=== PATIENT | male | born 1945 | race Caucasian/White ===

== ENCOUNTER 2022-07-16 14:44 | Emergency (ER) | payer OTHER ==
--- NOTE | 2022-07-16 15:00 | ERPHSYRPT ---
- History of Present Illness Time Seen by Provider: 07/16/22 15:00 Source: patient, family Exam Limitations: no limitations Physician History: This is a 76-year-old white male who has a history of renal disease, hyperlipidemia, gastroesophageal reflux disease, diabetes, hypertension, coronary artery disease with cardiac stent in place and a stroke in the past without residual effect noticed in the last 3 weeks since his COVID-19 booster with Moderna injection, he has had worsening weakness, near syncopal episodes, intermittent speech changes (slurring of speech). His most recent episode of slurred speech was 3 days ago but it resolved on its own completely. Today, he has just felt very weak. When he arrived to the emergency department his lying flat blood pressure to standing dropped 40 to 50 mmHg. Patient was dizzy as well. Patient does see a naval architect specialist as well as manager content. He does not recall her names. I obtained additional history from the patient's as well as old charts from [facility]. Patient denies chest p ain. He denies shortness of breath. Timing/Duration: week(s), worse Severity: moderate Associated Symptoms: weakness, other (Near syncope), No nausea, No vomiting, No abdominal pain, No shortness of breath, No chest pain Allergies/Adverse Reactions: tetracycline [Tetracycline] Allergy (Verified 07/16/22 15:13) Home Medications: Aspirin EC 81 mg [Ecotrin 81 mg] 81 mg PO DAILY 12/17/12 [History] Cyanocobalamin (Vitamin B-12) [Vitamin B-12] 1,000 mcg PO DAILY 12/17/12 [History] Glyburide 5 mg [Micronase 5 MG] 10 mg PO BID 12/17/12 [History] Hydrocodone/APAP 5/325 [[place] 5/325 mg] 1 each PO Q4H PRN PRN 12/17/12 [History] Amlodipine Besylate 5 mg [Norvasc 5 mg] 5 mg PO DAILY 07/16/22 [History] Atorvastatin Calcium 10 mg PO DAILY 07/16/22 [History] Cetirizine HCl 10 mg PO DAILY 07/16/22 [History] Cholecalciferol (Vitamin D3) [Vitamin D3] 125 mcg PO DAILY 07/16/22 [History] Empagliflozin [Jardiance] 10 mg PO QAM 07/16/22 [History] Insulin Glargine [Lantus Insulin] 25 unit SQ DAILY 07/16/22 [History] Isosorbide Mononitrate [Isosorbide Mononitrate ER] 30 mg PO QAM 07/16/22 [History] Latanoprost/Pf [Latanoprost 0.005% Eye Drop] 1 drop OP HS 07/16/22 [History] Metoprolol Tartrate 25 mg [Lopressor 25MG Tab] 25 mg PO BID 07/16/22 [History] Nitroglycerin 0.4 mg (Ed) [Nitrostat 0.4 MG (ED)] 0.4 mg SL UD 07/16/22 [History] Semaglutide [Ozempic] 0.5 mg SQ WEEKLY 07/16/22 [History] Sodium Bicarbonate 650 mg PO DAILY 07/16/22 [History] Ticagrelor [Brilinta] 90 mg PO BID 07/16/22 [History] Hx Tetanus, Diphtheria Vaccination/Date Given: Yes Hx Influenza Vaccination/Date Given: Yes Hx Pneumococcal Vaccination/Date Given: Yes Travel Risk - International Travel Have you traveled outside of the country in past 3 weeks: No - Coronavirus Screening Are you exhibiting any of the following symptoms?: No Close contact with a COVID-19 positive Pt in past 14-21 Days: No - Vaccine Status Have you recieved a Covid-19 vaccination: Yes Document Preparer Microfilming: Moderna - Review of Systems Constitutional: Weakness Eyes: No Symptoms Ears, Nose, & Throat: No Symptoms Respiratory: No Symptoms Cardiac: No Symptoms Abdominal/Gastrointestinal: No Symptoms Musculoskeletal: No Symptoms Skin: No Symptoms Neurological: Dizziness Psychological: No Symptoms Endocrine: No Symptoms Hematologic/Lymphatic: No Symptoms Immunological/Allergic: No Symptoms All Other Systems: Reviewed and Negative - Past Medical History Pertinent Past Medical History: Yes Neurological History: Stroke Cardiac History: Coronary Artery Disease, Hypertension Endocrine Medical History: Diabetes Type II Musculoskeletal History: Arthritis - Past Surgical History Past Surgical History: Yes Cardiac: Cardiac Stent Other Surgical History: DORSAL SIMULATOR - Social History Smoking Status: Smoker, status unknown Exposure to second hand smoke: No Drug Use: none Patient Lives Alone: No - Nursing Vital Signs Nursing Vital Signs: Initial Vital Signs Pulse Rate 83 01/10/23 14:55 Respiratory Rate 18 07/16/22 14:55 Blood Pressure 118/75 07/16/22 14:55 O2 Sat by Pulse Oximetry 100 07/16/22 14:55 Pain Scale Pain Intensity 0 - Physical Exam General Appearance: no apparent distress, alert, anxiety, thin Eye Exam: PERRL/EOMI, eyes nml inspection Ears, Nose, Throat Exam: normal ENT inspection, moist mucous membranes Neck Exam: normal inspection, non-tender, supple, full range of motion Respiratory Exam: normal breath sounds, lungs clear, airway intact, No chest tenderness, No respiratory distress Cardiovascular Exam: regular rate/rhythm, normal heart sounds, normal peripheral pulses Gastrointestinal/Abdomen Exam: soft, normal bowel sounds, No tenderness Rectal Exam: not done Back Exam: normal inspection, normal range of motion, No CVA tenderness Extremity Exam: normal inspection, normal range of motion, pelvis stable Neurologic Exam: alert, oriented x 3, cooperative, glass driller II-XII nml as tested, normal mood/affect, sensation nml Skin Exam: normal color, warm, dry Lymphatic Exam: No adenopathy SpO2 Interpretation: normal O2 Delivery: Room Air - Course Nursing assessment & vital signs reviewed: Yes Ordered Tests: Active Orders 24 hr Category Date Time Status EKG-ER Only STAT Care 07/16/22 15:18 Completed IV Insertion STAT Care 07/16/22 15:18 Completed NPO (ED) STAT Care 07/16/22 15:18 Completed HEAD WITHOUT CONTRAST [CT] Stat Exams 07/16/22 15:19 Completed BLOOD CULTURE Stat Lab 07/16/22 15:48 Received CBC W DIFF Stat Lab 07/16/22 15:30 Completed CMP Stat Lab 07/16/22 15:30 Completed MAGNESIUM Stat Lab 07/16/22 15:30 Completed TROPONIN Q4H Lab 07/16/22 15:30 Completed UA W/RFX UR CULTURE Stat Lab 07/16/22 17:58 Completed Medication Summary Discontinued Medications Generic Name Dose Route Start Last Admin Trade Name Freq PRN Reason Stop Dose Admin Sodium Chloride 1,000 mls @ 100 mls/hr 07/16/22 15:30 07/16/22 15:55 Sodium Chloride 0.9% 1000 Ml IV 08/15/22 15:29 100 mls/hr .Q10H ABY Administration Sodium Chloride Confirm 07/16/22 15:53 Sodium Chloride 0.9% 1000 Ml Administered 07/16/22 15:54 Dose 1,000 mls @ .[facility] Lab/Rad Data: Laboratory Result Diagrams 07/16/22 15:30 07/16/22 15:30 Laboratory Results 07/16/22 07/16/22 07/16/22 Range/Units 17:58 17:07 15:30 WBC (4.0-10.5) x10^3/uL RBC (4.1-5.6) x10^6/uL Hgb (12.5-18.0) g/dL Hct (42-50) % MCV (78-100) fL MCH (26-32) pg MCHC (32-36) g/dL RDW (11.5-14.0) % Plt Count (150-450) x10^3/uL MPV (7.5-11.0) fL Gran % (36.0-66.0) % Immature Gran % (Auto) (0.00-0.4) % Nucleat RBC Rel Count (0.00-0.1) % Eos # (Auto) (0-0.5) x10^3/uL Immature Gran # (Auto) (0.00-0.03) x10^3u/L Absolute Lymphs (auto) (1.0-4.6) x10^3/uL Absolute Monos (auto) (0.0-1.3) x10^3/uL Absolute Nucleated RBC (0.00-0.01) x10^3u/L Lymphocytes % (24.0-44.0) % Monocytes % (0.0-12.0) % Eosinophils % (0.00-5.0) % Basophils % (0.0-0.4) % Absolute Granulocytes (1.4-6.9) x10^3/uL Basophils # (0-0.4) x10^3/uL Sodium (137-145) mmol/L Potassium (3.5-5.1) mmol/L Chloride (98-107) mmol/L Carbon Dioxide (22-30) mmol/L Anion Gap (5-15) MEQ/L BUN (9-20) mg/dL Creatinine (0.66-1.25) mg/dL Estimated GFR ML/MIN Glucose (74-106) mg/dL Calcium (8.4-10.2) mg/dL Magnesium (1.6-2.3) mg/dL Total Bilirubin (0.2-1.3) mg/dL AST (17-59) U/L ALT (0-50) U/L Alkaline Phosphatase (38-126) U/L Troponin I < 0.012 (0.000-0.034) ng/mL Serum Total Protein (6.3-8.2) g/dL Albumin (3.5-5.0) g/dL Urine Color Yellow (Yellow) Urine Appearance Clear (Clear) Urine pH 6.0 (4.6-8.0) Ur Specific [place] 1.020 (1.005-1.030) Urine Protein 100 A (Negative) Urine Glucose (UA) >=1000 A (Negative) mg/dL Urine Ketones Negative (Negative) Urine Blood Negative (Negative) Urine Nitrite Negative (Negative) Urine Bilirubin Negative (Negative) Urine Urobilinogen 0.2 (0.2) mg/dL Ur Leukocyte Esterase Negative (Negative) U Hyaline Cast (Auto) 0-2 (0-2) /LPF Urine Microscopic RBC 0-2 (0-5) /HPF Urine Microscopic WBC 0-2 (0-5) /HPF Ur Epithelial Cells None Seen (None Seen) /HPF Urine Bacteria None Seen (None Seen) /HPF Urine Culture Reflexed NO (NO) Influenza Type A Ag NEGATIVE (NEGATIVE) Influenza Type B Ag NEGATIVE (NEGATIVE) RSV (PCR) NEGATIVE (Negative) SARS-CoV-2 (PCR) NEGATIVE (NEGATIVE) 07/16/22 07/16/22 Range/Units 15:30 15:30 WBC 5.1 (4.0-10.5) x10^3/uL RBC 4.89 (4.1-5.6) x10^6/uL Hgb 14.9 (12.5-18.0) g/dL Hct 44.3 (42-50) % MCV 90.6 (78-100) fL MCH 30.5 (26-32) pg MCHC 33.6 (32-36) g/dL RDW 13.2 (11.5-14.0) % Plt Count 221 (150-450) x10^3/uL MPV 10.3 (7.5-11.0) fL Gran % 58.7 (36.0-66.0) % Immature Gran % (Auto) 0.2 (0.00-0.4) % Nucleat RBC Rel Count 0.0 (0.00-0.1) % Eos # (Auto) 0.20 (0-0.5) x10^3/uL Immature Gran # (Auto) 0.01 (0.00-0.03) x10^3u/L Absolute Lymphs (auto) 1.47 (1.0-4.6) x10^3/uL Absolute Monos (auto) 0.40 (0.0-1.3) x10^3/uL Absolute Nucleated RBC 0.00 (0.00-0.01) x10^3u/L Lymphocytes % 28.6 (24.0-44.0) % Monocytes % 7.8 (0.0-12.0) % Eosinophils % 3.9 (0.00-5.0) % Basophils % 0.8 (0.0-0.4) % Absolute Granulocytes 3.02 (1.4-6.9) x10^3/uL Basophils # 0.04 (0-0.4) x10^3/uL Sodium 135 L (137-145) mmol/L Potassium 4.8 (3.5-5.1) mmol/L Chloride 103 (98-107) mmol/L Carbon Dioxide 26 (22-30) mmol/L Anion Gap 10.9 (5-15) MEQ/L BUN 32 H (9-20) mg/dL Creatinine 2.03 H (0.66-1.25) mg/dL Estimated GFR 34.2 ML/MIN Glucose 197 H (74-106) mg/dL Calcium 8.7 (8.4-10.2) mg/dL Magnesium 1.9 (1.6-2.3) mg/dL Total Bilirubin 0.60 (0.2-1.3) mg/dL AST 20 (17-59) U/L ALT 16 (0-50) U/L Alkaline Phosphatase 68 (38-126) U/L Troponin I (0.000-0.034) ng/mL Serum Total Protein 6.2 L (6.3-8.2) g/dL Albumin 3.6 (3.5-5.0) g/dL Urine Color (Yellow) Urine Appearance (Clear) Urine pH (4.6-8.0) Ur Specific [place] (1.005-1.030) Urine Protein (Negative) Urine Glucose (UA) (Negative) mg/dL Urine Ketones (Negative) Urine Blood (Negative) Urine Nitrite (Negative) Urine Bilirubin (Negative) Urine Urobilinogen (0.2) mg/dL Ur Leukocyte Esterase (Negative) U Hyaline Cast (Auto) (0-2) /LPF Urine Microscopic RBC (0-5) /HPF Urine Microscopic WBC (0-5) /HPF Ur Epithelial Cells (None Seen) /HPF Urine Bacteria (None Seen) /HPF Urine Culture Reflexed (NO) Influenza Type A Ag (NEGATIVE) Influenza Type B Ag (NEGATIVE) RSV (PCR) (Negative) SARS-CoV-2 (PCR) (NEGATIVE) - Progress Progress: improved Progress Note: 07/16/22 16:42 CT scan of the head without contrast shows a nonacute senile brain with subcentimeter remote infarction of the left periventricular white matter 07/16/22 18:56 Medical decision making: This patient has chronic renal disease and his GFR, per his report, has increased from 28-34.6 today. His vital signs are stable he is oxygenating at 100%. At the time of discharge she has no complaints of shortness of breath or chest pain. He has no abdominal pain. He is hungry and thirsty. There are no ketones in his urine and he has no urinary tract infection. Patient desired to be discharged home and I think he is stable enough to do so. We will repeat orthostatics prior to him being discharged to home. Patient states he is feeling much improved. 07/16/22 18:59 Counseled pt/family regarding: lab results, diagnosis, rad results - Departure Departure Disposition: Home Clinical Impression: Weakness Condition: Stable Critical Care Time: No Referrals: HASMUKH GUSTAFSON MD [Primary Care Provider] - Follow up/PCP as directed Instructions: Orthostatic Hypotension (DC) Additional Instructions: Patient was told to drink plenty of fluids to take his medication as prescribed and follow-up with his primary care provider for further evaluation management including evaluation by his naval architect specialist and manager content.
[2022-07-16] MEDS ORDERED: Sodium Chloride 0.9% 1000 ML 1,000 ML IV SCH (15:30)
[2022-07-16] MEDS ORDERED: Sodium Chloride 0.9% 1000 ML 1,000 ML ONE (15:53)
[2022-07-16 16:09] LABS: Absolute Neutrophil Ct (ANC) 3.02 x10^3/uL (1.4-6.9); Basophil (Absolute #) 0.04 x10^3/uL (0-0.4); Eosinophil % 3.9 % (0.00-5.0); Hematocrit 44.3 % (42-50); Hemoglobin 14.9 g/dL (12.5-18.0); Lymphocyte (Absolute #) 1.47 x10^3/uL (1.0-4.6); Lymphocytes % 28.6 % (24.0-44.0); Mean Cell Volume 90.6 fL (78-100); Mean Corpuscular Hemoglobin 30.5 pg (26-32); Mean Corpuscular Hgb Concent. 33.6 g/dL (32-36); Mean Platelet Volume 10.3 fL (7.5-11.0); Monocytes % 7.8 % (0.0-12.0); Neutrophil % 58.7 % (36.0-66.0); Platelet Count 221 x10^3/uL (150-450); Red Blood Count 4.89 x10^6/uL (4.1-5.6); Red Cell Distribution Width 13.2 % (11.5-14.0); White Blood Count 5.1 x10^3/uL (4.0-10.5)
[2022-07-16 16:17] LABS: ALBUMIN 3.6 g/dL (3.5-5.0); ANION GAP 10.9 MEQ/L (5-15); BILIRUBIN,TOTAL 0.6 mg/dL (0.2-1.3); Calcium 8.7 mg/dL (8.4-10.2); Creatinine 1 2.03 mg/dL (0.66-1.25); EST GLOMERULAR FILTRATION RATE 34.2 ML/MIN; MAGNESIUM 1.9 mg/dL (1.6-2.3); Potassium 4.8 mmol/L (3.5-5.1); Total Protein 6.2 g/dL (6.3-8.2)
--- NOTE | 2022-07-16 16:33 | XRAY ---
Indication: Weakness. Near-syncope. Multiple contiguous axial images obtained through the head without contrast. Comparison: October 17, 2009 Age-appropriate global atrophy and minimal periventricular degenerative micro-ischemia bilaterally. New finding subcentimeter focus remote infarct left mid periventricular white matter. No acute intracranial hemorrhage, abnormal extra-axial fluid collection, or mass effect. Fourth ventricle is midline without hydrocephalus. Bony calvarium intact. Visualized paranasal sinuses and mastoid air cells are clear. Impression: Nonacute senile brain with subcentimeter remote infarct left periventricular white matter.
[2022-07-16 17:55] LABS: INFLUENZA A NEGATIVE (NEGATIVE); INFLUENZA B NEGATIVE (NEGATIVE); RESPIRATORY SYNCTIAL VIRUS NEGATIVE (Negative); SARS-CoV-2 Xpert Express NEGATIVE (NEGATIVE)
[2022-07-16 18:48] LABS: Bacteria None Seen /HPF (None Seen); Epithelial Cells None Seen /HPF (None Seen); Hyaline Casts 0-2 /LPF (0-2); RBC 0-2 /HPF (0-5); WBC 0-2 /HPF (0-5)
[2022-07-16 18:49] LABS: ADD URINE CULTURE? NO (NO); Appearance Clear (Clear); Bilirubin Negative (Negative); Blood Negative (Negative); Glucose, Urine >=1000 mg/dL (Negative); Ketones Negative (Negative); Leukocyte Esterase Negative (Negative); Nitrite Negative (Negative); Protein,Urine Dip 100 (Negative); Urobilinogen 0.2 mg/dL (0.2)
[2022-07-16 19:21] VITALS: PULSE 75
[2022-07-16 20:08] VITALS: BP 104/73; O2SAT 86
== END 2022-07-16 20:10 | disposition home or self-care (01) ==
LOC: ED 14:44
DX: R53.1 Weakness (principal); R55 Syncope and collapse; I12.9 Hypertensive chronic kidney disease with stage 1 through stage 4 chronic kidney disease, or unspecified chronic kidney disease; E11.22 Type 2 diabetes mellitus with diabetic chronic kidney disease; N18.9 Chronic kidney disease, unspecified; E78.5 Hyperlipidemia, unspecified; Z79.4 Long term (current) use of insulin; Z79.84 Long term (current) use of oral hypoglycemic drugs; Z79.85 Long-term (current) use of injectable non-insulin antidiabetic drugs; Z79.02 Long term (current) use of antithrombotics/antiplatelets; Z72.0 Tobacco use; Z20.828 Contact with and (suspected) exposure to other viral communicable diseases
CPT/HCPCS: 0241U; 36000; 36415; 70450; 80053; 81001; 83735; 84484; 85025; 87040; 93005; 99284

== ENCOUNTER 2023-01-13 12:14 | Emergency (ER) | payer OTHER ==
--- NOTE | 2023-01-13 13:08 | ERPHSYRPT ---
- History of Present Illness Historian: patient, other () Patient Subjective Stated Complaint: Pt c/o of shaking and pain all over and vomited on the way here Triage Nursing Assessment: Pt brought to the ER by his , hypertensive, rates pain as 8/10, pt states that for 2 days prior he felt a little uneasy but was okay but today when he woke up he was shaking and hurt all over, pulses normal, skin hot, has not eaten anything today, is a diabetic, no difficulties breathing Physician History: 77 yo WM w periumbilical abdominal pain since 3AM. Pt can not describe the pain and states that it is 5/10 at present but has been up to an 8/10. Pt denies hematemesis/melena/hematochezia/dysuria/hematuria/chest pain/dyspnea. Timing/Duration: other (3AM) Activities at Onset: sleep Abdominal Pain Onset Location: periumbilical Pain Radiation: no radiation Severity of Pain-Max: severe Severity of Pain-Current: moderate Associated Symptoms: nausea, vomiting Previous symptoms: no prior history Allergies/Adverse Reactions: tetracycline [Tetracycline] Allergy (Verified 01/13/23 12:50) Home Medications: Amlodipine Besylate 5 mg [Norvasc 5 mg] 5 mg PO DAILY 07/16/22 [History] Atorvastatin Calcium 10 mg PO DAILY 07/16/22 [History] Cetirizine HCl 10 mg PO DAILY 07/16/22 [History] Cholecalciferol (Vitamin D3) [Vitamin D3] 125 mcg PO DAILY 07/16/22 [History] Empagliflozin [Jardiance] 10 mg PO QAM 07/16/22 [History] Insulin Glargine [Lantus Insulin] 25 unit SQ DAILY 07/16/22 [History] Isosorbide Mononitrate [Isosorbide Mononitrate ER] 30 mg PO QAM 07/16/22 [History] Latanoprost/Pf [Latanoprost 0.005% Eye Drop] 1 drop OP HS 07/16/22 [History] Metoprolol Tartrate 25 mg [Lopressor 25MG Tab] 25 mg PO DAILY 07/16/22 [History] Nitroglycerin 0.4 mg (Ed) [Nitrostat 0.4 MG (ED)] 0.4 mg SL UD 07/16/22 [History] Semaglutide [Ozempic] 0.5 mg SQ WEEKLY 07/16/22 [History] Sodium Bicarbonate 650 mg PO DAILY 07/16/22 [History] Ticagrelor [Brilinta] 90 mg PO BID 07/16/22 [History] Amiodarone HCl 200 mg [Cordarone 200 MG] 200 mg PO DAILY 01/13/23 [History] Aspirin 81 gm Chew [Baby Aspirin 81 mg Chew] 81 mg PO DAILY 01/13/23 [History] Cyanocobalamin (Vitamin B-12) [B-12] 1,000 mcg PO DAILY 01/13/23 [History] Glyburide 5 mg [Micronase 5 MG] 10 mg PO BID 01/13/23 [History] Hydrocodone/Acetaminophen [Hydrocodone-Acetamin 5-325 mg] 1 tab PO Q4H PRN 01/13/23 [History] Hx Tetanus, Diphtheria Vaccination/Date Given: Yes Hx Influenza Vaccination/Date Given: Yes Hx Pneumococcal Vaccination/Date Given: Yes Travel Risk - International Travel Have you traveled outside of the country in past 3 weeks: No - Coronavirus Screening Are you exhibiting any of the following symptoms?: Yes Symptoms: Vomiting/Diarrhea Close contact with a COVID-19 positive Pt in past 14-21 Days: No - Vaccine Status Have you recieved a Covid-19 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: 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 - Vaccination Dates Date of 2cond Vaccination (if applicable): 10/10/2020 - Review of Systems Constitutional: No Symptoms, Chills Eyes: No Symptoms Ears, Nose, & Throat: No Symptoms Respiratory: No Symptoms Cardiac: No Symptoms Abdominal/Gastrointestinal: No Symptoms, Abdominal Pain, Nausea, Vomiting Genitourinary Symptoms: No Symptoms Musculoskeletal: No Symptoms, Myalgias Skin: No Symptoms Neurological: No Symptoms Psychological: No Symptoms Endocrine: No Symptoms Hematologic/Lymphatic: No Symptoms Immunological/Allergic: No Symptoms - Past Medical History Pertinent Past Medical History: Yes Neurological History: Stroke Cardiac History: Coronary Artery Disease, Hypertension, Myocardial Infarction ([place]) Respiratory History: Sleep Apnea Endocrine Medical History: Diabetes Type II Musculoskeletal History: Arthritis Psycho-Social History: No Pertinent History - Past Surgical History Past Surgical History: Yes Neuro Surgical History: No Pertinent History Cardiac: Cardiac Stent Respiratory: No Pertinent History Gastrointestinal: No Pertinent History Genitourinary: No Pertinent History Musculoskeletal: No Pertinent History Other Surgical History: DORSAL SIMULATOR, back surgery 3 stints - Social History Smoking Status: Smoker, status unknown Exposure to second hand smoke: No Drug Use: none Patient Lives Alone: No - Nursing Vital Signs Nursing Vital Signs: Initial Vital Signs Temperature 98.3 F 01/13/23 12:22 Pulse Rate 103 H 01/13/23 12:22 Blood Pressure 126/103 01/13/23 12:22 O2 Sat by Pulse Oximetry 100 01/13/23 12:22 Pain Scale Pain Intensity [Anterior/ 8 Posterior Generalized] Pain Intensity 2 Tachy/Hypertensive - Physical Exam General Appearance: no apparent distress Eye Exam: PERRL/EOMI, eyes nml inspection Ears, Nose, Throat Exam: normal ENT inspection, TMs normal, pharynx normal, moist mucous membranes Neck Exam: normal inspection, non-tender, supple, full range of motion, No meningismus, No mass, No Brudzinski, No Kernig's Respiratory Exam: normal breath sounds, lungs clear, airway intact Cardiovascular Exam: tachycardia, capillary refill <2 sec, No murmur Gastrointestinal/Abdomen Exam: soft, normal bowel sounds, tenderness (Mild periumbilical TTP wo guarding or rebound) Back Exam: normal inspection, normal range of motion Extremity Exam: normal inspection, normal range of motion Neurologic Exam: alert, oriented x 3, cooperative, manager mobility II-XII nml as tested, normal mood/affect, nml cerebellar function, nml station & gait, sensation nml Skin Exam: normal color, warm, dry Lymphatic Exam: No adenopathy SpO2 Interpretation: normal SpO2: 100 O2 Delivery: Room Air - Course Nursing assessment & vital signs reviewed: Yes EKG Interpreted by Me: RATE (Sinus tach/Rate 105/Normal QT-Qtc/Poor Rwave progression V1-V2/Normal Twaves/No acute ST changes) - CT Exams Chest CT Interpretation: Tele-radiologist Report (NAD) Abdomen/Pelvis CT Interpretation: Tele-radiologist Report (Distended gallbladder due to sludge/No cholecystitis) - Radiology Ultrasound Exam Gallbladder Ultrasound: tele radiology report (Distended gallbladder/sludge/no wall thickening or pericholecystic fluid) Ordered Tests: Active Orders 24 hr Category Date Time Status EKG-ER Only STAT Care 01/13/23 14:06 Completed IV Insertion STAT Care 01/13/23 14:06 Completed IV Insertion STAT Care 01/13/23 18:39 Completed ABDOMEN AND PELVIS W/0 CONTRAS [CT] Stat Exams 01/13/23 16:48 Completed CHEST 1 VIEW (PORTABLE) Stat Exams 01/13/23 14:35 Completed GALLBLADDER [US] Stat Exams 01/13/23 15:39 Completed AMYLASE Stat Lab 01/13/23 18:35 Completed BLOOD CULTURE Stat Lab 01/13/23 20:50 Received CBC W DIFF Stat Lab 01/13/23 14:15 Completed CMP Stat Lab 01/13/23 14:15 Completed LIPASE Stat Lab 01/13/23 18:35 Completed Lactic Acid Stat Lab 01/13/23 14:21 Completed Lactic Acid Stat Lab 01/13/23 18:50 Completed POCT GLUCOSE Stat Lab 01/13/23 12:27 Completed POCT GLUCOSE Stat Lab 01/13/23 18:14 Completed TROPONIN Q4H Lab 01/13/23 14:15 Completed TROPONIN Q4H Lab 01/13/23 18:15 Completed UA W/RFX UR CULTURE Stat Lab 01/13/23 14:49 Completed Medication Summary Discontinued Medications Generic Name Dose Route Start Last Admin Trade Name Rian PRN Reason Stop Dose Admin Acetaminophen 1,000 mg 01/13/23 20:37 01/13/23 20:42 Acetaminophen 500 Mg Tablet PO 01/13/23 20:38 1,000 mg STAT ONE Administration Acetaminophen Confirm 01/13/23 20:41 Acetaminophen 500 Mg Tablet Administered 01/13/23 20:42 Dose 1,000 mg .ROUTE .STK-MED ONE Aspirin 324 mg 01/13/23 18:45 01/13/23 19:53 Aspirin 81 Mg Tab.Chew PO 01/13/23 18:46 324 mg STAT ONE Administration Sodium Chloride 1,000 mls @ 999 mls/hr 01/13/23 14:06 01/13/23 15:36 Sodium Chloride 0.9% 1000 Ml IV 01/13/23 15:06 Infused .Q1H1M STA Infusion Sodium Chloride Confirm 01/13/23 14:31 Sodium Chloride 0.9% 1000 Ml Administered 01/13/23 14:32 Dose 1,000 mls @ ud .ROUTE .STK-MED ONE Sodium Chloride 1,000 mls @ 999 mls/hr 01/13/23 17:05 01/13/23 18:28 Sodium Chloride 0.9% 1000 Ml IV 01/13/23 18:05 Infused .Q1H1M STA Infusion Sodium Chloride Confirm 01/13/23 17:06 Sodium Chloride 0.9% 1000 Ml Administered 01/13/23 17:07 Dose 1,000 mls @ ud .ROUTE .STK-MED ONE Sodium Chloride 1,000 mls @ 999 mls/hr 01/13/23 18:37 01/13/23 21:58 Sodium Chloride 0.9% 1000 Ml IV 01/13/23 19:37 Infused .Q1H1M STA Infusion Sodium Chloride Confirm 01/13/23 18:38 Sodium Chloride 0.9% 1000 Ml Administered 01/13/23 18:39 Dose 1,000 mls @ ud .ROUTE .STK-MED ONE Amiodarone HCl/Dextrose 360 mg in 200 mls @ 33 mls/hr 01/13/23 18:45 01/13/23 19:48 Nexterone 360 Mg/200 Ml Bag IV 02/12/23 18:44 59.94 mg/hr .Q6H4M ABY 33.3 mls/hr Administration Protocol Norepinephrine/Dextrose 8 mg in 250 mls @ 15 mls/hr 01/13/23 19:10 01/13/23 19:50 Norepinephrine 8 Mg/250 Ml-D5w IV 02/12/23 19:09 0 mcg/min .[id number] PRN 0 mls/hr HYPOTENSION Titration Protocol 8 MCG/MIN Ceftriaxone Sodium/Dextrose 1 g in 50 mls @ 100 mls/hr 01/13/23 20:36 01/13/23 21:58 Rocephin 1 Gm-D5w 50 Ml Bag IV 01/13/23 21:05 Infused STAT STA Infusion Ceftriaxone Sodium/Dextrose Confirm 01/13/23 20:36 Rocephin 1 Gm-D5w 50 Ml Bag Administered 01/13/23 20:37 Dose 1 g in 50 mls @ ud IV .STK-MED ONE Amiodarone HCl/Dextrose Confirm 01/13/23 18:45 Nexterone 360 Mg/200 Ml Bag Administered 01/13/23 18:46 Dose 360 mg in 200 mls @ ud IV .STK-MED ONE Midazolam HCl Confirm 01/13/23 18:51 Midazolam Hcl 5 Mg/5 Ml Vial Administered 01/13/23 18:52 Dose 5 mg .ROUTE .STK-MED ONE Midazolam HCl 5 mg 01/13/23 18:53 01/13/23 18:53 Midazolam Hcl 5 Mg/5 Ml Vial IV 01/13/23 18:54 5 mg STAT ONE Administration Lab/Rad Data: Laboratory Result Diagrams 01/13/23 14:15 01/13/23 14:15 Laboratory Results 01/13/23 01/13/23 01/13/23 Range/Units 18:50 18:35 18:15 WBC (4.0-10.5) x10^3/uL RBC (4.1-5.6) x10^6/uL Hgb (12.5-18.0) g/dL Hct (42-50) % MCV (78-100) fL MCH (26-32) pg MCHC (32-36) g/dL RDW (11.5-14.0) % Plt Count (150-450) x10^3/uL MPV (7.5-11.0) fL Gran % (36.0-66.0) % Immature Gran % (Auto) (0.00-0.4) % Nucleat RBC Rel Count (0.00-0.1) % Eos # (Auto) (0-0.5) x10^3/uL Immature Gran # (Auto) (0.00-0.03) x10^3u/L Absolute Lymphs (auto) (1.0-4.6) x10^3/uL Absolute Monos (auto) (0.0-1.3) x10^3/uL Absolute Nucleated RBC (0.00-0.01) x10^3u/L Lymphocytes % (24.0-44.0) % Monocytes % (0.0-12.0) % Eosinophils % (0.00-5.0) % Basophils % (0.0-0.4) % Absolute Granulocytes (1.4-6.9) x10^3/uL Basophils # (0-0.4) x10^3/uL Sodium (137-145) mmol/L Potassium (3.5-5.1) mmol/L Chloride (98-107) mmol/L Carbon Dioxide (22-30) mmol/L Anion Gap (5-15) MEQ/L BUN (9-20) mg/dL Creatinine (0.66-1.25) mg/dL Estimated GFR ML/MIN Glucose (74-106) mg/dL POC Glucometer (74 to 106) mg/dL Lactic Acid 2.1 H (0.4-2.0) Calcium (8.4-10.2) mg/dL Total Bilirubin (0.2-1.3) mg/dL AST (17-59) U/L ALT (0-50) U/L Alkaline Phosphatase (38-126) U/L Troponin I < 0.012 (0.000-0.034) ng/mL Serum Total Protein (6.3-8.2) g/dL Albumin (3.5-5.0) g/dL Amylase 62 (30-110) U/L Lipase 138 (23-300) U/L Urine Color (Yellow) Urine Appearance (Clear) Urine pH (4.6-8.0) Ur Specific [place] (1.005-1.030) Urine Protein (Negative) Urine Glucose (UA) (Negative) mg/dL Urine Ketones (Negative) Urine Blood (Negative) Urine Nitrite (Negative) Urine Bilirubin (Negative) Urine Urobilinogen (0.2) mg/dL Ur Leukocyte Esterase (Negative) U Hyaline Cast (Auto) (0-2) /LPF Urine Microscopic RBC (0-5) /HPF Urine Microscopic WBC (0-5) /HPF Ur Epithelial Cells (None Seen) /HPF Urine Bacteria (None Seen) /HPF Urine Culture Reflexed (NO) Influenza Type A Ag (NEGATIVE) Influenza Type B Ag (NEGATIVE) RSV (PCR) (NEGATIVE) SARS-CoV-2 (PCR) (NEGATIVE) Slides for Path Review 01/13/23 01/13/23 01/13/23 Range/Units 18:14 14:49 14:21 WBC (4.0-10.5) x10^3/uL RBC (4.1-5.6) x10^6/uL Hgb (12.5-18.0) g/dL Hct (42-50) % MCV (78-100) fL MCH (26-32) pg MCHC (32-36) g/dL RDW (11.5-14.0) % Plt Count (150-450) x10^3/uL MPV (7.5-11.0) fL Gran % (36.0-66.0) % Immature Gran % (Auto) (0.00-0.4) % Nucleat RBC Rel Count (0.00-0.1) % Eos # (Auto) (0-0.5) x10^3/uL Immature Gran # (Auto) (0.00-0.03) x10^3u/L Absolute Lymphs (auto) (1.0-4.6) x10^3/uL Absolute Monos (auto) (0.0-1.3) x10^3/uL Absolute Nucleated RBC (0.00-0.01) x10^3u/L Lymphocytes % (24.0-44.0) % Monocytes % (0.0-12.0) % Eosinophils % (0.00-5.0) % Basophils % (0.0-0.4) % Absolute Granulocytes (1.4-6.9) x10^3/uL Basophils # (0-0.4) x10^3/uL Sodium (137-145) mmol/L Potassium (3.5-5.1) mmol/L Chloride (98-107) mmol/L Carbon Dioxide (22-30) mmol/L Anion Gap (5-15) MEQ/L BUN (9-20) mg/dL Creatinine (0.66-1.25) mg/dL Estimated GFR ML/MIN Glucose (74-106) mg/dL POC Glucometer 97 (74 to 106) mg/dL Lactic Acid 1.7 (0.4-2.0) Calcium (8.4-10.2) mg/dL Total Bilirubin (0.2-1.3) mg/dL AST (17-59) U/L ALT (0-50) U/L Alkaline Phosphatase (38-126) U/L Troponin I (0.000-0.034) ng/mL Serum Total Protein (6.3-8.2) g/dL Albumin (3.5-5.0) g/dL Amylase (30-110) U/L Lipase (23-300) U/L Urine Color Yellow (Yellow) Urine Appearance Clear (Clear) Urine pH 6.0 (4.6-8.0) Ur Specific [place] 1.020 (1.005-1.030) Urine Protein 100 A (Negative) Urine Glucose (UA) >=1000 A (Negative) mg/dL Urine Ketones Negative (Negative) Urine Blood Negative (Negative) Urine Nitrite Negative (Negative) Urine Bilirubin Negative (Negative) Urine Urobilinogen 1.0 A (0.2) mg/dL Ur Leukocyte Esterase Negative (Negative) U Hyaline Cast (Auto) NONE SEEN (0-2) /LPF Urine Microscopic RBC 0-2 (0-5) /HPF Urine Microscopic WBC 0-2 (0-5) /HPF Ur Epithelial Cells None Seen (None Seen) /HPF Urine Bacteria None Seen (None Seen) /HPF Urine Culture Reflexed NO (NO) Influenza Type A Ag (NEGATIVE) Influenza Type B Ag (NEGATIVE) RSV (PCR) (NEGATIVE) SARS-CoV-2 (PCR) (NEGATIVE) Slides for Path Review 01/13/23 01/13/23 01/13/23 Range/Units 14:15 14:15 14:15 WBC 9.2 (4.0-10.5) x10^3/uL RBC 5.46 (4.1-5.6) x10^6/uL Hgb 16.2 (12.5-18.0) g/dL Hct 48.3 (42-50) % MCV 88.5 (78-100) fL MCH 29.7 (26-32) pg MCHC 33.5 (32-36) g/dL RDW 13.3 (11.5-14.0) % Plt Count 208 (150-450) x10^3/uL MPV 10.5 (7.5-11.0) fL Gran % 87.6 H (36.0-66.0) % Immature Gran % (Auto) 0.2 (0.00-0.4) % Nucleat RBC Rel Count 0.0 (0.00-0.1) % Eos # (Auto) 0.03 (0-0.5) x10^3/uL Immature Gran # (Auto) 0.02 (0.00-0.03) x10^3u/L Absolute Lymphs (auto) 0.51 L (1.0-4.6) x10^3/uL Absolute Monos (auto) 0.55 (0.0-1.3) x10^3/uL Absolute Nucleated RBC 0.00 (0.00-0.01) x10^3u/L Lymphocytes % 5.6 L (24.0-44.0) % Monocytes % 6.0 (0.0-12.0) % Eosinophils % 0.3 (0.00-5.0) % Basophils % 0.3 (0.0-0.4) % Absolute Granulocytes 8.02 H (1.4-6.9) x10^3/uL Basophils # 0.03 (0-0.4) x10^3/uL Sodium 138 (137-145) mmol/L Potassium 5.0 (3.5-5.1) mmol/L Chloride 104 (98-107) mmol/L Carbon Dioxide 23 (22-30) mmol/L Anion Gap 15.7 H (5-15) MEQ/L BUN 39 H (9-20) mg/dL Creatinine 2.02 H (0.66-1.25) mg/dL Estimated GFR 34.3 ML/MIN Glucose 152 H (74-106) mg/dL POC Glucometer (74 to 106) mg/dL Lactic Acid (0.4-2.0) Calcium 9.1 (8.4-10.2) mg/dL Total Bilirubin 1.20 (0.2-1.3) mg/dL AST 557 H (17-59) U/L ALT 352 H (0-50) U/L Alkaline Phosphatase 148 H (38-126) U/L Troponin I < 0.012 (0.000-0.034) ng/mL Serum Total Protein 7.3 (6.3-8.2) g/dL Albumin 4.2 (3.5-5.0) g/dL Amylase (30-110) U/L Lipase (23-300) U/L Urine Color (Yellow) Urine Appearance (Clear) Urine pH (4.6-8.0) Ur Specific [place] (1.005-1.030) Urine Protein (Negative) Urine Glucose (UA) (Negative) mg/dL Urine Ketones (Negative) Urine Blood (Negative) Urine Nitrite (Negative) Urine Bilirubin (Negative) Urine Urobilinogen (0.2) mg/dL Ur Leukocyte Esterase (Negative) U Hyaline Cast (Auto) (0-2) /LPF Urine Microscopic RBC (0-5) /HPF Urine Microscopic WBC (0-5) /HPF Ur Epithelial Cells (None Seen) /HPF Urine Bacteria (None Seen) /HPF Urine Culture Reflexed (NO) Influenza Type A Ag (NEGATIVE) Influenza Type B Ag (NEGATIVE) RSV (PCR) (NEGATIVE) SARS-CoV-2 (PCR) (NEGATIVE) Slides for Path Review YES 01/13/23 01/13/23 Range/Units 13:00 12:27 WBC (4.0-10.5) x10^3/uL RBC (4.1-5.6) x10^6/uL Hgb (12.5-18.0) g/dL Hct (42-50) % MCV (78-100) fL MCH (26-32) pg MCHC (32-36) g/dL RDW (11.5-14.0) % Plt Count (150-450) x10^3/uL MPV (7.5-11.0) fL Gran % (36.0-66.0) % Immature Gran % (Auto) (0.00-0.4) % Nucleat RBC Rel Count (0.00-0.1) % Eos # (Auto) (0-0.5) x10^3/uL Immature Gran # (Auto) (0.00-0.03) x10^3u/L Absolute Lymphs (auto) (1.0-4.6) x10^3/uL Absolute Monos (auto) (0.0-1.3) x10^3/uL Absolute Nucleated RBC (0.00-0.01) x10^3u/L Lymphocytes % (24.0-44.0) % Monocytes % (0.0-12.0) % Eosinophils % (0.00-5.0) % Basophils % (0.0-0.4) % Absolute Granulocytes (1.4-6.9) x10^3/uL Basophils # (0-0.4) x10^3/uL Sodium (137-145) mmol/L Potassium (3.5-5.1) mmol/L Chloride (98-107) mmol/L Carbon Dioxide (22-30) mmol/L Anion Gap (5-15) MEQ/L BUN (9-20) mg/dL Creatinine (0.66-1.25) mg/dL Estimated GFR ML/MIN Glucose (74-106) mg/dL POC Glucometer 132 H (74 to 106) mg/dL Lactic Acid (0.4-2.0) Calcium (8.4-10.2) mg/dL Total Bilirubin (0.2-1.3) mg/dL AST (17-59) U/L ALT (0-50) U/L Alkaline Phosphatase (38-126) U/L Troponin I (0.000-0.034) ng/mL Serum Total Protein (6.3-8.2) g/dL Albumin (3.5-5.0) g/dL Amylase (30-110) U/L Lipase (23-300) U/L Urine Color (Yellow) Urine Appearance (Clear) Urine pH (4.6-8.0) Ur Specific [place] (1.005-1.030) Urine Protein (Negative) Urine Glucose (UA) (Negative) mg/dL Urine Ketones (Negative) Urine Blood (Negative) Urine Nitrite (Negative) Urine Bilirubin (Negative) Urine Urobilinogen (0.2) mg/dL Ur Leukocyte Esterase (Negative) U Hyaline Cast (Auto) (0-2) /LPF Urine Microscopic RBC (0-5) /HPF Urine Microscopic WBC (0-5) /HPF Ur Epithelial Cells (None Seen) /HPF Urine Bacteria (None Seen) /HPF Urine Culture Reflexed (NO) Influenza Type A Ag NEGATIVE (NEGATIVE) Influenza Type B Ag NEGATIVE (NEGATIVE) RSV (PCR) NEGATIVE (NEGATIVE) SARS-CoV-2 (PCR) NEGATIVE (NEGATIVE) Slides for Path Review - Progress Progress Note: 01/13/23 23:33 Nursing note and vital signs reviewed No food or housing insecurities noted Additional history per All labs reviewed and shared w pt/ CT and US results reviewed and shared w pt/ Pt w 1L NS bolus early in course After pt returned from CT, he developed a fever and hypotension Additional bolus started Recycled troponin and lactate Pt developed chest martinez and repeat EKG demonstrated Vtach Pt moved to room 2 2nd IV access started Amiodarone drip started 5mg IV Versed Cardioversion 100J w success/Conversion to sinus tach Pt became mildly hypotensive, so Levophed drip started w good BP response Levophed weaned as pt became normotensive Blood cultures x2/1gm po Tylenol/1gm IV Rocephin Pt transferred to [facility] per Dr. Du Pt stable when Lindy assumed care of pt Pt also accepted by [facility], but bed became available at [facility] 01/13/23 23:43 01/13/23 23:47 Counseled pt/family regarding: lab results, diagnosis, rad results Medical Desision Making - Independent Historian Additional History obtained from: Spouse - Diagnostic Testing Diagnostic test were ordered, analyzed, and reviewed by me: Yes Radiological Interpretation: Reviewed by me, Teleradiologist Report - Risk of complications The pt has a high risk of morbidity or mortality based on: Drug therapy requiring intensive monitoring for toxicity - Departure Departure Disposition: Transfer Clinical Impression: Abdominal pain, Ventricular tachycardia, Fever Condition: Critical Critical Care Time: Yes Critical Care Time(excluding separately billable procedures): Critical 105-134 mins Referrals: HASMUKH GUSTAFSON MD [Primary Care Provider] - Follow up/PCP as directed
[2023-01-13 13:50] LABS: INFLUENZA A NEGATIVE (NEGATIVE); INFLUENZA B NEGATIVE (NEGATIVE); RESPIRATORY SYNCTIAL VIRUS NEGATIVE (NEGATIVE); SARS-CoV-2 Xpert Express NEGATIVE (NEGATIVE)
[2023-01-13] MEDS ORDERED: Sodium Chloride 0.9% 1000 ML 1,000 ML IV STA ×3 (14:06→18:37)
[2023-01-13] MEDS ORDERED: Sodium Chloride 0.9% 1000 ML 1,000 ML ONE ×3 (14:31→18:38)
[2023-01-13 15:01] LABS: Absolute Neutrophil Ct (ANC) 8.02 x10^3/uL (1.4-6.9); BASOPHIL % 0.3 % (0.0-0.4); Basophil (Absolute #) 0.03 x10^3/uL (0-0.4); Eosinophil % 0.3 % (0.00-5.0); Eosinophil (Absolute #) 0.03 x10^3/uL (0-0.5); Hematocrit 48.3 % (42-50); Hemoglobin 16.2 g/dL (12.5-18.0); IMMATURE GRAN # 0.02 x10^3u/L (0.00-0.03); IMMATURE GRAN % 0.2 % (0.00-0.4); Lymphocyte (Absolute #) 0.51 x10^3/uL (1.0-4.6); Lymphocytes % 5.6 % (24.0-44.0); Mean Cell Volume 88.5 fL (78-100); Mean Corpuscular Hemoglobin 29.7 pg (26-32); Mean Corpuscular Hgb Concent. 33.5 g/dL (32-36); Mean Platelet Volume 10.5 fL (7.5-11.0); Monocyte (Absolute #) 0.55 x10^3/uL (0.0-1.3); Neutrophil % 87.6 % (36.0-66.0); Platelet Count 208 x10^3/uL (150-450); Red Blood Count 5.46 x10^6/uL (4.1-5.6); Red Cell Distribution Width 13.3 % (11.5-14.0); White Blood Count 9.2 x10^3/uL (4.0-10.5)
--- NOTE | 2023-01-13 15:15 | XRAY ---
CLINICAL HISTORY:fever. COMPARISON:10/17/2009. TECHNIQUES:X-ray chest AP views. FINDINGS: Lung garcia are clear. Heart size is normal. Normal mediastinal and hilar configuration. Both costophrenic angles are sharp. Bones appear unremarkable except thoracic spondylodegenerative changes and lower anterior rib irregularities, these could be old injuries, however, no acute fracture is seen. IMPRESSION: Unremarkable chest x-ray, stable. Electronically Signed by: Stone Carcamo MD. (01/13/2023 14:08:58 STAFF ACCOUNTANT)
[2023-01-13 15:16] LABS: ALBUMIN 4.2 g/dL (3.5-5.0); ANION GAP 15.7 MEQ/L (5-15); BILIRUBIN,TOTAL 1.2 mg/dL (0.2-1.3); Calcium 9.1 mg/dL (8.4-10.2); Creatinine 1 2.02 mg/dL (0.66-1.25); EST GLOMERULAR FILTRATION RATE 34.3 ML/MIN; Total Protein 7.3 g/dL (6.3-8.2)
[2023-01-13 15:40] LABS: Appearance Clear (Clear); Bacteria None Seen /HPF (None Seen); Bilirubin Negative (Negative); Blood Negative (Negative); Epithelial Cells None Seen /HPF (None Seen); Glucose, Urine >=1000 mg/dL (Negative); Hyaline Casts NONE SEEN /LPF (0-2); Ketones Negative (Negative); Leukocyte Esterase Negative (Negative); Nitrite Negative (Negative); Protein,Urine Dip 100 (Negative); RBC 0-2 /HPF (0-5); WBC 0-2 /HPF (0-5)
[2023-01-13 15:48] LABS: ADD URINE CULTURE? NO (NO)
[2023-01-13 15:56] LABS: Slide Review 1 YES
--- NOTE | 2023-01-13 17:13 | XRAY ---
CLINICAL HISTORY:Transaminitis. COMPARISON:None. TECHNIQUES:Examination of the right upper quadrant abdomen was performed in real-time and duplex Ultrasound. FINDINGS: The liver is normal in size. It measures 16 cm at the largest craniocaudal span. It demonstrates normal parenchymal echotexture. No focal or diffuse hepatic abnormality was noted. The intrahepatic biliary tree is normal with no evidence of dilatation. The gallbladder is overdistended with normal wall thickness (1.5 mm) showing a small amount of biliary mud and sludge. No mass is noted. The CBD caliber measures 5mm. Pancreas appears unremarkable. Right kidney measures 9.7 x 5 x 4.2 cm with normal echogenicity, no calculi, mass or hydronephrosis. IMPRESSION: Overdistended Gall bladder showing sludge. Electronically Signed by: Stone Carcamo MD. (01/13/2023 15:23:40 NEUROPHYSIOLOGY TECH)
--- NOTE | 2023-01-13 18:19 | XRAY ---
CLINICAL HISTORY:Abdominal pain. COMPARISON:US 01/13/2023. TECHNIQUES:CT scan of the abdomen and pelvis was performed without IV contrast. Bowel loops are opacified by prior administration of oral contrast. Coronal and sagittal reconstructive images were also obtained. CTDI 3.82 mGy, DLP 218.28 mGycm. FINDINGS: A scan through the lower chest reveals unremarkable lung bases and heart. Abdomen. The liver is of average size and measures 16 cm. No focal or diffuse parenchymal abnormality. The portal vein, intrahepatic biliary radicals and the bile ducts are normal. The gallbladder is overdistended and shows no definite stones, but slightly hyperdense. There is no evidence of wall thickening/ pericholecystic collection. The spleen, pancreas, and adrenal glands are unremarkable. The kidneys are normal in size and shape. No calculi or hydronephrosis. The stomach and the visualized small bowel loops are unremarkable. There is no evidence of significant mesenteric or retroperitoneal lymph node enlargement. No free fluid. Pelvis. The urinary bladder is unremarkable. The ascending colon, the transverse colon are unremarkable. Noncomplicated colonic diverticulosis involving sigmoid and descending colon without evidence of diverticulitis. Mildly enlarged prostate. Atherosclerotic calcification of the aorta and major abdominal arteries seen. No evidence of pelvic lymphadenopathy. No definite bony abnormalities could be depicted. IMPRESSION: Overdistended slightly hyperdense gallbladder, probably due to sludge. Noncomplicated colonic diverticulosis involving sigmoid and descending colon without evidence of diverticulitis. Mildly enlarged prostate. Electronically Signed by: Stone Carcamo MD. (01/13/2023 17:12:32 TREASURY DIRECTOR)
[2023-01-13] MEDS ORDERED: BABY ASPIRIN 81 MG CHEW PO ONE (18:45)
[2023-01-13] MEDS ORDERED: NEXTERONE 360 MG/200 ML BAG 360 MG/200 ML PLAST..BAG IV ONE (18:45)
[2023-01-13] MEDS ORDERED: NEXTERONE 360 MG/200 ML BAG 360 MG/200 ML PLAST..BAG IV SCH (18:45)
[2023-01-13] MEDS ORDERED: VERSED 5 MG/5 ML ONE (18:51)
[2023-01-13] MEDS ORDERED: VERSED 5 MG/5 ML IV ONE (18:53)
[2023-01-13 18:58] LABS: AMYLASE 62 U/L (30-110); LIPASE 138 U/L (23-300)
[2023-01-13] MEDS ORDERED: NOREPINEPHRINE 8 MG/250 ML-D5W 8 MG/250 ML PLAST..BAG IV PRN (19:10)
[2023-01-13] MEDS ORDERED: NOREPINEPHRINE 8 MG/250 ML-D5W 8 MG/250 ML PLAST..BAG IV ONE (19:13)
[2023-01-13] MEDS ORDERED: ROCEPHIN 1 Gm-D5w 50 ml Bag** 1 G/50 ML IVPB IV ONE (20:36)
[2023-01-13] MEDS ORDERED: ROCEPHIN 1 Gm-D5w 50 ml Bag** 1 G/50 ML IVPB IV STA (20:36)
[2023-01-13] MEDS ORDERED: TYLENOL EXTRA STRENGTH 500 MG PO ONE (20:37)
[2023-01-13] MEDS ORDERED: TYLENOL EXTRA STRENGTH 500 MG ONE (20:41)
[2023-01-13 20:58] VITALS: BP 110/59; PULSE 166
[2023-01-13 23:43] VITALS: O2SAT 100
== END 2023-01-13 21:15 | disposition short-term general hospital (02) ==
LOC: ED 12:14
DX: R10.33 Periumbilical pain (principal); I47.20 Ventricular tachycardia, unspecified; R50.9 Fever, unspecified; R07.9 Chest pain, unspecified; I95.9 Hypotension, unspecified; R11.2 Nausea with vomiting, unspecified; I10 Essential (primary) hypertension; E11.9 Type 2 diabetes mellitus without complications; Z79.84 Long term (current) use of oral hypoglycemic drugs; Z79.4 Long term (current) use of insulin; Z79.02 Long term (current) use of antithrombotics/antiplatelets; Z79.891 Long term (current) use of opiate analgesic; Z79.899 Other long term (current) drug therapy
CPT/HCPCS: 0241U; 36000; 36415; 71045; 74176; 76705; 80053; 81001; 82150; 82947; 83605; 83690; 84484; 85025; 87040; 93005; 96360; 96361; 96365; 96374; 99285; 99291; 99292; 87077; 87186; J0696; J2250; A9270-GY

== ENCOUNTER 2023-02-03 09:38 | Emergency (ER) | payer OTHER ==
[2023-02-03] MEDS ORDERED: Zofran 4 MG/2 ML VIAL IV ONE (10:06)
[2023-02-03] MEDS ORDERED: PROTONIX 40 MG IV IV ONE ×2 (10:07→10:15)
[2023-02-03] MEDS ORDERED: Sodium Chloride 0.9% 1000 ML 1,000 ML ONE (10:15)
[2023-02-03] MEDS ORDERED: Zofran 4 MG/2 ML VIAL ONE (10:15)
[2023-02-03] MEDS ORDERED: Sodium Chloride 0.9% 1000 ML 1,000 ML IV SCH (10:15)
--- NOTE | 2023-02-03 10:15 | ERPHSYRPT ---
- History of Present Illness Time Seen by Provider: 02/03/23 09:55 Source: patient Exam Limitations: no limitations Patient Subjective Stated Complaint: Bleeding from mouth that started this morning. Patient is concerned due to he states that he had an open heart surgery at [facility] 10 days ago. He is unable to give the exact date of the surgery or the name of the surgeon. Triage Nursing Assessment: Patient ambulated back to ER. He is alert, anxious, agitated. Bright red blood noted to lips. No active bleeding noted coming from mouth but if patient coughs or clears his throat, he spit up a small, bright red clot. Healing surgical incision noted to center of chest; well approximated with steri strips intact. Physician History: This is a 77-year-old white male patient who presents to the emergency depart ment with bright red blood and blood clots coming from his mouth as well as coughing up blood this morning. Patient underwent an open heart surgery through midline sternal incision within the last couple weeks at [facility]. Patient does not recall the specific dates or who the thoracic surgeon was. He is on Brilinta and aspirin. Because the bleeding and coughing up blood and clots were persistent he was brought to the emergency department by his . Patient denies chest pain. He denies abdominal pain. He has not noticed any bright red blood per rectum or dark tarry stools. Patient is diabetic, has a history of hypertension, coronary disease and hyperlipidemia. His vital signs are stable upon entrance into the emergency department room #8 Timing/Duration: today Allergies/Adverse Reactions: tetracycline [Tetracycline] Allergy (Verified 02/03/23 09:43) Home Medications: Amlodipine Besylate 5 mg [Norvasc 5 mg] 5 mg PO DAILY 07/16/22 [History] Atorvastatin Calcium 10 mg PO DAILY 07/16/22 [History] Cetirizine HCl 10 mg PO DAILY 07/16/22 [History] Cholecalciferol (Vitamin D3) [Vitamin D3] 125 mcg PO DAILY 07/16/22 [History] Empagliflozin [Jardiance] 10 mg PO QAM 07/16/22 [History] Insulin Glargine [Lantus Insulin] 25 unit SQ DAILY 07/16/22 [History] Isosorbide Mononitrate [Isosorbide Mononitrate ER] 30 mg PO QAM 07/16/22 [History] Latanoprost/Pf [Latanoprost 0.005% Eye Drop] 1 drop OP HS 07/16/22 [History] Metoprolol Tartrate 25 mg [Lopressor 25MG Tab] 25 mg PO DAILY 07/16/22 [History] Nitroglycerin 0.4 mg (Ed) [Nitrostat 0.4 MG (ED)] 0.4 mg SL UD 07/16/22 [History] Semaglutide [Ozempic] 0.5 mg SQ WEEKLY 07/16/22 [History] Sodium Bicarbonate 650 mg PO DAILY 07/16/22 [History] Ticagrelor [Brilinta] 90 mg PO BID 07/16/22 [History] Amiodarone HCl 200 mg [Cordarone 200 MG] 200 mg PO DAILY 01/13/23 [History] Aspirin 81 gm Chew [Baby Aspirin 81 mg Chew] 81 mg PO DAILY 01/13/23 [History] Cyanocobalamin (Vitamin B-12) [B-12] 1,000 mcg PO DAILY 01/13/23 [History] Glyburide 5 mg [Micronase 5 MG] 10 mg PO BID 01/13/23 [History] Hydrocodone/Acetaminophen [Hydrocodone-Acetamin 5-325 mg] 1 tab PO Q4H PRN 01/13/23 [History] Hx Tetanus, Diphtheria Vaccination/Date Given: Yes Hx Influenza Vaccination/Date Given: Yes Hx Pneumococcal Vaccination/Date Given: Yes Immunizations Up to Date: Yes Travel Risk - International Travel Have you traveled outside of the country in past 3 weeks: No - Coronavirus Screening Are you exhibiting any of the following symptoms?: No Close contact with a COVID-19 positive Pt in past 14-21 Days: No - Vaccine Status Have you recieved a Covid-19 vaccination: Yes 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: [employer] - Vaccination Dates Date of 2cond Vaccination (if applicable): 10/10/2020 - Review of Systems Constitutional: No Symptoms Eyes: No Symptoms Ears, Nose, & Throat: No Symptoms Respiratory: Cough (With hemoptysis) Cardiac: No Symptoms Abdominal/Gastrointestinal: Hematemesis Genitourinary Symptoms: No Symptoms Musculoskeletal: No Symptoms Skin: No Symptoms Neurological: No Symptoms Psychological: No Symptoms Endocrine: No Symptoms Hematologic/Lymphatic: No Symptoms Immunological/Allergic: No Symptoms All Other Systems: Reviewed and Negative - Past Medical History Pertinent Past Medical History: Yes Neurological History: Stroke Cardiac History: Coronary Artery Disease, Hypertension, Myocardial Infarction ([place]) Respiratory History: Sleep Apnea Endocrine Medical History: Diabetes Type II Musculoskeletal History: Arthritis Psycho-Social History: No Pertinent History - Past Surgical History Past Surgical History: Yes Neuro Surgical History: No Pertinent History Cardiac: Cardiac Catheterization, Cardiac Stent, Internal Defibrillator Respiratory: No Pertinent History Gastrointestinal: No Pertinent History Genitourinary: No Pertinent History Musculoskeletal: No Pertinent History Other Surgical History: DORSAL SIMULATOR, back surgery 3 stints, open heart bypass surgery in January 2023 - Social History Smoking Status: Never smoker Exposure to second hand smoke: No Drug Use: none Patient Lives Alone: No - Nursing Vital Signs Nursing Vital Signs: Initial Vital Signs Pulse Rate 76 02/03/23 09:43 Respiratory Rate 18 02/03/23 09:43 Blood Pressure 176/64 02/03/23 09:43 O2 Sat by Pulse Oximetry 97 02/03/23 09:43 Pain Scale Pain Intensity 0 - Physical Exam General Appearance: no apparent distress, alert, anxiety Eye Exam: PERRL/EOMI, eyes nml inspection Ears, Nose, Throat Exam: normal ENT inspection, moist mucous membranes, other (Small amount of dried blood in oral cavity) Neck Exam: normal inspection, non-tender, supple, full range of motion Respiratory Exam: normal breath sounds, lungs clear, airway intact, No chest tenderness, No respiratory distress Cardiovascular Exam: regular rate/rhythm, normal heart sounds, normal peripheral pulses Gastrointestinal/Abdomen Exam: soft, normal bowel sounds, No tenderness, No mass, No guarding, No rebound Rectal Exam: not done Back Exam: normal inspection, normal range of motion, No CVA tenderness, No vertebral tenderness Extremity Exam: normal inspection, normal range of motion, pelvis stable Neurologic Exam: alert, oriented x 3, cooperative, sas bi developer II-XII nml as tested, normal mood/affect, nml cerebellar function, nml station & gait, sensation nml Skin Exam: other (Midline sternotomy incision clean dry intact) Lymphatic Exam: No adenopathy SpO2 Interpretation: normal SpO2: 99 O2 Delivery: Room Air - Course Nursing assessment & vital signs reviewed: Yes EKG Interpreted by Me: RATE (76), Sinus Rhythm, NORMAL AXIS, NORMAL QRS, NORMAL ST-T, Other (No acute ischemic changes on today's twelve-lead EKG. There is prolonged AR interval.) Ordered Tests: Active Orders 24 hr Category Date Time Status Dry Pan Operator STAT Care 02/03/23 10:06 Active EKG-ER Only STAT Care 02/03/23 10:06 Active IV Insertion STAT Care 02/03/23 10:06 Active Pulse Oximetry (ED) STAT Care 02/03/23 10:06 Active Re-Check Vital Signs STAT Care 02/03/23 10:06 Active ABDOMEN AND PELVIS W/0 CONTRAS [CT] Stat Exams 02/03/23 10:08 Completed CHEST WITHOUT CONTRAST [CT] Stat Exams 02/03/23 10:08 Completed CBC W DIFF Stat Lab 02/03/23 10:05 Completed CMP Stat Lab 02/03/23 10:05 Completed NT PRO BNPII Stat Lab 02/03/23 10:05 Completed TROPONIN Q4H Lab 02/03/23 10:05 Completed TROPONIN Q4H Lab 02/03/23 14:09 Received TROPONIN Q4H Lab 02/03/23 18:15 Ordered Medication Summary Generic Name Dose Route Start Last Admin Trade Name Freq PRN Reason Stop Dose Admin Furosemide 40 mg 02/03/23 14:43 Furosemide 40 Mg/4 Ml Vial IV 02/03/23 14:44 STAT ONE Sodium Chloride 1,000 mls @ 100 mls/hr 02/03/23 10:15 02/03/23 10:17 Sodium Chloride 0.9% 1000 Ml IV 03/05/23 10:14 100 mls/hr .Q10H ABY Administration Ceftriaxone Sodium/Dextrose 1 g in 50 mls @ 100 mls/hr 02/03/23 14:43 Rocephin 1 Gm-D5w 50 Ml Bag IV 02/03/23 15:12 STAT STA Discontinued Medications Generic Name Dose Route Start Last Admin Trade Name Freq PRN Reason Stop Dose Admin Ondansetron HCl 4 mg 02/03/23 10:06 02/03/23 10:17 Ondansetron Hcl 4 Mg/2 Ml Vial IV 02/03/23 10:07 4 mg STAT ONE Administration Ondansetron HCl Confirm 02/03/23 10:15 Ondansetron Hcl 4 Mg/2 Ml Vial Administered 02/03/23 10:16 Dose 4 mg .ROUTE .STK-MED ONE Pantoprazole Sodium 40 mg 02/03/23 10:07 02/03/23 10:17 Pantoprazole 40 Mg Vial IV 02/03/23 10:08 40 mg STAT ONE Administration Pantoprazole Sodium Confirm 02/03/23 10:15 Pantoprazole 40 Mg Vial Administered 02/03/23 10:16 Dose 40 mg IV .STK-MED ONE Lab/Rad Data: Laboratory Result Diagrams 02/03/23 10:05 02/03/23 10:05 Laboratory Results 02/03/23 02/03/23 02/03/23 Range/Units 10:05 10:05 10:05 WBC 8.3 (4.0-10.5) x10^3/uL RBC 2.99 L (4.1-5.6) x10^6/uL Hgb 8.7 L (12.5-18.0) g/dL Hct 29.5 L (42-50) % MCV 98.7 (78-100) fL MCH 29.1 (26-32) pg MCHC 29.5 L (32-36) g/dL RDW 13.4 (11.5-14.0) % Plt Count 440 (150-450) x10^3/uL MPV 9.3 (7.5-11.0) fL Gran % 66.5 H (36.0-66.0) % Immature Gran % (Auto) 0.5 H (0.00-0.4) % Nucleat RBC Rel Count 0.0 (0.00-0.1) % Eos # (Auto) 0.26 (0-0.5) x10^3/uL Immature Gran # (Auto) 0.04 H (0.00-0.03) x10^3u/L Absolute Lymphs (auto) 1.66 (1.0-4.6) x10^3/uL Absolute Monos (auto) 0.72 (0.0-1.3) x10^3/uL Absolute Nucleated RBC 0.00 (0.00-0.01) x10^3u/L Lymphocytes % 20.0 L (24.0-44.0) % Monocytes % 8.7 (0.0-12.0) % Eosinophils % 3.1 (0.00-5.0) % Basophils % 1.2 (0.0-0.4) % Absolute Granulocytes 5.53 (1.4-6.9) x10^3/uL Basophils # 0.10 (0-0.4) x10^3/uL Sodium 134 L (137-145) mmol/L Potassium 5.4 H (3.5-5.1) mmol/L Chloride 102 (98-107) mmol/L Carbon Dioxide 23 (22-30) mmol/L Anion Gap 15.2 H (5-15) MEQ/L BUN 58 H (9-20) mg/dL Creatinine 2.72 H (0.66-1.25) mg/dL Estimated GFR 24.3 ML/MIN Glucose 203 H (74-106) mg/dL Calcium 7.9 L (8.4-10.2) mg/dL Total Bilirubin 0.50 (0.2-1.3) mg/dL AST 19 (17-59) U/L ALT 9 (0-50) U/L Alkaline Phosphatase 79 (38-126) U/L Troponin I 0.220 H* (0.000-0.034) ng/mL NT-Pro-B Natriuret Pep 8200 (<300) pg/mL Serum Total Protein 6.0 L (6.3-8.2) g/dL Albumin 3.1 L (3.5-5.0) g/dL - Progress Progress: unchanged Progress Note: 02/03/23 11:[address] scans were interpreted by the radiologist and I reviewed the impression.: CT scan of the chest without contrast shows diffuse bilateral patchy airspace disease. There are bilateral pleural effusions present. There are air bubbles in the right neck and right supraclavicular region possibly vascular/iatrogenic in etiology. CT scan of the abdomen pelvis without contrast shows new diffuse anasarca presum ably secondary to cardiomegaly with bilateral pleural effusions. There is also epigastric wall subcutaneous air bubbles of uncertain etiology. 02/03/23 12:01 This patient's medical issue is of high complexity. Level complexity and the work-up performed was based on review of the patient's past medical history, review of the patient's drug allergies, review of the patient's medication list, history present illness and physical finds on examination. The work-up in this patient includes a CBC, CMP, twelve-lead EKG, troponin level, BNP level, CT scan of the chest without contrast, CT scan of the abdomen without contrast. I reviewed the results. The patient has significant findings. This patient needs to be evaluated at the facility he had his surgical procedure performed as they have magazine repairer and cardiothoracic surgeons on staff. We have placed a call into [facility] and we are awaiting a callback. Patient underwent his surgical procedure on 01/20/[address] Nina. 02/03/23 14:07 We put a second call into [facility] and we are still waiting for return back. Patient has been updated. He has been reexamined and he is stable at this point. We did discuss with the [facility] call center the possibility of having a discussion with the hospitalist. However, the hospitalist wants the patient's cardiothoracic surgeon involved in whether or not this patient will be transferred from our facility to [facility]. We are still waiting for this patient's cardiothoracic surgeon to contact us. 02/03/23 14:44 [address] did speak with Dr[address] Nina, the patient's cardiothoracic surgeon. I reviewed the patient history, physical findings on examination, work-up performed and the results of that work-up. We started the patient on Rocephin 1 g intravenously for treatment of his pneumonia, we also gave him 40 mg of Lasix intravenously. The cardiothoracic surgeon feels that this patient will be treated medically. The hospitalist will be calling us back. The patient's cardiovascular surgeon does not feel that there is anything surgical at this time. 02/03/23 14:52 I spoke with hospitalist Dr. Salcido from [facility] I reviewed the history, physical findings, and results of the work-up performed. He accepts the patient in transfer. We are also resending the radiographic studies to the cloud. Counseled pt/family regarding: lab results, diagnosis, rad results Medical Desision Making - Discussion of managment Care discussed with:: specialist (I spoke with the patient's cardiothoracic surgeon,Dr. Nina) Reviewed:: Test results, Need for additional workup - Diagnostic Testing Diagnostic test were ordered, analyzed, and reviewed by me: Yes Radiological Interpretation: Reviewed by me, Teleradiologist Report - Risk of complications The pt has a high risk of morbidity or mortality based on: Decision regarding hospitilization or escalation of hosp level of care - Departure Departure Disposition: Transfer Clinical Impression: Hemoptysis, Hematemesis, CHF (congestive heart failure), Pleural effusion, Anemia, Renal failure, Elevated troponin, Pneumonia Condition: Fair Critical Care Time: No Referrals: HASMUKH GUSTAFSON MD [Primary Care Provider] - Follow up/PCP as directed Instructions: Heart Failure
[2023-02-03 10:18] LABS: Absolute Neutrophil Ct (ANC) 5.53 x10^3/uL (1.4-6.9); BASOPHIL % 1.2 % (0.0-0.4); Eosinophil % 3.1 % (0.00-5.0); Eosinophil (Absolute #) 0.26 x10^3/uL (0-0.5); Hematocrit 29.5 % (42-50); Hemoglobin 8.7 g/dL (12.5-18.0); IMMATURE GRAN # 0.04 x10^3u/L (0.00-0.03); IMMATURE GRAN % 0.5 % (0.00-0.4); Lymphocyte (Absolute #) 1.66 x10^3/uL (1.0-4.6); Mean Cell Volume 98.7 fL (78-100); Mean Corpuscular Hemoglobin 29.1 pg (26-32); Mean Corpuscular Hgb Concent. 29.5 g/dL (32-36); Mean Platelet Volume 9.3 fL (7.5-11.0); Monocyte (Absolute #) 0.72 x10^3/uL (0.0-1.3); Monocytes % 8.7 % (0.0-12.0); Neutrophil % 66.5 % (36.0-66.0); Platelet Count 440 x10^3/uL (150-450); Red Blood Count 2.99 x10^6/uL (4.1-5.6); Red Cell Distribution Width 13.4 % (11.5-14.0); White Blood Count 8.3 x10^3/uL (4.0-10.5)
[2023-02-03 10:45] LABS: ALBUMIN 3.1 g/dL (3.5-5.0); ANION GAP 15.2 MEQ/L (5-15); BILIRUBIN,TOTAL 0.5 mg/dL (0.2-1.3); Calcium 7.9 mg/dL (8.4-10.2); Creatinine 1 2.72 mg/dL (0.66-1.25); EST GLOMERULAR FILTRATION RATE 24.3 ML/MIN; Potassium 5.4 mmol/L (3.5-5.1)
--- NOTE | 2023-02-03 11:10 | XRAY ---
Indication: Hemoptysis. Multiple contiguous axial images obtained through the chest without contrast. Comparison: None Diffuse bilateral patchy consolidating/nonconsolidating airspace disease, left lung greater than right. Also small bilateral effusions with mild bibasilar compressive atelectasis. Heart borderline enlarged with CABG and left AICD. Aorta is mildly arteriosclerotic without aneurysm. No pathologic mediastinal lymphadenopathy. Tiny air bubbles in visualized right neck and right supraclavicular region possibly iatrogenic and vascular in etiology due to recent IV access. Bony thorax intact with osteopenia and moderate degenerative changes throughout the spine. CT abdomen/pelvis reported separately. Impression: 1. Diffuse bilateral patchy airspace disease. Rule out COVID 19 pneumonia. 2. Bilateral effusions with borderline cardiomegaly concerning for cardiac decomposition/CHF versus fluid overload. 3. Air bubbles right neck and right supraclavicular, possibly vascular/iatrogenic in etiology.
--- NOTE | 2023-02-03 11:20 | XRAY ---
Indication: Hemoptysis. Hematemesis. Multiple contiguous axial images obtained through the abdomen and pelvis without contrast. Comparison: January 13, 2023 CT chest reported separately. Stomach mildly distended with food/fluid. Noncontrasted stomach and bowel loops appear nonobstructed. Stable treasures duodenal diverticulum. Worsening mild diffuse scattered colonic fecal debris throughout. Again ascending and sigmoid diverticulosis without diverticulitis. Increasing moderately distended urinary bladder concerning for outlet obstruction versus neurogenic bladder. No free fluid/air. Remaining liver, gallbladder, pancreas, spleen, adrenal glands, kidneys, ureters, and bladder are unremarkable for noncontrast exam. Again moderate scattered arteriosclerotic calcifications without AAA. Osseous structures intact again with osteopenia, moderate degenerative changes throughout spine, and moderate degenerative changes both hips. Umbilicus demonstrates stable benign macrocalcifications. New mild diffuse anasarca. Epigastric abdominal wall demonstrates 2 new 6 mm subcutaneous air bubbles of uncertain etiology. Impression: 1. New diffuse anasarca presumed related to cardiomegaly with bilateral effusions favoring cardiac decompensation/CHF/fluid overload. 2. Epigastric abdominal wall subcutaneous air bubbles of uncertain etiology. Gas-forming infection not completely excluded. 3. Worsening mild diffuse fecal stasis. 4. Worsening distended urinary bladder. Rule out outlet obstruction versus neurogenic bladder. 5. Again chronic findings including arteriosclerotic disease, duodenal diverticulum, colonic diverticulosis, and chronic bony findings.
[2023-02-03] MEDS ORDERED: Lasix 40 MG/4 ML IV ONE (14:43)
[2023-02-03] MEDS ORDERED: ROCEPHIN 1 Gm-D5w 50 ml Bag** 1 G/50 ML IVPB IV STA (14:43)
[2023-02-03] MEDS ORDERED: Lasix 40 MG/4 ML ONE (15:34)
[2023-02-03] MEDS ORDERED: ROCEPHIN 1 Gm-D5w 50 ml Bag** 1 G/50 ML IVPB IV ONE (15:34)
[2023-02-03 15:54] VITALS: BP 142/85; PULSE 70; RESP 20; TEMP 97.2; O2SAT 98
== END 2023-02-03 16:00 | disposition short-term general hospital (02) ==
LOC: ED 09:38
DX: R04.2 Hemoptysis (principal); K92.0 Hematemesis; I13.0 Hypertensive heart and chronic kidney disease with heart failure and stage 1 through stage 4 chronic kidney disease, or unspecified chronic kidney disease; I50.9 Heart failure, unspecified; J90 Pleural effusion, not elsewhere classified; D64.9 Anemia, unspecified; N18.9 Chronic kidney disease, unspecified; R77.8 Other specified abnormalities of plasma proteins; J18.9 Pneumonia, unspecified organism; E11.22 Type 2 diabetes mellitus with diabetic chronic kidney disease; Z79.84 Long term (current) use of oral hypoglycemic drugs; Z79.4 Long term (current) use of insulin; Z79.85 Long-term (current) use of injectable non-insulin antidiabetic drugs; Z79.02 Long term (current) use of antithrombotics/antiplatelets; Z79.891 Long term (current) use of opiate analgesic
CPT/HCPCS: 36000; 36415; 71250; 74176; 80053; 83880; 84484; 85025; 93005; 93041; 94760; 96365; 96374; 96375; 99285; J0696; J1940; J2405

== ENCOUNTER 2023-09-09 10:07 | Emergency (ER) | payer OTHER ==
[2023-09-09 10:21] VITALS: TEMP 97.6
--- NOTE | 2023-09-09 10:53 | XRAY ---
Indication: Cough. Comparison: April 01, 2023 Portable chest slightly underinflated and is now clear. Heart not enlarged again with CABG. Bony thorax intact again with osteopenia, mild degenerative changes, and old right 5 rib fracture. Impression: Nonacute chest with chronic features.
[2023-09-09 11:18] LABS: Group A Strep NOT DETECTED (NEGATIVE)
[2023-09-09 11:28] LABS: INFLUENZA A NEGATIVE (NEGATIVE); INFLUENZA B NEGATIVE (NEGATIVE); RESPIRATORY SYNCTIAL VIRUS NEGATIVE (NEGATIVE); SARS-CoV-2 Xpert Express NEGATIVE (NEGATIVE)
[2023-09-09 11:39] VITALS: O2SAT 98
--- NOTE | 2023-09-09 11:39 | ERPHSYRPT ---
- History of Present Illness Time Seen by Provider: 09/09/23 10:20 Source: patient Exam Limitations: no limitations Patient Subjective Stated Complaint: Pt states "I have had this horrible cough for the past week and a half and I am coughing up thick yellow stuff." Triage Nursing Assessment: Pt presented alert and oriented X3, skin pwd. Pt ambulates with an upright steady gait, able to speak in clear full sentences. PT has intermittant cough. Physician History: Patient is a 77-year-old male presents to our ED for evaluation of a cough. Cough has been present for approximately 1 week. Patient states cough prevented him from sleeping well last night. No associated chest pain or shortness of breath. No nausea vomiting or diaphoresis. Cough is productive of yellowish- green sputum. states she recently tested negative for COVID. No fever. No nausea no vomiting no diaphoresis. Patient is a diabetic. His blood sugars have been well-controlled. Patient states his recent routine medical [facility] was normal. at bedside. They voiced no other complaints or concerns at this time. Portions of this note were created with voice recognition technology. There may be grammatical, spelling, punctuation or sound alike errors Timing/Duration: week(s) (1 week) Severity: moderate Modifying Factors: Improves With: nothing Associated Symptoms: denies symptoms, No shortness of breath, No diaphoresis, No chills, No chest pain, No fever, No headaches, No weakness Allergies/Adverse Reactions: tetracycline [Tetracycline] Allergy (Verified 04/01/23 08:53) Home Medications: Atorvastatin Calcium 10 mg PO DAILY 07/16/22 [History] Cetirizine HCl 10 mg PO DAILY 07/16/22 [History] Cholecalciferol (Vitamin D3) [Vitamin D3] 125 mcg PO DAILY 07/16/22 [History] Empagliflozin [Jardiance] 10 mg PO QAM 07/16/22 [History] Insulin Glargine [Lantus Insulin] 20 unit SQ DAILY 07/16/22 [History] Latanoprost/Pf [Latanoprost 0.005% Eye Drop] 1 drop OP HS 07/16/22 [History] Metoprolol Tartrate 25 mg [Lopressor 25MG Tab] 25 mg PO BID 07/16/22 [History] Sodium Bicarbonate 650 mg PO DAILY 07/16/22 [History] Amiodarone HCl 200 mg [Cordarone 200 MG] 200 mg PO DAILY 01/13/23 [History] Aspirin 81 gm Chew [Baby Aspirin 81 mg Chew] 81 mg PO DAILY 01/13/23 [History] Cyanocobalamin (Vitamin B-12) [B-12] 1,000 mcg PO DAILY 01/13/23 [History] Glyburide 5 mg [Micronase 5 MG] 5 mg PO BID 01/13/23 [History] Ferrous Sulfate 325 mg [Feosol 325 mg] 325 mg PO DAILY 04/01/23 [History] Hx Tetanus, Diphtheria Vaccination/Date Given: No Hx Influenza Vaccination/Date Given: Yes Hx Pneumococcal Vaccination/Date Given: Yes Immunizations Up to Date: No Travel Risk - International Travel Have you traveled outside of the country in past 3 weeks: No - Coronavirus Screening Are you exhibiting any of the following symptoms?: Yes Symptoms: Cough: New Onset Close contact with a COVID-19 positive Pt in past 14-21 Days: No - Vaccine Status Have you recieved a Covid-19 vaccination: Yes [employer]: [facility] [employer] - Vaccination Dates Date of 2cond Vaccination (if applicable): 10/10/2020 - Review of Systems Constitutional: No Symptoms, No Fever, No Chills Eyes: No Symptoms Ears, Nose, & Throat: No Symptoms Respiratory: No Symptoms, No Cough, No Dyspnea Cardiac: No Symptoms, No Chest Pain, No Edema, No Syncope Abdominal/Gastrointestinal: No Symptoms, No Abdominal Pain, No Nausea, No Vomiting, No Diarrhea Genitourinary Symptoms: No Symptoms, No Dysuria Musculoskeletal: No Symptoms, No Back Pain, No Neck Pain Skin: No Symptoms, No Rash Neurological: No Symptoms, No Dizziness, No Focal Weakness, No Sensory Changes Psychological: No Symptoms Endocrine: No Symptoms Hematologic/Lymphatic: No Symptoms Immunological/Allergic: No Symptoms All Other Systems: Reviewed and Negative - Past Medical History Pertinent Past Medical History: Yes Neurological History: Stroke Cardiac History: Coronary Artery Disease, Hypertension, Myocardial Infarction ([place]) Respiratory History: Sleep Apnea Endocrine Medical History: Diabetes Type II Musculoskeletal History: Arthritis History: Renal Disease Psycho-Social History: No Pertinent History - Past Surgical History Past Surgical History: Yes Neuro Surgical History: No Pertinent History Cardiac: CABG, Cardiac Catheterization, Cardiac Stent, Internal Defibrillator Respiratory: No Pertinent History Gastrointestinal: No Pertinent History Genitourinary: No Pertinent History Musculoskeletal: No Pertinent History Other Surgical History: back surgery, 3 stents, open heart bypass surgery in January 2023 - Social History Smoking Status: Never smoker Exposure to second hand smoke: No Drug Use: none Patient Lives Alone: No - Nursing Vital Signs Nursing Vital Signs: Initial Vital Signs Temperature 97.6 F 09/09/23 10:15 Pulse Rate 77 09/09/23 10:15 Respiratory Rate 22 09/09/23 10:15 Blood Pressure 181/90 09/09/23 10:15 O2 Sat by Pulse Oximetry 98 09/09/23 10:15 Pain Scale Pain Intensity 0 - Physical Exam General Appearance: no apparent distress, alert Eye Exam: PERRL/EOMI, eyes nml inspection Ears, Nose, Throat Exam: normal ENT inspection, TMs normal, pharynx normal, moist mucous membranes Neck Exam: normal inspection, non-tender, supple, full range of motion Respiratory Exam: normal breath sounds, lungs clear, No respiratory distress Cardiovascular Exam: regular rate/rhythm, normal heart sounds, normal peripheral pulses Gastrointestinal/Abdomen Exam: soft, normal bowel sounds, No tenderness, No mass Back Exam: normal inspection, normal range of motion, No CVA tenderness, No vertebral tenderness Extremity Exam: normal inspection, normal range of motion, pelvis stable Neurologic Exam: alert, oriented x 3, cooperative, normal mood/affect, nml cerebellar function, nml station & gait, sensation nml, No motor deficits Skin Exam: normal color, warm, dry, No rash Lymphatic Exam: No adenopathy SpO2 Interpretation: normal SpO2: 98 O2 Delivery: Room Air - Course Nursing assessment & vital signs reviewed: Yes - Radiology Exams Chest X-ray Interpretation: Teleradiologist Report (No acute findings) Ordered Tests: Active Orders 24 hr Category Date Time Status CHEST 1 VIEW (PORTABLE) Stat Exams 09/09/23 10:24 Completed Lab/Rad Data: Laboratory Results 09/09/23 Range/Units 10:30 Influenza Type A Ag NEGATIVE (NEGATIVE) Influenza Type B Ag NEGATIVE (NEGATIVE) RSV (PCR) NEGATIVE (NEGATIVE) SARS-CoV-2 (PCR) NEGATIVE (NEGATIVE) Group A Strep Antibody NOT DETECTED (NEGATIVE) - Progress Progress: improved Progress Note: 77-year-old male presents to our ED with 1 week history of productive cough. No fever no chills no nausea no vomiting no chest pain no shortness of breath. Physical exam nonremarkable. Vitals within normal limits. Chest x-ray negative for acute findings. RSV COVID and flu negative. Patient has no complaints at time of discharge. However in light of patient's ongoing productive cough that kept patient up at night we will treat patient with a trial of azithromycin as atypical pneumonia is sometimes not apparent on a chest x-ray. Patient agrees to follow-up with his primary care doctor within 48 hours for reevaluation. at bedside. They understand that if patient develops any new or worsening or unresolving symptoms they should return to our ED or see their family physician immediately. They voiced no other complaints or concerns at this ti me. Portions of this note were created with voice recognition technology. There may be grammatical, spelling, punctuation or sound alike errors Complexity of problem addressed is moderate acute complicated No critical care time Complex of data reviewed and analyzed is moderate. Test ordered test reviewed. Results analyzed and correlated clinically with history and physical exam. Risk of complication and or risk of morbidity/mortality of patient management is moderate. Vital stable. Time spent to discharge patient approximately 15 minutes. Plan of care established for shared decision making. No social determinants of health present impede follow-up. Portions of this note were created with voice recognition technology. There may be grammatical, spelling, punctuation or sound alike errors 09/09/23 12:06 Counseled pt/family regarding: lab results, diagnosis, need for follow-up, rad results - Departure Departure Disposition: Home Clinical Impression: Productive cough Condition: Stable Critical Care Time: No Referrals: HASMUKH GUSTAFSON MD [Primary Care Provider] - Follow up/PCP as directed Additional Instructions: Discharge/Care Plan HASMUKH MOTLEY was seen on 09/09/23 in the Emergency Room. The patient was counseled regarding Diagnosis,Lab results, Imaging studies, need for follow up and when to return to the Emergency Room. Prescriptions given: Discharge Note I have spoken with the patient and/or caregivers. I have explained the patient's condition, diagnosis and treatment plan based on the information available to me at this time. I have answered the patient's and/or caregiver's questions and addressed any concerns. The patient and/or caregivers have as good understanding of the patient's diagnosis, condition and treatment plan as can be expected at this point. The vital signs have been stable. The patient's condition is stable and appropriate for discharge from the emergency department. The patient will pursue further outpatient evaluation with the primary care physician or other designated or consulting physician as outlined in the discharge instructions. The patient and/or caregivers are agreeable to this plan of care and follow-up instructions have been explained in detail. The patient and/or caregivers have received these instruction. The patient/and or caregivers are aware that any significant change in condition or worsening of symptoms should prompt an immediate return to this or the closest emergency department or call 911. Prescriptions: Azithromycin 250 mg [Zithromax 250 MG TABLET] 250 mg PO ZPACK #6 tablet
[2023-09-09 12:02] VITALS: BP 169/76; PULSE 76; RESP 23
== END 2023-09-09 12:10 | disposition home or self-care (01) ==
LOC: ED 10:07
DX: R05.9 Cough, unspecified (principal); I10 Essential (primary) hypertension; E11.9 Type 2 diabetes mellitus without complications; Z79.84 Long term (current) use of oral hypoglycemic drugs; Z79.4 Long term (current) use of insulin; Z79.899 Other long term (current) drug therapy
CPT/HCPCS: 0241U; 71045; 87651; 99283

== ENCOUNTER 2023-10-04 21:35 | Emergency (ER) | payer OTHER ==
[2023-10-04 23:17] VITALS: TEMP 98.8
--- NOTE | 2023-10-04 23:26 | ERPHSYRPT ---
- History of Present Illness Time Seen by Provider: 10/04/23 23:18 Source: patient Exam Limitations: no limitations Patient Subjective Stated Complaint: productive cough X 1.5 week, body aches Triage Nursing Assessment: pt ambulatory to bed by self with steady gait, pt alert and oriented x3, skin pwd, pt c/o productive cough X 1.5 weeks and body aches, pt afebrile, pt was recently around a RSV + person per Physician History: For the past 1.5 weeks pt has had a cough productive of yellow phlegm and occasional mild frontal headache; denies vomiting, diarrhea, abdominal pain, shortness of air. Allergies/Adverse Reactions: tetracycline [Tetracycline] Allergy (Mild, Verified 10/04/23 23:10) Rash Home Medications: Atorvastatin Calcium 10 mg PO DAILY 07/16/22 [History] Cholecalciferol (Vitamin D3) [Vitamin D3] 125 mcg PO DAILY 07/16/22 [History] Latanoprost/Pf [Latanoprost 0.005% Eye Drop] 1 drop OP HS 07/16/22 [History] Metoprolol Tartrate 25 mg [Lopressor 25MG Tab] 25 mg PO BID 07/16/22 [History] Sodium Bicarbonate 650 mg PO DAILY 07/16/22 [History] Amiodarone HCl 200 mg [Cordarone 200 MG] 200 mg PO DAILY 01/13/23 [History] Aspirin 81 gm Chew [Baby Aspirin 81 mg Chew] 81 mg PO DAILY 01/13/23 [History] Cyanocobalamin (Vitamin B-12) [B-12] 1,000 mcg PO DAILY 01/13/23 [History] Glyburide 5 mg [Micronase 5 MG] 5 mg PO BID 01/13/23 [History] Ferrous Sulfate 325 mg [Feosol 325 mg] 325 mg PO DAILY 04/01/23 [History] Hx Tetanus, Diphtheria Vaccination/Date Given: No Hx Influenza Vaccination/Date Given: Yes Hx Pneumococcal Vaccination/Date Given: Yes Immunizations Up to Date: No Travel Risk - International Travel Have you traveled outside of the country in past 3 weeks: No - Emerging Infectious Disease Are you exhibiting symptoms associated with any current EIDs: No - Review of Systems Constitutional: No Fever Respiratory: Cough, No Dyspnea Abdominal/Gastrointestinal: No Abdominal Pain, No Nausea, No Vomiting, No Diarrhea Neurological: Headache - Past Medical History Pertinent Past Medical History: Yes Neurological History: Stroke Cardiac History: Coronary Artery Disease, Hypertension, Myocardial Infarction ([place]) Respiratory History: Sleep Apnea Endocrine Medical History: Diabetes Type II Musculoskeletal History: Arthritis History: Renal Disease Psycho-Social History: No Pertinent History Male Reproductive Disorders: No Pertinent History - Past Surgical History Past Surgical History: Yes Neuro Surgical History: No Pertinent History Cardiac: CABG, Cardiac Catheterization, Cardiac Stent, Internal Defibrillator Respiratory: No Pertinent History Gastrointestinal: No Pertinent History Genitourinary: No Pertinent History Musculoskeletal: No Pertinent History Other Surgical History: back surgery, 3 stents, open heart bypass surgery in January 2023 - Social History Smoking Status: Never smoker Exposure to second hand smoke: No Drug Use: none Patient Lives Alone: No - Nursing Vital Signs Nursing Vital Signs: Initial Vital Signs Pulse Rate 78 10/04/23 23:08 Respiratory Rate 20 10/04/23 23:08 Blood Pressure 143/72 10/04/23 23:08 O2 Sat by Pulse Oximetry 97 10/04/23 23:08 Pain Scale Pain Intensity 5 - Physical Exam General Appearance: alert Eye Exam: eyes nml inspection Ears, Nose, Throat Exam: pharyngeal erythema, other (cerumen occlusion of both ears) Neck Exam: normal inspection Respiratory Exam: other (bronchial B.S. over all garcia) Cardiovascular Exam: normal heart sounds Gastrointestinal/Abdomen Exam: soft, normal bowel sounds Neurologic Exam: alert, cooperative Skin Exam: warm, dry SpO2 Interpretation: normal SpO2: 95 O2 Delivery: Room Air - Course Nursing assessment & vital signs reviewed: Yes - Radiology Exams Chest X-ray Interpretation: Teleradiologist Report (Hazy relative opacification of left lung field likely of pulmonary infiltrates. Possible pneumonic or congestion for clinical correlation. See rest of report.) Ordered Tests: Active Orders 24 hr Category Date Time Status IV Insertion STAT Care 10/05/23 01:28 Active CHEST 2 VIEWS (PA AND LAT) Stat Exams 10/04/23 23:39 Completed BLOOD CULTURE Stat Lab 10/05/23 02:04 Received BMP Stat Lab 10/05/23 02:04 Completed CBC W DIFF Stat Lab 10/05/23 02:04 Completed CULTURE,SPUTUM Stat Lab 10/05/23 01:29 Ordered Respiratory Therapy Assessment DAILY RT 10/05/23 02:06 Active Medication Summary Generic Name Dose Route Start Last Admin Trade Name Rian PRN Reason Stop Dose Admin Sodium Chloride 1,000 mls @ 100 mls/hr 10/05/23 01:30 10/05/23 01:54 Sodium Chloride 0.9% 1000 Ml IV 11/04/23 01:29 100 mls/hr .Q10H ABY Administration Discontinued Medications Generic Name Dose Route Start Last Admin Trade Name Rian PRN Reason Stop Dose Admin Albuterol Sulfate 2.5 mg 10/05/23 01:28 10/05/23 02:06 Albuterol Sulfate 2.5 Mg/3 Ml Neb IH 10/05/23 01:29 2.5 mg STAT ONE Administration Albuterol Sulfate Confirm 10/05/23 01:39 Albuterol Sulfate 2.5 Mg/3 Ml Neb Administered 10/05/23 01:40 Dose 2.5 mg IH .STK-MED ONE Ceftriaxone Sodium 1 gm in 100 mls @ 200 mls/hr 10/05/23 01:28 10/05/23 01:54 Rocephin 1 Gm / 100 Ml Nacl IV 10/05/23 01:57 200 mls/hr STAT ONE 200 mls/hr Administration Azithromycin 500 mg in 250 mls @ 250 mls/hr 10/05/23 01:28 10/05/23 02:20 Zithromax 500 Mg/ 250 Ml Nacl Premix IV 10/05/23 02:27 250 mls/hr STAT STA 250 mls/hr Administration Ceftriaxone Sodium Confirm 10/05/23 01:50 Rocephin 1 Gm / 100 Ml Nacl Administered 10/05/23 01:51 Dose 1 gm in 100 mls @ ud IV .STK-MED ONE Azithromycin Confirm 10/05/23 02:19 Zithromax 500 Mg/ 250 Ml Nacl Premix Administered 10/05/23 02:20 Dose 500 mg in 250 mls @ ud IV .STK-MED ONE Lab/Rad Data: Laboratory Result Diagrams 10/05/23 02:04 10/05/23 02:04 Laboratory Results 10/05/23 10/05/23 10/04/23 Range/Units 02:04 02:04 23:48 WBC 6.3 (4.0-10.5) x10^3/uL RBC 4.72 (4.1-5.6) x10^6/uL Hgb 14.1 (12.5-18.0) g/dL Hct 43.9 (42-50) % MCV 93.0 (78-100) fL MCH 29.9 (26-32) pg MCHC 32.1 (32-36) g/dL RDW 13.3 (11.5-14.0) % Plt Count 192 (150-450) x10^3/uL MPV 9.8 (7.5-11.0) fL Gran % 60.5 (36.0-66.0) % Immature Gran % (Auto) 0.3 (0.00-0.4) % Nucleat RBC Rel Count 0.0 (0.00-0.1) % Eos # (Auto) 0.33 (0-0.5) x10^3/uL Immature Gran # (Auto) 0.02 (0.00-0.03) x10^3u/L Absolute Lymphs (auto) 1.30 (1.0-4.6) x10^3/uL Absolute Monos (auto) 0.76 (0.0-1.3) x10^3/uL Absolute Nucleated RBC 0.00 (0.00-0.01) x10^3u/L Lymphocytes % 20.8 L (24.0-44.0) % Monocytes % 12.1 H (0.0-12.0) % Eosinophils % 5.3 H (0.00-5.0) % Basophils % 1.0 (0.0-0.4) % Absolute Granulocytes 3.79 (1.4-6.9) x10^3/uL Basophils # 0.06 (0-0.4) x10^3/uL Sodium 137 (135-145) mmol/L Potassium 4.3 (3.5-5.1) mmol/L Chloride 108 H (98-107) mmol/L Carbon Dioxide 20 L (22-30) mmol/L Anion Gap 13.3 (5-15) MEQ/L BUN 50 H (9-20) mg/dL Creatinine 2.99 H (0.66-1.25) mg/dL Estimated GFR 21.0 ML/MIN Glucose 134 H (74-106) mg/dL Calcium 8.6 (8.4-10.2) mg/dL Influenza Type A Ag NEGATIVE (NEGATIVE) Influenza Type B Ag NEGATIVE (NEGATIVE) RSV (PCR) NEGATIVE (NEGATIVE) SARS-CoV-2 (PCR) NEGATIVE (NEGATIVE) Group A Strep Antibody (NEGATIVE) 10/04/23 Range/Units 23:48 WBC (4.0-10.5) x10^3/uL RBC (4.1-5.6) x10^6/uL Hgb (12.5-18.0) g/dL Hct (42-50) % MCV (78-100) fL MCH (26-32) pg MCHC (32-36) g/dL RDW (11.5-14.0) % Plt Count (150-450) x10^3/uL MPV (7.5-11.0) fL Gran % (36.0-66.0) % Immature Gran % (Auto) (0.00-0.4) % Nucleat RBC Rel Count (0.00-0.1) % Eos # (Auto) (0-0.5) x10^3/uL Immature Gran # (Auto) (0.00-0.03) x10^3u/L Absolute Lymphs (auto) (1.0-4.6) x10^3/uL Absolute Monos (auto) (0.0-1.3) x10^3/uL Absolute Nucleated RBC (0.00-0.01) x10^3u/L Lymphocytes % (24.0-44.0) % Monocytes % (0.0-12.0) % Eosinophils % (0.00-5.0) % Basophils % (0.0-0.4) % Absolute Granulocytes (1.4-6.9) x10^3/uL Basophils # (0-0.4) x10^3/uL Sodium (135-145) mmol/L Potassium (3.5-5.1) mmol/L Chloride (98-107) mmol/L Carbon Dioxide (22-30) mmol/L Anion Gap (5-15) MEQ/L BUN (9-20) mg/dL Creatinine (0.66-1.25) mg/dL Estimated GFR ML/MIN Glucose (74-106) mg/dL Calcium (8.4-10.2) mg/dL Influenza Type A Ag (NEGATIVE) Influenza Type B Ag (NEGATIVE) RSV (PCR) (NEGATIVE) SARS-CoV-2 (PCR) (NEGATIVE) Group A Strep Antibody NOT DETECTED (NEGATIVE) - Progress Progress: unchanged Progress Note: 10/05/23 03:01 Pt wants to go home. Counseled pt/family regarding: lab results, diagnosis, need for follow-up, rad results Medical Desision Making - Diagnostic Testing Diagnostic test were ordered, analyzed, and reviewed by me: Yes Radiological Interpretation: Teleradiologist Report - Departure Departure Disposition: Home Clinical Impression: Pneumonia Condition: Stable Critical Care Time: No Referrals: HASMUKH GUSTAFSON MD [Primary Care Provider] - Follow up/PCP as directed Instructions: Pneumonia, Adult (DC) Additional Instructions: Follow up with private doctor tomorrow. Prescriptions: Albuterol 2.5 mg/0.5 ml [PROVENTIL Solution 2.5 MG/0.5 ML] 2.5 mg IH Q4H PRN PRN #25 PRN Reason: Shortness Of Breath/Wheezing Cefpodoxime Proxetil 200 mg [Vantin 200 mg] 200 mg PO BID #20 tablet Azithromycin 250 mg [Zithromax 250 MG TABLET] 250 mg PO ZPACK #6 tablet
[2023-10-05 00:26] LABS: INFLUENZA A NEGATIVE (NEGATIVE); INFLUENZA B NEGATIVE (NEGATIVE); RESPIRATORY SYNCTIAL VIRUS NEGATIVE (NEGATIVE); SARS-CoV-2 Xpert Express NEGATIVE (NEGATIVE)
--- NOTE | 2023-10-05 01:19 | XRAY ---
CLINICAL HISTORY: cough COMPARISON: DX: 01/13/2023 TECHNIQUE: X-ray chest PA and lateral views. FINDINGS: Surgical sternotomy wire sutures. Cardiac dense prothesis is seen. Left chest wall pacemaker. Hazy relative opacification of left lung field. Heart size is normal. Normal mediastinal and hilar configuration. Both costophrenic angles are sharp. Thoracic spondylodegenerative changes. IMPRESSION: 1. Surgical sternotomy wire sutures. Cardiac dense prothesis is seen. Left chest wall pacemaker. Instrumentation is new. 2. Hazy relative opacification of left lung field. Likely of pulmonnary infiltrates. Possible pneumonic or congestion for clinical correlation. This is a new finding. Electronically Signed by: Stone Carcamo MD. (10/05/2023 01:14:11 EDT)
[2023-10-05] MEDS ORDERED: PROVENTIL 2.5 MG/3 ML NEB IH ONE (01:39)
[2023-10-05] MEDS ORDERED: ROCEPHIN 1 GM / 100 ML NaCl 1 GM/100 ML IVPB IV ONE (01:50)
[2023-10-05] MEDS ORDERED: Sodium Chloride 0.9% 1000 ML 1,000 ML ONE (01:50)
[2023-10-05] MEDS: Sodium Chloride 0.9% 1000 ML 1,000 ML IV SCH (01:54)
[2023-10-05] MEDS: ROCEPHIN 1 GM / 100 ML NaCl 1 GM/100 ML IVPB IV ONE (01:54)
[2023-10-05 02:06] LABS: Absolute Neutrophil Ct (ANC) 3.79 x10^3/uL (1.4-6.9); Basophil (Absolute #) 0.06 x10^3/uL (0-0.4); Eosinophil % 5.3 % (0.00-5.0); Eosinophil (Absolute #) 0.33 x10^3/uL (0-0.5); Hematocrit 43.9 % (42-50); Hemoglobin 14.1 g/dL (12.5-18.0); IMMATURE GRAN # 0.02 x10^3u/L (0.00-0.03); IMMATURE GRAN % 0.3 % (0.00-0.4); Lymphocytes % 20.8 % (24.0-44.0); Mean Corpuscular Hemoglobin 29.9 pg (26-32); Mean Corpuscular Hgb Concent. 32.1 g/dL (32-36); Mean Platelet Volume 9.8 fL (7.5-11.0); Monocyte (Absolute #) 0.76 x10^3/uL (0.0-1.3); Monocytes % 12.1 % (0.0-12.0); Neutrophil % 60.5 % (36.0-66.0); Platelet Count 192 x10^3/uL (150-450); Red Blood Count 4.72 x10^6/uL (4.1-5.6); Red Cell Distribution Width 13.3 % (11.5-14.0); White Blood Count 6.3 x10^3/uL (4.0-10.5)
[2023-10-05] MEDS: PROVENTIL 2.5 MG/3 ML NEB IH ONE (02:06)
[2023-10-05] MEDS ORDERED: Zithromax 500 MG/ 250 ML NaCl Premix 500 MG/250 ML IVPB IV ONE (02:19)
[2023-10-05 02:20] LABS: ANION GAP 13.3 MEQ/L (5-15); Calcium 8.6 mg/dL (8.4-10.2); Creatinine 1 2.99 mg/dL (0.66-1.25); Potassium 4.3 mmol/L (3.5-5.1)
[2023-10-05] MEDS: Zithromax 500 MG/ 250 ML NaCl Premix 500 MG/250 ML IVPB IV STA (02:20)
[2023-10-05 03:04] VITALS: BP 172/77; PULSE 87; RESP 17; O2SAT 95
== END 2023-10-05 03:31 | disposition home or self-care (01) ==
LOC: ED 21:35
DX: J18.9 Pneumonia, unspecified organism (principal); R05.1 Acute cough; R51.9 Headache, unspecified; I10 Essential (primary) hypertension; E11.9 Type 2 diabetes mellitus without complications; Z79.899 Other long term (current) drug therapy
CPT/HCPCS: 0241U; 36000; 36415; 71046; 80048; 85025; 87040; 87651; 94640; 96365; 96367; 99284; J0456; J0696; J7609; A9270-GY

== ENCOUNTER 2024-01-05 12:25 | Emergency (ER) | payer OTHER ==
[2024-01-05 13:13] VITALS: BP 180/77; PULSE 69; RESP 20; TEMP 97.4; O2SAT 98
--- NOTE | 2024-01-05 13:38 | ERPHSYRPT ---
- History of Present Illness Time Seen by Provider: 01/05/24 13:37 Source: patient Exam Limitations: no limitations Patient Subjective Stated Complaint: Pt states "I have leg pain below my left knee down to my foot and it hurts more and more. I have a hard time walking any kind of distance and I have to do something. It all started when I had that bypass and they took the vein out of my lower left leg." Triage Nursing Assessment: Pt presented alert and oriented X 3, skin pwd. PT ambulates with a limp. Pt has CSM X 4. PT left leg non tender, no bruising or swelling noted. Physician History: The patient presents with severe left leg pain that occurs with ambulation and is relieved by rest. 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 The patient denies any pain at rest or with palpation. The patient has a history of a double heart bypass surgery during which a vein was harvested from the affected leg. The patient reports that the pain has been progressively worsening since the surgery. The patient also reports a history of pneumonia and subsequent difficulty breathing, particularly with exertion. The patient denies any chest pain associated with the shortness of breath. Method of Injury: unknown Occurred: other (1 year) Quality: intermittent, cramping, stabbing Severity of Pain-Max: severe Severity of Pain-Current: none Lower Extremities Pain: leg: left Modifying Factors: Improves With: rest. Worsens With: movement Associated Symptoms: none Allergies/Adverse Reactions: tetracycline [Tetracycline] Allergy (Mild, Verified 10/04/23 23:10) Rash Home Medications: Atorvastatin Calcium 10 mg PO DAILY 07/16/22 [History] Cholecalciferol (Vitamin D3) [Vitamin D3] 125 mcg PO DAILY 07/16/22 [History] Latanoprost/Pf [Latanoprost 0.005% Eye Drop] 1 drop OP HS 07/16/22 [History] Metoprolol Tartrate 25 mg [Lopressor 25MG Tab] 25 mg PO BID 07/16/22 [History] Sodium Bicarbonate 650 mg PO DAILY 07/16/22 [History] Amiodarone HCl 200 mg [Cordarone 200 MG] 200 mg PO DAILY 01/13/23 [History] Aspirin 81 gm Chew [Baby Aspirin 81 mg Chew] 81 mg PO DAILY 01/13/23 [History] Cyanocobalamin (Vitamin B-12) [B-12] 1,000 mcg PO DAILY 01/13/23 [History] Glyburide 5 mg [Micronase 5 MG] 5 mg PO BID 01/13/23 [History] Ferrous Sulfate 325 mg [Feosol 325 mg] 325 mg PO DAILY 04/01/23 [History] Hx Tetanus, Diphtheria Vaccination/Date Given: No Hx Influenza Vaccination/Date Given: Yes Hx Pneumococcal Vaccination/Date Given: Yes Immunizations Up to Date: No Travel Risk - International Travel Have you traveled outside of the country in past 3 weeks: No - Emerging Infectious Disease Are you exhibiting symptoms associated with any current EIDs: No - Review of Systems All Other Systems: Reviewed and Negative - Past Medical History Pertinent Past Medical History: Yes Neurological History: Stroke Cardiac History: Coronary Artery Disease, Hypertension, Myocardial Infarction (AR) Respiratory History: Sleep Apnea Endocrine Medical History: Diabetes Type II Musculoskeletal History: Arthritis History: Renal Disease Psycho-Social History: No Pertinent History Male Reproductive Disorders: No Pertinent History - Past Surgical History Past Surgical History: Yes Neuro Surgical History: No Pertinent History Cardiac: CABG, Cardiac Catheterization, Cardiac Stent, Internal Defibrillator Respiratory: No Pertinent History Gastrointestinal: No Pertinent History Genitourinary: No Pertinent History Musculoskeletal: No Pertinent History Other Surgical History: back surgery, 3 stents, open heart bypass surgery in January 2023 - Social History Smoking Status: Never smoker Exposure to second hand smoke: No Drug Use: none Patient Lives Alone: No - Social Determinants of Health Will the patient participate in the screening: Yes Do you worry about a steady place to live?: No Do you have any problems with any of the following?: No known problems In the past 12 months,have you had to go without utilities?: No Transportation Issues: No Has anyone in your support network made you feel unsafe?: No Have you or anyone in your house had to go without enough: No - Nursing Vital Signs Nursing Vital Signs: Initial Vital Signs Temperature 97.4 F 01/05/24 13:09 Pulse Rate 69 01/05/24 13:09 Respiratory Rate 20 01/05/24 13:09 Blood Pressure 180/77 01/05/24 13:09 O2 Sat by Pulse Oximetry 98 01/05/24 13:09 Pain Scale Pain Intensity 3 - Physical Exam General Appearance: no apparent distress Legs Exam: left leg: non-tender, normal range of motion, bilateral leg: other (no hair, shiny appearance) Neuro/Tendon Exam: normal sensation, normal motor functions Mental Status Exam: alert, oriented x 3, cooperative Skin Exam: normal color, warm SpO2 Interpretation: normal SpO2: 98 O2 Delivery: Room Air (thready DP, TP pulses on left) - Course Nursing assessment & vital signs reviewed: Yes Ordered Tests: Active Orders 24 hr Category Date Time Status CHEST 1 VIEW (PORTABLE) Stat Exams 01/05/24 13:38 Completed CBC W DIFF Stat Lab 01/05/24 14:20 Completed CMP Stat Lab 01/05/24 14:20 Completed Medication Summary Discontinued Medications Generic Name Dose Route Start Last Admin Trade Name Freq PRN Reason Stop Dose Admin Sodium Chloride 1,000 mls @ 999 mls/hr 01/05/24 13:38 01/05/24 14:58 Sodium Chloride 0.9% 1000 Ml IV 01/05/24 14:38 Not Given .Q1H1M STA Lab/Rad Data: Laboratory Result Diagrams 01/05/24 14:20 01/05/24 14:20 Laboratory Results 01/05/24 01/05/24 Range/Units 14:20 14:20 WBC 5.3 (4.23-9.07) x10^3/uL RBC 4.79 (4.63-6.08) x10^6/uL Hgb 14.6 (13.7-17.5) g/dL Hct 44.6 (40.1-51.0) % MCV 93.1 H (79.0-92.2) fL MCH 30.5 (25.7-32.2) pg MCHC 32.7 (32.3-36.5) g/dL RDW 13.7 (11.6-14.4) % Plt Count 174 (163-337) x10^3/uL MPV 10.3 (9.4-12.4) fL Gran % 46.8 (34.0-67.9) % Immature Gran % (Auto) 0.2 (0.001-0.429) % Nucleat RBC Rel Count 0.0 (0.00-0.2) % Eos # (Auto) 0.30 (0.04-0.54) x10^3/uL Immature Gran # (Auto) 0.01 (0.001-0.031) x10^3u/L Absolute Lymphs (auto) 1.90 (1.32-3.57) x10^3/uL Absolute Monos (auto) 0.52 (0.30-0.82) x10^3/uL Absolute Nucleated RBC 0.00 (0.00-0.012) x10^3u/L Lymphocytes % 36.1 (21.8-53.1) % Monocytes % 9.9 (5.3-12.2) % Eosinophils % 5.7 (0.8-7.0) % Basophils % 1.3 H (0.2-1.2) % Absolute Granulocytes 2.46 (1.78-5.38) x10^3/uL Basophils # 0.07 (0.01-0.08) x10^3/uL Sodium 134 L (135-145) mmol/L Potassium 5.3 H (3.5-5.1) mmol/L Chloride 105 (98-107) mmol/L Carbon Dioxide 20 L (22-30) mmol/L Anion Gap 14.1 (5-15) MEQ/L BUN 54 H (9-20) mg/dL Creatinine 2.94 H (0.66-1.25) mg/dL Estimated GFR 21.3 ML/MIN Glucose 269 H (74-106) mg/dL Calcium 9.0 (8.4-10.2) mg/dL Total Bilirubin 0.50 (0.2-1.3) mg/dL AST 22 (17-59) U/L ALT 13 (0-50) U/L Alkaline Phosphatase 68 (38-126) U/L Serum Total Protein 6.5 (6.3-8.2) g/dL Albumin 3.6 (3.5-5.0) g/dL - Progress Progress Note: Patient has significant renal disease with most recent labs from December 28 showing creatinine over 3 and a GFR of 20. No signs of acute limb ischemia but history and physical exam highly consistent with claudication. I spoke with his hospital attendant Dr. Yousif Kelly who reports that in July Doppler showed monophasic waveforms concerning for peripheral vascular disease. He asked that we have the patient follow-up in his office and placed him on Xarelto 2.5 mg twice a day until the visit. He will likely need an angiogram at this time. 01/05/24 14:[address] Other (Deven) Counseled pt/family regarding: diagnosis, need for follow-up Medical Desision Making - Discussion of managment Care discussed with:: specialist Reviewed:: Need for additional workup Agreed on:: Treatment plan, need for follow-up Will see patient: In office - Diagnostic Testing Diagnostic test were ordered, analyzed, and reviewed by me: Yes Radiological Interpretation: Interpreted by me - Risk of complications Low Risk: Low risk of morbidity from additional dx testing or treatment - Departure Departure Disposition: Home Clinical Impression: Type II diabetes mellitus, Hypertension, CRI (chronic renal insufficiency), CHF (congestive heart failure), PVD (peripheral vascular disease) with claudication Condition: Good Critical Care Time: No Referrals: [facility] [Primary Care Provider] - Follow up/PCP as directed SABINE MEDEROS [CONSULTING PHYSICIAN] - Follow up/PCP as directed Instructions: Heart Failure, Peripheral artery disease and claudication Prescriptions: Rivaroxaban [Xarelto] 2.5 mg PO BID 30 Days #60 tablet
--- NOTE | 2024-01-05 14:27 | XRAY ---
Indication: Short of breath 2 weeks. Comparison: October 04, 2023 Portable chest demonstrates new cardiomegaly, small left effusion, and minimal left base subsegmental atelectasis/scarring possibly cardiac decompensation/CHF in the right clinical setting. Remaining chest unchanged again with CABG, left AICD, and atrial clip. Bony thorax intact again with osteopenia and degenerative changes.
[2024-01-05 14:28] LABS: Absolute Neutrophil Ct (ANC) 2.46 x10^3/uL (1.78-5.38); BASOPHIL % 1.3 % (0.2-1.2); Basophil (Absolute #) 0.07 x10^3/uL (0.01-0.08); Eosinophil % 5.7 % (0.8-7.0); Hematocrit 44.6 % (40.1-51.0); Hemoglobin 14.6 g/dL (13.7-17.5); IMMATURE GRAN # 0.01 x10^3u/L (0.001-0.031); IMMATURE GRAN % 0.2 % (0.001-0.429); Lymphocytes % 36.1 % (21.8-53.1); Mean Cell Volume 93.1 fL (79.0-92.2); Mean Corpuscular Hemoglobin 30.5 pg (25.7-32.2); Mean Corpuscular Hgb Concent. 32.7 g/dL (32.3-36.5); Mean Platelet Volume 10.3 fL (9.4-12.4); Monocyte (Absolute #) 0.52 x10^3/uL (0.30-0.82); Monocytes % 9.9 % (5.3-12.2); Neutrophil % 46.8 % (34.0-67.9); Platelet Count 174 x10^3/uL (163-337); Red Blood Count 4.79 x10^6/uL (4.63-6.08); Red Cell Distribution Width 13.7 % (11.6-14.4); White Blood Count 5.3 x10^3/uL (4.23-9.07)
[2024-01-05 14:41] LABS: ALBUMIN 3.6 g/dL (3.5-5.0); ANION GAP 14.1 MEQ/L (5-15); BILIRUBIN,TOTAL 0.5 mg/dL (0.2-1.3); Creatinine 1 2.94 mg/dL (0.66-1.25); EST GLOMERULAR FILTRATION RATE 21.3 ML/MIN; Potassium 5.3 mmol/L (3.5-5.1); Total Protein 6.5 g/dL (6.3-8.2)
[2024-01-05] MEDS: Sodium Chloride 0.9% 1000 ML 1,000 ML IV STA (14:58)
== END 2024-01-05 15:31 | disposition home or self-care (01) ==
LOC: ED 12:25
DX: I73.9 Peripheral vascular disease, unspecified (principal); E11.22 Type 2 diabetes mellitus with diabetic chronic kidney disease; I13.0 Hypertensive heart and chronic kidney disease with heart failure and stage 1 through stage 4 chronic kidney disease, or unspecified chronic kidney disease; N18.9 Chronic kidney disease, unspecified; I50.9 Heart failure, unspecified; M79.605 Pain in left leg; Z79.01 Long term (current) use of anticoagulants; Z79.84 Long term (current) use of oral hypoglycemic drugs; Z79.899 Other long term (current) drug therapy
CPT/HCPCS: 36415; 71045; 80053; 85025; 99283

== ENCOUNTER 2024-03-25 10:28 | Observation (INO) | payer OTHER ==
[2024-03-25] MEDS ORDERED: DUONEB 0.5-3 MG/3 ml Neb IH ONE (10:56)
[2024-03-25] MEDS: DUONEB 0.5-3 MG/3 ml Neb IH ONE (11:04)
--- NOTE | 2024-03-25 11:22 | XRAY ---
CLINICAL HISTORY: cough COMPARISON: DX dated 10/04/2023 is available for comparison. TECHNIQUE: X-ray image of the chest is obtained in AP projection. FINDINGS: Cardiac pacemaker is seen in situ with normally positioned leads. Sternotomy sutures are seen. Cardiac prosthesis is seen. Pulmonary Parenchyma: Ill-defined hazy opacity is seen in left mid zone obscuring left cardiac silhouette. Bilateral costophrenic angles are partially obscured raising suspicion for minimal basal pleural effusion -- needs ultrasound correlation. Right horizontal fissure is prominent. Heart and Mediastinum: Heart size is enlarged with loss of cardiac silhouette on the left side. No mediastinal widening or masses. No hilar or mediastinal lymphadenopathy. Bony Thorax: Bony thorax appears intact without fractures however shows degenerative changes. Soft Tissues: Soft tissues overlying the chest wall are unremarkable. IMPRESSION: 1. Left mid-zone hazy opacity. 2. Bilateral costophrenic angles are partially obscured raising suspicion for minimal basal pleural effusion -- needs ultrasound correlation. 3. Cardiomegaly. 4. Comparison with previous DX dated 10/04/2023 shows new findings. Electronically Signed by: Stone Carcamo MD. (03/25/2024 11:18:04 EDT)
--- NOTE | 2024-03-25 11:30 | ERPHSYRPT ---
- History of Present Illness Time Seen by Provider: 03/25/24 10:45 Source: patient, family Exam Limitations: no limitations Patient Subjective Stated Complaint: pt here for multi cos sob for since , states getting worse, aslo co some nauesa aches all over, no fever Triage Nursing Assessment: pt alert, resp easy , no cough, moves all ext well. skin w.d.o, no edema noted Physician History: 78-year-old male with history of coronary artery disease status post CABG, atrial fibrillation on Xarelto, hypertension, diabetes mellitus presented in the ER with multiple complaints including difficulty breathing, abdominal pain nausea and vomiting. Patient reports having cough congestion going on since this year and lately coughing up yellow-green sputum moderate in amount and feels congested and short of breath. Denies any fever or chills. No lower extremity swellings. Patient also reports having generalized abdominal aches and pains getting nauseated and is unable to hold much down. Patient was rece ntly restarted on Ozempic. No fever or chills reported but aches and pains all over. Allergies/Adverse Reactions: tetracycline [Tetracycline] Allergy (Mild, Verified 03/25/24 10:45) Rash Home Medications: Atorvastatin Calcium 10 mg PO DAILY 07/16/22 [History] Cholecalciferol (Vitamin D3) [Vitamin D3] 125 mcg PO DAILY 07/16/22 [History] Latanoprost/Pf [Latanoprost 0.005% Eye Drop] 1 drop OP HS 07/16/22 [History] Metoprolol Tartrate 25 mg [Lopressor 25MG Tab] 25 mg PO BID 07/16/22 [History] Sodium Bicarbonate 650 mg PO DAILY 07/16/22 [History] Amiodarone HCl 200 mg [Cordarone 200 MG] 200 mg PO DAILY 01/13/23 [History] Aspirin 81 gm Chew [Baby Aspirin 81 mg Chew] 81 mg PO DAILY 01/13/23 [History] Cyanocobalamin (Vitamin B-12) [B-12] 1,000 mcg PO DAILY 01/13/23 [History] Glyburide 5 mg [Micronase 5 MG] 5 mg PO BID 01/13/23 [History] Ferrous Sulfate 325 mg [Feosol 325 mg] 325 mg PO DAILY 04/01/23 [History] Hx Tetanus, Diphtheria Vaccination/Date Given: No Hx Influenza Vaccination/Date Given: No Hx Pneumococcal Vaccination/Date Given: Yes Immunizations Up to Date: Yes Travel Risk - International Travel Have you traveled outside of the country in past 3 weeks: No - Emerging Infectious Disease Are you exhibiting symptoms associated with any current EIDs: Yes Symptoms: Cough: New Onset, Headaches/Body Aches/, Vomitting - Review of Systems Constitutional: Fatigue Eyes: No Symptoms Ears, Nose, & Throat: Nose Congestion, Throat Swelling Respiratory: Cough, Dyspnea Cardiac: No Symptoms Abdominal/Gastrointestinal: Abdominal Pain, Nausea, Vomiting Genitourinary Symptoms: No Symptoms Musculoskeletal: Myalgias Neurological: No Symptoms Endocrine: No Symptoms Immunological/Allergic: No Symptoms - Past Medical History Pertinent Past Medical History: Yes Neurological History: Stroke Cardiac History: Coronary Artery Disease, Hypertension, Myocardial Infarction ([place]) Respiratory History: Pneumonia, Sleep Apnea Endocrine Medical History: Diabetes Type II Musculoskeletal History: Arthritis History: Renal Disease Psycho-Social History: No Pertinent History Male Reproductive Disorders: No Pertinent History - Past Surgical History Past Surgical History: Yes Neuro Surgical History: No Pertinent History Cardiac: CABG, Cardiac Catheterization, Cardiac Stent, Internal Defibrillator Respiratory: No Pertinent History Gastrointestinal: No Pertinent History Genitourinary: No Pertinent History Musculoskeletal: No Pertinent History Other Surgical History: back surgery, 3 stents, open heart bypass surgery in January 2023 - Social History Smoking Status: Former smoker Exposure to second hand smoke: No Drug Use: none Patient Lives Alone: No - Social Determinants of Health Will the patient participate in the screening: Yes Do you worry about a steady place to live?: No Do you have any problems with any of the following?: No known problems In the past 12 months,have you had to go without utilities?: No Transportation Issues: No Has anyone in your support network made you feel unsafe?: No Have you or anyone in your house had to go without enough: No - Nursing Vital Signs Nursing Vital Signs: Initial Vital Signs Temperature 97 F 03/25/24 10:38 Pulse Rate 98 H 03/25/24 10:38 Respiratory Rate 28 H 03/25/24 10:38 Blood Pressure 141/68 03/25/24 10:38 O2 Sat by Pulse Oximetry 99 03/25/24 10:38 Pain Scale Pain Intensity 4 - Physical Exam General Appearance: no apparent distress, alert Eye Exam: PERRL/EOMI Ears, Nose, Throat Exam: normal ENT inspection Neck Exam: normal inspection, non-tender, supple, full range of motion Respiratory Exam: normal breath sounds, lungs clear Cardiovascular Exam: regular rate/rhythm, normal heart sounds Gastrointestinal/Abdomen Exam: soft, normal bowel sounds, No tenderness Back Exam: normal inspection Extremity Exam: normal inspection, normal range of motion Neurologic Exam: alert, oriented x 3, cooperative Skin Exam: normal color SpO2 Interpretation: normal SpO2: 99 O2 Delivery: Room Air Ordered Tests: Active Orders 24 hr Category Date Time Status ABDOMEN AND PELVIS W/0 CONTRAS [CT] Stat Exams 03/25/24 11:16 Completed CHEST 1 VIEW (PORTABLE) Stat Exams 03/25/24 10:43 Completed BLOOD CULTURE Stat Lab 03/25/24 11:15 Received CBC W DIFF Stat Lab 03/25/24 12:15 Completed CMP Stat Lab 03/25/24 12:15 Completed CULTURE,URINE Stat Lab 03/25/24 10:46 Received LIPASE Stat Lab 03/25/24 12:15 Completed Lactic Acid Stat Lab 03/25/24 11:15 Completed Lactic Acid Stat Lab 03/25/24 14:22 Stop Req MAGNESIUM Stat Lab 03/25/24 12:15 Completed NT PRO BNPII Stat Lab 03/25/24 12:15 Completed TROPONIN Q4H Lab 03/25/24 12:15 Completed TROPONIN Q4H Lab 03/25/24 15:15 Ordered TROPONIN Q4H Lab 03/25/24 19:15 Ordered UA W/RFX UR CULTURE Stat Lab 03/25/24 10:46 Completed Respiratory Therapy Assessment DAILY RT 03/25/24 11:08 Active Transfer Order Routine Transfer 03/25/24 Ordered Medication Summary Generic Name Dose Route Start Last Admin Trade Name Freq PRN Reason Stop Dose Admin Sodium Chloride 1,000 mls @ 100 mls/hr 03/25/24 14:30 03/25/24 14:43 Sodium Chloride 0.9% 1000 Ml IV 04/24/24 14:29 100 mls/hr .Q10H ABY Administration Discontinued Medications Generic Name Dose Route Start Last Admin Trade Name Freq PRN Reason Stop Dose Admin Albuterol/Ipratropium 3 ml 03/25/24 10:43 03/25/24 11:04 Ipratropium/Albuterol Sulfate 3 Ml Ampul.Neb IH 03/25/24 10:44 3 ml STAT ONE Administration Albuterol/Ipratropium Confirm 03/25/24 10:56 Ipratropium/Albuterol Sulfate 3 Ml Ampul.Neb Administered 03/25/24 10:57 Dose 3 ml IH .STK-MED ONE Ceftriaxone Sodium 1 gm in 100 mls @ 200 mls/hr 03/25/24 13:22 03/25/24 14:42 Rocephin 1 Gm / 100 Ml Nacl IV 03/25/24 13:51 Infused STAT ONE Infusion Metronidazole 500 mg in 100 mls @ 200 mls/hr 03/25/24 13:53 03/25/24 14:44 Flagyl 500 Mg Ivpb IV 03/25/24 14:22 200 ml/hr STAT STA 200 mls/hr Administration Ceftriaxone Sodium Confirm 03/25/24 13:57 Rocephin 1 Gm / 100 Ml Nacl Administered 03/25/24 13:58 Dose 1 gm in 100 mls @ ud IV .STK-MED ONE Metronidazole Confirm 03/25/24 14:40 Flagyl 500 Mg Ivpb Administered 03/25/24 14:41 Dose 500 mg in 100 mls @ ud IV .STK-MED ONE Lidocaine HCl Confirm 03/25/24 13:53 Lidocaine - Mpf 2% 5 Ml Vial Administered 03/25/24 13:54 Dose 5 ml .ROUTE .STK-MED ONE Morphine Sulfate 2 mg 03/25/24 11:16 03/25/24 13:47 Morphine Sulfate 2 Mg/Ml Inj IV 03/25/24 11:17 2 mg STAT ONE Administration Morphine Sulfate Confirm 03/25/24 13:13 Morphine Sulfate 2 Mg/Ml Inj Administered 03/25/24 13:14 Dose 2 mg .ROUTE .STK-MED ONE Ondansetron HCl 4 mg 03/25/24 11:16 03/25/24 13:47 Ondansetron Hcl 4 Mg/2 Ml Vial IV 03/25/24 11:17 4 mg STAT ONE Administration Ondansetron HCl Confirm 03/25/24 13:12 Ondansetron Hcl 4 Mg/2 Ml Vial Administered 03/25/24 13:13 Dose 4 mg .ROUTE .STK-MED ONE Lab/Rad Data: Laboratory Result Diagrams 03/25/24 12:15 03/25/24 12:15 Laboratory Results 03/25/24 03/25/24 03/25/24 Range/Units 12:15 12:15 11:15 WBC 7.3 (4.23-9.07) x10^3/uL RBC 5.43 (4.63-6.08) x10^6/uL Hgb 16.5 (13.7-17.5) g/dL Hct 50.0 (40.1-51.0) % MCV 92.1 (79.0-92.2) fL MCH 30.4 (25.7-32.2) pg MCHC 33.0 (32.3-36.5) g/dL RDW 12.8 (11.6-14.4) % Plt Count 204 (163-337) x10^3/uL MPV 9.8 (9.4-12.4) fL Gran % 65.0 (34.0-67.9) % Immature Gran % (Auto) 0.3 (0.001-0.429) % Nucleat RBC Rel Count 0.0 (0.00-0.2) % Eos # (Auto) 0.18 (0.04-0.54) x10^3/uL Immature Gran # (Auto) 0.02 (0.001-0.031) x10^3u/L Absolute Lymphs (auto) 1.84 (1.32-3.57) x10^3/uL Absolute Monos (auto) 0.48 (0.30-0.82) x10^3/uL Absolute Nucleated RBC 0.00 (0.00-0.012) x10^3u/L Lymphocytes % 25.2 (21.8-53.1) % Monocytes % 6.6 (5.3-12.2) % Eosinophils % 2.5 (0.8-7.0) % Basophils % 0.4 (0.2-1.2) % Absolute Granulocytes 4.76 (1.78-5.38) x10^3/uL Basophils # 0.03 (0.01-0.08) x10^3/uL Sodium 137 (135-145) mmol/L Potassium 4.9 (3.5-5.1) mmol/L Chloride 106 (98-107) mmol/L Carbon Dioxide 17 L (22-30) mmol/L Anion Gap 18.7 H (5-15) MEQ/L BUN 46 H (9-20) mg/dL Creatinine 3.18 H (0.66-1.25) mg/dL Estimated GFR 19.3 ML/MIN Glucose 162 H (74-106) mg/dL Lactic Acid 1.9 (0.4-2.0) Calcium 9.4 (8.4-10.2) mg/dL Magnesium 2.3 (1.6-2.3) mg/dL Total Bilirubin 0.80 (0.2-1.3) mg/dL AST 30 (17-59) U/L ALT 13 (0-50) U/L Alkaline Phosphatase 103 (38-126) U/L Troponin I 0.018 (0.000-0.033) ng/mL NT-Pro-B Natriuret Pep 4460 (<300) pg/mL Serum Total Protein 7.5 (6.3-8.2) g/dL Albumin 4.1 (3.5-5.0) g/dL Lipase 163 (23-300) U/L Urine Color (Yellow) Urine Appearance (Clear) Urine pH (4.6-8.0) Ur Specific Jenkins (1.005-1.030) Urine Protein (Negative) Urine Glucose (UA) (Negative) mg/dL Urine Ketones (Negative) Urine Blood (Negative) Urine Nitrite (Negative) Urine Bilirubin (Negative) Urine Urobilinogen (0.2) mg/dL Ur Leukocyte Esterase (Negative) Urine Microscopic RBC (0-5) /HPF Urine Microscopic WBC (0-5) /HPF Ur Epithelial Cells (None Seen) /HPF Urine Bacteria (None Seen) /HPF Urine Culture Reflexed (NO) Influenza Type A Ag (NEGATIVE) Influenza Type B Ag (NEGATIVE) RSV (PCR) (NEGATIVE) SARS-CoV-2 (PCR) (NEGATIVE) 03/25/24 03/25/24 Range/Units 11:04 10:46 WBC (4.23-9.07) x10^3/uL RBC (4.63-6.08) x10^6/uL Hgb (13.7-17.5) g/dL Hct (40.1-51.0) % MCV (79.0-92.2) fL MCH (25.7-32.2) pg MCHC (32.3-36.5) g/dL RDW (11.6-14.4) % Plt Count (163-337) x10^3/uL MPV (9.4-12.4) fL Gran % (34.0-67.9) % Immature Gran % (Auto) (0.001-0.429) % Nucleat RBC Rel Count (0.00-0.2) % Eos # (Auto) (0.04-0.54) x10^3/uL Immature Gran # (Auto) (0.001-0.031) x10^3u/L Absolute Lymphs (auto) (1.32-3.57) x10^3/uL Absolute Monos (auto) (0.30-0.82) x10^3/uL Absolute Nucleated RBC (0.00-0.012) x10^3u/L Lymphocytes % (21.8-53.1) % Monocytes % (5.3-12.2) % Eosinophils % (0.8-7.0) % Basophils % (0.2-1.2) % Absolute Granulocytes (1.78-5.38) x10^3/uL Basophils # (0.01-0.08) x10^3/uL Sodium (135-145) mmol/L Potassium (3.5-5.1) mmol/L Chloride (98-107) mmol/L Carbon Dioxide (22-30) mmol/L Anion Gap (5-15) MEQ/L BUN (9-20) mg/dL Creatinine (0.66-1.25) mg/dL Estimated GFR ML/MIN Glucose (74-106) mg/dL Lactic Acid (0.4-2.0) Calcium (8.4-10.2) mg/dL Magnesium (1.6-2.3) mg/dL Total Bilirubin (0.2-1.3) mg/dL AST (17-59) U/L ALT (0-50) U/L Alkaline Phosphatase (38-126) U/L Troponin I (0.000-0.033) ng/mL NT-Pro-B Natriuret Pep (<300) pg/mL Serum Total Protein (6.3-8.2) g/dL Albumin (3.5-5.0) g/dL Lipase (23-300) U/L Urine Color Yellow (Yellow) Urine Appearance Cloudy A (Clear) Urine pH 5.0 (4.6-8.0) Ur Specific Jenkins >=1.030 A (1.005-1.030) Urine Protein >=1000 A (Negative) Urine Glucose (UA) >=1000 A (Negative) mg/dL Urine Ketones Negative (Negative) Urine Blood Negative (Negative) Urine Nitrite Negative (Negative) Urine Bilirubin Negative (Negative) Urine Urobilinogen 0.2 (0.2) mg/dL Ur Leukocyte Esterase Trace A (Negative) Urine Microscopic RBC 0-2 (0-5) /HPF Urine Microscopic WBC 51-100 A (0-5) /HPF Ur Epithelial Cells Rare (None Seen) /HPF Urine Bacteria None Seen (None Seen) /HPF Urine Culture Reflexed YES (NO) Influenza Type A Ag NEGATIVE (NEGATIVE) Influenza Type B Ag NEGATIVE (NEGATIVE) RSV (PCR) NEGATIVE (NEGATIVE) SARS-CoV-2 (PCR) NEGATIVE (NEGATIVE) - Progress Progress: improved Progress Note: 03/25/24 14:26 78-year-old is evaluated in the ER for multiple complaints of shortness of breath/coughing/body aches/abdominal pain nausea vomiting. He is given symptomatic treatment, on reevaluation has some improvement in symptoms. Workup showed normal white count, chemistries with CKD around baseline 3.18. Has negative COVID flu and RSV. Chest x-ray showed left-sided opacities, also has UTI and CT consistent with acute diverticulitis. It does have cholelithiasis with no findings of acute cholecystitis and no significant tenderness in right upper quadrant. He is started on Rocephin and Flagyl. I believe patient would benefit with admission. 03/25/24 15:05 [facility] to admit patient over here. I have discussed with Dr. Chavira and patient is being admitted. Shared the results of workup with patient and family and plan of admission which they understand and agree. Discussed with Dr.: Other (Dr. Chavira) Counseled pt/family regarding: lab results, diagnosis, need for follow-up, rad results Medical Desision Making - Independent Historian Additional History obtained from: Spouse - Discussion of managment Care discussed with:: hospitalist (Dr. Chavira) Reviewed:: Test results Agreed on:: Treatment plan, place in obs Will see patient: in hospital - Diagnostic Testing Diagnostic test were ordered, analyzed, and reviewed by me: Yes Radiological Interpretation: Reviewed by me, Teleradiologist Report - Risk of complications The pt has a mod risk of morbidity or mortality based on: Need for prescription drug management The pt has a high risk of morbidity or mortality based on: Need for major surgery in patient with known risk factors - Departure Departure Disposition: Observation Clinical Impression: Pneumonia, Acute diverticulitis of intestine, Acute UTI (urinary tract in fection) Condition: Stable Critical Care Time: No Referrals: HOSPITAL,'S [Primary Care Provider] - Follow up/PCP as directed
[2024-03-25 11:32] LABS: Appearance Cloudy (Clear); Bilirubin Negative (Negative); Blood Negative (Negative); Glucose, Urine >=1000 mg/dL (Negative); Ketones Negative (Negative); Leukocyte Esterase Trace (Negative); Nitrite Negative (Negative); Protein,Urine Dip >=1000 (Negative); Specific Gravity >=1.030 (1.005-1.030); Urobilinogen 0.2 mg/dL (0.2)
[2024-03-25 12:01] LABS: WBC 51-100 /HPF (0-5)
[2024-03-25 12:02] LABS: ADD URINE CULTURE? YES (NO); Bacteria None Seen /HPF (None Seen); Epithelial Cells Rare /HPF (None Seen); RBC 0-2 /HPF (0-5)
[2024-03-25 12:05] LABS: INFLUENZA A NEGATIVE (NEGATIVE); INFLUENZA B NEGATIVE (NEGATIVE); RESPIRATORY SYNCTIAL VIRUS NEGATIVE (NEGATIVE); SARS-CoV-2 Xpert Express NEGATIVE (NEGATIVE)
[2024-03-25 12:20] LABS: Absolute Neutrophil Ct (ANC) 4.76 x10^3/uL (1.78-5.38); BASOPHIL % 0.4 % (0.2-1.2); Basophil (Absolute #) 0.03 x10^3/uL (0.01-0.08); Eosinophil % 2.5 % (0.8-7.0); Eosinophil (Absolute #) 0.18 x10^3/uL (0.04-0.54); Hemoglobin 16.5 g/dL (13.7-17.5); IMMATURE GRAN # 0.02 x10^3u/L (0.001-0.031); IMMATURE GRAN % 0.3 % (0.001-0.429); Lymphocyte (Absolute #) 1.84 x10^3/uL (1.32-3.57); Lymphocytes % 25.2 % (21.8-53.1); Mean Cell Volume 92.1 fL (79.0-92.2); Mean Corpuscular Hemoglobin 30.4 pg (25.7-32.2); Mean Platelet Volume 9.8 fL (9.4-12.4); Monocyte (Absolute #) 0.48 x10^3/uL (0.30-0.82); Monocytes % 6.6 % (5.3-12.2); Platelet Count 204 x10^3/uL (163-337); Red Blood Count 5.43 x10^6/uL (4.63-6.08); Red Cell Distribution Width 12.8 % (11.6-14.4); White Blood Count 7.3 x10^3/uL (4.23-9.07)
[2024-03-25 12:48] LABS: ALBUMIN 4.1 g/dL (3.5-5.0); ANION GAP 18.7 MEQ/L (5-15); BILIRUBIN,TOTAL 0.8 mg/dL (0.2-1.3); Calcium 9.4 mg/dL (8.4-10.2); Creatinine 1 3.18 mg/dL (0.66-1.25); EST GLOMERULAR FILTRATION RATE 19.3 ML/MIN; MAGNESIUM 2.3 mg/dL (1.6-2.3); Potassium 4.9 mmol/L (3.5-5.1); TROPONIN 0.018 ng/mL (0.000-0.033); Total Protein 7.5 g/dL (6.3-8.2)
[2024-03-25] MEDS ORDERED: Zofran 4 MG/2 ML VIAL ONE (13:12)
[2024-03-25] MEDS ORDERED: MORPHINE SULFATE 2 MG INJ ONE (13:13)
--- NOTE | 2024-03-25 13:34 | XRAY ---
CLINICAL HISTORY: abd pain/vomiting COMPARISON: Comparison is made with 01/13/2023 TECHNIQUE: Non-contrast CT of the abdomen and pelvis was performed, with the following protocol: axial images, and reconstructed coronal and sagittal images. One of the following dose reduction techniques was utilized for this exam: Automated exposure control, adjustment of the mA and/or kV according to patient size, and use of iterative reconstruction. CTDI: 10.23 mGy, DLP: 600.32 mGy-cm. FINDINGS: Abdomen: Liver: Normal in size 15.6 cm, shape, and density. No focal lesions, cysts, or masses were identified. Gallbladder and Biliary System: The gallbladder is normal in size and shape. Multiple tiny radiodensities are seen along the dependent wall of the gallbladder -- ultrasound correlation suggested. No wall thickening or pericholecystic fluid was identified. CBD measures 7.5 mm however no definite radiodensity is seen within the lumen of the CBD. Pancreas: Pancreatic head, body, and tail are visualized and appear normal in size and density. No pancreatic masses seen however a tiny focus of calcification is seen in the lung the pancreas. Spleen: Normal in size, shape, and density. No splenic lesions or masses were identified. Kidneys and Adrenal Glands: Both kidneys are normal in size, shape, and position. Cortical thickness is within normal limits. No renal calculi or hydronephrosis. Adrenal glands are unremarkable. Abdominal Aorta and Vessels: The abdominal aorta and major branches are patent without evidence of an aneurysm however diffuse atherosclerotic changes with interrupted wall calcifications are seen. Pelvis: Urinary Bladder: Normal in contour and wall thickness. No intraluminal lesions. Prostate: Enlarged measuring 51x41 mm. Peritoneal and Retroperitoneal Structures: No free fluid or abnormal fluid collections were identified within the abdomen or pelvis. No lymphadenopathy was noted. Bowel: A few tiny air-filled outpouchings are seen along the descending colon and the sigmoid colon. The sigmoid colon appears thick-walled with pericolonic fat stranding raising suspicion for acute diverticulitis. Bones and Soft Tissues: Pelvic bones and Spine show advanced age-related degenerative changes. IMPRESSION: 1. Cholelithiasis 2. Colonic diverticulosis with suspicion of acute diverticulitis. 3. Enlarged prostate. 4. Comparison with the previous CT dated 01/13/2023 shows the appearance of the acute symptoms. 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 Golden was informed regarding the presence of Important Medical Findings in the report. Electronically Signed by: Stone Carcamo MD. (03/25/2024 13:30:49 EDT)
[2024-03-25] MEDS: Zofran 4 MG/2 ML VIAL IV ONE (13:47)
[2024-03-25] MEDS: MORPHINE SULFATE 2 MG INJ IV ONE (13:47)
[2024-03-25] MEDS ORDERED: Xylocaine-Mpf 2% 5 Ml Vial ONE (13:53)
[2024-03-25] MEDS ORDERED: ROCEPHIN 1 GM / 100 ML NaCl 1 GM/100 ML IVPB IV ONE (13:57)
[2024-03-25] MEDS: ROCEPHIN 1 GM / 100 ML NaCl 1 GM/100 ML IVPB IV ONE (13:58)
[2024-03-25] MEDS ORDERED: FLAGYL 500 MG IVPB 500 MG/100 ML BAG IV ONE (14:40)
[2024-03-25] MEDS: Sodium Chloride 0.9% 1000 ML 1,000 ML IV SCH (14:43)
[2024-03-25] MEDS: FLAGYL 500 MG IVPB 500 MG/100 ML BAG IV STA (14:44)
--- NOTE | 2024-03-25 15:40 | PCM.HP ---
<BRIT BARNES - Last Filed: 03/25/24 16:44> History of Present Illness - Chief Complaint Chief Complaint: abdominal pain/sob/N/V Date: 03/25/24 History of Present Illness: is a 78 year old male with a pmhx of CAD, DE, HTN, FHAEEM, DMII, and stage 4 kidney disease presented to ED 03/25/24 with complaints of shortness of breath, a productive cough with yellow/green sputum (since easter),and abdominal pain with one episode of vomiting that started yesterday with associated poor appetite and energy levels. During my interview patient states abdominal pain has subsided but does have some TTP to the LLQ. Denies fever,cough, sob, cp, BAH, dizziness, N/V/D. Upon arrival to ED vitals stable. Chest x-ray showed left-sided hazy opacities. CT of the abd/pelvis consistent with acute diverticulitis and cholelithiasis. Lab findings remarkable for CO2 at 17, GAP at 18.7, BNP 4460,and creat at 3.18 (baseline around 2.9). UA suspicious for UTI. Respiratory panel negative. Patient started on ceftriaxone and flagyl in ED. Admit for pneumonia, acute diverticulitis, and UTI. - Review of Systems Constitutional: Weakness, Other (poor appetite) Eyes: No Symptoms Ears, Nose, & Throat: Nose Congestion Respiratory: Cough, Short Of Breath Cardiac: No Symptoms Abdominal/Gastrointestinal: Abdominal Pain, Nausea, Vomiting Genitourinary Symptoms: No Symptoms Musculoskeletal: No Symptoms Skin: No Symptoms Neurological: No Symptoms Psychological: No Symptoms Endocrine: No Symptoms Hematologic/Lymphatic: No Symptoms Immunological/Allergic: No Symptoms Medications & Allergies Home Medications: Home Medication List Atorvastatin Calcium 10 mg PO HS 07/16/22 [History Confirmed 03/25/24] Cholecalciferol (Vitamin D3) [Vitamin D3] 125 mcg PO DAILY 07/16/22 [History Confirmed 03/25/24] Latanoprost/Pf [Latanoprost 0.005% Eye Drop] 1 drop OP HS 07/16/22 [History Confirmed 03/25/24] Sodium Bicarbonate 650 mg PO DAILY 07/16/22 [History Confirmed 03/25/24] Aspirin 81 gm Chew [Baby Aspirin 81 mg Chew] 81 mg PO DAILY 01/13/23 [History Confirmed 03/25/24] Cyanocobalamin (Vitamin B-12) [B-12] 1,000 mcg PO DAILY 01/13/23 [History Confirmed 03/25/24] Glyburide 5 mg [Micronase 5 MG] 5 mg PO BID 01/13/23 [History Confirmed 03/25/24] Ferrous Sulfate 325 mg [Feosol 325 mg] 325 mg PO DAILY 04/01/23 [History Confirmed 03/25/24] Allopurinol 300 mg [Zyloprim 300 mg] 300 mg PO DAILY 03/25/24 [History Confirmed 03/25/24] Empagliflozin [Jardiance] 10 mg PO DAILY 03/25/24 [History Confirmed 03/25/24] Hydrocodone/Acetaminophen [Hydrocodone-Acetamin 7.5-325] 1 each PO Q6HPRN PRN 03/25/24 [History Confirmed 03/25/24] Insulin Aspart [NovoLOG Insulin] 10 units SQ BIDWMEALS 03/25/24 [History Confirmed 03/25/24] Insulin Glargine [Lantus Insulin] 20 unit SQ DAILY 03/25/24 [History Confirmed 03/25/24] Sodium Zirconium Cyclosilicate [Lokelma] 10 gm PO WEEKLY 03/25/24 [History Confirmed 03/25/24] Allergies/Adverse Reactions: Allergies Allergy/AdvReac Type Severity Reaction Status Date / Time tetracycline [Tetracycline] Allergy Mild Rash Verified 03/25/24 15:49 - Past Medical History Past Medical History: Yes Neurological History: Stroke Cardiac History: Coronary Artery Disease, Hypertension, Myocardial Infarction (DE) Respiratory History: Pneumonia, Sleep Apnea Endocrine Medical History: Diabetes Type II Musculoskelatal History: Arthritis History: Renal Disease Pyscho-Social History: No Pertinent History Male Reproductive Disorders: No Pertinent History - Past Surgical History Past Surgical History: Yes Neuro Surgical History: No Pertinent History Cardiac History: CABG, Cardiac Catheterization, Cardiac Stent, Internal Defibrillator Respiratory Surgery: No Pertinent History GI Surgical History: No Pertinent History Genitourinary Surgical Hx: No Pertinent History Musculskeletal Surgical Hx: No Pertinent History Other Surgical History: back surgery, 3 stents, open heart bypass surgery in January 2023 - Social History Smoking Status: Former smoker Exposure to second hand smoke: No Alcohol: None Drug Use: none - Social Determinants of Health Will the patient participate in the screening: Yes Do you worry about a steady place to live?: No Do you have any problems with any of the following?: No known problems In the past 12 months,have you had to go without utilities?: No Have you or anyone in your house had to go without enough: No Transportation Issues: No Has anyone in your support network made you feel unsafe?: No - Physical Exam Vital Signs: Vital Signs - 24 hr Temp Pulse Resp BP BP Pulse Ox 03/25/24 15:07 99 03/25/24 15:00 93 H 14 153/60 99 03/25/24 14:45 97 H 15 131/83 96 03/25/24 14:30 96 H 27 H 131/74 98 03/25/24 14:15 100 H 23 160/74 98 03/25/24 14:00 99 H 19 135/69 97 03/25/24 13:52 100 H 18 151/80 99 03/25/24 13:50 100 H 18 98 03/25/24 13:46 97 H 18 98 03/25/24 13:00 98 H 25 H 168/85 98 03/25/24 12:48 98 H 6 L 163/79 97 03/25/24 12:30 96 H 16 96 03/25/24 12:20 95 H 19 99 03/25/24 12:10 95 H 19 03/25/24 12:00 95 H 22 99 03/25/24 11:50 94 H 13 97 03/25/24 11:40 93 H 24 96 03/25/24 11:30 91 H 19 51 L 03/25/24 11:20 91 H 21 03/25/24 11:15 89 21 03/25/24 11:09 88 16 99 03/25/24 11:00 89 14 139/77 99 03/25/24 10:52 91 H 19 135/79 97 03/25/24 10:45 93 H 15 136/71 80 L 03/25/24 10:38 97 F 98 H 28 H 141/68 99 General Appearance: no apparent distress Neurologic Exam: alert, oriented x 3, cooperative Eye Exam: PERRL/EOMI Ears, Nose, Throat Exam: normal ENT inspection Neck Exam: normal inspection Respiratory Exam: normal breath sounds, lungs clear Cardiovascular Exam: regular rate/rhythm, normal heart sounds Gastrointestinal/Abdomen Exam: soft, tenderness (LLQ with palpation) Back Exam: normal inspection Skin Exam: pale Results - Labs Lab/Micro Results: Lab Results-Last 24 Hours 03/25/24 03/25/24 03/25/24 Range/Units 10:46 11:04 11:15 WBC (4.23-9.07) x10^3/uL RBC (4.63-6.08) x10^6/uL Hgb (13.7-17.5) g/dL Hct (40.1-51.0) % MCV (79.0-92.2) fL MCH (25.7-32.2) pg MCHC (32.3-36.5) g/dL RDW (11.6-14.4) % Plt Count (163-337) x10^3/uL MPV (9.4-12.4) fL Gran % (34.0-67.9) % Immature Gran % (Auto) (0.001-0.429) % Nucleat RBC Rel Count (0.00-0.2) % Eos # (Auto) (0.04-0.54) x10^3/uL Immature Gran # (Auto) (0.001-0.031) x10^3u/L Absolute Lymphs (auto) (1.32-3.57) x10^3/uL Absolute Monos (auto) (0.30-0.82) x10^3/uL Absolute Nucleated RBC (0.00-0.012) x10^3u/L Lymphocytes % (21.8-53.1) % Monocytes % (5.3-12.2) % Eosinophils % (0.8-7.0) % Basophils % (0.2-1.2) % Absolute Granulocytes (1.78-5.38) x10^3/uL Basophils # (0.01-0.08) x10^3/uL Sodium (135-145) mmol/L Potassium (3.5-5.1) mmol/L Chloride (98-107) mmol/L Carbon Dioxide (22-30) mmol/L Anion Gap (5-15) MEQ/L BUN (9-20) mg/dL Creatinine (0.66-1.25) mg/dL Estimated GFR ML/MIN Glucose (74-106) mg/dL Lactic Acid 1.9 (0.4-2.0) Calcium (8.4-10.2) mg/dL Magnesium (1.6-2.3) mg/dL Total Bilirubin (0.2-1.3) mg/dL AST (17-59) U/L ALT (0-50) U/L Alkaline Phosphatase (38-126) U/L Troponin I (0.000-0.033) ng/mL NT-Pro-B Natriuret Pep (<300) pg/mL Serum Total Protein (6.3-8.2) g/dL Albumin (3.5-5.0) g/dL Lipase (23-300) U/L Urine Color Yellow (Yellow) Urine Appearance Cloudy A (Clear) Urine pH 5.0 (4.6-8.0) Ur Specific [place] >=1.030 A (1.005-1.030) Urine Protein >=1000 A (Negative) Urine Glucose (UA) >=1000 A (Negative) mg/dL Urine Ketones Negative (Negative) Urine Blood Negative (Negative) Urine Nitrite Negative (Negative) Urine Bilirubin Negative (Negative) Urine Urobilinogen 0.2 (0.2) mg/dL Ur Leukocyte Esterase Trace A (Negative) Urine Microscopic RBC 0-2 (0-5) /HPF Urine Microscopic WBC 51-100 A (0-5) /HPF Ur Epithelial Cells Rare (None Seen) /HPF Urine Bacteria None Seen (None Seen) /HPF Urine Culture Reflexed YES (NO) Influenza Type A Ag NEGATIVE (NEGATIVE) Influenza Type B Ag NEGATIVE (NEGATIVE) RSV (PCR) NEGATIVE (NEGATIVE) SARS-CoV-2 (PCR) NEGATIVE (NEGATIVE) 03/25/24 03/25/24 Range/Units 12:15 12:15 WBC 7.3 (4.23-9.07) x10^3/uL RBC 5.43 (4.63-6.08) x10^6/uL Hgb 16.5 (13.7-17.5) g/dL Hct 50.0 (40.1-51.0) % MCV 92.1 (79.0-92.2) fL MCH 30.4 (25.7-32.2) pg MCHC 33.0 (32.3-36.5) g/dL RDW 12.8 (11.6-14.4) % Plt Count 204 (163-337) x10^3/uL MPV 9.8 (9.4-12.4) fL Gran % 65.0 (34.0-67.9) % Immature Gran % (Auto) 0.3 (0.001-0.429) % Nucleat RBC Rel Count 0.0 (0.00-0.2) % Eos # (Auto) 0.18 (0.04-0.54) x10^3/uL Immature Gran # (Auto) 0.02 (0.001-0.031) x10^3u/L Absolute Lymphs (auto) 1.84 (1.32-3.57) x10^3/uL Absolute Monos (auto) 0.48 (0.30-0.82) x10^3/uL Absolute Nucleated RBC 0.00 (0.00-0.012) x10^3u/L Lymphocytes % 25.2 (21.8-53.1) % Monocytes % 6.6 (5.3-12.2) % Eosinophils % 2.5 (0.8-7.0) % Basophils % 0.4 (0.2-1.2) % Absolute Granulocytes 4.76 (1.78-5.38) x10^3/uL Basophils # 0.03 (0.01-0.08) x10^3/uL Sodium 137 (135-145) mmol/L Potassium 4.9 (3.5-5.1) mmol/L Chloride 106 (98-107) mmol/L Carbon Dioxide 17 L (22-30) mmol/L Anion Gap 18.7 H (5-15) MEQ/L BUN 46 H (9-20) mg/dL Creatinine 3.18 H (0.66-1.25) mg/dL Estimated GFR 19.3 ML/MIN Glucose 162 H (74-106) mg/dL Lactic Acid (0.4-2.0) Calcium 9.4 (8.4-10.2) mg/dL Magnesium 2.3 (1.6-2.3) mg/dL Total Bilirubin 0.80 (0.2-1.3) mg/dL AST 30 (17-59) U/L ALT 13 (0-50) U/L Alkaline Phosphatase 103 (38-126) U/L Troponin I 0.018 (0.000-0.033) ng/mL NT-Pro-B Natriuret Pep 4460 (<300) pg/mL Serum Total Protein 7.5 (6.3-8.2) g/dL Albumin 4.1 (3.5-5.0) g/dL Lipase 163 (23-300) U/L Urine Color (Yellow) Urine Appearance (Clear) Urine pH (4.6-8.0) Ur Specific [place] (1.005-1.030) Urine Protein (Negative) Urine Glucose (UA) (Negative) mg/dL Urine Ketones (Negative) Urine Blood (Negative) Urine Nitrite (Negative) Urine Bilirubin (Negative) Urine Urobilinogen (0.2) mg/dL Ur Leukocyte Esterase (Negative) Urine Microscopic RBC (0-5) /HPF Urine Microscopic WBC (0-5) /HPF Ur Epithelial Cells (None Seen) /HPF Urine Bacteria (None Seen) /HPF Urine Culture Reflexed (NO) Influenza Type A Ag (NEGATIVE) Influenza Type B Ag (NEGATIVE) RSV (PCR) (NEGATIVE) SARS-CoV-2 (PCR) (NEGATIVE) - Radiology Impressions Radiology Exams & Impressions: Radiology Procedures Category Date Time Status ABDOMEN AND PELVIS W/0 CONTRAS [CT] Stat Exams 03/25/24 11:16 Completed CHEST 1 VIEW (PORTABLE) Stat Exams 03/25/24 10:43 Completed - Other Procedures and Tests Respiratory Therapy 03/25/24 11:08 Respiratory Therapy Assessment DAILY Assessment/Plan (1) Acute diverticulitis of intestine Current Visit: Yes Status: Acute Assessment & Plan: -Ct ab/pelvis consistent with acute diverticulitis -CLD -pt requesting -IVF-monitor for fluid overload in the setting of CHF/renal failure -LA WNL -blood cultures pending -Ceftriaxone and Flagyl started in ED, will continue Zosyn -trial clears ADAT -supportive care - anti-emetics/pain control Code(s): K57.92 - DVTRCLI OF INTEST, PART UNSP, W/O PERF OR ABSCESS W/O BLEED (2) Pneumonia Current Visit: Yes Status: Acute Assessment & Plan: -CXR showing Left mid-zone hazy opacity. Bilateral costophrenic angles are partially obscured raising suspicion for minimal basal pleural effusion - Zosyn Code(s): J18.9 - PNEUMONIA, UNSPECIFIED ORGANISM (3) Metabolic acidosis Current Visit: Yes Status: Acute Assessment & Plan: -Most likely secondary to GI loss/CKD -IVF -Continue home sodium bicarb Code(s): E87.20 - ACIDOSIS, UNSPECIFIED (4) CAD (coronary artery disease) Current Visit: Yes Status: Acute Assessment & Plan: -s/p CABG -Continue home meds Code(s): I25.10 - ATHSCL HEART DISEASE OF [place] CORONARY ARTERY W/O ANG PCTRS (5) Afib Current Visit: Yes Status: Acute Assessment & Plan: -On Xarelto - will continue Code(s): I48.91 - UNSPECIFIED ATRIAL FIBRILLATION (6) HTN (hypertension) Current Visit: Yes Status: Acute Assessment & Plan: -Stable - continue home meds Code(s): I10 - ESSENTIAL (PRIMARY) HYPERTENSION (7) Acute UTI (urinary tract infection) Current Visit: Yes Status: Acute Assessment & Plan: -UA suscipious for UTI, will start Zosyn - follow cultures Code(s): N39.0 - URINARY TRACT INFECTION, SITE NOT SPECIFIED (8) CHF (congestive heart failure) Current Visit: No Status: Acute Assessment & Plan: -Reviewed most recent Echo from 04/01/23 EF 51% IMPRESSION: 1) LOW NORMAL CONTRACTILITY OF THE LEFT VENTRICLE. 2) MILD ASYMMETRIC LEFT VENTRICULAR HYPERTROPHY INVOLVING THE SEPTUM. 3) MODERATE LEFT ATRIAL DILATATION. 4) TRACE AMOUNT OF MITRAL REGURGITATION. 5) MILD PULMONIC REGURGITATION. 6) PACING ELECTRODE IN THE RIGHT VENTRICLE AND RIGHT ATRIUM. -Continue home meds -Monitor I&O's strictly -daily weight -Monitor for fluid overload with IVF -Optimize electrolytes Code(s): I50.9 - HEART FAILURE, UNSPECIFIED (9) Renal failure Current Visit: No Status: Acute Assessment & Plan: -Baseline creat around 2.9 - at 3.18 -IVF -Monitor renal/lytes (10) Type II diabetes mellitus Current Visit: No Status: Chronic Assessment & Plan: -ADA -SSI when diet resumes -currently NPO -A1c DVT: Xarelto PPI: protonix Dispo: 2-3 days Telemedicine Encounter - Telemedicine Encounter Telemedicine Encounter: "The entirety of this encounter was performed via Telemedicine" This visit was performed using real-time audio and video connection between my location and thepatients locationwith the assistance of a surrogateat the patients location. Written or verbal consent was obtained from the patient/guardian to perform this visit us[facility] technology. Any patient questions regarding the telemedicine interaction were answered. <VINCENT PATEL - Last Filed: 03/25/24 20:16> History of Present Illness - Chief Complaint History of Present Illness: is a 78 year old male. - Physical Exam Vital Signs: Vital Signs - 24 hr Temp Pulse Resp BP BP Pulse Ox 03/25/24 20:00 97.8 F 88 16 136/64 100 03/25/24 16:46 97.5 F 87 148/67 95 03/25/24 15:46 97.5 F 87 148/67 95 03/25/24 15:07 99 03/25/24 15:00 93 H 14 153/60 99 03/25/24 14:45 97 H 15 131/83 96 03/25/24 14:30 96 H 27 H 131/74 98 03/25/24 14:15 100 H 23 160/74 98 03/25/24 14:00 99 H 19 135/69 97 03/25/24 13:52 100 H 18 151/80 99 03/25/24 13:50 100 H 18 98 03/25/24 13:46 97 H 18 98 03/25/24 13:00 98 H 25 H 168/85 98 03/25/24 12:48 98 H 6 L 163/79 97 03/25/24 12:30 96 H 16 96 03/25/24 12:20 95 H 19 99 03/25/24 12:10 95 H 19 03/25/24 12:00 95 H 22 99 03/25/24 11:50 94 H 13 97 03/25/24 11:40 93 H 24 96 03/25/24 11:30 91 H 19 51 L 03/25/24 11:20 91 H 21 03/25/24 11:15 89 21 03/25/24 11:09 88 16 99 03/25/24 11:00 89 14 139/77 99 03/25/24 10:52 91 H 19 135/79 97 03/25/24 10:45 93 H 15 136/71 80 L 03/25/24 10:38 97 F 98 H 28 H 141/68 99 Results - Labs Lab/Micro Results: Lab Results-Last 24 Hours 03/25/24 03/25/24 03/25/24 Range/Units 10:46 11:04 11:15 WBC (4.23-9.07) x10^3/uL RBC (4.63-6.08) x10^6/uL Hgb (13.7-17.5) g/dL Hct (40.1-51.0) % MCV (79.0-92.2) fL MCH (25.7-32.2) pg MCHC (32.3-36.5) g/dL RDW (11.6-14.4) % Plt Count (163-337) x10^3/uL MPV (9.4-12.4) fL Gran % (34.0-67.9) % Immature Gran % (Auto) (0.001-0.429) % Nucleat RBC Rel Count (0.00-0.2) % Eos # (Auto) (0.04-0.54) x10^3/uL Immature Gran # (Auto) (0.001-0.031) x10^3u/L Absolute Lymphs (auto) (1.32-3.57) x10^3/uL Absolute Monos (auto) (0.30-0.82) x10^3/uL Absolute Nucleated RBC (0.00-0.012) x10^3u/L Lymphocytes % (21.8-53.1) % Monocytes % (5.3-12.2) % Eosinophils % (0.8-7.0) % Basophils % (0.2-1.2) % Absolute Granulocytes (1.78-5.38) x10^3/uL Basophils # (0.01-0.08) x10^3/uL Sodium (135-145) mmol/L Potassium (3.5-5.1) mmol/L Chloride (98-107) mmol/L Carbon Dioxide (22-30) mmol/L Anion Gap (5-15) MEQ/L BUN (9-20) mg/dL Creatinine (0.66-1.25) mg/dL Estimated GFR ML/MIN Glucose (74-106) mg/dL POC Glucometer (74 to 106) mg/dL Hemoglobin A1c (4.5-6.0) % Lactic Acid 1.9 (0.4-2.0) Calcium (8.4-10.2) mg/dL Magnesium (1.6-2.3) mg/dL Total Bilirubin (0.2-1.3) mg/dL AST (17-59) U/L ALT (0-50) U/L Alkaline Phosphatase (38-126) U/L Troponin I (0.000-0.033) ng/mL NT-Pro-B Natriuret Pep (<300) pg/mL Serum Total Protein (6.3-8.2) g/dL Albumin (3.5-5.0) g/dL Lipase (23-300) U/L Urine Color Yellow (Yellow) Urine Appearance Cloudy A (Clear) Urine pH 5.0 (4.6-8.0) Ur Specific [place] >=1.030 A (1.005-1.030) Urine Protein >=1000 A (Negative) Urine Glucose (UA) >=1000 A (Negative) mg/dL Urine Ketones Negative (Negative) Urine Blood Negative (Negative) Urine Nitrite Negative (Negative) Urine Bilirubin Negative (Negative) Urine Urobilinogen 0.2 (0.2) mg/dL Ur Leukocyte Esterase Trace A (Negative) Urine Microscopic RBC 0-2 (0-5) /HPF Urine Microscopic WBC 51-100 A (0-5) /HPF Ur Epithelial Cells Rare (None Seen) /HPF Urine Bacteria None Seen (None Seen) /HPF Urine Culture Reflexed YES (NO) Influenza Type A Ag NEGATIVE (NEGATIVE) Influenza Type B Ag NEGATIVE (NEGATIVE) RSV (PCR) NEGATIVE (NEGATIVE) SARS-CoV-2 (PCR) NEGATIVE (NEGATIVE) 03/25/24 03/25/24 03/25/24 Range/Units 11:15 12:15 12:15 WBC 7.3 (4.23-9.07) x10^3/uL RBC 5.43 (4.63-6.08) x10^6/uL Hgb 16.5 (13.7-17.5) g/dL Hct 50.0 (40.1-51.0) % MCV 92.1 (79.0-92.2) fL MCH 30.4 (25.7-32.2) pg MCHC 33.0 (32.3-36.5) g/dL RDW 12.8 (11.6-14.4) % Plt Count 204 (163-337) x10^3/uL MPV 9.8 (9.4-12.4) fL Gran % 65.0 (34.0-67.9) % Immature Gran % (Auto) 0.3 (0.001-0.429) % Nucleat RBC Rel Count 0.0 (0.00-0.2) % Eos # (Auto) 0.18 (0.04-0.54) x10^3/uL Immature Gran # (Auto) 0.02 (0.001-0.031) x10^3u/L Absolute Lymphs (auto) 1.84 (1.32-3.57) x10^3/uL Absolute Monos (auto) 0.48 (0.30-0.82) x10^3/uL Absolute Nucleated RBC 0.00 (0.00-0.012) x10^3u/L Lymphocytes % 25.2 (21.8-53.1) % Monocytes % 6.6 (5.3-12.2) % Eosinophils % 2.5 (0.8-7.0) % Basophils % 0.4 (0.2-1.2) % Absolute Granulocytes 4.76 (1.78-5.38) x10^3/uL Basophils # 0.03 (0.01-0.08) x10^3/uL Sodium 137 (135-145) mmol/L Potassium 4.9 (3.5-5.1) mmol/L Chloride 106 (98-107) mmol/L Carbon Dioxide 17 L (22-30) mmol/L Anion Gap 18.7 H (5-15) MEQ/L BUN 46 H (9-20) mg/dL Creatinine 3.18 H (0.66-1.25) mg/dL Estimated GFR 19.3 ML/MIN Glucose 162 H (74-106) mg/dL POC Glucometer (74 to 106) mg/dL Hemoglobin A1c 8.45 H (4.5-6.0) % Lactic Acid (0.4-2.0) Calcium 9.4 (8.4-10.2) mg/dL Magnesium 2.3 (1.6-2.3) mg/dL Total Bilirubin 0.80 (0.2-1.3) mg/dL AST 30 (17-59) U/L ALT 13 (0-50) U/L Alkaline Phosphatase 103 (38-126) U/L Troponin I 0.018 (0.000-0.033) ng/mL NT-Pro-B Natriuret Pep 4460 (<300) pg/mL Serum Total Protein 7.5 (6.3-8.2) g/dL Albumin 4.1 (3.5-5.0) g/dL Lipase 163 (23-300) U/L Urine Color (Yellow) Urine Appearance (Clear) Urine pH (4.6-8.0) Ur Specific [place] (1.005-1.030) Urine Protein (Negative) Urine Glucose (UA) (Negative) mg/dL Urine Ketones (Negative) Urine Blood (Negative) Urine Nitrite (Negative) Urine Bilirubin (Negative) Urine Urobilinogen (0.2) mg/dL Ur Leukocyte Esterase (Negative) Urine Microscopic RBC (0-5) /HPF Urine Microscopic WBC (0-5) /HPF Ur Epithelial Cells (None Seen) /HPF Urine Bacteria (None Seen) /HPF Urine Culture Reflexed (NO) Influenza Type A Ag (NEGATIVE) Influenza Type B Ag (NEGATIVE) RSV (PCR) (NEGATIVE) SARS-CoV-2 (PCR) (NEGATIVE) 03/25/24 03/25/24 Range/Units 15:00 17:09 WBC (4.23-9.07) x10^3/uL RBC (4.63-6.08) x10^6/uL Hgb (13.7-17.5) g/dL Hct (40.1-51.0) % MCV (79.0-92.2) fL MCH (25.7-32.2) pg MCHC (32.3-36.5) g/dL RDW (11.6-14.4) % Plt Count (163-337) x10^3/uL MPV (9.4-12.4) fL Gran % (34.0-67.9) % Immature Gran % (Auto) (0.001-0.429) % Nucleat RBC Rel Count (0.00-0.2) % Eos # (Auto) (0.04-0.54) x10^3/uL Immature Gran # (Auto) (0.001-0.031) x10^3u/L Absolute Lymphs (auto) (1.32-3.57) x10^3/uL Absolute Monos (auto) (0.30-0.82) x10^3/uL Absolute Nucleated RBC (0.00-0.012) x10^3u/L Lymphocytes % (21.8-53.1) % Monocytes % (5.3-12.2) % Eosinophils % (0.8-7.0) % Basophils % (0.2-1.2) % Absolute Granulocytes (1.78-5.38) x10^3/uL Basophils # (0.01-0.08) x10^3/uL Sodium (135-145) mmol/L Potassium (3.5-5.1) mmol/L Chloride (98-107) mmol/L Carbon Dioxide (22-30) mmol/L Anion Gap (5-15) MEQ/L BUN (9-20) mg/dL Creatinine (0.66-1.25) mg/dL Estimated GFR ML/MIN Glucose (74-106) mg/dL POC Glucometer 91 (74 to 106) mg/dL Hemoglobin A1c (4.5-6.0) % Lactic Acid (0.4-2.0) Calcium (8.4-10.2) mg/dL Magnesium (1.6-2.3) mg/dL Total Bilirubin (0.2-1.3) mg/dL AST (17-59) U/L ALT (0-50) U/L Alkaline Phosphatase (38-126) U/L Troponin I 0.015 (0.000-0.033) ng/mL NT-Pro-B Natriuret Pep (<300) pg/mL Serum Total Protein (6.3-8.2) g/dL Albumin (3.5-5.0) g/dL Lipase (23-300) U/L Urine Color (Yellow) Urine Appearance (Clear) Urine pH (4.6-8.0) Ur Specific [place] (1.005-1.030) Urine Protein (Negative) Urine Glucose (UA) (Negative) mg/dL Urine Ketones (Negative) Urine Blood (Negative) Urine Nitrite (Negative) Urine Bilirubin (Negative) Urine Urobilinogen (0.2) mg/dL Ur Leukocyte Esterase (Negative) Urine Microscopic RBC (0-5) /HPF Urine Microscopic WBC (0-5) /HPF Ur Epithelial Cells (None Seen) /HPF Urine Bacteria (None Seen) /HPF Urine Culture Reflexed (NO) Influenza Type A Ag (NEGATIVE) Influenza Type B Ag (NEGATIVE) RSV (PCR) (NEGATIVE) SARS-CoV-2 (PCR) (NEGATIVE) Accuchecks Date 03/25/24 - Radiology Impressions Radiology Exams & Impressions: Radiology Procedures Category Date Time Status ABDOMEN AND PELVIS W/0 CONTRAS [CT] Stat Exams 03/25/24 11:16 Completed CHEST 1 VIEW (PORTABLE) Stat Exams 03/25/24 10:43 Completed - Other Procedures and Tests Respiratory Therapy 03/25/24 17:03 Respiratory Therapy Assessment DAILY Telemedicine Encounter - Telemedicine Encounter Telemedicine Encounter: "The entirety of this encounter was performed via Telemedicine" This visit was performed using real-time audio and video connection between my location and thepatients locationwith the assistance of a surrogateat the patients location. Written or verbal consent was obtained from the patient/guardian to perform this visit usingAccioncine technology. Any patient questions regarding the telemedicine interaction were answered. AMINATA Encounter - AMINATA Encounter Attestation AMINATA Encounter Attestation: "HASMUKH Ang andhavediscussed pertinent aspects of their care with Brit Barnes and agree with the history, physical exam (any modifications based on my personal exam will be noted below), assessment, and plan as outlined in original note. Please see immediately below for my summary of findings and additional assessment and plan along with any meaningful corrections/explanations to the Subjective/Objective portions of the AMINATA note will be noted." My portion of the encounter took place via telemedicine. Patient presenting with symptoms and imaging findings concerning for pneumonia and acute diverticulitis. UA not suggestive of UTI and patient does not have any dysuria. Agree with Zosyn to cover for both pneumonia and diverticulitis. Will need to monitor renal function as patient has advanced CKD.
[2024-03-25] MEDS ORDERED: Zofran 4 MG/2 ML VIAL IV PRN (16:57)
[2024-03-25] MEDS ORDERED: TYLENOL 325 MG PO PRN (16:57)
[2024-03-25] MEDS ORDERED: HUMALOG SQ PRN (16:57)
[2024-03-25] MEDS: Lactated Ringers 1,000 ML IV SCH (18:03)
[2024-03-25] MEDS: DUONEB 0.5-3 MG/3 ml Neb IH SCH (19:13)
[2024-03-25] MEDS ORDERED: DUONEB 0.5-3 MG/3 ml Neb IH PRN (19:17)
[2024-03-25] MEDS ORDERED: SODIUM ZIRCONIUM CYCLOSILICATE PO SCH (19:45)
[2024-03-25] MEDS ORDERED: NON-FORMULARY ITEM (Atorvastatin Calcium [Atorvastatin Calcium] 10 MG Tablet) PO SCH (22:00)
[2024-03-25] MEDS: Piperacillin/Tazobactam 2.25 GM 2.25 GM in Sodium Chloride 100ML MINI-BAG PLUS 100 ML IV SCH (23:08)
[2024-03-25] MEDS: Zocor 10MG PO SCH (23:08)
[2024-03-25] MEDS: SODIUM BICARBONATE PO SCH (23:09)
[2024-03-25] MEDS: NON-FORMULARY ITEM (Latanoprost/Pf [Latanoprost 0.005% Eye Drop] 7.5 ML Drops) OP SCH (23:18)
[2024-03-26] MEDS ORDERED: PIPERACILLIN/TAZOBACTAM 3.375 GM in Sodium Chloride 100ML MINI-BAG PLUS 100 ML IV SCH
[2024-03-26] MEDS: NORCO 7.5/325 MG TAB PO PRN (00:26)
[2024-03-26 05:00] LABS: Absolute Neutrophil Ct (ANC) 4.13 x10^3/uL (1.78-5.38); BASOPHIL % 0.6 % (0.2-1.2); Basophil (Absolute #) 0.04 x10^3/uL (0.01-0.08); Eosinophil % 3.7 % (0.8-7.0); Eosinophil (Absolute #) 0.25 x10^3/uL (0.04-0.54); Hematocrit 41.7 % (40.1-51.0); IMMATURE GRAN # 0.02 x10^3u/L (0.001-0.031); IMMATURE GRAN % 0.3 % (0.001-0.429); Lymphocyte (Absolute #) 1.78 x10^3/uL (1.32-3.57); Mean Cell Volume 90.1 fL (79.0-92.2); Mean Corpuscular Hemoglobin 30.2 pg (25.7-32.2); Mean Corpuscular Hgb Concent. 33.6 g/dL (32.3-36.5); Mean Platelet Volume 10.1 fL (9.4-12.4); Monocyte (Absolute #) 0.62 x10^3/uL (0.30-0.82); Monocytes % 9.1 % (5.3-12.2); Neutrophil % 60.3 % (34.0-67.9); Platelet Count 198 x10^3/uL (163-337); Red Blood Count 4.63 x10^6/uL (4.63-6.08); Red Cell Distribution Width 13.1 % (11.6-14.4); White Blood Count 6.8 x10^3/uL (4.23-9.07)
[2024-03-26 05:26] LABS: ALBUMIN 3.4 g/dL (3.5-5.0); ANION GAP 12.6 MEQ/L (5-15); BILIRUBIN,TOTAL 0.7 mg/dL (0.2-1.3); Calcium 8.6 mg/dL (8.4-10.2); Creatinine 1 3.07 mg/dL (0.66-1.25); EST GLOMERULAR FILTRATION RATE 20.2 ML/MIN; Potassium 4.6 mmol/L (3.5-5.1); Total Protein 6.1 g/dL (6.3-8.2)
--- NOTE | 2024-03-26 05:29 | PCM.NOTE ---
Date and Time: 03/26/24 0528 Subjective Assessment: is a 78 year old male with a pmhx of CAD, NV, HTN, FAHEEM, DMII, and stage 4 kidney disease presented to ED 03/25/24 with complaints of shortness of breath, a productive cough with yellow/green sputum (since ),and abdominal pain with one episode of vomiting that started yesterday with associated poor appetite and energy levels. During my interview patient states abdominal pain has subsided but does have some TTP to the LLQ. Denies fever,cough, sob, cp, BAH, dizziness, N/V/D. Upon arrival to ED vitals stable. Chest x-ray showed left-sided hazy opacities. CT of the abd/pelvis consistent with acute diverticulitis and cholelithiasis. Lab findings remarkable for CO2 at 17, GAP at 18.7, BNP 4460,and creat at 3.18 (baseline around 2.9). UA suspicious for UTI. Respiratory panel negative. Patient started on ceftriaxone and flagyl in ED. Admit for pneumonia, acute diverticulitis, and UTI. 03/26: Met with patient bedside. Endorses continued productive cough but states this has been going on for some time - before . On RA which is his baseline. No further abdominal pain, nausea, or vomiting. Tolerated CLD - requesting full diet today. Labs improving. Kidney function near baseline. Urine culture negative. Continue Zosyn for now. - Review of Systems Constitutional: No Symptoms Eyes: No Symptoms Ears, Nose, & Throat: No Symptoms Respiratory: Cough Cardiac: No Symptoms Abdominal/Gastrointestinal: No Symptoms Genitourinary Symptoms: No Symptoms Musculoskeletal: Joint Pain (chronic) Skin: No Symptoms Neurological: No Symptoms Psychological: No Symptoms Endocrine: No Symptoms Hematologic/Lymphatic: No Symptoms Immunological/Allergic: No Symptoms Objective Exam General Appearance: no apparent distress Neurologic Exam: alert, oriented x 3, cooperative Skin Exam: normal color Eye Exam: PERRL Ears, Nose, Throat Exam: normal ENT inspection Neck Exam: normal inspection Respiratory Exam: normal breath sounds, lungs clear Cardiovascular Exam: regular rate/rhythm, normal heart sounds Gastrointestinal/Abdomen Exam: soft, normal bowel sounds, tenderness (LLQ) Extremity Exam: normal inspection Back Exam: normal inspection Objective Data Vital Signs: Vital Signs - 24 hr Temp Pulse Resp BP BP Pulse Ox 03/26/24 03:00 98.6 F 75 113/64 94 L 03/25/24 23:26 98.5 F 96 H 16 128/58 100 03/25/24 20:00 97.8 F 88 16 136/64 100 03/25/24 19:10 91 H 16 100 03/25/24 16:46 97.5 F 87 148/67 95 03/25/24 15:46 97.5 F 87 148/67 95 03/25/24 15:07 99 03/25/24 15:00 93 H 14 153/60 99 03/25/24 14:45 97 H 15 131/83 96 03/25/24 14:30 96 H 27 H 131/74 98 03/25/24 14:15 100 H 23 160/74 98 03/25/24 14:00 99 H 19 135/69 97 03/25/24 13:52 100 H 18 151/80 99 03/25/24 13:50 100 H 18 98 03/25/24 13:46 97 H 18 98 03/25/24 13:00 98 H 25 H 168/85 98 03/25/24 12:48 98 H 6 L 163/79 97 03/25/24 12:30 96 H 16 96 03/25/24 12:20 95 H 19 99 03/25/24 12:10 95 H 19 03/25/24 12:00 95 H 22 99 03/25/24 11:50 94 H 13 97 03/25/24 11:40 93 H 24 96 03/25/24 11:30 91 H 19 51 L 03/25/24 11:20 91 H 21 03/25/24 11:15 89 21 03/25/24 11:09 88 16 99 03/25/24 11:00 89 14 139/77 99 03/25/24 10:52 91 H 19 135/79 97 03/25/24 10:45 93 H 15 136/71 80 L 03/25/24 10:38 97 F 98 H 28 H 141/68 99 Pain Assessment - Last Documented Pain Intensity 7 Pain Scale Used 0-10 Pain Scale Intake and Output: Intake & Output 03/23/24 03/24/24 03/25/24 03/26/24 11:59 11:59 11:59 11:59 Intake Total 120 Output Total 400 Balance -280 Weight 88.6 kg 88 kg Lab Results: Lab Results-Last 24 Hours 03/25/24 03/25/24 03/25/24 Range/Units 10:46 11:04 11:15 WBC (4.23-9.07) x10^3/uL RBC (4.63-6.08) x10^6/uL Hgb (13.7-17.5) g/dL Hct (40.1-51.0) % MCV (79.0-92.2) fL MCH (25.7-32.2) pg MCHC (32.3-36.5) g/dL RDW (11.6-14.4) % Plt Count (163-337) x10^3/uL MPV (9.4-12.4) fL Gran % (34.0-67.9) % Immature Gran % (Auto) (0.001-0.429) % Nucleat RBC Rel Count (0.00-0.2) % Eos # (Auto) (0.04-0.54) x10^3/uL Immature Gran # (Auto) (0.001-0.031) x10^3u/L Absolute Lymphs (auto) (1.32-3.57) x10^3/uL Absolute Monos (auto) (0.30-0.82) x10^3/uL Absolute Nucleated RBC (0.00-0.012) x10^3u/L Lymphocytes % (21.8-53.1) % Monocytes % (5.3-12.2) % Eosinophils % (0.8-7.0) % Basophils % (0.2-1.2) % Absolute Granulocytes (1.78-5.38) x10^3/uL Basophils # (0.01-0.08) x10^3/uL Sodium (135-145) mmol/L Potassium (3.5-5.1) mmol/L Chloride (98-107) mmol/L Carbon Dioxide (22-30) mmol/L Anion Gap (5-15) MEQ/L BUN (9-20) mg/dL Creatinine (0.66-1.25) mg/dL Estimated GFR ML/MIN Glucose (74-106) mg/dL POC Glucometer (74 to 106) mg/dL Hemoglobin A1c (4.5-6.0) % Lactic Acid 1.9 (0.4-2.0) Calcium (8.4-10.2) mg/dL Magnesium (1.6-2.3) mg/dL Total Bilirubin (0.2-1.3) mg/dL AST (17-59) U/L ALT (0-50) U/L Alkaline Phosphatase (38-126) U/L Troponin I (0.000-0.033) ng/mL NT-Pro-B Natriuret Pep (<300) pg/mL Serum Total Protein (6.3-8.2) g/dL Albumin (3.5-5.0) g/dL Lipase (23-300) U/L Urine Color Yellow (Yellow) Urine Appearance Cloudy A (Clear) Urine pH 5.0 (4.6-8.0) Ur Specific [place]vant >=1.030 A (1.005-1.030) Urine Protein >=1000 A (Negative) Urine Glucose (UA) >=1000 A (Negative) mg/dL Urine Ketones Negative (Negative) Urine Blood Negative (Negative) Urine Nitrite Negative (Negative) Urine Bilirubin Negative (Negative) Urine Urobilinogen 0.2 (0.2) mg/dL Ur Leukocyte Esterase Trace A (Negative) Urine Microscopic RBC 0-2 (0-5) /HPF Urine Microscopic WBC 51-100 A (0-5) /HPF Ur Epithelial Cells Rare (None Seen) /HPF Urine Bacteria None Seen (None Seen) /HPF Urine Culture Reflexed YES (NO) Influenza Type A Ag NEGATIVE (NEGATIVE) Influenza Type B Ag NEGATIVE (NEGATIVE) RSV (PCR) NEGATIVE (NEGATIVE) SARS-CoV-2 (PCR) NEGATIVE (NEGATIVE) 03/25/24 03/25/24 03/25/24 Range/Units 11:15 12:15 12:15 WBC 7.3 (4.23-9.07) x10^3/uL RBC 5.43 (4.63-6.08) x10^6/uL Hgb 16.5 (13.7-17.5) g/dL Hct 50.0 (40.1-51.0) % MCV 92.1 (79.0-92.2) fL MCH 30.4 (25.7-32.2) pg MCHC 33.0 (32.3-36.5) g/dL RDW 12.8 (11.6-14.4) % Plt Count 204 (163-337) x10^3/uL MPV 9.8 (9.4-12.4) fL Gran % 65.0 (34.0-67.9) % Immature Gran % (Auto) 0.3 (0.001-0.429) % Nucleat RBC Rel Count 0.0 (0.00-0.2) % Eos # (Auto) 0.18 (0.04-0.54) x10^3/uL Immature Gran # (Auto) 0.02 (0.001-0.031) x10^3u/L Absolute Lymphs (auto) 1.84 (1.32-3.57) x10^3/uL Absolute Monos (auto) 0.48 (0.30-0.82) x10^3/uL Absolute Nucleated RBC 0.00 (0.00-0.012) x10^3u/L Lymphocytes % 25.2 (21.8-53.1) % Monocytes % 6.6 (5.3-12.2) % Eosinophils % 2.5 (0.8-7.0) % Basophils % 0.4 (0.2-1.2) % Absolute Granulocytes 4.76 (1.78-5.38) x10^3/uL Basophils # 0.03 (0.01-0.08) x10^3/uL Sodium 137 (135-145) mmol/L Potassium 4.9 (3.5-5.1) mmol/L Chloride 106 (98-107) mmol/L Carbon Dioxide 17 L (22-30) mmol/L Anion Gap 18.7 H (5-15) MEQ/L BUN 46 H (9-20) mg/dL Creatinine 3.18 H (0.66-1.25) mg/dL Estimated GFR 19.3 ML/MIN Glucose 162 H (74-106) mg/dL POC Glucometer (74 to 106) mg/dL Hemoglobin A1c 8.45 H (4.5-6.0) % Lactic Acid (0.4-2.0) Calcium 9.4 (8.4-10.2) mg/dL Magnesium 2.3 (1.6-2.3) mg/dL Total Bilirubin 0.80 (0.2-1.3) mg/dL AST 30 (17-59) U/L ALT 13 (0-50) U/L Alkaline Phosphatase 103 (38-126) U/L Troponin I 0.018 (0.000-0.033) ng/mL NT-Pro-B Natriuret Pep 4460 (<300) pg/mL Serum Total Protein 7.5 (6.3-8.2) g/dL Albumin 4.1 (3.5-5.0) g/dL Lipase 163 (23-300) U/L Urine Color (Yellow) Urine Appearance (Clear) Urine pH (4.6-8.0) Ur Specific Avant (1.005-1.030) Urine Protein (Negative) Urine Glucose (UA) (Negative) mg/dL Urine Ketones (Negative) Urine Blood (Negative) Urine Nitrite (Negative) Urine Bilirubin (Negative) Urine Urobilinogen (0.2) mg/dL Ur Leukocyte Esterase (Negative) Urine Microscopic RBC (0-5) /HPF Urine Microscopic WBC (0-5) /HPF Ur Epithelial Cells (None Seen) /HPF Urine Bacteria (None Seen) /HPF Urine Culture Reflexed (NO) Influenza Type A Ag (NEGATIVE) Influenza Type B Ag (NEGATIVE) RSV (PCR) (NEGATIVE) SARS-CoV-2 (PCR) (NEGATIVE) 03/25/24 03/25/24 03/25/24 Range/Units 15:00 17:09 22:12 WBC (4.23-9.07) x10^3/uL RBC (4.63-6.08) x10^6/uL Hgb (13.7-17.5) g/dL Hct (40.1-51.0) % MCV (79.0-92.2) fL MCH (25.7-32.2) pg MCHC (32.3-36.5) g/dL RDW (11.6-14.4) % Plt Count (163-337) x10^3/uL MPV (9.4-12.4) fL Gran % (34.0-67.9) % Immature Gran % (Auto) (0.001-0.429) % Nucleat RBC Rel Count (0.00-0.2) % Eos # (Auto) (0.04-0.54) x10^3/uL Immature Gran # (Auto) (0.001-0.031) x10^3u/L Absolute Lymphs (auto) (1.32-3.57) x10^3/uL Absolute Monos (auto) (0.30-0.82) x10^3/uL Absolute Nucleated RBC (0.00-0.012) x10^3u/L Lymphocytes % (21.8-53.1) % Monocytes % (5.3-12.2) % Eosinophils % (0.8-7.0) % Basophils % (0.2-1.2) % Absolute Granulocytes (1.78-5.38) x10^3/uL Basophils # (0.01-0.08) x10^3/uL Sodium (135-145) mmol/L Potassium (3.5-5.1) mmol/L Chloride (98-107) mmol/L Carbon Dioxide (22-30) mmol/L Anion Gap (5-15) MEQ/L BUN (9-20) mg/dL Creatinine (0.66-1.25) mg/dL Estimated GFR ML/MIN Glucose (74-106) mg/dL POC Glucometer 91 130 H (74 to 106) mg/dL Hemoglobin A1c (4.5-6.0) % Lactic Acid (0.4-2.0) Calcium (8.4-10.2) mg/dL Magnesium (1.6-2.3) mg/dL Total Bilirubin (0.2-1.3) mg/dL AST (17-59) U/L ALT (0-50) U/L Alkaline Phosphatase (38-126) U/L Troponin I 0.015 (0.000-0.033) ng/mL NT-Pro-B Natriuret Pep (<300) pg/mL Serum Total Protein (6.3-8.2) g/dL Albumin (3.5-5.0) g/dL Lipase (23-300) U/L Urine Color (Yellow) Urine Appearance (Clear) Urine pH (4.6-8.0) Ur Specific [place] (1.005-1.030) Urine Protein (Negative) Urine Glucose (UA) (Negative) mg/dL Urine Ketones (Negative) Urine Blood (Negative) Urine Nitrite (Negative) Urine Bilirubin (Negative) Urine Urobilinogen (0.2) mg/dL Ur Leukocyte Esterase (Negative) Urine Microscopic RBC (0-5) /HPF Urine Microscopic WBC (0-5) /HPF Ur Epithelial Cells (None Seen) /HPF Urine Bacteria (None Seen) /HPF Urine Culture Reflexed (NO) Influenza Type A Ag (NEGATIVE) Influenza Type B Ag (NEGATIVE) RSV (PCR) (NEGATIVE) SARS-CoV-2 (PCR) (NEGATIVE) 03/26/24 Range/Units 04:50 WBC 6.8 (4.23-9.07) x10^3/uL RBC 4.63 (4.63-6.08) x10^6/uL Hgb 14.0 (13.7-17.5) g/dL Hct 41.7 (40.1-51.0) % MCV 90.1 (79.0-92.2) fL MCH 30.2 (25.7-32.2) pg MCHC 33.6 (32.3-36.5) g/dL RDW 13.1 (11.6-14.4) % Plt Count 198 (163-337) x10^3/uL MPV 10.1 (9.4-12.4) fL Gran % 60.3 (34.0-67.9) % Immature Gran % (Auto) 0.3 (0.001-0.429) % Nucleat RBC Rel Count 0.0 (0.00-0.2) % Eos # (Auto) 0.25 (0.04-0.54) x10^3/uL Immature Gran # (Auto) 0.02 (0.001-0.031) x10^3u/L Absolute Lymphs (auto) 1.78 (1.32-3.57) x10^3/uL Absolute Monos (auto) 0.62 (0.30-0.82) x10^3/uL Absolute Nucleated RBC 0.00 (0.00-0.012) x10^3u/L Lymphocytes % 26.0 (21.8-53.1) % Monocytes % 9.1 (5.3-12.2) % Eosinophils % 3.7 (0.8-7.0) % Basophils % 0.6 (0.2-1.2) % Absolute Granulocytes 4.13 (1.78-5.38) x10^3/uL Basophils # 0.04 (0.01-0.08) x10^3/uL Sodium (135-145) mmol/L Potassium (3.5-5.1) mmol/L Chloride (98-107) mmol/L Carbon Dioxide (22-30) mmol/L Anion Gap (5-15) MEQ/L BUN (9-20) mg/dL Creatinine (0.66-1.25) mg/dL Estimated GFR ML/MIN Glucose (74-106) mg/dL POC Glucometer (74 to 106) mg/dL Hemoglobin A1c (4.5-6.0) % Lactic Acid (0.4-2.0) Calcium (8.4-10.2) mg/dL Magnesium (1.6-2.3) mg/dL Total Bilirubin (0.2-1.3) mg/dL AST (17-59) U/L ALT (0-50) U/L Alkaline Phosphatase (38-126) U/L Troponin I (0.000-0.033) ng/mL NT-Pro-B Natriuret Pep (<300) pg/mL Serum Total Protein (6.3-8.2) g/dL Albumin (3.5-5.0) g/dL Lipase (23-300) U/L Urine Color (Yellow) Urine Appearance (Clear) Urine pH (4.6-8.0) Ur Specific [place] (1.005-1.030) Urine Protein (Negative) Urine Glucose (UA) (Negative) mg/dL Urine Ketones (Negative) Urine Blood (Negative) Urine Nitrite (Negative) Urine Bilirubin (Negative) Urine Urobilinogen (0.2) mg/dL Ur Leukocyte Esterase (Negative) Urine Microscopic RBC (0-5) /HPF Urine Microscopic WBC (0-5) /HPF Ur Epithelial Cells (None Seen) /HPF Urine Bacteria (None Seen) /HPF Urine Culture Reflexed (NO) Influenza Type A Ag (NEGATIVE) Influenza Type B Ag (NEGATIVE) RSV (PCR) (NEGATIVE) SARS-CoV-2 (PCR) (NEGATIVE) Radiology Exams: Radiology Procedures Category Date Time Status ABDOMEN AND PELVIS W/0 CONTRAS [CT] Stat Exams 03/25/24 11:16 Completed CHEST 1 VIEW (PORTABLE) Stat Exams 03/25/24 10:43 Completed Assessment/Plan (1) Acute diverticulitis of intestine Current Visit: Yes Status: Acute Assessment & Plan: -Ct ab/pelvis consistent with acute diverticulitis -CLD -pt requesting -IVF-monitor for fluid overload in the setting of CHF/renal failure -LA WNL -blood cultures pending -Ceftriaxone and Flagyl started in ED, will continue Zosyn -trial clears ADAT -supportive care - anti-emetics/pain control 03/26: -CLD tolerated, patient requesting regular diet Code(s): K57.92 - DVTRCLI OF INTEST, PART UNSP, W/O PERF OR ABSCESS W/O BLEED (2) Pneumonia Current Visit: Yes Status: Acute Assessment & Plan: -CXR showing Left mid-zone hazy opacity. Bilateral costophrenic angles are partially obscured raising suspicion for minimal basal pleural effusion - Zosyn Code(s): J18.9 - PNEUMONIA, UNSPECIFIED ORGANISM (3) Metabolic acidosis Current Visit: Yes Status: Acute Assessment & Plan: -Most likely secondary to GI loss/CKD -IVF -Continue home sodium bicarb 03/26: -resolved - continue home bicarb Code(s): E87.20 - ACIDOSIS, UNSPECIFIED (4) CAD (coronary artery disease) Current Visit: Yes Status: Acute Assessment & Plan: -s/p CABG -Continue home meds Code(s): I25.10 - ATHSCL HEART DISEASE OF [place] CORONARY ARTERY W/O ANG PCTRS (5) Afib Current Visit: Yes Status: Acute Assessment & Plan: -On Xarelto - will continue 03/25: -Patient states he has not taken any meds for AFIB per his powder coater in several months - advised follow up with cards as OP Code(s): I48.91 - UNSPECIFIED ATRIAL FIBRILLATION (6) HTN (hypertension) Current Visit: Yes Status: Acute Assessment & Plan: -Stable - continue home meds Code(s): I10 - ESSENTIAL (PRIMARY) HYPERTENSION (7) Acute UTI (urinary tract infection) Current Visit: Yes Status: Acute Assessment & Plan: -UA mildly suscipious -culture negative Code(s): N39.0 - URINARY TRACT INFECTION, SITE NOT SPECIFIED (8) CHF (congestive heart failure) Current Visit: No Status: Acute Assessment & Plan: -Reviewed most recent Echo from 04/01/23 EF 51% IMPRESSION: 1) LOW NORMAL CONTRACTILITY OF THE LEFT VENTRICLE. 2) MILD ASYMMETRIC LEFT VENTRICULAR HYPERTROPHY INVOLVING THE SEPTUM. 3) MODERATE LEFT ATRIAL DILATATION. 4) TRACE AMOUNT OF MITRAL REGURGITATION. 5) MILD PULMONIC REGURGITATION. 6) PACING ELECTRODE IN THE RIGHT VENTRICLE AND RIGHT ATRIUM. -Continue home meds -Monitor I&O's strictly -daily weight -Monitor for fluid overload with IVF -Optimize electrolytes Code(s): I50.9 - HEART FAILURE, UNSPECIFIED (9) Renal failure Current Visit: No Status: Acute Assessment & Plan: -Baseline creat around 2.9 - improving now at 3.07< 3.18 -IVF -Monitor renal/lytes (10) Type II diabetes mellitus Current Visit: No Status: Chronic Assessment & Plan: -ADA -SSI -A1c 8.45 DVT: Lovenox PPI: protonix Dispo: 2-3 days Code(s): K57.92 - DVTRCLI OF INTEST, PART UNSP, W/O PERF OR ABSCESS W/O BLEED (2) Pneumonia Current Visit: Yes Status: Acute Code(s): J18.9 - PNEUMONIA, UNSPECIFIED ORGANISM (3) Metabolic acidosis Current Visit: Yes Status: Acute Code(s): E87.20 - ACIDOSIS, UNSPECIFIED (4) CAD (coronary artery disease) Current Visit: Yes Status: Acute Code(s): I25.10 - ATHSCL HEART DISEASE OF [place] CORONARY ARTERY W/O ANG PCTRS (5) Afib Current Visit: Yes Status: Acute Code(s): I48.91 - UNSPECIFIED ATRIAL FIBRILLATION (6) HTN (hypertension) Current Visit: Yes Status: Acute Code(s): I10 - ESSENTIAL (PRIMARY) HYPERTENSION (7) Acute UTI (urinary tract infection) Current Visit: Yes Status: Acute Code(s): N39.0 - URINARY TRACT INFECTION, SITE NOT SPECIFIED (8) CHF (congestive heart failure) Current Visit: No Status: Acute Code(s): I50.9 - HEART FAILURE, UNSPECIFIED (9) Renal failure Current Visit: No Status: Acute (10) Type II diabetes mellitus Current Visit: No Status: Chronic
[2024-03-26] MEDS ORDERED: MEDICATION INTERVENTION MC SCH (07:15)
[2024-03-26] MEDS ORDERED: NON-FORMULARY ITEM (Cyanocobalamin (Vitamin B-12) [B-12] 1,000 MCG Tablet) PO SCH (10:00)
[2024-03-26] MEDS ORDERED: ENOXAPARIN SODIUM SQ SCH (10:00)
[2024-03-26] MEDS ORDERED: BABY ASPIRIN 81 MG CHEW PO SCH (10:00)
[2024-03-26] MEDS ORDERED: NON-FORMULARY ITEM (Cholecalciferol (Vitamin D3) [Vitamin D3] 125 MCG Capsule) PO SCH (10:00)
[2024-03-26] MEDS: Lantus Insulin SQ SCH (10:16)
[2024-03-26] MEDS: ECOTRIN 81 MG PO SCH (10:17)
[2024-03-26] MEDS: Vitamin B-12 500 MCG PO SCH (10:17)
[2024-03-26] MEDS: VITAMIN D PO SCH (10:17)
[2024-03-26] MEDS: ZYLOPRIM 300 MG PO SCH (10:18)
[2024-03-26] MEDS: ENOXAPARIN SODIUM SQ SCH (10:18)
[2024-03-26] MEDS: JARDIANCE PO SCH (10:19)
[2024-03-26] MEDS: FEOSOL 325 MG PO SCH (10:20)
[2024-03-26] MEDS ORDERED: Xalatan OP SCH (22:00)
[2024-03-26] MEDS: PATIENT OWN MEDICATION OP SCH (22:18)
--- NOTE | 2024-03-26 22:21 | TM.IN ---
Tele-Medicine Incident Note - Incident Note Tel-Medicine Incident Note: 03/26/247 INTERIM TELEMEDICINE CROSSCOVER NOTE I was called for tachycardia this evening for Mr. Young, and in looking at both the EKG and the rhythm strips, there is definitely concern for VT - it is not very straightforward as there are also morphological changes that could be interpreted as SVT with aberrancy. We will start the patient on an amiodarone drip with bolus, and have tele-cardiology see the patient in the AM (would place consult in the morning). Low threshold for transfer tomorrow, but I feel he is stable for management here at [facility]. STAT BMP and Mg ordered. Echo not ordered as there is no echo capability over the weekend. Deshawn Quiroz MD Pulmonary and Critical Care Medicine Telemedicine Encounter - Telemedicine Encounter Telemedicine Encounter: "The entirety of this encounter was performed via Telemedicine" This visit was performed using real-time audio and video connection between my location and thepatients locationwith the assistance of a surrogateat the patients location. Written or verbal consent was obtained from the patient/guardian to perform this visit [facility]. Any patient questions regarding the telemedicine interaction were answered.
[2024-03-26 22:33] LABS: ANION GAP 14.1 MEQ/L (5-15); Calcium 8.9 mg/dL (8.4-10.2); Creatinine 1 3.46 mg/dL (0.66-1.25); EST GLOMERULAR FILTRATION RATE 17.5 ML/MIN; Potassium 5.1 mmol/L (3.5-5.1)
[2024-03-26] MEDS ORDERED: D5w 100ML Mini Bag 100 ML 100 ML IV ONE (22:56)
[2024-03-26] MEDS ORDERED: Cordarone 150 MG/3 ML Injection ONE (22:56)
[2024-03-26] MEDS: Cordarone 150 MG/3 ML Injection*** 150 MG in D5w 100ML Mini Bag 100 ML 100 ML IV ONE (23:09)
[2024-03-26] MEDS: NEXTERONE 360 MG/200 ML BAG 360 MG/200 ML PLAST..BAG IV SCH (23:25)
[2024-03-27 06:18] LABS: Absolute Neutrophil Ct (ANC) 5.42 x10^3/uL (1.78-5.38); BASOPHIL % 0.7 % (0.2-1.2); Basophil (Absolute #) 0.06 x10^3/uL (0.01-0.08); Eosinophil % 4.1 % (0.8-7.0); Eosinophil (Absolute #) 0.34 x10^3/uL (0.04-0.54); Hemoglobin 14.1 g/dL (13.7-17.5); IMMATURE GRAN # 0.03 x10^3u/L (0.001-0.031); IMMATURE GRAN % 0.4 % (0.001-0.429); Lymphocyte (Absolute #) 1.64 x10^3/uL (1.32-3.57); Lymphocytes % 19.6 % (21.8-53.1); Mean Cell Volume 90.5 fL (79.0-92.2); Mean Corpuscular Hemoglobin 30.4 pg (25.7-32.2); Mean Corpuscular Hgb Concent. 33.6 g/dL (32.3-36.5); Mean Platelet Volume 10.2 fL (9.4-12.4); Monocyte (Absolute #) 0.86 x10^3/uL (0.30-0.82); Monocytes % 10.3 % (5.3-12.2); Neutrophil % 64.9 % (34.0-67.9); Platelet Count 213 x10^3/uL (163-337); Red Blood Count 4.64 x10^6/uL (4.63-6.08); Red Cell Distribution Width 12.9 % (11.6-14.4); White Blood Count 8.4 x10^3/uL (4.23-9.07)
[2024-03-27] MEDS: Levofloxacin 250MG Tablet PO SCH (06:27)
[2024-03-27 06:40] LABS: ALBUMIN 3.3 g/dL (3.5-5.0); BILIRUBIN,TOTAL 0.4 mg/dL (0.2-1.3); Calcium 8.7 mg/dL (8.4-10.2); Creatinine 1 3.33 mg/dL (0.66-1.25); EST GLOMERULAR FILTRATION RATE 18.3 ML/MIN; Potassium 4.5 mmol/L (3.5-5.1); Total Protein 6.2 g/dL (6.3-8.2)
[2024-03-27] MEDS: Cordarone 150 MG/3 ML Injection*** 150 MG in D5w 100ML Mini Bag 100 ML 100 ML IV ONE (08:56)
[2024-03-27] MEDS: Lopressor 25MG Tab PO SCH ×2 (09:01→12:28)
--- NOTE | 2024-03-27 12:34 | PCM.NOTE ---
Date and Time: 03/27/24 1226 Subjective Assessment: is a 78 year old male with a pmhx of CAD, [place], HTN, FAHEEM, DMII, and stage 4 kidney disease presented to ED 03/25/24 with complaints of shortness of breath, a productive cough with yellow/green sputum (since ),and abdominal pain with one episode of vomiting that started yesterday with associated poor appetite and energy levels. During my interview patient states abdominal pain has subsided but does have some TTP to the LLQ. Denies fever,cough, sob, cp, BAH, dizziness, N/V/D. Upon arrival to ED vitals stable. Chest x-ray showed left-sided hazy opacities. CT of the abd/pelvis consistent with acute diverticulitis and cholelithiasis. Lab findings remarkable for CO2 at 17, GAP at 18.7, BNP 4460,and creat at 3.18 (baseline around 2.9). UA suspicious for UTI. Respiratory panel negative. Patient started on ceftriaxone and flagyl in ED. Admit for pneumonia, acute diverticulitis, and UTI. 03/26: Met with patient bedside. Endorses continued productive cough but states this has been going on for some time - before . On RA which is his baseline. No further abdominal pain, nausea, or vomiting. Tolerated CLD - requesting full diet today. Labs improving. Kidney function near baseline. Urine culture negative. Continue Zosyn for now. 03/27: Overnight events noted of concern for VT - reviewed hospitalist notes from overnight - it is not very straightforward as there are also morphological changes that could be interpreted as SVT with aberrancy. We will start the patient on an amiodarone drip with bolus. Cardiology consulted -pt is poor historian with past history. Patient of [place]. Unable to obtain records. Trying to obtain pacemaker records. Cardiology recommendation for pacemaker interrogation. Patient received additional amiodarone bolus of 150mg. Will continue amiodarone drip until this evening. Start Lopressor 25mg q6h. Cardiology will follow. Patient asymptomatic. He is wanting to be discharge. Continues to have poor appetite. Abdominal pain, nausea, and vomiting have resolved. Denies shortness of breath, does have productive cough. Denies fever,cough, cp, abdominal pain, BAH, dizziness, N/V/D. Zosyn changed to levaquin due to interaction with amiodarone drip. - Review of Systems Constitutional: Weakness Eyes: No Symptoms Ears, Nose, & Throat: No Symptoms Respiratory: Cough Cardiac: No Symptoms Abdominal/Gastrointestinal: No Symptoms Genitourinary Symptoms: No Symptoms Musculoskeletal: No Symptoms Skin: No Symptoms Neurological: No Symptoms Psychological: No Symptoms Endocrine: No Symptoms Hematologic/Lymphatic: No Symptoms Immunological/Allergic: No Symptoms Objective Exam General Appearance: no apparent distress Neurologic Exam: alert, oriented x 3, cooperative Skin Exam: normal color Eye Exam: PERRL Ears, Nose, Throat Exam: normal ENT inspection Neck Exam: normal inspection Respiratory Exam: crackles/rales Cardiovascular Exam: irregular Gastrointestinal/Abdomen Exam: soft, normal bowel sounds Extremity Exam: normal inspection Back Exam: normal inspection Male Genitalia Exam: deferred Rectal Exam: deferred Objective Data Vital Signs: Vital Signs - 24 hr Temp Pulse Resp BP BP Pulse Ox 03/27/24 09:30 72 16 142/65 98 03/27/24 09:00 89 14 134/59 99 03/27/24 08:30 88 14 134/66 99 03/27/24 08:00 93 H 7 L 135/75 97 03/27/24 07:30 91 H 15 182/79 97 03/27/24 07:00 83 13 172/81 97 03/27/24 06:30 86 17 158/83 96 03/27/24 06:13 85 23 172/88 97 03/27/24 06:00 97.3 F 128 H 16 120/82 94 L 03/27/24 05:30 127 H 13 107/72 95 03/27/24 05:00 126 H 17 130/65 96 03/27/24 04:30 91 H 12 147/79 96 03/27/24 04:00 87 17 161/74 96 03/27/24 03:31 83 12 167/77 96 03/27/24 03:00 91 H 15 121/74 96 03/27/24 02:30 99 H 20 154/73 94 L 03/27/24 02:16 99 H 12 157/75 94 L 03/27/24 02:00 99 H 17 143/98 95 03/27/24 01:30 97 H 12 135/71 95 03/27/24 01:00 97.7 F 87 15 141/76 97 03/27/24 00:32 92 H 12 153/84 95 03/27/24 00:01 106 H 17 165/83 98 03/26/24 23:30 100 H 5 L 114/73 96 03/26/24 23:00 128 H 21 156/82 98 03/26/24 22:48 105 H 21 108/83 97 03/26/24 22:47 127 H 15 98 03/26/24 22:30 99 H 03/26/24 22:20 102 H 03/26/24 22:10 122 H 03/26/24 22:00 108 H 03/26/24 21:50 129 H 03/26/24 21:40 107 H 03/26/24 21:30 127 H 03/26/24 21:20 102 H 03/26/24 21:10 104 H 13 03/26/24 21:00 127 H 03/26/24 20:50 104 H 03/26/24 20:31 128 H 03/26/24 20:20 103 H 03/26/24 20:10 129 H 12 03/26/24 20:09 130 H 12 03/26/24 19:51 97.1 F 97 H 20 148/70 95 03/26/24 19:39 96 H 18 96 03/26/24 15:00 97.8 F 82 19 117/56 98 Pain Assessment - Last Documented Pain Intensity 0 Pain Scale Used 0-10 Pain Scale Intake and Output: Intake & Output 03/25/24 03/26/24 03/27/24 03/28/24 11:59 11:59 11:59 11:59 Intake Total 600 952 Output Total 900 2475 Balance -300 -1523 Weight 88.6 kg 86.4 kg 88.3 kg Lab Results: Lab Results-Last 24 Hours 03/26/24 03/26/24 03/26/24 Range/Units 16:30 21:05 21:05 WBC (4.23-9.07) x10^3/uL RBC (4.63-6.08) x10^6/uL Hgb (13.7-17.5) g/dL Hct (40.1-51.0) % MCV (79.0-92.2) fL MCH (25.7-32.2) pg MCHC (32.3-36.5) g/dL RDW (11.6-14.4) % Plt Count (163-337) x10^3/uL MPV (9.4-12.4) fL Gran % (34.0-67.9) % Immature Gran % (Auto) (0.001-0.429) % Nucleat RBC Rel Count (0.00-0.2) % Eos # (Auto) (0.04-0.54) x10^3/uL Immature Gran # (Auto) (0.001-0.031) x10^3u/L Absolute Lymphs (auto) (1.32-3.57) x10^3/uL Absolute Monos (auto) (0.30-0.82) x10^3/uL Absolute Nucleated RBC (0.00-0.012) x10^3u/L Lymphocytes % (21.8-53.1) % Monocytes % (5.3-12.2) % Eosinophils % (0.8-7.0) % Basophils % (0.2-1.2) % Absolute Granulocytes (1.78-5.38) x10^3/uL Basophils # (0.01-0.08) x10^3/uL Sodium (135-145) mmol/L Potassium (3.5-5.1) mmol/L Chloride (98-107) mmol/L Carbon Dioxide (22-30) mmol/L Anion Gap (5-15) MEQ/L BUN (9-20) mg/dL Creatinine (0.66-1.25) mg/dL Estimated GFR ML/MIN Glucose (74-106) mg/dL POC Glucometer 130 H (74 to 106) mg/dL Calcium (8.4-10.2) mg/dL Magnesium 2.0 (1.6-2.3) mg/dL Total Bilirubin (0.2-1.3) mg/dL AST (17-59) U/L ALT (0-50) U/L Alkaline Phosphatase (38-126) U/L Troponin I 0.020 (0.000-0.033) ng/mL Serum Total Protein (6.3-8.2) g/dL Albumin (3.5-5.0) g/dL 09/20/24 09/20/24 09/21/24 Range/Units 22:23 22:46 06:00 WBC 8.4 (4.23-9.07) x10^3/uL RBC 4.64 (4.63-6.08) x10^6/uL Hgb 14.1 (13.7-17.5) g/dL Hct 42.0 (40.1-51.0) % MCV 90.5 (79.0-92.2) fL MCH 30.4 (25.7-32.2) pg MCHC 33.6 (32.3-36.5) g/dL RDW 12.9 (11.6-14.4) % Plt Count 213 (163-337) x10^3/uL MPV 10.2 (9.4-12.4) fL Gran % 64.9 (34.0-67.9) % Immature Gran % (Auto) 0.4 (0.001-0.429) % Nucleat RBC Rel Count 0.0 (0.00-0.2) % Eos # (Auto) 0.34 (0.04-0.54) x10^3/uL Immature Gran # (Auto) 0.03 (0.001-0.031) x10^3u/L Absolute Lymphs (auto) 1.64 (1.32-3.57) x10^3/uL Absolute Monos (auto) 0.86 H (0.30-0.82) x10^3/uL Absolute Nucleated RBC 0.00 (0.00-0.012) x10^3u/L Lymphocytes % 19.6 L (21.8-53.1) % Monocytes % 10.3 (5.3-12.2) % Eosinophils % 4.1 (0.8-7.0) % Basophils % 0.7 (0.2-1.2) % Absolute Granulocytes 5.42 H (1.78-5.38) x10^3/uL Basophils # 0.06 (0.01-0.08) x10^3/uL Sodium 136 (135-145) mmol/L Potassium 5.1 (3.5-5.1) mmol/L Chloride 105 (98-107) mmol/L Carbon Dioxide 22 (22-30) mmol/L Anion Gap 14.1 (5-15) MEQ/L BUN 43 H (9-20) mg/dL Creatinine 3.46 H (0.66-1.25) mg/dL Estimated GFR 17.5 ML/MIN Glucose 217 H (74-106) mg/dL POC Glucometer 194 H (74 to 106) mg/dL Calcium 8.9 (8.4-10.2) mg/dL Magnesium (1.6-2.3) mg/dL Total Bilirubin (0.2-1.3) mg/dL AST (17-59) U/L ALT (0-50) U/L Alkaline Phosphatase (38-126) U/L Troponin I (0.000-0.033) ng/mL Serum Total Protein (6.3-8.2) g/dL Albumin (3.5-5.0) g/dL 03/27/24 03/27/24 03/27/24 Range/Units 06:00 06:58 11:13 WBC (4.23-9.07) x10^3/uL RBC (4.63-6.08) x10^6/uL Hgb (13.7-17.5) g/dL Hct (40.1-51.0) % MCV (79.0-92.2) fL MCH (25.7-32.2) pg MCHC (32.3-36.5) g/dL RDW (11.6-14.4) % Plt Count (163-337) x10^3/uL MPV (9.4-12.4) fL Gran % (34.0-67.9) % Immature Gran % (Auto) (0.001-0.429) % Nucleat RBC Rel Count (0.00-0.2) % Eos # (Auto) (0.04-0.54) x10^3/uL Immature Gran # (Auto) (0.001-0.031) x10^3u/L Absolute Lymphs (auto) (1.32-3.57) x10^3/uL Absolute Monos (auto) (0.30-0.82) x10^3/uL Absolute Nucleated RBC (0.00-0.012) x10^3u/L Lymphocytes % (21.8-53.1) % Monocytes % (5.3-12.2) % Eosinophils % (0.8-7.0) % Basophils % (0.2-1.2) % Absolute Granulocytes (1.78-5.38) x10^3/uL Basophils # (0.01-0.08) x10^3/uL Sodium 134 L (135-145) mmol/L Potassium 4.5 (3.5-5.1) mmol/L Chloride 106 (98-107) mmol/L Carbon Dioxide 21 L (22-30) mmol/L Anion Gap 12.0 (5-15) MEQ/L BUN 40 H (9-20) mg/dL Creatinine 3.33 H (0.66-1.25) mg/dL Estimated GFR 18.3 ML/MIN Glucose 158 H (74-106) mg/dL POC Glucometer 146 H 150 H (74 to 106) mg/dL Calcium 8.7 (8.4-10.2) mg/dL Magnesium (1.6-2.3) mg/dL Total Bilirubin 0.40 (0.2-1.3) mg/dL AST 18 (17-59) U/L ALT 10 (0-50) U/L Alkaline Phosphatase 84 (38-126) U/L Troponin I (0.000-0.033) ng/mL Serum Total Protein 6.2 L (6.3-8.2) g/dL Albumin 3.3 L (3.5-5.0) g/dL Multi-Disciplinary Progress Notes: Multi-Disciplinary Progress Notes 03/26/24 13:37 Case Management Note by Nickie Huizar MADE SEVERAL PHONE CALLS TO FIND WHO PATIENT SEE FOR CARIDOLOGY. HE SEES DR. SETH YIP AT [facility]. HE MISSED HIS APT IN JANUARY WITH HIM. HIS NEXT APT IS 05/13 @1000. I CALLED SCHEDULING AND REQUESTED THIS TO BE MOVED UP D/T HOSPITAL STAY. THEY WILL HAVE TO PUT IN A REQUEST AND CALL THE PATIENT IF ABLE TO. HIS NEXT APT WITH HIS PCP IS 05/19@10 AM AT THE [facility] WITH AN RELIGIOUS EDUCATION TEACHER. AGAIN THIS WAS REQUESTED TO BE MOVED UP D/T HOSPITAL STAY. THEY WILL SEND THRU A REQUEST AND CALL PATIENT IF ABLE. BRIT [facility] NOTIFIED SCHEDULING ALSO NOTED THAT PATIENT HAS THE FOLLOWING APTS: 04/06/24 @830 @ [facility] WITH A NURSE FOR HIS PACER 04/15/24 @830 [facility] 05/06/24- UNSURE OF TIME- FOR LAB WORK WILL PLACE THIS INFO IN PATIENT'S DC SO HE IS AWARE Initialized on 03/26/24 13:37 - END OF NOTE Assessment/Plan (1) Acute diverticulitis of intestine Current Visit: Yes Status: Acute Assessment & Plan: -Ct ab/pelvis consistent with acute diverticulitis -CLD -pt requesting -IVF-monitor for fluid overload in the setting of CHF/renal failure -LA WNL -blood cultures pending -Ceftriaxone and Flagyl started in ED, will continue Zosyn -trial clears ADAT -supportive care - anti-emetics/pain control 03/26: -CLD tolerated, patient requesting regular diet 03/27: -tolerated regular diet - still with poor appetite - no n/v -Zosyn changed to levquin due to interaction with amiodarone drip Code(s): K57.92 - DVTRCLI OF INTEST, PART UNSP, W/O PERF OR ABSCESS W/O BLEED (2) Pneumonia Current Visit: Yes Status: Acute Assessment & Plan: -CXR showing Left mid-zone hazy opacity. Bilateral costophrenic angles are partially obscured raising suspicion for minimal basal pleural effusion - Zosyn 03/27: -Continue levaquin - due to zosyn/amiodarone interaction Code(s): J18.9 - PNEUMONIA, UNSPECIFIED ORGANISM ##VTach -concern for VT - it is not very straightforward as there are also morphological changes that could be interpreted as SVT with aberrancy. -Cardiology consulted- agree with plan for amio drip/bolus and lopressor -Patient poor historian with pmhx- did discuss case with patient's previous administration intern Dr. Jones 03/26- states he was seeing patient for VT - patient was on amiodarone as OP while under his care several months ago he did recommend ablation at that time -unable to obtain authorization from [facility] - patient is now under the care of Dr. Yip at the [place]- attempting to obtain records - patient did miss last appt in January- not scheduled again until 05/13 - we have requested this be moved up (3) Metabolic acidosis Current Visit: Yes Status: Acute Assessment & Plan: -Most likely secondary to GI loss/CKD -IVF -Continue home sodium bicarb 03/26: -resolved - continue home bicarb Code(s): E87.20 - ACIDOSIS, UNSPECIFIED (4) CAD (coronary artery disease) Current Visit: Yes Status: Acute Assessment & Plan: -s/p CABG -Continue home meds Code(s): I25.10 - ATHSCL HEART DISEASE OF [place] CORONARY ARTERY W/O ANG PCTRS (5) Afib Current Visit: Yes Status: Acute Assessment & Plan: -On Xarelto - will continue 03/25: -Patient states he has not taken any meds for AFIB per his administration intern in several months - advised follow up with cards as OP Code(s): I48.91 - UNSPECIFIED ATRIAL FIBRILLATION (6) HTN (hypertension) Current Visit: Yes Status: Acute Assessment & Plan: -Stable - continue home meds Code(s): I10 - ESSENTIAL (PRIMARY) HYPERTENSION (7) Acute UTI (urinary tract infection) Current Visit: Yes Status: Acute Assessment & Plan: -UA mildly suscipious -culture negative Code(s): N39.0 - URINARY TRACT INFECTION, SITE NOT SPECIFIED (8) CHF (congestive heart failure) Current Visit: No Status: Acute Assessment & Plan: -Reviewed most recent Echo from 04/01/23 EF 51% IMPRESSION: 1) LOW NORMAL CONTRACTILITY OF THE LEFT VENTRICLE. 2) MILD ASYMMETRIC LEFT VENTRICULAR HYPERTROPHY INVOLVING THE SEPTUM. 3) MODERATE LEFT ATRIAL DILATATION. 4) TRACE AMOUNT OF MITRAL REGURGITATION. 5) MILD PULMONIC REGURGITATION. 6) PACING ELECTRODE IN THE RIGHT VENTRICLE AND RIGHT ATRIUM. -Continue home meds -Monitor I&O's strictly -daily weight -Monitor for fluid overload with IVF -Optimize electrolytes Code(s): I50.9 - HEART FAILURE, UNSPECIFIED (9) Renal failure Current Visit: No Status: Acute Assessment & Plan: -Baseline creat around 2.9 - improving now at 3.07< 3.18 -IVF -Monitor renal/lytes 03/27: -continue to monitor - avoid nephrotoxic agents (10) Type II diabetes mellitus Current Visit: No Status: Chronic Assessment & Plan: -ADA -SSI -A1c 8.45 DVT: Lovenox PPI: protonix Dispo: 2-3 days Code(s): K57.92 - DVTRCLI OF INTEST, PART UNSP, W/O PERF OR ABSCESS W/O BLEED (2) Pneumonia Current Visit: Yes Status: Acute Code(s): J18.9 - PNEUMONIA, UNSPECIFIED ORGANISM (3) Metabolic acidosis Current Visit: Yes Status: Acute Code(s): E87.20 - ACIDOSIS, UNSPECIFIED (4) CAD (coronary artery disease) Current Visit: Yes Status: Acute Code(s): I25.10 - ATHSCL HEART DISEASE OF [place] CORONARY ARTERY W/O ANG PCTRS (5) Afib Current Visit: Yes Status: Acute Code(s): I48.91 - UNSPECIFIED ATRIAL FIBRILLATION (6) HTN (hypertension) Current Visit: Yes Status: Acute Code(s): I10 - ESSENTIAL (PRIMARY) HYPERTENSION (7) Acute UTI (urinary tract infection) Current Visit: Yes Status: Acute Code(s): N39.0 - URINARY TRACT INFECTION, SITE NOT SPECIFIED (8) CHF (congestive heart failure) Current Visit: No Status: Acute Code(s): I50.9 - HEART FAILURE, UNSPECIFIED (9) Renal failure Current Visit: No Status: Acute (10) Type II diabetes mellitus Current Visit: No Status: Chronic (11) Ventricular tachycardia Current Visit: No Status: Acute Code(s): I47.20 - VENTRICULAR TACHYCARDIA, UNSPECIFIED
--- NOTE | 2024-03-27 18:27 | PCM.CONS ---
History of Present Illness - Date of Consult Date of Encounter: 03/27/24 Consulting Roller Coaster Engineer: TRAMAINE MENDOZA MD Requesting Provider: Attending Provider: VINCENT PATEL MD Primary Care Provider: PCP: [facility] Consent was: Given for this tele-med encounter - Consult Narrative Reason for Consult: Sustained VT HPI: Patient is a 78M who denies fevers, chills, nausea, vomiting, diarrhea, syncope, presyncope, dysphagia,odynophagia, orthopnea, paroxysmal nocturnal dyspnea, shortness of breath, chest pain, refluxsymptoms, belly pain, dysuria, hematuria, melena, hematochezia, seizures, paralysis, or other neurological changes. All other systems have been reviewed and are negative. cc:: The requesting physician will be sent a copy of the consult. - Past Medical History Past Medical History: Yes Neurological History: Stroke ENT History: Cataracts, Other Cardiac History: Coronary Artery Disease, Hypertension, Myocardial Infarction (OK) Respiratory History: Pneumonia, Sleep Apnea Endocrine Medical History: Diabetes Type II Musculoskelatal History: Arthritis GI Medical History: Diverticulitis History: Renal Disease Pyscho-Social History: No Pertinent History Male Reproductive Disorders: No Pertinent History - Past Surgical History Past Surgical History: Yes Neuro Surgical History: No Pertinent History Cardiac History: CABG, Cardiac Catheterization, Cardiac Stent, Internal Defibrillator Respiratory Surgery: No Pertinent History GI Surgical History: No Pertinent History Genitourinary Surgical Hx: No Pertinent History Musculskeletal Surgical Hx: No Pertinent History Male Surgical History: No Pertinent History Other Surgical History: back surgery, 3 stents, open heart bypass surgery in January 2023 - Social History Smoking Status: Former smoker Exposure to second hand smoke: No Alcohol: None Drug Use: none - Social Determinants of Health Will the patient participate in the screening: Yes Do you worry about a steady place to live?: No Do you have any problems with any of the following?: No known problems In the past 12 months,have you had to go without utilities?: No Have you or anyone in your house had to go without enough: No Transportation Issues: No Has anyone in your support network made you feel unsafe?: No Does the patient want assistance with any of the above?: No Medications & Allergies Home Medications: Home Medication List Atorvastatin Calcium 10 mg PO HS 07/16/22 [History Confirmed 03/25/24] Cholecalciferol (Vitamin D3) [Vitamin D3] 125 mcg PO DAILY 07/16/22 [History Confirmed 03/25/24] Latanoprost/Pf [Latanoprost 0.005% Eye Drop] 1 drop OP HS 07/16/22 [History Con firmed 03/25/24] Sodium Bicarbonate 650 mg PO DAILY 07/16/22 [History Confirmed 03/25/24] Aspirin 81 gm Chew [Baby Aspirin 81 mg Chew] 81 mg PO DAILY 01/13/23 [History Confirmed 03/25/24] Cyanocobalamin (Vitamin B-12) [B-12] 1,000 mcg PO DAILY 01/13/23 [History Confirmed 03/25/24] Glyburide 5 mg [Micronase 5 MG] 5 mg PO BID 01/13/23 [History Confirmed 03/25/24] Ferrous Sulfate 325 mg [Feosol 325 mg] 325 mg PO DAILY 04/01/23 [History Confirmed 03/25/24] Allopurinol 300 mg [Zyloprim 300 mg] 300 mg PO DAILY 03/25/24 [History Confirmed 03/25/24] Empagliflozin [Jardiance] 10 mg PO DAILY 03/25/24 [History Confirmed 03/25/24] Hydrocodone/Acetaminophen [Hydrocodone-Acetamin 7.5-325] 1 each PO Q6HPRN PRN 03/25/24 [History Confirmed 03/25/24] Insulin Aspart [NovoLOG Insulin] 10 units SQ BIDWMEALS 03/25/24 [History Confirmed 03/25/24] Insulin Glargine [Lantus Insulin] 20 unit SQ DAILY 03/25/24 [History Confirmed 03/25/24] Sodium Zirconium Cyclosilicate [Lokelma] 10 gm PO WEEKLY 03/25/24 [History Confirmed 03/25/24] Allergies/Adverse Reactions: Allergies Allergy/AdvReac Type Severity Reaction Status Date / Time tetracycline [Tetracycline] Allergy Mild Rash Verified 03/25/24 15:49 Exam - Vitals Vital Signs: Vital Signs - 24 hr Temp Pulse Resp BP BP Pulse Ox 03/27/24 17:00 76 14 164/78 98 03/27/24 16:30 74 8 L 169/75 99 03/27/24 16:23 97.8 F 03/27/24 16:00 76 12 139/76 100 03/27/24 15:30 77 17 136/79 97 03/27/24 15:00 74 20 161/74 99 03/27/24 14:30 74 13 162/69 99 03/27/24 14:00 79 18 157/99 99 03/27/24 13:30 79 23 160/75 98 03/27/24 13:00 78 15 160/71 98 03/27/24 12:30 78 19 136/71 97 03/27/24 12:00 73 24 156/80 94 L 03/27/24 11:31 69 8 L 150/73 97 03/27/24 11:00 70 14 154/80 99 03/27/24 10:30 70 20 133/66 100 03/27/24 10:00 72 21 150/60 99 03/27/24 09:30 72 16 142/65 98 03/27/24 09:00 89 14 134/59 99 03/27/24 08:30 88 14 134/66 99 03/27/24 08:00 98.1 F 93 H 7 L 135/75 97 03/27/24 07:30 91 H 15 182/79 97 03/27/24 07:00 83 13 172/81 97 03/27/24 06:30 86 17 158/83 96 03/27/24 06:13 85 23 172/88 97 03/27/24 06:00 97.3 F 128 H 16 120/82 94 L 03/27/24 05:30 127 H 13 107/72 95 03/27/24 05:00 126 H 17 130/65 96 03/27/24 04:30 91 H 12 147/79 96 03/27/24 04:00 87 17 161/74 96 03/27/24 03:31 83 12 167/77 96 03/27/24 03:00 91 H 15 121/74 96 03/27/24 02:30 99 H 20 154/73 94 L 03/27/24 02:16 99 H 12 157/75 94 L 03/27/24 02:00 99 H 17 143/98 95 03/27/24 01:30 97 H 12 135/71 95 03/27/24 01:00 97.7 F 87 15 141/76 97 03/27/24 00:32 92 H 12 153/84 95 03/27/24 00:01 106 H 17 165/83 98 03/26/24 23:30 100 H 5 L 114/73 96 03/26/24 23:00 128 H 21 156/82 98 03/26/24 22:48 105 H 21 108/83 97 03/26/24 22:47 127 H 15 98 03/26/24 22:30 99 H 03/26/24 22:20 102 H 03/26/24 22:10 122 H 03/26/24 22:00 108 H 03/26/24 21:50 129 H 03/26/24 21:40 107 H 03/26/24 21:30 127 H 03/26/24 21:20 102 H 03/26/24 21:10 104 H 13 03/26/24 21:00 127 H 03/26/24 20:50 104 H 03/26/24 20:31 128 H 03/26/24 20:20 103 H 03/26/24 20:10 129 H 12 03/26/24 20:09 130 H 12 03/26/24 19:51 97.1 F 97 H 20 148/70 95 03/26/24 19:39 96 H 18 96 SpO2: 98 Results Vital Signs: Vital Signs - 24 hr Temp Pulse Resp BP BP Pulse Ox 03/27/24 17:00 76 14 164/78 98 03/27/24 16:30 74 8 L 169/75 99 03/27/24 16:23 97.8 F 03/27/24 16:00 76 12 139/76 100 03/27/24 15:30 77 17 136/79 97 03/27/24 15:00 74 20 161/74 99 03/27/24 14:30 74 13 162/69 99 03/27/24 14:00 79 18 157/99 99 03/27/24 13:30 79 23 160/75 98 03/27/24 13:00 78 15 160/71 98 03/27/24 12:30 78 19 136/71 97 03/27/24 12:00 73 24 156/80 94 L 03/27/24 11:31 69 8 L 150/73 97 03/27/24 11:00 70 14 154/80 99 03/27/24 10:30 70 20 133/66 100 03/27/24 10:00 72 21 150/60 99 03/27/24 09:30 72 16 142/65 98 03/27/24 09:00 89 14 134/59 99 03/27/24 08:30 88 14 134/66 99 03/27/24 08:00 98.1 F 93 H 7 L 135/75 97 03/27/24 07:30 91 H 15 182/79 97 03/27/24 07:00 83 13 172/81 97 03/27/24 06:30 86 17 158/83 96 03/27/24 06:13 85 23 172/88 97 03/27/24 06:00 97.3 F 128 H 16 120/82 94 L 03/27/24 05:30 127 H 13 107/72 95 03/27/24 05:00 126 H 17 130/65 96 03/27/24 04:30 91 H 12 147/79 96 03/27/24 04:00 87 17 161/74 96 03/27/24 03:31 83 12 167/77 96 03/27/24 03:00 91 H 15 121/74 96 03/27/24 02:30 99 H 20 154/73 94 L 03/27/24 02:16 99 H 12 157/75 94 L 03/27/24 02:00 99 H 17 143/98 95 03/27/24 01:30 97 H 12 135/71 95 03/27/24 01:00 97.7 F 87 15 141/76 97 03/27/24 00:32 92 H 12 153/84 95 03/27/24 00:01 106 H 17 165/83 98 03/26/24 23:30 100 H 5 L 114/73 96 03/26/24 23:00 128 H 21 156/82 98 03/26/24 22:48 105 H 21 108/83 97 03/26/24 22:47 127 H 15 98 03/26/24 22:30 99 H 03/26/24 22:20 102 H 03/26/24 22:10 122 H 03/26/24 22:00 108 H 03/26/24 21:50 129 H 03/26/24 21:40 107 H 03/26/24 21:30 127 H 03/26/24 21:20 102 H 0920/24 21:10 104 H 13 03/26/24 21:00 127 H 03/26/24 20:50 104 H 03/26/24 20:31 128 H 03/26/24 20:20 103 H 03/26/24 20:10 129 H 12 03/26/24 20:09 130 H 12 03/26/24 19:51 97.1 F 97 H 20 148/70 95 03/26/24 19:39 96 H 18 96 Pain Assessment - Last Documented Pain Intensity 0 Pain Scale Used 0-10 Pain Scale Intake and Output: Intake & Output 03/25/24 03/26/24 03/27/24 03/28/24 11:59 11:59 11:59 11:59 Intake Total 600 952 740 Output Total 900 2475 600 Balance -300 -1523 140 Weight 88.6 kg 86.4 kg 88.3 kg LAB: I have reviewed the Labs in [place] [employer]. Radiology Exams: CXR AP) 03-25-2024: 1. Left mid-zone hazy opacity. 2. Bilateral costophrenic angles are partially obscured raising suspicion for minimal basal pleural effusion -- needs ultrasound correlation. 3. Cardiomegaly. 4. Comparison with previous DX dated 10/04/2023 shows new findings. TTE 04/01/2023: 1) LOW NORMAL CONTRACTILITY OF THE LEFT VENTRICLE. 2) MILD ASYMMETRIC LEFT VENTRICULAR HYPERTROPHY INVOLVING THE SEPTUM. 3) MODERATE LEFT ATRIAL DILATATION. 4) TRACE AMOUNT OF MITRAL REGURGITATION. 5) MILD PULMONIC REGURGITATION. 6) PACING ELECTRODE IN THE RIGHT VENTRICLE AND RIGHT ATRIUM. CT of Abdomen and Pelvis without contrast 03/25/2024: 1. Cholelithiasis 2. Colonic diverticulosis with suspicion of acute diverticulitis. 3. Enlarged prostate. 4. Comparison with the previous CT dated 01/13/2023 shows the appearance of the acute symptoms. Records from [facility]: TTE 01/13/2023: 1. Mildly dilated LV. Severe akinesis of the basal septum and inferobasal wall. Moderate to severe hypokinesis of the inferolateral wall. EF 45%. 2. Mildly thickened mitral valve leaflets with mild mitral regurgitation. Moderate aortic sclerosis. Cardiac catheterization 01/15/2023: 1. Two vessel CAD, right dominant system. a. No significant disease in left main. b. Patent proximal LAD stent. Patent stent in diagonal. 70% mid LAD. 30-40% distal LAD. LAD supplies collaterals to occluded RCA. c. No significant disease in left circumflex. d. Chronic mid RCA occlusion. 2. Sustained VT developed when catheter in LV. Did not respond to amiodarone bolus. DCCV with 200 J shock with conversion to SR. Amiodarone infusion started. CABG 01/21/2024: 1. MAZE procedure performed. 2. Atricure left atrial appendage clip placement. 3. BRUNO to LAD 4. SVG to RCA Dual chamber ICD placement 01/29/2023 - [employer] device, Model number [id number] placed [address] Dr[address] Samm Yates Tracing 1 Attestation: I have reviewed this EKG and interpreted as documented below. EKG Narrative: ECGs: 03/27/2024: NSR with first degree AV block at 89 bpm. [place] 0.230. Nonspecific ST and T wave abnormality. 03/26/2024 at 2042: Ventricular tachycardia at 127 bpm. RBBB morphology, superior axis. 03/26/2024 at 2034: Sinus tachycardia with first degree AV block at [address] and T wave abnormality. Interrogation of ICD: 1. Last interrogated 03/22/2024 2. Settings: Rate 133 -149 bpm: Monitor. No treatment. Rate 150 -200 bpm: VT zone Rate > 200 bpm: VF zone 3. No documented episodes of atrial fibrillation > 30 seconds in duration since device placed 01/29/2023. 4. 2 runs of sustained VT at 167 and 162 bpm terminated with anti-tachycardia pacing since 03/22/2024. 5. 4 episodes of NSVT since 03/22/2024. 6. Single 4 minute run of NSVT at 118 bpm on 03/24/2024 7. 7 runs of sustained VT in VT zone since placement of ICD. All terminated by [facility]. No ICD discharges. Assessment & Plan (1) Ventricular tachycardia (paroxysmal) Current Visit: Yes Status: Acute Assessment & Plan: S/P dual chamber PM 01/2023 - sustained, asymptomatic. Interrogation shows termination of VT x2 in the past 5 days with VT rate in 160s with antitachycardia pacing. Patient has never required a discharge from his device. He has had 7 episodes of sustained VT at rates 150-200 since placement of his ICD which have all been terminated by [employer]. Will treat with metoprolol tartrate 25 mg by mouth every 6 hours started this am. Can change to metoprolol succinate 100 mg by mouth daily in am. Patient has never required amiodarone for VT. OK for discharge from the cardiac standpoint tomorrow. Follow-up with spool tender in 1.5 weeks as scheduled. Code(s): I47.29 - OTHER VENTRICULAR TACHYCARDIA (2) Coronary artery disease without angina pectoris Current Visit: Yes Status: Chronic Assessment & Plan: S/P PCI x 3 followed by CABG x2 01/2023. Prior inferior OK based on 01/2023 echo when EF 45%. No angina since CABG. Continue aspirin. Restart metoprolol as descibed above. Continue high intensity statin atovastatin 40 mg nightly. Code(s): I25.10 - ATHSCL HEART DISEASE OF [place] CORONARY ARTERY W/O ANG PCTRS (3) Paroxysmal atrial fibrillation Current Visit: Yes Status: Chronic Assessment & Plan: Suspect diagnosed prior to 01/2023 as he was on amiodarone 200 mg daily at that time. S/P MAZE procedure and placement of LA appendage clip at time of CABG. Interrogation of ICD demonstrates no recurrence since his ICD was placed in 01/2023 consistent with a successful ablation with MAZE procedure. No need for systemic anticoagulation. No need for amiodarone with the lack of recurrence off amiodarone x 5-6 months. There is a question of pulmonary toxicity (documemtation not found). Code(s): I48.0 - PAROXYSMAL ATRIAL FIBRILLATION (4) HTN (hypertension) Current Visit: Yes Status: Chronic Assessment & Plan: Uncontrolled off anti-hypertensive therapy x 5-6 months. Metoprolol started as above. If BP remains high tomorrow, can consider adding lisinopril. Code(s): I10 - ESSENTIAL (PRIMARY) HYPERTENSION - Encounter Encounter: "The entirety of this encounter was performed via Telemedicine using audio and visual " Patient was seen this am shortly after consult was requested as well as late this afternoon. Records were reviewed from our hospital and [facility]. Interrogaton of ICD was performed this afternoon and report reviewed. Also spoke with [employer] rep. Case discussed with Dr. Vincent Koraishy. Total time spent 120 minutes. Tramaine Mendoza MD [facility] [phone]
[2024-03-27] MEDS: CLONIDINE 0.1 MG TABLET PO PRN (21:44)
--- NOTE | 2024-03-28 05:46 | PCM.DS ---
Discharge Summary Date of Admission: 03/25/24 15:38 Date of Discharge: 03/28/24 Admitting Physician: VINCENT PATEL MD Consults: Consults on Case 03/27/24 07:01 Cardiology Consult [Notify Boiler House Supervisor of Admit] STAT Primary Care Provider: [facility] Allergies Allergies tetracycline [Tetracycline] Allergy (Mild, Verified 03/25/24 15:49) Rash Hospital Summary - Hospital Course Hospital Course: is a 78 year old male with a pmhx of CAD, LA, HTN, FAHEEM, DMII, and stage 4 kidney disease presented to ED 03/25/24 with complaints of shortness of breath, a productive cough with yellow/green sputum (since ),and abdominal pain with one episode of vomiting that started yesterday with associated poor appetite and energy levels. During my interview patient states abdominal pain has subsided but does have some TTP to the LLQ. Denies fever,cough, sob, cp, BAH, dizziness, N/V/D.events noted of concern for VT - reviewed hospitalist notes from overnight - it is not very straightforward as there are also morphological changes that could be interpreted as SVT with aberrancy. We will start the patient on an amiodarone drip with bolus. Cardiology consulted -pt is poor historian with past history. Patient of [place]. Unable to obtain records. Trying to obtain pacemaker records. Cardiology recommendation for pacemaker interrogation which showed termination of VT x2 in the past 5 days with VT rate in 160s with antitachycardia pacing. Patient has never required a discharge from his device. He has had 7 episodes of sustained VT at rates 150-200 since placement of his ICD which have all been terminated by [facility]. Patient received additional amiodarone bolus of 150mg. Amiodarone drip completed 03/27/24. Initial IP treatment with Lopressor 25mg q6h -then metoprolol 100mg daily there after. Patient cleared for discharge from cardiology standpoint. Patient now able to tolerate diet. On RA with no dyspnea. Will send home on Augmentin 500mg BID x 7 days-renally dosed for pneumonia/diverticulitis coverage. Advised close follow up with PCP - and advised follow up with cardiology in 1.5 weeks. Discharge Note New Diagnosis: Pneumonia/diverticulitis New Medications: Augmentin/metoprolol Follow Up: PCP/cardiology/nephrology Latest Assessment & Plan (1) Acute diverticulitis of intestine Current Visit: Yes Status: Acute Assessment & Plan: -Ct ab/pelvis consistent with acute diverticulitis -CLD -pt requesting -IVF-monitor for fluid overload in the setting of CHF/renal failure -LA WNL -blood cultures pending -Ceftriaxone and Flagyl started in ED, will continue Zosyn -trial clears ADAT -supportive care - anti-emetics/pain control 03/26: -CLD tolerated, patient requesting regular diet 03/27: -tolerated regular diet - still with poor appetite - no n/v -Zosyn changed to levquin due to interaction with amiodarone drip Code(s): K57.92 - DVTRCLI OF INTEST, PART UNSP, W/O PERF OR ABSCESS W/O BLEED (2) Pneumonia Current Visit: Yes Status: Acute Assessment & Plan: -CXR showing Left mid-zone hazy opacity. Bilateral costophrenic angles are partially obscured raising suspicion for minimal basal pleural effusion - Zosyn 03/27: -Continue levaquin - due to zosyn/amiodarone interaction Code(s): J18.9 - PNEUMONIA, UNSPECIFIED ORGANISM ##VTach -concern for VT - it is not very straightforward as there are also morphological changes that could be interpreted as SVT with aberrancy. -Cardiology consulted- agree with plan for amio drip/bolus and lopressor -Patient poor historian with pmhx- did discuss case with patient's previous bat person Dr. Jones 03/26- states he was seeing patient for VT - patient was on amiodarone as OP while under his care several months ago he did recommend ablation at that time -unable to obtain authorization from insurance/[place] - patient is now under the care of Dr. Yip at the [facility]- attempting to obtain records - patient did miss last appt in January- not scheduled again until 05/13 - we have requested this be moved up (3) Metabolic acidosis Current Visit: Yes Status: Acute Assessment & Plan: -Most likely secondary to GI loss/CKD -IVF -Continue home sodium bicarb 03/26: -resolved - continue home bicarb Code(s): E87.20 - ACIDOSIS, UNSPECIFIED (4) CAD (coronary artery disease) Current Visit: Yes Status: Acute Assessment & Plan: -s/p CABG 01/2023. Prior inferior LA based on 01/2023 echo when EF 45%. No angina since CABG. Continue aspirin. Restart metoprolol as descibed above. Continue high intensity statin atovastatin 40 mg nightly. Code(s): I25.10 - ATHSCL HEART DISEASE OF [place] CORONARY ARTERY W/O ANG PCTRS (5) Afib Current Visit: Yes Status: Acute Assessment & Plan: -paroxysmal -On Xarelto - will continue 03/25: -Patient states he has not taken any meds for AFIB per his bat person in several months - advised follow up with cards as OP 03/28: -Reviewed cardiology notes "Suspect diagnosed prior to 01/2023 as he was on amiodarone 200 mg daily at that time. S/P MAZE procedure and placement of LA appendage clip at time of CABG. Interrogation of ICD demonstrates no recurrence since his ICD was placed in 01/2023 consistent with a successful ablation with MAZE procedure. No need for systemic anticoagulation. No need for amiodarone with the lack of recurrence off amiodarone x 5-6 months. There is a question of pulmonary toxicity (documemtation not found)." -agree with plan Code(s): I48.91 - UNSPECIFIED ATRIAL FIBRILLATION (6) HTN (hypertension) Current Visit: Yes Status: Acute Assessment & Plan: -Metoprolol started as above. If BP remains -can consider adding lisinopril. Code(s): I10 - ESSENTIAL (PRIMARY) HYPERTENSION (7) Acute UTI (urinary tract infection) Current Visit: Yes Status: Acute Assessment & Plan: -UA mildly suscipious -culture negative Code(s): N39.0 - URINARY TRACT INFECTION, SITE NOT SPECIFIED (8) CHF (congestive heart failure) Current Visit: No Status: Acute Assessment & Plan: -Reviewed most recent Echo from 04/01/23 EF 51% IMPRESSION: 1) LOW NORMAL CONTRACTILITY OF THE LEFT VENTRICLE. 2) MILD ASYMMETRIC LEFT VENTRICULAR HYPERTROPHY INVOLVING THE SEPTUM. 3) MODERATE LEFT ATRIAL DILATATION. 4) TRACE AMOUNT OF MITRAL REGURGITATION. 5) MILD PULMONIC REGURGITATION. 6) PACING ELECTRODE IN THE RIGHT VENTRICLE AND RIGHT ATRIUM. -Continue home meds -Monitor I&O's strictly -daily weight -Monitor for fluid overload with IVF -Optimize electrolytes Code(s): I50.9 - HEART FAILURE, UNSPECIFIED (9) Renal failure Current Visit: No Status: Acute Assessment & Plan: -Baseline creat around 2.9 - improving now at 3.07< 3.18 -IVF -Monitor renal/lytes 03/27: -continue to monitor - avoid nephrotoxic agents (10) Type II diabetes mellitus Current Visit: No Status: Chronic Assessment & Plan: -ADA -SSI -A1c 8.45 DVT: Lovenox PPI: protonix Dispo: 2-3 days I spent 35 minutes [id number] with the patient on the day of discharge performing discharge exam, discussing hospital stay and discharge instructions with patient and caregivers, preparation of discharge records, prescriptions & referral forms and addressing any questions/concerns the patient had as docu mented above. - Vitals & Intake/Output Vital Signs: Vital Signs Temperature 97.3 F 03/28/24 01:01 Pulse Rate 74 03/28/24 04:00 Respiratory Rate 13 03/28/24 04:00 Blood Pressure 141/76 03/28/24 04:00 O2 Sat by Pulse Oximetry 92 L 03/28/24 04:00 Intake & Output: Intake & Output 03/25/24 03/26/24 03/27/24 03/28/24 11:59 11:59 11:59 11:59 Intake Total 600 952 997 Output Total 900 2475 1200 Balance -300 -1523 -203 Weight 88.6 kg 86.4 kg 88.3 kg - Lab Result Diagrams: 03/28/24 05:30 03/28/24 05:30 Lab Results-Last 24 Hrs: Lab Results-Last 24 Hours 03/27/24 03/27/24 03/27/24 Range/Units 06:00 06:00 06:58 WBC 8.4 (4.23-9.07) x10^3/uL RBC 4.64 (4.63-6.08) x10^6/uL Hgb 14.1 (13.7-17.5) g/dL Hct 42.0 (40.1-51.0) % MCV 90.5 (79.0-92.2) fL MCH 30.4 (25.7-32.2) pg MCHC 33.6 (32.3-36.5) g/dL RDW 12.9 (11.6-14.4) % Plt Count 213 (163-337) x10^3/uL MPV 10.2 (9.4-12.4) fL Gran % 64.9 (34.0-67.9) % Immature Gran % (Auto) 0.4 (0.001-0.429) % Nucleat RBC Rel Count 0.0 (0.00-0.2) % Eos # (Auto) 0.34 (0.04-0.54) x10^3/uL Immature Gran # (Auto) 0.03 (0.001-0.031) x10^3u/L Absolute Lymphs (auto) 1.64 (1.32-3.57) x10^3/uL Absolute Monos (auto) 0.86 H (0.30-0.82) x10^3/uL Absolute Nucleated RBC 0.00 (0.00-0.012) x10^3u/L Lymphocytes % 19.6 L (21.8-53.1) % Monocytes % 10.3 (5.3-12.2) % Eosinophils % 4.1 (0.8-7.0) % Basophils % 0.7 (0.2-1.2) % Absolute Granulocytes 5.42 H (1.78-5.38) x10^3/uL Basophils # 0.06 (0.01-0.08) x10^3/uL Sodium 134 L (135-145) mmol/L Potassium 4.5 (3.5-5.1) mmol/L Chloride 106 (98-107) mmol/L Carbon Dioxide 21 L (22-30) mmol/L Anion Gap 12.0 (5-15) MEQ/L BUN 40 H (9-20) mg/dL Creatinine 3.33 H (0.66-1.25) mg/dL Estimated GFR 18.3 ML/MIN Glucose 158 H (74-106) mg/dL POC Glucometer 146 H (74 to 106) mg/dL Calcium 8.7 (8.4-10.2) mg/dL Total Bilirubin 0.40 (0.2-1.3) mg/dL AST 18 (17-59) U/L ALT 10 (0-50) U/L Alkaline Phosphatase 84 (38-126) U/L Serum Total Protein 6.2 L (6.3-8.2) g/dL Albumin 3.3 L (3.5-5.0) g/dL 03/27/24 03/27/24 03/27/24 Range/Units 11:13 16:22 22:02 WBC (4.23-9.07) x10^3/uL RBC (4.63-6.08) x10^6/uL Hgb (13.7-17.5) g/dL Hct (40.1-51.0) % MCV (79.0-92.2) fL MCH (25.7-32.2) pg MCHC (32.3-36.5) g/dL RDW (11.6-14.4) % Plt Count (163-337) x10^3/uL MPV (9.4-12.4) fL Gran % (34.0-67.9) % Immature Gran % (Auto) (0.001-0.429) % Nucleat RBC Rel Count (0.00-0.2) % Eos # (Auto) (0.04-0.54) x10^3/uL Immature Gran # (Auto) (0.001-0.031) x10^3u/L Absolute Lymphs (auto) (1.32-3.57) x10^3/uL Absolute Monos (auto) (0.30-0.82) x10^3/uL Absolute Nucleated RBC (0.00-0.012) x10^3u/L Lymphocytes % (21.8-53.1) % Monocytes % (5.3-12.2) % Eosinophils % (0.8-7.0) % Basophils % (0.2-1.2) % Absolute Granulocytes (1.78-5.38) x10^3/uL Basophils # (0.01-0.08) x10^3/uL Sodium (135-145) mmol/L Potassium (3.5-5.1) mmol/L Chloride (98-107) mmol/L Carbon Dioxide (22-30) mmol/L Anion Gap (5-15) MEQ/L BUN (9-20) mg/dL Creatinine (0.66-1.25) mg/dL Estimated GFR ML/MIN Glucose (74-106) mg/dL POC Glucometer 150 H 168 H 137 H (74 to 106) mg/dL Calcium (8.4-10.2) mg/dL Total Bilirubin (0.2-1.3) mg/dL AST (17-59) U/L ALT (0-50) U/L Alkaline Phosphatase (38-126) U/L Serum Total Protein (6.3-8.2) g/dL Albumin (3.5-5.0) g/dL Micro Results-Entire Visit: Microbiology 03/25/24 10:46 Urine Culture - Final Urine, Void MIXED ISAAK; 3 OR MORE TYPES. NO PREDOMINANT ORGANISM. NO FURTHER WORKUP. PLEASE RESUBMIT IF CLINICALLY INDICATED. 03/25/24 12:16 Blood Culture - Preliminary Blood NO GROWTH TO DATE Accuchecks Date 03/27/24 Date 03/27/24 Date 03/27/24 Date 03/27/24 Time 22:02 Time 16:53 Time 11:14 Time 06:59 - Procedures and Test Procedures and Tests throughout Hospitalization: Therapy Orders & Screens 03/25/24 11:08 Respiratory Therapy Assessment DAILY Comment: 03/25/24 15:45 Respiratory Therapy Consult ONCE Comment: Reason For Exam: 03/25/24 16:57 Respiratory Therapy Consult ONCE Comment: Reason For Exam: Diagnosis: abdominal pain/sob/N/V 03/25/24 17:03 Respiratory Therapy Assessment DAILY Comment: Diagnosis: abdominal pain/sob/N/V 03/25/24 17:09 ST Screen per Nursing Assess ONCE Comment: Protocol Order Physician Instructions: Greater than [address] Admission Screening Reason For Exam: Triggered on Admission Diagnosis: abdominal pain/sob/N/V CVA/Dyshpagia/Aphasia: No Cognitive Deficits: No Dehydration/Nutrition Deficit: No Reflux: No Oral-Motor Difficulties: No Pneumonia: Yes Fpc Resident: No Total Points: 5 03/26/24 21:44 EKG ROUTINE Comment: Diagnosis: abdominal pain/sob/N/V 03/27/24 07:44 EKG STAT Comment: Diagnosis: pneumonia, diverticulitis, UTI Discharge Exam General Appearance: no apparent distress Neurologic Exam: alert, oriented x 3, cooperative, normal mood/affect Eye Exam: PERRL Ears, Nose, Throat Exam: normal ENT inspection Neck Exam: normal inspection Respiratory Exam: crackles/rales Cardiovascular Exam: regular rate/rhythm, normal heart sounds Gastrointestinal/Abdomen Exam: soft, normal bowel sounds Male Genitalia Exam: deferred Rectal Exam: deferred Extremity Exam: normal inspection Skin Exam: normal color Final Diagnosis/Problem List - Final Discharge Diagnosis/Problem (1) Acute diverticulitis of intestine Current Visit: Yes Status: Acute Code(s): K57.92 - DVTRCLI OF INTEST, PART UNSP, W/O PERF OR ABSCESS W/O BLEED (2) Pneumonia Current Visit: Yes Status: Acute Code(s): J18.9 - PNEUMONIA, UNSPECIFIED ORGANISM (3) Metabolic acidosis Current Visit: Yes Status: Resolved Code(s): E87.20 - ACIDOSIS, UNSPECIFIED (4) CAD (coronary artery disease) Current Visit: Yes Status: Chronic Code(s): I25.10 - ATHSCL HEART DISEASE OF [place] CORONARY ARTERY W/O ANG PCTRS (5) Afib Current Visit: Yes Status: Chronic Code(s): I48.91 - UNSPECIFIED ATRIAL FIBRILLATION (6) HTN (hypertension) Current Visit: Yes Status: Chronic Code(s): I10 - ESSENTIAL (PRIMARY) HYPERTENSION (7) Acute UTI (urinary tract infection) Current Visit: Yes Status: Ruled-out Code(s): N39.0 - URINARY TRACT INFECTION, SITE NOT SPECIFIED (8) CHF (congestive heart failure) Current Visit: No Status: Chronic Code(s): I50.9 - HEART FAILURE, UNSPECIF IED (9) Renal failure Current Visit: No Status: Chronic (10) Type II diabetes mellitus Current Visit: No Status: Chronic (11) Ventricular tachycardia Current Visit: No Status: Chronic Code(s): I47.20 - VENTRICULAR TACHYCARDIA, UNSPECIFIED - Discharge Disposition: Home, Self-Care Condition: Stable Prescriptions: New Metoprolol Succinate 100 mg [Toprol Xl 100 MG] 100 mg PO DAILY 30 Days #30 tablet Continue Sodium Bicarbonate 650 mg PO DAILY Latanoprost/Pf [Latanoprost 0.005% Eye Drop] 1 drop OP HS Cholecalciferol (Vitamin D3) [Vitamin D3] 125 mcg PO DAILY Atorvastatin Calcium 10 mg PO HS Glyburide 5 mg [Micronase 5 MG] 5 mg PO BID Cyanocobalamin (Vitamin B-12) [B-12] 1,000 mcg PO DAILY Aspirin 81 gm Chew [Baby Aspirin 81 mg Chew] 81 mg PO DAILY Ferrous Sulfate 325 mg [Feosol 325 mg] 325 mg PO DAILY Insulin Aspart [NovoLOG Insulin] 10 units SQ BIDWMEALS Insulin Glargine [Lantus Insulin] 20 unit SQ DAILY Allopurinol 300 mg [Zyloprim 300 mg] 300 mg PO DAILY Sodium Zirconium Cyclosilicate [Lokelma] 10 gm PO WEEKLY Hydrocodone/Acetaminophen [Hydrocodone-Acetamin 7.5-325] 1 each PO Q6HPRN PRN PRN Reason: Pain Empagliflozin [Jardiance] 10 mg PO DAILY Additional Instructions: YOU HAVE AN APT IN [place] ON 04/06/24@0830 FOR YOUR PACER YOU HAVE AN APT VIA PHONE WITH [facility] PHARMACIST ON 04/15/24@0830 YOU HAVE AN APT FOR LAB WORK 05/06/24 (UNSURE OF PLACE/TIME) TAKE YOUR BLOOD PRESSURE AT HOME TWICE A DAY, ONCE IN THE MORNING WHEN YOU WAKE UP AND ONCE BEFORE SUPPER, AND KEEP A LOG OF THESE RESULTS. PLEASE BRING THIS LOG WITH YOU TO YOUR FOLLOWUP DOCTOR APPOINTMENTS INCLUDING YOUR GENERAL LEDGER ACCOUNTANT APPOINTMENT. Follow up with: HOSPITAL,'S [Primary Care Provider] - (-YOUR NEXT APT WITH YOUR PRIMARY CARE PROVIDER IS 05/19@1000 ([facility])- WE CALLED TO REQUEST THIS TO BE MOVED UP D/T HOSPITALIZATION. THEY WILL CALL YOU IF ABLE TO MOVE IT UP -YOUR NEXT APT WITH CARDIOLOGY IS 05/13/24@1000 ([facility]) - WE CALLED TO REQUEST THIS TO BE MOVED UP D/T HOSPITALIZATION. THEY WILL CALL YOU IF ABLE TO MOVE IT UP. )
[2024-03-28 05:55] VITALS: TEMP 97.7
[2024-03-28 06:02] LABS: Absolute Neutrophil Ct (ANC) 5.18 x10^3/uL (1.78-5.38); BASOPHIL % 0.6 % (0.2-1.2); Basophil (Absolute #) 0.05 x10^3/uL (0.01-0.08); Eosinophil % 3.9 % (0.8-7.0); Eosinophil (Absolute #) 0.32 x10^3/uL (0.04-0.54); Hematocrit 41.6 % (40.1-51.0); IMMATURE GRAN # 0.03 x10^3u/L (0.001-0.031); IMMATURE GRAN % 0.4 % (0.001-0.429); Lymphocyte (Absolute #) 1.79 x10^3/uL (1.32-3.57); Lymphocytes % 21.8 % (21.8-53.1); Mean Cell Volume 89.5 fL (79.0-92.2); Mean Corpuscular Hemoglobin 30.1 pg (25.7-32.2); Mean Corpuscular Hgb Concent. 33.7 g/dL (32.3-36.5); Mean Platelet Volume 9.7 fL (9.4-12.4); Monocyte (Absolute #) 0.83 x10^3/uL (0.30-0.82); Monocytes % 10.1 % (5.3-12.2); Neutrophil % 63.2 % (34.0-67.9); Platelet Count 211 x10^3/uL (163-337); Red Blood Count 4.65 x10^6/uL (4.63-6.08); Red Cell Distribution Width 12.8 % (11.6-14.4); White Blood Count 8.2 x10^3/uL (4.23-9.07)
[2024-03-28 06:21] LABS: ALBUMIN 3.3 g/dL (3.5-5.0); ANION GAP 11.8 MEQ/L (5-15); BILIRUBIN,TOTAL 0.5 mg/dL (0.2-1.3); Creatinine 1 3.26 mg/dL (0.66-1.25); EST GLOMERULAR FILTRATION RATE 18.8 ML/MIN; Potassium 4.4 mmol/L (3.5-5.1); Total Protein 6.2 g/dL (6.3-8.2)
[2024-03-28] MEDS: Toprol Xl 100 MG PO SCH (10:16)
[2024-03-28 13:02] VITALS: BP 158/70; PULSE 77; RESP 22; O2SAT 100
[2024-03-29] MEDS ORDERED: Levofloxacin 500 MG Tablet PO SCH (10:00)
== END 2024-03-28 13:27 | disposition home or self-care (01) ==
LOC: ED 10:28 → MED SURG 15:38 → ICU 03-26 22:41
PROVIDERS: ADMIT Internal Medicine; ATTEND Internal Medicine
DX: K57.92 Diverticulitis of intestine, part unspecified, without perforation or abscess without bleeding (principal); J18.9 Pneumonia, unspecified organism; E87.20 Acidosis, unspecified; I25.10 Atherosclerotic heart disease of native coronary artery without angina pectoris; I48.91 Unspecified atrial fibrillation; N39.0 Urinary tract infection, site not specified; I13.0 Hypertensive heart and chronic kidney disease with heart failure and stage 1 through stage 4 chronic kidney disease, or unspecified chronic kidney disease; E11.22 Type 2 diabetes mellitus with diabetic chronic kidney disease; N18.4 Chronic kidney disease, stage 4 (severe); I50.9 Heart failure, unspecified; I47.20 Ventricular tachycardia, unspecified; I25.2 Old myocardial infarction; Z95.0 Presence of cardiac pacemaker; Z79.899 Other long term (current) drug therapy
CPT/HCPCS: 0241U; 36410; 36415; 71045; 74176; 80048; 80053; 81001; 82947; 83036; 83605; 83690; 83735; 83880; 84484; 85025; 87040; 87086; 93005; 94640; 94760; 96365; 96367; 96374; 96375; 99285; Q3014; 93268; J0282; J0696; J1650; J2270; J2405; J2543; A9270-GY; G0378

== ENCOUNTER 2024-09-01 23:10 | Emergency (ER) | payer OTHER ==
[2024-09-01 23:24] VITALS: TEMP 97
[2024-09-01 23:56] LABS: Absolute Neutrophil Ct (ANC) 3.59 x10^3/uL (1.78-5.38); BASOPHIL % 0.6 % (0.2-1.2); Basophil (Absolute #) 0.04 x10^3/uL (0.01-0.08); Eosinophil % 3.2 % (0.8-7.0); Eosinophil (Absolute #) 0.21 x10^3/uL (0.04-0.54); Hematocrit 46.8 % (40.1-51.0); Hemoglobin 15.6 g/dL (13.7-17.5); IMMATURE GRAN # 0.01 x10^3u/L (0.001-0.031); IMMATURE GRAN % 0.2 % (0.001-0.429); Lymphocyte (Absolute #) 2.05 x10^3/uL (1.32-3.57); Lymphocytes % 31.2 % (21.8-53.1); Mean Cell Volume 92.9 fL (79.0-92.2); Mean Corpuscular Hgb Concent. 33.3 g/dL (32.3-36.5); Mean Platelet Volume 10.7 fL (9.4-12.4); Monocyte (Absolute #) 0.67 x10^3/uL (0.30-0.82); Monocytes % 10.2 % (5.3-12.2); Neutrophil % 54.6 % (34.0-67.9); Platelet Count 161 x10^3/uL (163-337); Red Blood Count 5.04 x10^6/uL (4.63-6.08); Red Cell Distribution Width 14.3 % (11.6-14.4); White Blood Count 6.6 x10^3/uL (4.23-9.07)
[2024-09-02 00:25] LABS: ANION GAP 17.9 MEQ/L (5-15); BILIRUBIN,TOTAL 0.8 mg/dL (0.2-1.3); Calcium 8.9 mg/dL (8.4-10.2); Creatinine 1 2.75 mg/dL (0.66-1.25); Potassium 5.1 mmol/L (3.5-5.1); Total Protein 6.6 g/dL (6.3-8.2)
[2024-09-02 00:32] LABS: INFLUENZA A NEGATIVE (NEGATIVE); INFLUENZA B NEGATIVE (NEGATIVE); RESPIRATORY SYNCTIAL VIRUS NEGATIVE (NEGATIVE); SARS-CoV-2 Xpert Express NEGATIVE (NEGATIVE)
[2024-09-02] MEDS ORDERED: ZOFRAN ODT 4 MG ONE (00:42)
[2024-09-02] MEDS: ZOFRAN ODT 4 MG PO ONE (00:43)
--- NOTE | 2024-09-02 00:52 | ERPHSYRPT ---
- History of Present Illness Time Seen by Provider: 09/02/24 00:46 Source: patient Exam Limitations: no limitations Patient Subjective Stated Complaint: Pt took 13 units of short acting insulin and he's not supposed to take it anymore. Triage Nursing Assessment: Pt ambulated into ER without diff. Spouse at bedside. Pt took his long acting and his short acting insulin tonight. Pt's short acting insulin has been discontinued and he accidentally took it, 13 units around 1830. At approx 2230, pt was feeling weird and checked his BS and it was 54. Pt ate a slice of pie and drank some orange juice. Pt re-checked BS and it was 79. Pt is alert and oriented x4, talking appropriately, BS here is 79 when we checked it. Pt has some abd discomfort but has started ozempic back and increased his dose this week. Abd lg, round with active bs x4 quad, nontender. LBM 08/31/24. Physician History: 78-year-old male history of diabetes presents to our ED for concerns of hypoglycemia. Patient took both his short acting and long-acting insulin tonight. Patient's short acting insulin was discontinued. He took 13 units accidentally at 1830. Approximately 4 hours later patient was feeling a bit unusual. He checked his blood sugar and observed to be 54. Patient immediately ate a slice of pie and drank orange juice. Patient later rechecked his blood sugar and it was 79. Patient is here for concerns of hypoglycemia. Upon arrival to our ED his blood sugar was 79 essentially unchanged from his home measurement. Patient otherwise feels well. He recently started taking Ozempic and since then has had some vague abdominal discomfort. No change in bowel function. No fever. No nausea and vomiting. No diarrhea no rash. Patient requesting to be checked for COVID as well. at bedside. They voiced no o ther complaints or concerns at this time. Portions of this note were created with voice recognition technology. There may be grammatical, spelling, punctuation or sound alike errors Timing/Duration: today Severity: mild Modifying Factors: Improves With: nothing Associated Symptoms: denies symptoms Allergies/Adverse Reactions: tetracycline [Tetracycline] Allergy (Mild, Verified 09/01/24 23:41) Rash Home Medications: Atorvastatin Calcium 10 mg PO HS 07/16/22 [History] Cholecalciferol (Vitamin D3) [Vitamin D3] 125 mcg PO DAILY 07/16/22 [History] Latanoprost/Pf [Latanoprost 0.005% Eye Drop] 1 drop OP HS 07/16/22 [History] Sodium Bicarbonate 650 mg PO DAILY 07/16/22 [History] Aspirin 81 gm Chew [Baby Aspirin 81 mg Chew] 81 mg PO DAILY 01/13/23 [History] Cyanocobalamin (Vitamin B-12) [B-12] 1,000 mcg PO DAILY 01/13/23 [History] Glyburide 5 mg [Micronase 5 MG] 5 mg PO BID 01/13/23 [History] Ferrous Sulfate 325 mg [Feosol 325 mg] 325 mg PO DAILY 04/01/23 [History] Allopurinol 300 mg [Zyloprim 300 mg] 300 mg PO DAILY 03/25/24 [History] Empagliflozin [Jardiance] 10 mg PO DAILY 03/25/24 [History] Hydrocodone/Acetaminophen [Hydrocodone-Acetamin 7.5-325] 1 each PO Q6HPRN PRN 03/25/24 [History] Insulin Aspart [NovoLOG Insulin] 10 units SQ BIDWMEALS 03/25/24 [History] Insulin Glargine [Lantus Insulin] 20 unit SQ DAILY 03/25/24 [History] Sodium Zirconium Cyclosilicate [Lokelma] 10 gm PO WEEKLY 03/25/24 [History] Hx Tetanus, Diphtheria Vaccination/Date Given: Yes Hx Influenza Vaccination/Date Given: Yes Hx Pneumococcal Vaccination/Date Given: Yes Travel Risk - International Travel Have you traveled outside of the country in past 3 weeks: No - Emerging Infectious Disease Are you exhibiting symptoms associated with any current EIDs: Yes Symptoms: Abdominal Pain - Review of Systems Constitutional: No Symptoms, No Fever, No Chills Eyes: No Symptoms Ears, Nose, & Throat: No Symptoms Respiratory: No Symptoms, No Cough, No Dyspnea Cardiac: No Symptoms, No Chest Pain, No Edema, No Syncope Abdominal/Gastrointestinal: No Symptoms, No Abdominal Pain, No Nausea, No Vomiting, No Diarrhea Genitourinary Symptoms: No Symptoms, No Dysuria Musculoskeletal: No Symptoms, No Back Pain, No Neck Pain Skin: No Symptoms, No Rash Neurological: No Symptoms, No Dizziness, No Focal Weakness, No Sensory Changes Psychological: No Symptoms Endocrine: No Symptoms Hematologic/Lymphatic: No Symptoms Immunological/Allergic: No Symptoms All Other Systems: Reviewed and Negative - Past Medical History Pertinent Past Medical History: Yes Neurological History: Stroke ENT History: Cataracts, Other Cardiac History: Coronary Artery Disease, Hypertension, Myocardial Infarction ([place]) Respiratory History: Pneumonia, Sleep Apnea Endocrine Medical History: Diabetes Type II Musculoskeletal History: Arthritis GI Medical History: Diverticulitis History: Renal Disease Psycho-Social History: No Pertinent History Male Reproductive Disorders: No Pertinent History Other Medical History: agent orange, malaria - Past Surgical History Past Surgical History: Yes Neuro Surgical History: No Pertinent History Cardiac: CABG, Cardiac Catheterization, Cardiac Stent, Internal Defibrillator Respiratory: No Pertinent History Gastrointestinal: No Pertinent History Genitourinary: No Pertinent History Musculoskeletal: Other Male Surgical History: No Pertinent History Other Surgical History: back surgery, 3 stents, open heart bypass surgery in January 2023, - Social History Smoking Status: Never smoker Exposure to second hand smoke: Yes Drug Use: none - Social Determinants of Health Will the patient participate in the screening: Yes Do you worry about a steady place to live?: No Do you have any problems with any of the following?: No known problems In the past 12 months,have you had to go without utilities?: No Transportation Issues: No Has anyone in your support network made you feel unsafe?: No Have you or anyone in your house had to go w/o enough food: No - Nursing Vital Signs Nursing Vital Signs: Initial Vital Signs Temperature 97.0 F 09/01/24 23:23 Pulse Rate 96 H 09/01/24 23:23 Respiratory Rate 20 09/01/24 23:23 Blood Pressure 157/79 09/01/24 23:23 O2 Sat by Pulse Oximetry 98 09/01/24 23:23 Pain Scale Pain Intensity 0 - Physical Exam General Appearance: no apparent distress, alert Eye Exam: PERRL/EOMI, eyes nml inspection Ears, Nose, Throat Exam: normal ENT inspection, pharynx normal, moist mucous membranes Neck Exam: normal inspection, full range of motion Respiratory Exam: normal breath sounds, lungs clear, airway intact, No respiratory distress Cardiovascular Exam: regular rate/rhythm, normal heart sounds, normal peripheral pulses Gastrointestinal/Abdomen Exam: soft, normal bowel sounds, No tenderness, No mass Back Exam: normal inspection, normal range of motion, No CVA tenderness, No vertebral tenderness Extremity Exam: normal inspection, normal range of motion, pelvis stable Neurologic Exam: alert, oriented x 3, cooperative, normal mood/affect, nml cerebellar function, nml station & gait, sensation nml, No motor deficits Skin Exam: normal color, warm, dry, No rash Lymphatic Exam: No adenopathy SpO2 Interpretation: normal SpO2: 98 O2 Delivery: Room Air - Course Nursing assessment & vital signs reviewed: Yes Ordered Tests: Active Orders 24 hr Category Date Time Status ABDOMEN AND PELVIS W/0 CONTRAS [CT] Stat Exams 09/02/24 01:13 Completed CBC W DIFF Stat Lab 09/01/24 23:54 Completed CMP Stat Lab 09/01/24 23:54 Completed LIPASE Stat Lab 09/02/24 02:56 Ordered POCT GLUCOSE Stat Lab 09/01/24 23:22 Completed POCT GLUCOSE Stat Lab 09/02/24 00:39 Completed POCT GLUCOSE Stat Lab 09/02/24 02:28 Completed UA W/RFX UR CULTURE Stat Lab 09/02/24 01:15 Completed Medication Summary Discontinued Medications Generic Name Dose Route Start Last Admin Trade Name Freq PRN Reason Stop Dose Admin Ondansetron HCl 4 mg 09/02/24 00:41 09/02/24 00:43 Zofran 4 Mg/Udtablet Orally Disintegrating PO 09/02/24 00:42 4 mg STAT ONE Administration Ondansetron HCl Confirm 09/02/24 00:42 Zofran 4 Mg/Udtablet Orally Disintegrating Administered 09/02/24 00:43 Dose 4 mg .ROUTE .[facility] Lab/Rad Data: Laboratory Result Diagrams 09/01/24 23:54 09/01/24 23:54 Laboratory Results 09/02/24 09/02/24 09/02/24 Range/Units 02:28 01:15 00:39 WBC (4.23-9.07) x10^3/uL RBC (4.63-6.08) x10^6/uL Hgb (13.7-17.5) g/dL Hct (40.1-51.0) % MCV (79.0-92.2) fL MCH (25.7-32.2) pg MCHC (32.3-36.5) g/dL RDW (11.6-14.4) % Plt Count (163-337) x10^3/uL MPV (9.4-12.4) fL Gran % (34.0-67.9) % Immature Gran % (Auto) (0.001-0.429) % Nucleat RBC Rel Count (0.00-0.2) % Eos # (Auto) (0.04-0.54) x10^3/uL Immature Gran # (Auto) (0.001-0.031) x10^3u/L Absolute Lymphs (auto) (1.32-3.57) x10^3/uL Absolute Monos (auto) (0.30-0.82) x10^3/uL Absolute Nucleated RBC (0.00-0.012) x10^3u/L Lymphocytes % (21.8-53.1) % Monocytes % (5.3-12.2) % Eosinophils % (0.8-7.0) % Basophils % (0.2-1.2) % Absolute Granulocytes (1.78-5.38) x10^3/uL Basophils # (0.01-0.08) x10^3/uL Sodium (135-145) mmol/L Potassium (3.5-5.1) mmol/L Chloride (98-107) mmol/L Carbon Dioxide (22-30) mmol/L Anion Gap (5-15) MEQ/L BUN (9-20) mg/dL Creatinine (0.66-1.25) mg/dL Estimated GFR ML/MIN Glucose (74-106) mg/dL POC Glucometer 162 H 117 H (74 to 106) mg/dL Calcium (8.4-10.2) mg/dL Total Bilirubin (0.2-1.3) mg/dL AST (17-59) U/L ALT (0-50) U/L Alkaline Phosphatase (38-126) U/L Serum Total Protein (6.3-8.2) g/dL Albumin (3.5-5.0) g/dL Urine Color Yellow (Yellow) Urine Appearance Clear (Clear) Urine pH 5.5 (4.6-8.0) Ur Specific [place] 1.020 (1.005-1.030) Urine Protein 300 A (Negative) Urine Glucose (UA) >=1000 A (Negative) mg/dL Urine Ketones Negative (Negative) Urine Blood Negative (Negative) Urine Nitrite Negative (Negative) Urine Bilirubin Negative (Negative) Urine Urobilinogen 0.2 (0.2) mg/dL Ur Leukocyte Esterase Negative (Negative) U Hyaline Cast (Auto) NONE SEEN (0-2) /LPF Urine Microscopic RBC 0-2 (0-5) /HPF Urine Microscopic WBC 0-2 (0-5) /HPF Ur Epithelial Cells None Seen (None Seen) /HPF Urine Bacteria None Seen (None Seen) /HPF Urine Culture Reflexed NO (NO) Influenza Type A Ag (NEGATIVE) Influenza Type B Ag (NEGATIVE) RSV (PCR) (NEGATIVE) SARS-CoV-2 (PCR) (NEGATIVE) 09/01/24 09/01/24 09/01/24 Range/Units 23:54 23:54 23:54 WBC 6.6 (4.23-9.07) x10^3/uL RBC 5.04 (4.63-6.08) x10^6/uL Hgb 15.6 (13.7-17.5) g/dL Hct 46.8 (40.1-51.0) % MCV 92.9 H (79.0-92.2) fL MCH 31.0 (25.7-32.2) pg MCHC 33.3 (32.3-36.5) g/dL RDW 14.3 (11.6-14.4) % Plt Count 161 L (163-337) x10^3/uL MPV 10.7 (9.4-12.4) fL Gran % 54.6 (34.0-67.9) % Immature Gran % (Auto) 0.2 (0.001-0.429) % Nucleat RBC Rel Count 0.0 (0.00-0.2) % Eos # (Auto) 0.21 (0.04-0.54) x10^3/uL Immature Gran # (Auto) 0.01 (0.001-0.031) x10^3u/L Absolute Lymphs (auto) 2.05 (1.32-3.57) x10^3/uL Absolute Monos (auto) 0.67 (0.30-0.82) x10^3/uL Absolute Nucleated RBC 0.00 (0.00-0.012) x10^3u/L Lymphocytes % 31.2 (21.8-53.1) % Monocytes % 10.2 (5.3-12.2) % Eosinophils % 3.2 (0.8-7.0) % Basophils % 0.6 (0.2-1.2) % Absolute Granulocytes 3.59 (1.78-5.38) x10^3/uL Basophils # 0.04 (0.01-0.08) x10^3/uL Sodium 138 (135-145) mmol/L Potassium 5.1 (3.5-5.1) mmol/L Chloride 104 (98-107) mmol/L Carbon Dioxide 21 L (22-30) mmol/L Anion Gap 17.9 H (5-15) MEQ/L BUN 47 H (9-20) mg/dL Creatinine 2.75 H (0.66-1.25) mg/dL Estimated GFR 23.0 ML/MIN Glucose 130 H (74-106) mg/dL POC Glucometer (74 to 106) mg/dL Calcium 8.9 (8.4-10.2) mg/dL Total Bilirubin 0.80 (0.2-1.3) mg/dL AST 25 (17-59) U/L ALT 13 (0-50) U/L Alkaline Phosphatase 53 (38-126) U/L Serum Total Protein 6.6 (6.3-8.2) g/dL Albumin 4.0 (3.5-5.0) g/dL Urine Color (Yellow) Urine Appearance (Clear) Urine pH (4.6-8.0) Ur Specific [place] (1.005-1.030) Urine Protein (Negative) Urine Glucose (UA) (Negative) mg/dL Urine Ketones (Negative) Urine Blood (Negative) Urine Nitrite (Negative) Urine Bilirubin (Negative) Urine Urobilinogen (0.2) mg/dL Ur Leukocyte Esterase (Negative) U Hyaline Cast (Auto) (0-2) /LPF Urine Microscopic RBC (0-5) /HPF Urine Microscopic WBC (0-5) /HPF Ur Epithelial Cells (None Seen) /HPF Urine Bacteria (None Seen) /HPF Urine Culture Reflexed (NO) Influenza Type A Ag NEGATIVE (NEGATIVE) Influenza Type B Ag NEGATIVE (NEGATIVE) RSV (PCR) NEGATIVE (NEGATIVE) SARS-CoV-2 (PCR) NEGATIVE (NEGATIVE) 09/01/24 Range/Units 23:22 WBC (4.23-9.07) x10^3/uL RBC (4.63-6.08) x10^6/uL Hgb (13.7-17.5) g/dL Hct (40.1-51.0) % MCV (79.0-92.2) fL MCH (25.7-32.2) pg MCHC (32.3-36.5) g/dL RDW (11.6-14.4) % Plt Count (163-337) x10^3/uL MPV (9.4-12.4) fL Gran % (34.0-67.9) % Immature Gran % (Auto) (0.001-0.429) % Nucleat RBC Rel Count (0.00-0.2) % Eos # (Auto) (0.04-0.54) x10^3/uL Immature Gran # (Auto) (0.001-0.031) x10^3u/L Absolute Lymphs (auto) (1.32-3.57) x10^3/uL Absolute Monos (auto) (0.30-0.82) x10^3/uL Absolute Nucleated RBC (0.00-0.012) x10^3u/L Lymphocytes % (21.8-53.1) % Monocytes % (5.3-12.2) % Eosinophils % (0.8-7.0) % Basophils % (0.2-1.2) % Absolute Granulocytes (1.78-5.38) x10^3/uL Basophils # (0.01-0.08) x10^3/uL Sodium (135-145) mmol/L Potassium (3.5-5.1) mmol/L Chloride (98-107) mmol/L Carbon Dioxide (22-30) mmol/L Anion Gap (5-15) MEQ/L BUN (9-20) mg/dL Creatinine (0.66-1.25) mg/dL Estimated GFR ML/MIN Glucose (74-106) mg/dL POC Glucometer 79 (74 to 106) mg/dL Calcium (8.4-10.2) mg/dL Total Bilirubin (0.2-1.3) mg/dL AST (17-59) U/L ALT (0-50) U/L Alkaline Phosphatase (38-126) U/L Serum Total Protein (6.3-8.2) g/dL Albumin (3.5-5.0) g/dL Urine Color (Yellow) Urine Appearance (Clear) Urine pH (4.6-8.0) Ur Specific [place] (1.005-1.030) Urine Protein (Negative) Urine Glucose (UA) (Negative) mg/dL Urine Ketones (Negative) Urine Blood (Negative) Urine Nitrite (Negative) Urine Bilirubin (Negative) Urine Urobilinogen (0.2) mg/dL Ur Leukocyte Esterase (Negative) U Hyaline Cast (Auto) (0-2) /LPF Urine Microscopic RBC (0-5) /HPF Urine Microscopic WBC (0-5) /HPF Ur Epithelial Cells (None Seen) /HPF Urine Bacteria (None Seen) /HPF Urine Culture Reflexed (NO) Influenza Type A Ag (NEGATIVE) Influenza Type B Ag (NEGATIVE) RSV (PCR) (NEGATIVE) SARS-CoV-2 (PCR) (NEGATIVE) - Progress Progress: improved Progress Note: 78-year-old male presents to our ED for evaluation of hypoglycemia secondary to inadvertently taking a short acting insulin that should have been discontinued. Upon arrival to our ED patient's glucose was 79. The glucose was checked several times. No reoccurrence of hypoglycemia. The timeframe for the hypoglycemia/short acting insulin would have been 6 to 8 hours. Patient's dose of short acting insulin was administered at 6:30 PM. Patient's glucose at 2:30 AM was 160. No reoccurrence of the hypoglycemia. Patient requested to be checked for COVID. COVID RSV flu all negative. Patient also complained of some vague generalized abdominal discomfort. Patient declined pain medication. CT abdomen pelvis negative for acute intra-abdominal pathology. However gallstones and enlarged prostate and diverticulosis without diverticulitis observed. Normal appendix. Lipase within normal limits. Abnormal kidney function is chronic. Patient reassessed. He is resting comfortably. No active pain. Vital stable. No indication for further workup at this time. Patient requesting discharge. at bedside. They voiced no other complaints or concerns at this time. Lipase within normal limits Portions of this note were created with voice recognition technology. There may be grammatical, spelling, punctuation or sound alike errors Complexity of problem addressed is moderate acute complicated. No critical care time. Complexity of data reviewed and analyzed is moderate. Test ordered test reviewed results analyzed and correlated clinically with history and physical exam. Risk of complication and or risk of morbidity/mortality of patient management is low. Vital stable. Time spent to discharge patient is approximately 15 minutes. Plan of care established for shared decision making. No social determinants of health present to impede follow-up. Portions of this note were created with voice recognition technology. There may be grammatical, spelling, punctuation or sound alike errors 09/02/24 03:05 Counseled pt/family regarding: lab results, diagnosis, need for follow-up, rad results - Departure Departure Disposition: Home Clinical Impression: Chronic renal insufficiency, Hypoglycemia, Medication administered in error, Proteinuria, Glucosuria, Abdominal pain, Cholelithiasis, Enlarged prostate, Diverticulosis Condition: Stable Critical Care Time: No Referrals: HOSPITAL,'S [Primary Care Provider] - Follow up/PCP as directed Additional Instructions: Discharge/Care Plan TOLUHASMUKH CHAMPION was seen on 09/02/24 in the Emergency Room. The patient was c ounseled regarding Diagnosis,Lab results, Imaging studies, need for follow up and when to return to the Emergency Room. Prescriptions given: Discharge Note I have spoken with the patient and/or caregivers. I have explained the patient's condition, diagnosis and treatment plan based on the information available to me at this time. I have answered the patient's and/or caregiver's questions and addressed any concerns. The patient and/or caregivers have as good understanding of the patient's diagnosis, condition and treatment plan as can be expected at this point. The vital signs have been stable. The patient's condition is stable and appropriate for discharge from the emergency department. The patient will pursue further outpatient evaluation with the primary care physician or other designated or consulting physician as outlined in the discharge instructions. The patient and/or caregivers are agreeable to this plan of care and follow-up instructions have been explained in detail. The patient and/or caregivers have received these instruction. The patient/and or caregivers are aware that any significant change in condition or worsening of symptoms should prompt an immediate return to this or the closest emergency department or call 911.
[2024-09-02 01:12] VITALS: RESP 18
[2024-09-02 01:49] LABS: Appearance Clear (Clear); Bacteria None Seen /HPF (None Seen); Bilirubin Negative (Negative); Blood Negative (Negative); Epithelial Cells None Seen /HPF (None Seen); Glucose, Urine >=1000 mg/dL (Negative); Hyaline Casts NONE SEEN /LPF (0-2); Ketones Negative (Negative); Leukocyte Esterase Negative (Negative); Nitrite Negative (Negative); Ph 5.5 (4.6-8.0); Protein,Urine Dip 300 (Negative); RBC 0-2 /HPF (0-5); Urobilinogen 0.2 mg/dL (0.2); WBC 0-2 /HPF (0-5)
--- NOTE | 2024-09-02 02:52 | XRAY ---
CLINICAL HISTORY: pain COMPARISON: 03/25/2024. TECHNIQUE: Non-contrast CT of the abdomen and pelvis was performed, with the following protocol: axial images, and reconstructed coronal and sagittal images. No intravenous contrast was administered. Oral contrast was administered. One of the following dose reduction techniques was utilized for this exam: Automated exposure control, adjustment of the mA and/or kV according to patient size, and use of iterative reconstruction. FINDINGS: Abdomen: Liver: Normal in size, shape, and density. No focal lesions, cysts, or masses were identified. Gallbladder and Biliary System: The gallbladder shows minimal dependent dense stones. No wall thickening, or pericholecystic fluid, was identified. Pancreas: Pancreatic head, body, and tail are visualized and appear normal in size and density. No pancreatic masses or calcifications were noted. Air is seen in the pancreatic duct, which may be related to the patulous pancreatic duct opening. No inflammatory changes around the pancreas. Spleen: Normal in size, shape, and density. No splenic lesions or masses were identified. Kidneys and Adrenal Glands: Both kidneys are normal in size, shape, and position. Cortical thickness is mildly reduced. No renal calculi or hydronephrosis. Adrenal glands are unremarkable. Appendix: The appendix is normal in size without elena appendiceal fat stranding and without an appendicolith. No evidence of appendiceal abscess or perforation. Pelvis: Urinary Bladder: Normal in contour and wall thickness. No intraluminal lesions. Prostate: Enlarged prostate. No masses or abnormal thickening. Seminal Vesicles: Normal appearance without abnormal enlargement or mass. Peritoneal and Retroperitoneal Structures: No free fluid or abnormal fluid collections were identified within the abdomen or pelvis. No lymphadenopathy was noted. Moderate vascular calcifications. Bowel: Non-complicated colonic diverticulosis. A small third part duodenal air-filled diverticulum. The visualized bowel loops are normal in caliber and appearance. No evidence of bowel obstruction or wall thickening. Bones and Soft Tissues: Spondylodegenrtaive changes of the lumbar spine. Bilateral degenerative changes of both hip and sacroiliac joints. No fractures or abnormal masses were identified. Additional: Atelectatic changes in the basal dependent regions, with mild bilateral pleural thickening. IMPRESSION: 1. No acute abdominopelvic abnormality. 2. Air is seen in the pancreatic duct, which may be related to the patulous pancreatic duct opening(new). No inflammatory changes around the pancreas. Clinical correlation is suggested. 3. Cholelithiasis, no cholecystitis. Stable. 4. Non-complicated colonic diverticulosis. Interval resolution of the previous diverticulitis. 5. A small third part duodenal air-filled diverticulum.Stable Electronically Signed by: Stone Carcamo MD. (09/02/2024 02:47:42 EST)
[2024-09-02 03:08] VITALS: BP 153/76; PULSE 90
[2024-09-02 03:10] VITALS: O2SAT 98
== END 2024-09-02 03:30 | disposition home or self-care (01) ==
LOC: ED 23:10
DX: T38.3X1A Poisoning by insulin and oral hypoglycemic [antidiabetic] drugs, accidental (unintentional), initial encounter (principal); E11.649 Type 2 diabetes mellitus with hypoglycemia without coma; E11.22 Type 2 diabetes mellitus with diabetic chronic kidney disease; I12.9 Hypertensive chronic kidney disease with stage 1 through stage 4 chronic kidney disease, or unspecified chronic kidney disease; N18.9 Chronic kidney disease, unspecified; R80.9 Proteinuria, unspecified; R81 Glycosuria; R10.9 Unspecified abdominal pain; K80.20 Calculus of gallbladder without cholecystitis without obstruction; N40.0 Benign prostatic hyperplasia without lower urinary tract symptoms; K57.90 Diverticulosis of intestine, part unspecified, without perforation or abscess without bleeding; Z79.4 Long term (current) use of insulin; Z79.84 Long term (current) use of oral hypoglycemic drugs; Z79.85 Long-term (current) use of injectable non-insulin antidiabetic drugs; Z79.899 Other long term (current) drug therapy
CPT/HCPCS: 0241U; 36415; 74176; 80053; 81001; 82947; 83690; 85025; 93005; 99285; 99284; Q0162

== ENCOUNTER 2024-10-09 12:16 | Emergency (ER) | payer OTHER ==
[2024-10-09 12:20] VITALS: TEMP 97.3
[2024-10-09] MEDS ORDERED: BABY ASPIRIN 81 MG CHEW ONE (12:30)
[2024-10-09] MEDS ORDERED: Sodium Chloride 0.9% 1000 ML 1,000 ML ONE (12:30)
[2024-10-09] MEDS ORDERED: Zofran 4 MG/2 ML VIAL ONE (12:30)
[2024-10-09] MEDS ORDERED: MORPHINE SULFATE 4 MG INJ ONE (12:30)
[2024-10-09] MEDS ORDERED: Nitrostat 0.4 MG (ED) SL ONE (12:30)
[2024-10-09] MEDS: Sodium Chloride 0.9% 1000 ML 1,000 ML IV SCH (12:32)
[2024-10-09] MEDS: Zofran 4 MG/2 ML VIAL IV ONE (12:32)
[2024-10-09] MEDS: BABY ASPIRIN 81 MG CHEW PO ONE (12:32)
[2024-10-09] MEDS: MORPHINE SULFATE 4 MG INJ IV ONE (12:32)
[2024-10-09] MEDS: Nitrostat 0.4 MG (ED) SL ONE (12:32)
[2024-10-09 12:51] LABS: Absolute Neutrophil Ct (ANC) 3.54 x10^3/uL (1.78-5.38); BASOPHIL % 1.1 % (0.2-1.2); Basophil (Absolute #) 0.06 x10^3/uL (0.01-0.08); Eosinophil (Absolute #) 0.17 x10^3/uL (0.04-0.54); Hematocrit 50.8 % (40.1-51.0); Hemoglobin 16.6 g/dL (13.7-17.5); IMMATURE GRAN # 0.01 x10^3u/L (0.001-0.031); IMMATURE GRAN % 0.2 % (0.001-0.429); Lymphocyte (Absolute #) 1.52 x10^3/uL (1.32-3.57); Lymphocytes % 26.9 % (21.8-53.1); Mean Corpuscular Hgb Concent. 32.7 g/dL (32.3-36.5); Mean Platelet Volume 11.3 fL (9.4-12.4); Monocyte (Absolute #) 0.35 x10^3/uL (0.30-0.82); Monocytes % 6.2 % (5.3-12.2); Neutrophil % 62.6 % (34.0-67.9); Platelet Count 120 x10^3/uL (163-337); Red Blood Count 5.35 x10^6/uL (4.63-6.08); Red Cell Distribution Width 14.3 % (11.6-14.4); White Blood Count 5.7 x10^3/uL (4.23-9.07)
[2024-10-09 13:07] LABS: ALBUMIN 4.2 g/dL (3.5-5.0); ANION GAP 19.6 MEQ/L (5-15); Creatinine 1 2.72 mg/dL (0.66-1.25); EST GLOMERULAR FILTRATION RATE 23.3 ML/MIN
[2024-10-09 13:08] LABS: Potassium 5.6 mmol/L (3.5-5.1)
[2024-10-09 13:13] LABS: INR 1.04 (0.8-3.0); PROTIME 11.3 SECONDS (9.4-12.5)
[2024-10-09 13:16] VITALS: O2SAT 100
[2024-10-09 13:16] LABS: TROPONIN 0.03 ng/mL (0.000-0.033)
--- NOTE | 2024-10-09 14:23 | ERPHSYRPT ---
- History of Present Illness Time Seen by Provider: 10/09/24 14:18 Historian: patient Exam Limitations: no limitations Patient Subjective Stated Complaint: C/O chest pain that started in his right arm approx 1 hour prior to arriving in the ER today Triage Nursing Assessment: Patient ambulated back to ER. SOB with exertion. No Cough. Pale. Diaphoretic. No edema. RASHID WNL. 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 Patient came to the emergency room in the emergency room patient was feeling much better but still having some chest pain and shortness of breath but he was able to answer all the questions. He denies any syncopal episode or collapse. Patient states that he has shortness of breath this is usable. Timing/Duration: today Quality: dullness Location: substernal Chest Pain Radiation: arm Severity of Pain-Max: mild Severity of Pain-Current: mild Associated Symptoms: shortness of breath, fatigue, weakness, edema, No cough, No hurts to breathe, No diaphoresis, No chills, No fever, No swelling/lump in chest, No syncope, No dizziness, No back pain Prior Chest Pain/Cardiac Workup: heart attack Nitro Today/Relief: 0.4 mg x 1 Aspirin Treatment Today: 81 mg x 1 Allergies/Adverse Reactions: tetracycline [Tetracycline] Allergy (Mild, Verified 10/09/24 12:17) Rash Home Medications: Atorvastatin Calcium 10 mg PO HS 07/16/22 [History] Cholecalciferol (Vitamin D3) [Vitamin D3] 125 mcg PO DAILY 07/16/22 [History] Latanoprost/Pf [Latanoprost 0.005% Eye Drop] 1 drop OP HS 07/16/22 [History] Sodium Bicarbonate 650 mg PO DAILY 07/16/22 [History] Aspirin 81 gm Chew [Baby Aspirin 81 mg Chew] 81 mg PO DAILY 01/13/23 [History] Cyanocobalamin (Vitamin B-12) [B-12] 1,000 mcg PO DAILY 01/13/23 [History] Glyburide 5 mg [Micronase 5 MG] 5 mg PO BID 01/13/23 [History] Ferrous Sulfate 325 mg [Feosol 325 mg] 325 mg PO DAILY 04/01/23 [History] Allopurinol 300 mg [Zyloprim 300 mg] 300 mg PO DAILY 03/25/24 [History] Empagliflozin [Jardiance] 10 mg PO DAILY 03/25/24 [History] Hydrocodone/Acetaminophen [Hydrocodone-Acetamin 7.5-325] 1 each PO Q6HPRN PRN 03/25/24 [History] Insulin Aspart [NovoLOG Insulin] 10 units SQ BIDWMEALS 03/25/24 [History] Insulin Glargine [Lantus Insulin] 20 unit SQ DAILY 03/25/24 [History] Sodium Zirconium Cyclosilicate [Lokelma] 10 gm PO WEEKLY 03/25/24 [History] Hx Tetanus, Diphtheria Vaccination/Date Given: Yes Hx Influenza Vaccination/Date Given: Yes Hx Pneumococcal Vaccination/Date Given: Yes Immunizations Up to Date: Yes Travel Risk - International Travel Have you traveled outside of the country in past 3 weeks: No - Emerging Infectious Disease Are you exhibiting symptoms associated with any current EIDs: No Symptoms: Abdominal Pain - Review of Systems Constitutional: Fatigue, Weakness, No Fever, No Chills Eyes: No Symptoms Ears, Nose, & Throat: No Symptoms Respiratory: Dyspnea, Dyspnea on Exertion (KUNZ), No Cough Cardiac: Chest Pain, Edema, Orthopnea, PND, No Palpitations, No Syncope Abdominal/Gastrointestinal: No Abdominal Pain, No Nausea, No Vomiting, No Diarrhea Genitourinary Symptoms: No Dysuria Musculoskeletal: No Back Pain, No Neck Pain Skin: No Rash Neurological: No Dizziness, No Focal Weakness, No Sensory Changes Psychological: No Symptoms Endocrine: No Symptoms Hematologic/Lymphatic: No Symptoms Immunological/Allergic: No Symptoms All Other Systems: Reviewed and Negative - Past Medical History Pertinent Past Medical History: Yes Neurological History: Stroke ENT History: Cataracts, Other Cardiac History: Coronary Artery Disease, High Cholesterol, Hypertension, Myocardial Infarction ([place]) Respiratory History: Pneumonia, Sleep Apnea Endocrine Medical History: Diabetes Type II Musculoskeletal History: Arthritis GI Medical History: Diverticulitis History: Renal Disease Psycho-Social History: No Pertinent History Male Reproductive Disorders: No Pertinent History Other Medical History: agent orange, malaria, 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[place], [place] but can't remember the name of the doctor at this time - Past Surgical History Past Surgical History: Yes Neuro Surgical History: No Pertinent History Cardiac: CABG, Cardiac Catheterization, Cardiac Stent, Internal Defibrillator Respiratory: No Pertinent History Gastrointestinal: No Pertinent History Genitourinary: No Pertinent History Musculoskeletal: Other Male Surgical History: No Pertinent History Other Surgical History: back surgery, 3 stents, open heart bypass surgery in January 2023, - Social History Smoking Status: Never smoker Exposure to second hand smoke: Yes Drug Use: none - Social Determinants of Health Will the patient participate in the screening: Yes Do you worry about a steady place to live?: No Do you have any problems with any of the following?: No known problems In the past 12 months,have you had to go without utilities?: No Transportation Issues: No Has anyone in your support network made you feel unsafe?: No Have you or anyone in your house had to go w/o enough food: No - Nursing Vital Signs Nursing Vital Signs: Initial Vital Signs Temperature 97.3 F 10/09/24 12:16 Pulse Rate 83 10/09/24 12:16 Respiratory Rate 12 10/09/24 12:16 Blood Pressure 156/81 10/09/24 12:16 O2 Sat by Pulse Oximetry 93 L 10/09/24 12:16 Pain Scale Pain Intensity 0 - Physical Exam General Appearance: mild distress, alert Eye Exam: PERRL/EOMI, eyes nml inspection Ears, Nose, Throat Exam: normal ENT inspection, moist mucous membranes Neck Exam: normal inspection, non-tender, supple, full range of motion Respiratory Exam: diminished breath sounds, crackles/rales, rhonchi, wheezing, No respiratory distress Cardiovascular Exam: irregular, capillary refill 2-3 sec, edema, No pulse deficit Gastrointestinal/Abdomen Exam: soft, No tenderness, No mass Back Exam: normal inspection, No CVA tenderness, No vertebral tenderness Extremity Exam: normal inspection, normal range of motion Neurologic Exam: alert, oriented x 3, cooperative, normal mood/affect, sensation nml, No motor deficits Skin Exam: normal color, warm, dry SpO2 Interpretation: normal SpO2: 100 O2 Delivery: Room Air - Course Nursing assessment & vital signs reviewed: Yes EKG Interpreted by Me: Non-specific ST Changes Rhythm Strip: Normal Sinus Rhythm - Radiology Exams Chest X-ray Interpretation: No Pneumonia, No Pneumothorax Ordered Tests: Active Orders 24 hr Category Date Time Status Addresser STAT Care 10/09/24 12:24 Active EKG-ER Only STAT Care 10/09/24 12:23 Active IV Insertion STAT Care 10/09/24 12:23 Active Oxygen-ED Only Nasal Cannula 3 lpm Care 10/09/24 12:23 Active CHEST 1 VIEW (PORTABLE) Stat Exams 10/09/24 12:24 Taken CBC W DIFF Stat Lab 10/09/24 12:51 Completed CMP Stat Lab 10/09/24 12:51 Completed D-DIMER QUANTITATIVE Stat Lab 10/09/24 12:51 Completed NT PRO BNPII Stat Lab 10/09/24 12:51 Completed PROTIME WITH INR Stat Lab 10/09/24 12:51 Completed TROPONIN Q4H Lab 10/09/24 12:51 Completed Medication Summary Generic Name Dose Route Start Last Admin Trade Name Freq PRN Reason Stop Dose Admin Sodium Chloride 1,000 mls @ 100 mls/hr 10/09/24 12:30 10/09/24 12:32 Sodium Chloride 0.9% 1000 Ml IV 11/08/24 12:29 100 mls/hr .Q10H ABY Administration Discontinued Medications Generic Name Dose Route Start Last Admin Trade Name Freq PRN Reason Stop Dose Admin Aspirin 324 mg 10/09/24 12:23 10/09/24 12:32 Aspirin 81 Mg Tab.Chew PO 10/09/24 12:24 324 mg STAT ONE Administration Aspirin Confirm 10/09/24 12:30 Aspirin 81 Mg Tab.Chew Administered 10/09/24 12:31 Dose 324 mg .ROUTE .STK-MED ONE Morphine Sulfate 4 mg 10/09/24 12:23 10/09/24 12:32 Morphine Sulfate 4 Mg/Ml Injection IV 10/09/24 12:24 4 mg STAT ONE Administration Morphine Sulfate Confirm 10/09/24 12:30 Morphine Sulfate 4 Mg/Ml Injection Administered 10/09/24 12:31 Dose 4 mg .ROUTE .STK-MED ONE Nitroglycerin 0.4 mg 10/09/24 12:23 10/09/24 12:32 Nitroglycerin 0.4 Mg (Ed) 0.4 Mg Tab.Subl SL 10/09/24 12:24 0.4 mg STAT ONE Administration Nitroglycerin Confirm 10/09/24 12:30 Nitroglycerin 0.4 Mg (Ed) 0.4 Mg Tab.Subl Administered 10/09/24 12:31 Dose 0.4 mg SL .STK-MED ONE Ondansetron HCl 4 mg 10/09/24 12:23 10/09/24 12:32 Ondansetron Hcl 4 Mg/2 Ml Vial IV 10/09/24 12:24 4 mg STAT ONE Administration Ondansetron HCl Confirm 10/09/24 12:30 Ondansetron Hcl 4 Mg/2 Ml Vial Administered 10/09/24 12:31 Dose 4 mg .ROUTE .STK-MED ONE Lab/Rad Data: Laboratory Result Diagrams 10/09/24 12:51 10/09/24 12:51 Laboratory Results 10/09/24 10/09/24 10/09/24 Range/Units 12:51 12:51 12:51 WBC (4.23-9.07) x10^3/uL RBC (4.63-6.08) x10^6/uL Hgb (13.7-17.5) g/dL Hct (40.1-51.0) % MCV (79.0-92.2) fL MCH (25.7-32.2) pg MCHC (32.3-36.5) g/dL RDW (11.6-14.4) % Plt Count (163-337) x10^3/uL MPV (9.4-12.4) fL Gran % (34.0-67.9) % Immature Gran % (Auto) (0.001-0.429) % Nucleat RBC Rel Count (0.00-0.2) % Eos # (Auto) (0.04-0.54) x10^3/uL Immature Gran # (Auto) (0.001-0.031) x10^3u/L Absolute Lymphs (auto) (1.32-3.57) x10^3/uL Absolute Monos (auto) (0.30-0.82) x10^3/uL Absolute Nucleated RBC (0.00-0.012) x10^3u/L Lymphocytes % (21.8-53.1) % Monocytes % (5.3-12.2) % Eosinophils % (0.8-7.0) % Basophils % (0.2-1.2) % Absolute Granulocytes (1.78-5.38) x10^3/uL Basophils # (0.01-0.08) x10^3/uL PT 11.3 (9.4-12.5) SECONDS INR 1.04 (0.8-3.0) D-Dimer 0.77 H* (0.0-0.50) mg/L Sodium 139 (135-145) mmol/L Potassium 5.6 H (3.5-5.1) mmol/L Chloride 104 (98-107) mmol/L Carbon Dioxide 20 L (22-30) mmol/L Anion Gap 19.6 H (5-15) MEQ/L BUN 47 H (9-20) mg/dL Creatinine 2.72 H (0.66-1.25) mg/dL Estimated GFR 23.3 ML/MIN Glucose 194 H (74-106) mg/dL Calcium 9.0 (8.4-10.2) mg/dL Total Bilirubin 1.00 (0.2-1.3) mg/dL AST 25 (17-59) U/L ALT 15 (0-50) U/L Alkaline Phosphatase 66 (38-126) U/L Troponin I 0.030 (0.000-0.033) ng/mL NT-Pro-B Natriuret Pep 3990 (<300) pg/mL Serum Total Protein 7.0 (6.3-8.2) g/dL Albumin 4.2 (3.5-5.0) g/dL 10/09/24 Range/Units 12:51 WBC 5.7 (4.23-9.07) x10^3/uL RBC 5.35 (4.63-6.08) x10^6/uL Hgb 16.6 (13.7-17.5) g/dL Hct 50.8 (40.1-51.0) % MCV 95.0 H (79.0-92.2) fL MCH 31.0 (25.7-32.2) pg MCHC 32.7 (32.3-36.5) g/dL RDW 14.3 (11.6-14.4) % Plt Count 120 L (163-337) x10^3/uL MPV 11.3 (9.4-12.4) fL Gran % 62.6 (34.0-67.9) % Immature Gran % (Auto) 0.2 (0.001-0.429) % Nucleat RBC Rel Count 0.0 (0.00-0.2) % Eos # (Auto) 0.17 (0.04-0.54) x10^3/uL Immature Gran # (Auto) 0.01 (0.001-0.031) x10^3u/L Absolute Lymphs (auto) 1.52 (1.32-3.57) x10^3/uL Absolute Monos (auto) 0.35 (0.30-0.82) x10^3/uL Absolute Nucleated RBC 0.00 (0.00-0.012) x10^3u/L Lymphocytes % 26.9 (21.8-53.1) % Monocytes % 6.2 (5.3-12.2) % Eosinophils % 3.0 (0.8-7.0) % Basophils % 1.1 (0.2-1.2) % Absolute Granulocytes 3.54 (1.78-5.38) x10^3/uL Basophils # 0.06 (0.01-0.08) x10^3/uL PT (9.4-12.5) SECONDS INR (0.8-3.0) D-Dimer (0.0-0.50) mg/L Sodium (135-145) mmol/L Potassium (3.5-5.1) mmol/L Chloride (98-107) mmol/L Carbon Dioxide (22-30) mmol/L Anion Gap (5-15) MEQ/L BUN (9-20) mg/dL Creatinine (0.66-1.25) mg/dL Estimated GFR ML/MIN Glucose (74-106) mg/dL Calcium (8.4-10.2) mg/dL Total Bilirubin (0.2-1.3) mg/dL AST (17-59) U/L ALT (0-50) U/L Alkaline Phosphatase (38-126) U/L Troponin I (0.000-0.033) ng/mL NT-Pro-B Natriuret Pep (<300) pg/mL Serum Total Protein (6.3-8.2) g/dL Albumin (3.5-5.0) g/dL - Progress Progress: improved Air Movement: good Blood Culture(s) Obtained: No Antibiotics given: No Counseled pt/family regarding: lab results, diagnosis, need for follow-up, rad results Medical Desision Making - Independent Historian Additional History obtained from: Spouse - Diagnostic Testing Diagnostic test were ordered, analyzed, and reviewed by me: Yes Radiological Interpretation: Interpreted by me, Reviewed by me - Risk of complications The pt has a mod risk of morbidity or mortality based on: Need for prescription drug management The pt has a high risk of morbidity or mortality based on: Drug therapy requiring intensive monitoring for toxicity - Departure Departure Disposition: Home Clinical Impression: PVD (peripheral vascular disease) with claudication Acute on chronic renal failure Qualifiers: Acute renal failure type: unspecified Chronic kidney disease stage: stage 5 (GFR < 15), not on chronic dialysis Qualified Code(s): N17.9 - Acute kidney failure, unspecified; N18.5 - Chronic kidney disease, stage 5 CHF (congestive heart failure) Qualifiers: Heart failure type: combined systolic and diastolic Heart failure chronicity: chronic Qualified Code(s): I50.42 - Chronic combined systolic (congestive) and diastolic (congestive) heart failure Hypertension Qualifiers: Hypertension type: secondary to other renal disorders Qualified Code(s): I15.1 - Hypertension secondary to other renal disorders CAD (coronary artery disease) Qualifiers: Coronary Disease-Associated Artery/Lesion type: bypass graft [place] vs. transplanted heart: [place] heart Associated angina: with stable angina Qualified Code(s): I25.708 - Atherosclerosis of coronary artery bypass graft(s), unspeci fied, with other forms of angina pectoris Condition: Stable Critical Care Time: Yes Critical Care Time(excluding separately billable procedures): Critical 30-74 mins Referrals: HOSPITAL,'S [Primary Care Provider] - Follow up with PCP 2 days Instructions: Heart Failure, End-stage kidney disease (kidney failure), Diet for people with nondialysis chronic kidney disease, Heart failure with reduced ejection fraction Additional Instructions: Discharge/Care Plan HASMUKH MOTLEY JAYCEE was seen on 10/09/24 in the Emergency Room. The patient was counseled regarding Diagnosis,Lab results, Imaging studies, need for follow up and when to return to the Emergency Room. Prescriptions given: Discharge Note I have spoken with the patient and/or caregivers. I have explained the patient's condition, diagnosis and treatment plan based on the information available to me at this time. I have answered the patient's and/or caregiver's questions and addressed any concerns. The patient and/or caregivers have as good understanding of the patient's diagnosis, condition and treatment plan as can be expected at this point. The vital signs have been stable. The patient's condition is stable and appropriate for discharge from the emergency department. The patient will pursue further outpatient evaluation with the primary care physician or other designated or consulting physician as outlined in the discharge instructions. The patient and/or caregivers are agreeable to this plan of care and follow-up instructions have been explained in detail. The patient and/or caregivers have received these instruction. The patient/and or caregivers are aware that any significant change in condition or worsening of symptoms should prompt an immediate return to this or the closest emergency department or call 911. HASMUKH MOTLEY was seen on 10/09/24 n the Emergency Room. At that time you were treated for an emergent condition, during your visit Laboratory, Radiology and/or other procedures may have been ordered. It is very important that you follow-up with your Primary Care Physician [facility] within the next 24-48 hours to review your Emergency Room visit and the final results of testing that was ordered. Some test results such as Urine Cultures, Blood Cultures, and other cultures if ordered will not be finalized for 24-48 hours. If you do not have a Primary Care Provider please call the medical records department at [phone] ext [phone] to obtain a copy of your results or you may sign into our patient portal to obtain these results by visiting us @ [email or web address] and completing the following steps: 1. Click on the Patient Portal link 2. Click the Patient Self Enrollment Link to complete the enrollment form and entering your 3. Once the enrollment form is completed you will receive an email with a temporary ID and password at the email address you provided. 4. Next choose a user name and password. Your user name must be at least 4 characters long and your password must be at least 4 characters long. 5. Choose a security question from the list and provide your answer to the [facility]. If you already have signed into the Health Portal you may access your Health Care Information 27/01 by the following steps: 1. Login to our website @ [email or web address] 2. Enter your original user name and password. FAQS [facility] Health Portal is an online tool that contains your Lab Results, Radiology Reports, Visit History, Discharge Instructions and Health Summary Lab and Radiology Results will not be available for 72 hours on the portal. The Portal is a secure site, passwords are encryted and URLs are re-written so they cannot be copied and pasted. You and authorized family members are the only ones who can access your Portal. Also there is a timeout feature that protects your information if you leave the Portal page open. If you have technical difficulty please use the Contact Us link on the page this will allow you to submit any questions you have regarding the Portal or you may contact the Medical Record Department at [phone] ext [phone].
[2024-10-09 15:01] VITALS: BP 164/88; PULSE 81; RESP 13
--- NOTE | 2024-10-09 20:20 | XRAY ---
Indication: Chest pain. Short of breath. Comparison: March 25, 2024 Portable chest inflated and now clear. Heart not enlarged again with mitral clip and left dual-lead pacemaker. Bony thorax intact again with osteopenia, degenerative changes, and sternotomy wires. Impression: Nonacute chest with chronic features.
== END 2024-10-09 15:11 | disposition home or self-care (01) ==
LOC: ED 12:16
DX: I73.9 Peripheral vascular disease, unspecified (principal); N17.9 Acute kidney failure, unspecified; E11.22 Type 2 diabetes mellitus with diabetic chronic kidney disease; N18.5 Chronic kidney disease, stage 5; I50.42 Chronic combined systolic (congestive) and diastolic (congestive) heart failure; I15.1 Hypertension secondary to other renal disorders; I25.708 Atherosclerosis of coronary artery bypass graft(s), unspecified, with other forms of angina pectoris; R07.9 Chest pain, unspecified; R06.02 Shortness of breath; E78.5 Hyperlipidemia, unspecified; Z79.84 Long term (current) use of oral hypoglycemic drugs; Z79.4 Long term (current) use of insulin; Z79.899 Other long term (current) drug therapy
CPT/HCPCS: 36415; 71045; 80053; 83880; 84484; 85025; 85379; 85610; 93005; 93041; 96374; 96375; 99284; 99285; 99291; J2270; J2405; A9270-GY

== ENCOUNTER 2025-03-31 09:51 | Emergency (ER) | payer OTHER ==
--- NOTE | 2025-03-31 09:52 | ERPHSYRPT ---
- History of Present Illness Time Seen by Provider: 03/31/25 09:52 Source: patient, family Exam Limitations: no limitations Physician History: This is a 79-year-old white male patient arrives by private vehicle and receives his primary care through the [place] [facility] with the complaint of left foot and ankle pain that began approximately 2 days ago. Patient does recall falling but he does not recall injuring his left foot and ankle. His symptoms have improved with heat and hydrocodone. His says he has not had a fever. Patient does have a history of insulin-dependent diabetes, hyperlipidemia, hypertension and gout. Quality: constant, throbbing Severity of Pain-Max: moderate Severity of Pain-Current: moderate Lower Extremities Pain: foot: left, ankle: left Modifying Factors: Improves With: movement Associated Symptoms: unable to bear weight Allergies/Adverse Reactions: tetracycline [Tetracycline] Allergy (Mild, Verified 12/15/24 10:32) Rash Home Medications: Atorvastatin Calcium 10 mg PO HS 07/16/22 [History] Cholecalciferol (Vitamin D3) [Vitamin D3] 125 mcg PO DAILY 07/16/22 [History] Latanoprost/Pf [Latanoprost 0.005% Eye Drop] 1 drop OP HS 07/16/22 [History] Sodium Bicarbonate 650 mg PO DAILY 07/16/22 [History] Aspirin 81 gm Chew [Baby Aspirin 81 mg Chew] 81 mg PO DAILY 01/13/23 [History] Cyanocobalamin (Vitamin B-12) [B-12] 1,000 mcg PO DAILY 01/13/23 [History] Ferrous Sulfate 325 mg [Feosol 325 mg] 325 mg PO DAILY 04/01/23 [History] Allopurinol 300 mg [Zyloprim 300 mg] 300 mg PO DAILY 03/25/24 [History] Hydrocodone/Acetaminophen [Hydrocodone-Acetamin 7.5-325] 1 each PO Q6HPRN PRN 03/25/24 [History] Insulin Glargine [Lantus Insulin] 22 unit SQ DAILY 03/25/24 [History] Semaglutide [Ozempic] 0.5 mg SQ WEEKLY 12/28/24 [History] Hx Tetanus, Diphtheria Vaccination/Date Given: Yes Hx Influenza Vaccination/Date Given: Yes Hx Pneumococcal Vaccination/Date Given: Yes Travel Risk - International Travel Have you traveled outside of the country in past 3 weeks: No - Emerging Infectious Disease Are you exhibiting symptoms associated with any current EIDs: No Symptoms: Abdominal Pain - Review of Systems Constitutional: No Symptoms Eyes: No Symptoms Ears, Nose, & Throat: No Symptoms Respiratory: No Symptoms Cardiac: No Symptoms Abdominal/Gastrointestinal: No Symptoms Genitourinary Symptoms: No Symptoms Musculoskeletal: Other (Left foot and ankle pain) Skin: No Symptoms Neurological: No Symptoms Psychological: No Symptoms Endocrine: No Symptoms Hematologic/Lymphatic: No Symptoms Immunological/Allergic: No Symptoms All Other Systems: Reviewed and Negative - Past Medical History Pertinent Past Medical History: Yes Cardiac History: Coronary Artery Disease, High Cholesterol, Hypertension, Myocardial Infarction ([place]) - Past Surgical History Musculoskeletal: Other Other Surgical History: back surgery, 3 stents, open heart bypass surgery in January 2023, - Social History Smoking Status: Never smoker - Social Determinants of Health Will the patient participate in the screening: Yes Do you worry about a steady place to live?: No In the past 12 months,have you had to go without utilities?: No Transportation Issues: No Has anyone in your support network made you feel unsafe?: No Have you or anyone in your house had to go w/o enough food: No - Nursing Vital Signs Nursing Vital Signs: Initial Vital Signs Temperature 97.4 F 03/31/25 09:58 Pulse Rate 88 03/31/25 09:58 Respiratory Rate 18 03/31/25 09:58 Blood Pressure 168/81 03/31/25 09:58 O2 Sat by Pulse Oximetry 98 03/31/25 09:58 Pain Scale Pain Intensity 10 - Physical Exam General Appearance: mild distress, alert, anxiety Eyes, Ears, Nose, Throat Exam: normal ENT inspection, moist mucous membranes Neck Exam: normal inspection, non-tender, supple, full range of motion Cardiovascular/Respiratory Exam: chest non-tender, no respiratory distress Gastrointestinal/Abdominal Exam: non-tender Back Exam: normal inspection, normal range of motion, No CVA tenderness, No vertebral tenderness Hips Exam: bilateral: non-tender, normal inspection, normal range of motion, no evidence of injury Legs Exam: bilateral leg: non-tender, normal inspection, normal range of motion, no evidence of injury Knees Exam: bilateral knee: non-tender, normal inspection, normal range of motion, no evidence of injury Ankle Exam: right ankle: non-tender, normal range of motion, left ankle: bone tenderness, limited range of motion, soft tissue tenderness, bilateral ankle: normal inspection, no evidence of injury Foot Exam: right foot: non-tender, normal range of motion, left foot: bone tenderness, limited range of motion, soft tissue tenderness, bilateral foot: normal inspection, no evidence of injury, other (Normal temperature. Strong palpable pedal pulses equal to the right side) Neuro/Tendon Exam: normal tendon functions, responds to pain, no evidence tendon injury Mental Status Exam: alert, oriented x 3, cooperative Skin Exam: normal color, warm, dry SpO2 Interpretation: normal O2 Delivery: Room Air Ordered Tests: Active Orders 24 hr Category Date Time Status ANKLE (3 VIEWS) Stat Exams 03/31/25 10:01 Completed FOOT (MINIMUM 3 VIEWS) Stat Exams 03/31/25 10:01 Completed VENOUS UNILAT/LIMITED EXTREMIT [US] Stat Exams 03/31/25 10:46 Completed BMP Stat Lab 03/31/25 10:17 Completed CBC W DIFF Stat Lab 03/31/25 10:17 Completed D-DIMER QUANTITATIVE Stat Lab 03/31/25 10:17 Completed Uric Acid Stat Lab 03/31/25 10:17 Completed Lab/Rad Data: Laboratory Result Diagrams 03/31/25 10:17 03/31/25 10:17 Laboratory Results 03/31/25 03/31/25 03/31/25 Range/Units 10:17 10:17 10:17 WBC 7.3 (4.23-9.07) x10^3/uL RBC 4.71 (4.63-6.08) x10^6/uL Hgb 14.8 (13.7-17.5) g/dL Hct 44.5 (40.1-51.0) % MCV 94.5 H (79.0-92.2) fL MCH 31.4 (25.7-32.2) pg MCHC 33.3 (32.3-36.5) g/dL RDW 14.2 (11.6-14.4) % Plt Count 173 (163-337) x10^3/uL MPV 10.3 (9.4-12.4) fL Gran % 67.6 (34.0-67.9) % Immature Gran % (Auto) 0.4 (0.001-0.429) % Nucleat RBC Rel Count 0.0 (0.00-0.2) % Eos # (Auto) 0.19 (0.04-0.54) x10^3/uL Immature Gran # (Auto) 0.03 (0.001-0.031) x10^3u/L Absolute Lymphs (auto) 1.48 (1.32-3.57) x10^3/uL Absolute Monos (auto) 0.58 (0.30-0.82) x10^3/uL Absolute Nucleated RBC 0.00 (0.00-0.012) x10^3u/L Lymphocytes % 20.4 L (21.8-53.1) % Monocytes % 8.0 (5.3-12.2) % Eosinophils % 2.6 (0.8-7.0) % Basophils % 1.0 (0.2-1.2) % Absolute Granulocytes 4.92 (1.78-5.38) x10^3/uL Basophils # 0.07 (0.01-0.08) x10^3/uL D-Dimer 0.59 H (0.0-0.50) mg/L Sodium 138 (135-145) mmol/L Potassium 4.5 (3.5-5.1) mmol/L Chloride 105 (98-107) mmol/L Carbon Dioxide 23 (22-30) mmol/L Anion Gap 13.3 (5-15) MEQ/L BUN 53 H (9-20) mg/dL Creatinine 2.85 H (0.66-1.25) mg/dL Estimated GFR 21.9 ML/MIN Glucose 217 H (74-106) mg/dL Uric Acid 4.7 (3.5-7.2) mg/dL Calcium 8.8 (8.4-10.2) mg/dL - Progress Progress: pain not gone completely, re-examined Progress Note: 03/31/25 10:21 My medical decision making and the assignment of moderate complexity of this patient's medical issue today is based on review of the patient's past medical history, reviewed the patient's medication list, reviewed the patient drug allergy list, history present illness and physical findings on examination. The workup in this patient includes CBC, BMP, uric acid level, D-dimer level Differential diagnosis includes was not limited to occult fracture, gout flareup, DVT, muscle skeletal pain, peripheral neuropathy 03/31/25 10:49 I interpreted the patient's laboratory data results. Based on laboratory data results, the patient does have an elevated D-dimer level. We will order a left lower extremity venous Doppler. I interpreted the preliminary reports of the following radiographic studies: Left ankle x-ray shows no acute fracture or dislocation. Left foot x-ray shows no acute fracture or dislocation. The radiologist interpreted the final reports of the following radiographic studies: Left ankle x-ray shows degenerative changes. There is mild scattered vascular calcifications. Left foot x-ray shows metatarsals with bone spurring present. No other bony, articular or soft tissue abnormalities 03/31/25 12:02 The left lower extremity venous Doppler was interpreted by the radiologist. I reviewed the impression. The impression states: Left lower extremity negative for DVT Counseled pt/family regarding: lab results, diagnosis, rad results Medical Desision Making - Independent Historian Additional History obtained from: Spouse - Diagnostic Testing Diagnostic test were ordered, analyzed, and reviewed by me: Yes Radiological Interpretation: Interpreted by me, Reviewed by me, Teleradiologist Report - Risk of complications Low Risk: Low risk of morbidity from additional dx testing or treatment - Departure Departure Disposition: Home Clinical Impression: Left ankle pain, Left foot pain Condition: Stable Critical Care Time: No Referrals: HOSPITAL,'[facility] [Primary Care Provider, UNKNOWN] - Follow up/PCP as directed Additional Instructions: Continue your medications as prescribed. Keep your appointment with your primary care provider that you have scheduled for tomorrow. Prescriptions: Orphenadrine Citrate 100 mg [Norflex 100 MG Tablet] 100 mg PO BID #10 tab
[2025-03-31 10:14] VITALS: BP 168/81; PULSE 88; TEMP 97.4
[2025-03-31 10:21] LABS: BASOPHIL % 1.0 % (0.2-1.2); Basophil (Absolute #) 0.07 x10^3/uL (0.01-0.08); Eosinophil (Absolute #) 0.19 x10^3/uL (0.04-0.54); Hematocrit 44.5 % (40.1-51.0); Hemoglobin 14.8 g/dL (13.7-17.5); IMMATURE GRAN # 0.03 x10^3u/L (0.001-0.031); IMMATURE GRAN % 0.4 % (0.001-0.429); Lymphocyte (Absolute #) 1.48 x10^3/uL (1.32-3.57); Mean Corpuscular Hemoglobin 31.4 pg (25.7-32.2); Mean Corpuscular Hgb Concent. 33.3 g/dL (32.3-36.5); Monocyte (Absolute #) 0.58 x10^3/uL (0.30-0.82); NUCLEATED RBC # 0.00 x10^3u/L (0.00-0.012); NUCLEATED RBC % 0.0 % (0.00-0.2); Platelet Count 173 x10^3/uL (163-337); Red Blood Count 4.71 x10^6/uL (4.63-6.08); White Blood Count 7.3 x10^3/uL (4.23-9.07)
[2025-03-31 10:34] LABS: Calcium 8.8 mg/dL (8.4-10.2); Carbon Dioxide 23.0 mmol/L (22-30); Creatinine 1 2.85 mg/dL (0.66-1.25); EST GLOMERULAR FILTRATION RATE 21.9 ML/MIN; Glucose 217.0 mg/dL (74-106); Potassium 4.5 mmol/L (3.5-5.1); Uric Acid 4.7 mg/dL (3.5-7.2)
--- NOTE | 2025-03-31 10:37 | XRAY ---
Indication: Pain. Comparison: None 3 view left ankle demonstrates small medial malleolus tip well-circumscribed ossification of uncertain chronicity, possibly posttraumatic in right clinical setting or degenerative. Elsewhere mild talotibial degenerative arthropathy, small heel spurs, and mild scattered vascular calcifications.
--- NOTE | 2025-03-31 10:39 | XRAY ---
Indication: Pain. Comparison: None 3 nonweightbearing views left foot demonstrates small bony spurring base 2nd metatarsal medial aspect, calcaneus, and lesser degree medial head 1st metatarsal. Elsewhere mild scattered vascular calcifications and small cuboid accessory ossicle. No other bony, articular, or soft tissue abnormalities. Ankle reported separately.
--- NOTE | 2025-03-31 11:29 | XRAY ---
Indication: Pain. Elevated D-dimer. Two-dimensional sonogram and color Doppler imaging major venous vessels left leg performed. Comparison: None No thrombus seen in the examined deep venous vessels left leg including greater saphenous vein. Veins demonstrate normal compressibility. Venous waveforms are normal with and without augmentation. Impression: Left leg negative for DVT.
[2025-03-31 11:48] VITALS: RESP 12; O2SAT 100
[2025-03-31] MEDS ORDERED: Sterile H2O 10 ml IJ ONE ×2 (12:19→12:28)
[2025-03-31] MEDS ORDERED: Norflex 60 MG/2 ML ONE (12:19)
[2025-03-31] MEDS ORDERED: NORCO 5/325 MG ONE (12:20)
[2025-03-31] MEDS: NORCO 5/325 MG PO ONE (12:39)
[2025-03-31] MEDS: Norflex 60 MG/2 ML IM ONE (12:40)
[2025-03-31] MEDS: solu-MEDROL 125 MG, Sterile H2O 10 ml 2 ML IM ONE (12:40)
== END 2025-03-31 12:49 | disposition home or self-care (01) ==
LOC: ED 09:51
DX: M25.572 Pain in left ankle and joints of left foot (principal); M79.672 Pain in left foot; E11.9 Type 2 diabetes mellitus without complications; I10 Essential (primary) hypertension; Z79.891 Long term (current) use of opiate analgesic; Z79.4 Long term (current) use of insulin; Z79.85 Long-term (current) use of injectable non-insulin antidiabetic drugs; Z79.899 Other long term (current) drug therapy

== ENCOUNTER 2025-05-20 18:59 | Observation (INO) | payer OTHER ==
--- NOTE | 2025-05-20 19:12 | ERPHSYRPT ---
- History of Present Illness Time Seen by Provider: 05/20/25 19:12 Source: patient, family Exam Limitations: no limitations Patient Subjective Stated Complaint: patient complaining of shortness of breath, Triage Nursing Assessment: patient drove him to the ED tonite because he has been having shortness of breath for a week and its causing him to have pains in his chest. patient is alert and oriented x3, able to ambulate by self, lung sounds some crackles in base on right side and diminished on left. skin warm dry and intact. Physician History: This is a 79-year-old white male patient who arrives for private vehicle and primarily receives his medical care through the [facility]. Patient has had shortness of breath for a week. In the last 2 days his symptoms have worsened. The patient's spouse brought this patient to the emergency room department by private vehicle. Today his shortness of breath was significant enough to cause some chest pains. Patient has had coughing episodes as well. He has not had any fevers. Patient has a history of coronary disease having had cardiac stents, defibrillator placed and has had coronary artery bypass grafting in 2022. Patient has a history of hyperlipidemia, insulin-dependent diabetes, CVA, hypertension and arthritis. Timing/Duration: week(s) (Symptoms present for at least a week), worse (Symptoms worsening over the last 2 days) Activities at Onset: none Severity of Dyspnea-Max: mild (Moderate) Severity of Dyspnea-Current: mild (To moderate) Possible Cause: occasional episodes Modifying Factors: Improves With: activity Associated Symptoms: cough, chest pain/discomfort Allergies/Adverse Reactions: tetracycline [Tetracycline] Allergy (Mild, Verified 05/20/25 19:10) Rash Home Medications: Atorvastatin Calcium 10 mg PO HS 07/16/22 [History] Cholecalciferol (Vitamin D3) [Vitamin D3] 125 mcg PO DAILY 07/16/22 [History] Latanoprost/Pf [Latanoprost 0.005% Eye Drop] 1 drop OP HS 07/16/22 [History] Sodium Bicarbonate 650 mg PO DAILY 07/16/22 [History] Aspirin 81 gm Chew [Baby Aspirin 81 mg Chew] 81 mg PO DAILY 01/13/23 [History] Cyanocobalamin (Vitamin B-12) [B-12] 1,000 mcg PO DAILY 01/13/23 [History] Ferrous Sulfate 325 mg [Feosol 325 mg] 325 mg PO DAILY 04/01/23 [History] Allopurinol 300 mg [Zyloprim 300 mg] 300 mg PO DAILY 03/25/24 [History] Hydrocodone/Acetaminophen [Hydrocodone-Acetamin 7.5-325] 1 each PO Q6HPRN PRN 03/25/24 [History] Insulin Glargine [Lantus Insulin] 22 unit SQ DAILY 03/25/24 [History] Semaglutide [Ozempic] 0.5 mg SQ WEEKLY 12/28/24 [History] Hx Tetanus, Diphtheria Vaccination/Date Given: Yes Hx Influenza Vaccination/Date Given: Yes Hx Pneumococcal Vaccination/Date Given: Yes Travel Risk - International Travel Have you traveled outside of the country in past 3 weeks: No - Emerging Infectious Disease Are you exhibiting symptoms associated with any current EIDs: Yes Symptoms: Abdominal Pain, Shortness of Breath - Review of Systems Constitutional: No Symptoms Eyes: No Symptoms Ears, Nose, & Throat: No Symptoms Respiratory: Cough, Dyspnea Cardiac: Chest Pain Abdominal/Gastrointestinal: No Symptoms Genitourinary Symptoms: No Symptoms Musculoskeletal: No Symptoms Skin: No Symptoms Neurological: No Symptoms Psychological: No Symptoms Endocrine: No Symptoms Hematologic/Lymphatic: No Symptoms Immunological/Allergic: No Symptoms All Other Systems: Reviewed and Negative - Past Medical History Pertinent Past Medical History: Yes Neurological History: Stroke ENT History: Cataracts, Other Cardiac History: Coronary Artery Disease, High Cholesterol, Hypertension, Myocardial Infarction ([place]) Respiratory History: Pneumonia, Sleep Apnea Endocrine Medical History: Diabetes Type II Musculoskeletal History: Arthritis GI Medical History: Diverticulitis History: Renal Disease Psycho-Social History: No Pertinent History Male Reproductive Disorders: No Pertinent History Other Medical History: agent orange, malaria - Past Surgical History Past Surgical History: Yes Neuro Surgical History: No Pertinent History Cardiac: CABG, Cardiac Catheterization, Cardiac Stent, Internal Defibrillator Respiratory: No Pertinent History Gastrointestinal: No Pertinent History Genitourinary: No Pertinent History Musculoskeletal: Other Male Surgical History: No Pertinent History Other Surgical History: back surgery, 3 stents, open heart bypass surgery in January 2023, - Social History Smoking Status: Never smoker Drug Use: none - Social Determinants of Health Will the patient participate in the screening: Yes Do you worry about a steady place to live?: No Do you have any problems with any of the following?: No known problems In the past 12 months,have you had to go without utilities?: No Transportation Issues: No Has anyone in your support network made you feel unsafe?: No Have you or anyone in your house had to go w/o enough food: No - Nursing Vital Signs Nursing Vital Signs: Initial Vital Signs Temperature 97.5 F 05/20/25 18:59 Pulse Rate 93 H 05/20/25 18:59 Respiratory Rate 22 05/20/25 18:59 Blood Pressure 131/98 05/20/25 18:59 O2 Sat by Pulse Oximetry 98 05/20/25 18:59 Pain Scale Pain Intensity 5 - Physical Exam General Appearance: mild distress, alert, anxiety, thin Eye Exam: PERRL/EOMI, eyes nml inspection Ears, Nose, Throat Exam: hearing grossly normal, normal ENT inspection Neck Exam: normal inspection, non-tender, supple, full range of motion Respiratory Exam: airway intact, diminished breath sounds (Left base.), crackles/rales (Left base primarily), No respiratory distress Cardiovascular/Chest Exam: normal heart sounds, regular rate/rhythm Abdominal/Gastrointestinal Exam: soft, normal bowel sounds, No tenderness Rectal Exam: not done Extremity Exam: non-tender Neurologic Exam: alert, oriented x 3, cooperative, electric tripper machine operator II-XII nml as tested, sensation nml Skin Exam: normal color, warm, dry Lymphatic Exam: No adenopathy SpO2 Interpretation: normal SpO2: 99 O2 Delivery: Room Air - Course Nursing assessment & vital signs reviewed: Yes Ordered Tests: Active Orders 24 hr Category Date Time Status Bobbin Marker STAT Care 05/20/25 19:13 Active EKG-ER Only STAT Care 05/20/25 19:12 Completed IV Insertion STAT Care 05/20/25 19:12 Active Pulse Oximetry (ED) STAT Care 05/20/25 19:12 Active CHEST 1 VIEW (PORTABLE) Stat Exams 05/20/25 19:13 Taken BLOOD CULTURE Stat Lab 05/20/25 19:35 Received CBC W DIFF Stat Lab 05/20/25 19:10 Completed CMP Stat Lab 05/20/25 19:10 Completed Lactic Acid Stat Lab 05/20/25 19:35 Completed MAGNESIUM Stat Lab 05/20/25 19:10 Completed NT PRO BNPII Stat Lab 05/20/25 19:10 Completed PROTIME WITH INR Stat Lab 05/20/25 19:10 Completed TROPONIN Q4H Lab 05/20/25 19:10 Completed TROPONIN Q4H Lab 05/20/25 23:15 Ordered TROPONIN Q4H Lab 05/21/25 03:15 Ordered Medication Summary Discontinued Medications Generic Name Dose Route Start Last Admin Trade Name Freq PRN Reason Stop Dose Admin Ceftriaxone Sodium 1 gm in 100 mls @ 200 mls/hr 05/20/25 21:11 05/20/25 21:15 Rocephin 1 Gm / 100 Ml Nacl IV 05/20/25 21:40 200 mls/hr STAT ONE 200 mls/hr Administration Ceftriaxone Sodium Confirm 05/20/25 21:15 Rocephin 1 Gm / 100 Ml Nacl Administered 05/20/25 21:16 Dose 1 gm in 100 mls @ ud IV .[facility] Lab/Rad Data: Laboratory Result Diagrams 05/20/25 19:10 05/20/25 19:10 Laboratory Results 05/20/25 05/20/25 05/20/25 Range/Units 19:35 19:35 19:10 WBC (4.23-9.07) x10^3/uL RBC (4.63-6.08) x10^6/uL Hgb (13.7-17.5) g/dL Hct (40.1-51.0) % MCV (79.0-92.2) fL MCH (25.7-32.2) pg MCHC (32.3-36.5) g/dL RDW (11.6-14.4) % Plt Count (163-337) x10^3/uL MPV (9.4-12.4) fL Gran % (34.0-67.9) % Immature Gran % (Auto) (0.001-0.429) % Nucleat RBC Rel Count (0.00-0.2) % Eos # (Auto) (0.04-0.54) x10^3/uL Immature Gran # (Auto) (0.001-0.031) x10^3u/L Absolute Lymphs (auto) (1.32-3.57) x10^3/uL Absolute Monos (auto) (0.30-0.82) x10^3/uL Absolute Nucleated RBC (0.00-0.012) x10^3u/L Lymphocytes % (21.8-53.1) % Monocytes % (5.3-12.2) % Eosinophils % (0.8-7.0) % Basophils % (0.2-1.2) % Absolute Granulocytes (1.78-5.38) x10^3/uL Basophils # (0.01-0.08) x10^3/uL PT (9.4-12.5) SECONDS INR (0.8-3.0) Sodium (135-145) mmol/L Potassium (3.5-5.1) mmol/L Chloride (98-107) mmol/L Carbon Dioxide (22-30) mmol/L Anion Gap (5-15) MEQ/L BUN (9-20) mg/dL Creatinine (0.66-1.25) mg/dL Estimated GFR ML/MIN Glucose (74-106) mg/dL Lactic Acid 1.1 (0.4-2.0) Calcium (8.4-10.2) mg/dL Magnesium (1.6-2.3) mg/dL Total Bilirubin (0.2-1.3) mg/dL AST (17-59) U/L ALT (0-50) U/L Alkaline Phosphatase (38-126) U/L Troponin I < 0.012 (0.000-0.033) ng/mL NT-Pro-B Natriuret Pep 3570 (<300) pg/mL Serum Total Protein (6.3-8.2) g/dL Albumin (3.5-5.0) g/dL Influenza Type A Ag NEGATIVE (NEGATIVE) Influenza Type B Ag NEGATIVE (NEGATIVE) RSV (PCR) NEGATIVE (NEGATIVE) SARS-CoV-2 (PCR) NEGATIVE (NEGATIVE) 05/20/25 05/20/25 05/20/25 Range/Units 19:10 19:10 19:10 WBC 8.6 (4.23-9.07) x10^3/uL RBC 5.04 (4.63-6.08) x10^6/uL Hgb 15.5 (13.7-17.5) g/dL Hct 47.6 (40.1-51.0) % MCV 94.4 H (79.0-92.2) fL MCH 30.8 (25.7-32.2) pg MCHC 32.6 (32.3-36.5) g/dL RDW 13.7 (11.6-14.4) % Plt Count 206 (163-337) x10^3/uL MPV 10.6 (9.4-12.4) fL Gran % 53.9 (34.0-67.9) % Immature Gran % (Auto) 0.1 (0.001-0.429) % Nucleat RBC Rel Count 0.0 (0.00-0.2) % Eos # (Auto) 0.33 (0.04-0.54) x10^3/uL Immature Gran # (Auto) 0.01 (0.001-0.031) x10^3u/L Absolute Lymphs (auto) 2.77 (1.32-3.57) x10^3/uL Absolute Monos (auto) 0.75 (0.30-0.82) x10^3/uL Absolute Nucleated RBC 0.00 (0.00-0.012) x10^3u/L Lymphocytes % 32.4 (21.8-53.1) % Monocytes % 8.8 (5.3-12.2) % Eosinophils % 3.9 (0.8-7.0) % Basophils % 0.9 (0.2-1.2) % Absolute Granulocytes 4.62 (1.78-5.38) x10^3/uL Basophils # 0.08 (0.01-0.08) x10^3/uL PT 11.4 (9.4-12.5) SECONDS INR 1.02 (0.8-3.0) Sodium 134 L (135-145) mmol/L Potassium 5.6 H (3.5-5.1) mmol/L Chloride 101 (98-107) mmol/L Carbon Dioxide 25 (22-30) mmol/L Anion Gap 13.0 (5-15) MEQ/L BUN 52 H (9-20) mg/dL Creatinine 3.11 H (0.66-1.25) mg/dL Estimated GFR 19.7 ML/MIN Glucose 193 H (74-106) mg/dL Lactic Acid (0.4-2.0) Calcium 9.2 (8.4-10.2) mg/dL Magnesium 2.0 (1.6-2.3) mg/dL Total Bilirubin 0.60 (0.2-1.3) mg/dL AST 20 (17-59) U/L ALT 9 (0-50) U/L Alkaline Phosphatase 82 (38-126) U/L Troponin I (0.000-0.033) ng/mL NT-Pro-B Natriuret Pep (<300) pg/mL Serum Total Protein 6.5 (6.3-8.2) g/dL Albumin 3.7 (3.5-5.0) g/dL Influenza Type A Ag (NEGATIVE) Influenza Type B Ag (NEGATIVE) RSV (PCR) (NEGATIVE) SARS-CoV-2 (PCR) (NEGATIVE) - Progress Progress: improved, re-examined Air Movement: fair Progress Note: 05/20/25 20:44 My medical decision making and the assignment of moderate to high complexity of this patient's medical issue today is based on review of the patient's past medical history, reviewed patient's medication list, reviewed patient drug allergy list, history present does not physical findings on examination. The workup in this patient includes placement of an intravenous line, CBC, CMP, magnesium level, troponin level, BNP level, twelve-lead EKG, chest x-ray, viral swabs. Differential diagnosis includes was not limited to CHF exacerbation, COPD exacerbation, myocardial infarction, arrhythmia, pulmonary infiltrate, viral illness, electrolyte abnormalities 05/20/25 21:52 I interpreted the patient's laboratory data results. Based on laboratory data results, patient has elevated BNP level and normal troponin level with a normal white count. Subjectively, the patient still feels short of breath although his room air oxygen saturation level is 98%. Patient has a significant cardiac history. We have contacted the [facility] and they gave us clearance to place the patient in our hospital or transfer to another facility if indicated. The preliminary chest x-ray report was interpreted by me. Patient appears to have cardiomegaly with no obvious pleural effusions. There appears to be an early infiltrate in the right base. I spoke with Dr. Law, the hospitalist on-call at this time. Together, we have agreed to place this patient in observation and repeat labs tomorrow morning, 05/21/2025 with repeat, serial troponin levels and repeat twelve-lead EKG tomorrow morning. We will place him on maintenance fluid at 75 cc an hour. I will have respiratory therapy evaluate this patient. Blood Culture(s) Obtained: Yes Antibiotics given: Yes Counseled pt/family regarding: lab results, diagnosis, rad results Medical Desision Making - Independent Historian Additional History obtained from: Spouse - Diagnostic Testing Diagnostic test were ordered, analyzed, and reviewed by me: Yes Radiological Interpretation: Interpreted by me - Risk of complications The pt has a high risk of morbidity or mortality based on: Decision regarding hospitilization or escalation of hosp level of care - Departure Departure Disposition: Observation Clinical Impression: Chronic renal failure, Elevated brain natriuretic peptide (BNP) level, Right pulmonary infiltrate on CXR Condition: Fair Critical Care Time: No Referrals: HOSPITAL,'[facility] [Primary Care Provider, UNKNOWN] - Follow up/PCP as directed
[2025-05-20 19:24] LABS: BASOPHIL % 0.9 % (0.2-1.2); Basophil (Absolute #) 0.08 x10^3/uL (0.01-0.08); Eosinophil (Absolute #) 0.33 x10^3/uL (0.04-0.54); Hematocrit 47.6 % (40.1-51.0); Hemoglobin 15.5 g/dL (13.7-17.5); IMMATURE GRAN # 0.01 x10^3u/L (0.001-0.031); IMMATURE GRAN % 0.1 % (0.001-0.429); Lymphocyte (Absolute #) 2.77 x10^3/uL (1.32-3.57); Mean Corpuscular Hemoglobin 30.8 pg (25.7-32.2); Mean Corpuscular Hgb Concent. 32.6 g/dL (32.3-36.5); Monocyte (Absolute #) 0.75 x10^3/uL (0.30-0.82); NUCLEATED RBC # 0.00 x10^3u/L (0.00-0.012); NUCLEATED RBC % 0.0 % (0.00-0.2); Platelet Count 206 x10^3/uL (163-337); Red Blood Count 5.04 x10^6/uL (4.63-6.08); White Blood Count 8.6 x10^3/uL (4.23-9.07)
[2025-05-20 19:30] LABS: Calcium 9.2 mg/dL (8.4-10.2); Carbon Dioxide 25.0 mmol/L (22-30); Creatinine 1 3.11 mg/dL (0.66-1.25); EST GLOMERULAR FILTRATION RATE 19.7 ML/MIN; Glucose 193.0 mg/dL (74-106); SGOT/AST 20.0 U/L (17-59); SGPT/ALT 9.0 U/L (0-50); Total Protein 6.5 g/dL (6.3-8.2)
[2025-05-20 19:43] LABS: NT PRO BNPII 3570 pg/mL (<300); TROPONIN < 0.012 ng/mL (0.000-0.033)
[2025-05-20 19:45] LABS: INR 1.02 (0.8-3.0); PROTIME 11.4 SECONDS (9.4-12.5)
[2025-05-20 19:46] LABS: Potassium 5.6 mmol/L (3.5-5.1)
[2025-05-20 20:20] LABS: INFLUENZA A NEGATIVE (NEGATIVE); INFLUENZA B NEGATIVE (NEGATIVE); RESPIRATORY SYNCTIAL VIRUS NEGATIVE (NEGATIVE); SARS-CoV-2 Xpert Express NEGATIVE (NEGATIVE)
[2025-05-20] MEDS ORDERED: ROCEPHIN 1 GM / 100 ML NaCl 1 GM/100 ML IVPB IV ONE (21:15)
[2025-05-20] MEDS: ROCEPHIN 1 GM / 100 ML NaCl 1 GM/100 ML IVPB IV ONE (21:15)
[2025-05-20] MEDS ORDERED: HUMULIN R SQ PRN (22:24)
[2025-05-20] MEDS ORDERED: Zofran 4 MG/2 ML VIAL IV PRN (22:24)
[2025-05-21] MEDS ORDERED: PROVENTIL 2.5 MG/3 ML NEB IH PRN (00:10)
[2025-05-21] MEDS ORDERED: TYLENOL EXTRA STRENGTH 500 MG ONE (03:30)
[2025-05-21 05:50] LABS: BASOPHIL % 0.7 % (0.2-1.2); Basophil (Absolute #) 0.05 x10^3/uL (0.01-0.08); Eosinophil (Absolute #) 0.28 x10^3/uL (0.04-0.54); Hematocrit 44.6 % (40.1-51.0); Hemoglobin 14.8 g/dL (13.7-17.5); IMMATURE GRAN # 0.02 x10^3u/L (0.001-0.031); IMMATURE GRAN % 0.3 % (0.001-0.429); Lymphocyte (Absolute #) 2.12 x10^3/uL (1.32-3.57); Mean Corpuscular Hemoglobin 31.0 pg (25.7-32.2); Mean Corpuscular Hgb Concent. 33.2 g/dL (32.3-36.5); Monocyte (Absolute #) 0.60 x10^3/uL (0.30-0.82); NUCLEATED RBC # 0.00 x10^3u/L (0.00-0.012); NUCLEATED RBC % 0.0 % (0.00-0.2); Platelet Count 180 x10^3/uL (163-337); Red Blood Count 4.78 x10^6/uL (4.63-6.08); White Blood Count 7.4 x10^3/uL (4.23-9.07)
[2025-05-21 06:26] LABS: Calcium 8.8 mg/dL (8.4-10.2); Carbon Dioxide 20.0 mmol/L (22-30); Creatinine 1 2.81 mg/dL (0.66-1.25); EST GLOMERULAR FILTRATION RATE 22.3 ML/MIN; Glucose 128.0 mg/dL (74-106); NT PRO BNPII 2660.0 pg/mL (<300); Potassium 4.7 mmol/L (3.5-5.1); SGOT/AST 15.0 U/L (17-59); SGPT/ALT 8.0 U/L (0-50); Total Protein 5.8 g/dL (6.3-8.2)
[2025-05-21] MEDS ORDERED: NORCO 7.5/325 MG TAB PO PRN (06:42)
--- NOTE | 2025-05-21 06:45 | PCM.HP ---
History of Present Illness - Chief Complaint Chief Complaint: Shortness of breath History of Present Illness: Fluid overload, clinical suspicion of (acute, high risk) - This is suspected to be secondary to decompensated heart failure or worsening renal function. Although the physical examination is not highly suggestive of intravascular hypervolemia, he reports symptoms of orthopnea and exertional dyspnea, which are concerning. His N-terminal pro-B-type natriuretic peptide is also markedly elevated. - I suspect he is developing cardiorenal syndrome from either worsening renal function or worsening cardiac function. - Intravenous fluids have been stopped. - He will receive an 80 mg dose of intravenous Lasix in the morning. - The diuretic dosing and clinical approach will be reassessed based on his response to therapy. - An echocardiogram has been ordered. - If his condition is stable, an outpatient nephrology consultation will be recommended. Ischemic cardiomyopathy/HFrEF, Stage C s/p ICD (chronic, unstable) - He has a history of an implantable cardioverter-defibrillator. - Worsening cardiomyopathy is suspected. - A repeat echocardiogram has been ordered. - He will continue Toprol XL 100 mg daily. Severe renal impairment (acute, high risk) - This represents either chronic kidney disease Stage 4 or an acute kidney injury superimposed on chronic kidney disease. - A basic metabolic panel will be repeated to assess his response to diuretic therapy. Diabetes mellitus (chronic) - His home insulin dosing will be resumed. Right lung infiltrate (etiology under investigation) - The cause is being investigated. It is suspected to be of a non-infectious etiology, such as a pleural effusion secondary to intravascular hypervolemia. - Antibiotics are not being continued at this time, but his clinical course will be monitored closely. Subjective This is a 79-year-old gentleman who presents with feeling unwell. Over the last several months, he has experienced episodes of orthopnea and exertional dyspnea. He reports persistent fatigue since Easter of this year. For the past few weeks, he has had a non-productive cough associated with chills. Following the onset of the cough, he developed musculoskeletal chest pain, which is reproducible with palpation of his sternum. The pain is positional and can be elicited by lying on one side versus the other. Home medications Toprol XL 100 mg qday Ozempic 0.5 mg weekly Atorvastatin 10 mg qHS Aspirin 81 mg qday Physical examination Vital Signs Blood pressure: 127/69 mmHg Heart rate: 96 beats per minute Respiratory rate: Non-tachypneic Oxygen saturation: 94% on room air Temperature: 97.1 F Height: 6 feet 3 inches Weight: 188 lbs BMI: 27.8 kg/m Neurological Alert and oriented to person, place, and time. Thought process and content are normal. Cardiovascular Non-tachycardic. Respiratory Non-tachypneic. Auscultation reveals a right lower lung infiltrate. Abdominal Soft and non-tender. Musculoskeletal No gross deformity noted. Lab and Studies Reviewed - Complete Blood Count (05/20/2025): Hemoglobin 15.5 g/dL, Platelets 206,000/mcL. Independently reviewed and interpreted by me. - Chemistry Profile (05/20/2025): Sodium 134 mmol/L, Potassium 5.6 mmol/L, Chloride 101 mmol/L, Bicarbonate 25 mmol/L, BUN 52 mg/dL, Creatinine 3.11 mg/dL, eGFR 19.7 mL/min/1.73m, Glucose 193 mg/dL, Troponin elevated, NT-proBNP 3570 pg/mL. Independently reviewed and interpreted by me. - Chest X-ray (05/20/2025): Notable for a right lower lung infiltrate. Independently reviewed and interpreted by me. Notes reviewed Emergency Room documentation from 05/20/2025 was reviewed. It was noted that he presented with shortness of breath for one week, with worsening symptoms over the last two days. MDM Summary 1. Number and Complexity of Problems Addressed (CoPA): - High Complexity: The patient presents with multiple chronic illnesses (ischemic cardiomyopathy, CKD, diabetes) with acute exacerbation, specifically decompensated heart failure and [id number] kidney injury. These conditions pose a threat to life and bodily function, requiring intensive management and evaluation. 2. Amount and/or Complexity of Data to be Reviewed and Analyzed (Data): - Extensive: Management required the review of external notes from the ER, independent interpretation of multiple lab panels (CBC, chemistry with troponin and NT-proBNP), and a chest X-ray. Additionally, an echocardiogram has been ordered, which is an advanced imaging test. 3. Risk of Complications, Morbidity, and/or Mortality (Risk): - High Risk: The patient's management involves decisions that carry a high risk of morbidity or mortality. This includes the administration of intravenous Lasix, which requires intensive monitoring for toxicity, and consideration of hospitalization for management of decompensated heart failure and acute kidney injury. The presence of acute on chronic illness with a threat to life or bodily function qualifies for high risk. - Review of Systems Constitutional: No Symptoms, No Fever, No Chills Cardiac: Chest Pain, Orthopnea, No Palpitations, No Syncope Abdominal/Gastrointestinal: No Abdominal Pain Skin: No Symptoms Neurological: Dizziness, Focal Weakness Hematologic/Lymphatic: No Symptoms Immunological/Allergic: No Symptoms Medications & Allergies Home Medications: Home Medication List Atorvastatin Calcium 10 mg PO HS 07/16/22 [History Confirmed 05/20/25] Cholecalciferol (Vitamin D3) [Vitamin D3] 125 mcg PO DAILY 07/16/22 [History Confirmed 05/20/25] Latanoprost/Pf [Latanoprost 0.005% Eye Drop] 1 drop OP HS 07/16/22 [History Confirmed 05/20/25] Sodium Bicarbonate 650 mg PO DAILY 07/16/22 [History Confirmed 05/20/25] Aspirin 81 gm Chew [Baby Aspirin 81 mg Chew] 81 mg PO DAILY 01/13/23 [History Confirmed 05/20/25] Cyanocobalamin (Vitamin B-12) [B-12] 1,000 mcg PO DAILY 01/13/23 [History Confirmed 05/20/25] Ferrous Sulfate 325 mg [Feosol 325 mg] 325 mg PO DAILY 04/01/23 [History Confirmed 05/20/25] Allopurinol 300 mg [Zyloprim 300 mg] 300 mg PO DAILY 03/25/24 [History Confirmed 05/20/25] Hydrocodone/Acetaminophen [Hydrocodone-Acetamin 7.5-325] 1 each PO Q6HPRN PRN 03/25/24 [History Confirmed 05/20/25] Insulin Glargine [Lantus Insulin] 22 unit SQ DAILY 03/25/24 [History Con firmed 05/20/25] Metoprolol Succinate 100 mg [Toprol Xl 100 MG] 100 mg PO DAILY 30 Days #30 tablet 03/28/24 [Rx Confirmed 05/20/25] Semaglutide [Ozempic] 0.5 mg SQ WEEKLY 12/28/24 [History Confirmed 05/20/25] Orphenadrine Citrate 100 mg [Norflex 100 MG Tablet] 100 mg PO BID #10 tab 03/31/25 [Rx Confirmed 05/20/25] Allergies/Adverse Reactions: Allergies Allergy/AdvReac Type Severity Reaction Status Date / Time tetracycline [Tetracycline] Allergy Mild Rash Verified 05/20/25 19:10 - Past Medical History Past Medical History: Yes Neurological History: Stroke ENT History: Cataracts, Other Cardiac History: Coronary Artery Disease, High Cholesterol, Hypertension, Myocardial Infarction ([place]) Respiratory History: Pneumonia, Sleep Apnea Endocrine Medical History: Diabetes Type II Musculoskelatal History: Arthritis GI Medical History: Diverticulitis History: Renal Disease Pyscho-Social History: No Pertinent History Male Reproductive Disorders: No Pertinent History Comment: agent orange, malaria - Past Surgical History Past Surgical History: Yes Neuro Surgical History: No Pertinent History Cardiac History: CABG, Cardiac Catheterization, Cardiac Stent, Internal Defibrillator Respiratory Surgery: No Pertinent History GI Surgical History: No Pertinent History Genitourinary Surgical Hx: No Pertinent History Musculskeletal Surgical Hx: Other Male Surgical History: No Pertinent History Other Surgical History: back surgery, 3 stents, open heart bypass surgery in January 2023, - Social History Smoking Status: Never smoker Exposure to second hand smoke: No Alcohol: None Drug Use: none - Social Determinants of Health Will the patient participate in the screening: Yes Do you worry about a steady place to live?: No Do you have any problems with any of the following?: No known problems In the past 12 months,have you had to go without utilities?: No Have you or anyone in your house had to go without enough: No Transportation Issues: No Has anyone in your support network made you feel unsafe?: No Does the patient want assistance with any of the above?: No - Physical Exam Vital Signs: Vital Signs - 24 hr Temp Pulse Resp BP BP Pulse Ox 05/21/25 04:00 97.1 F 96 H 18 127/69 94 L 05/21/25 00:04 93 H 16 94 L 05/20/25 22:47 97.0 F 98 H 18 165/77 97 05/20/25 22:00 93 H 11 L 155/91 98 05/20/25 21:58 99 05/20/25 21:30 95 H 11 L 146/81 99 05/20/25 21:00 94 H 13 150/92 96 05/20/25 20:30 94 H 12 145/81 97 05/20/25 20:00 94 H 7 L 117/63 120/68 99 05/20/25 19:59 88 14 117/63 98 05/20/25 19:12 98 05/20/25 19:01 94 H 10 L 131/98 98 05/20/25 18:59 97.5 F 93 H 36 H 131/98 99 Results - Labs Lab/Micro Results: Lab Results-Last 24 Hours 05/20/25 05/20/25 05/20/25 Range/Units 19:10 19:10 19:10 WBC 8.6 (4.23-9.07) x10^3/uL RBC 5.04 (4.63-6.08) x10^6/uL Hgb 15.5 (13.7-17.5) g/dL Hct 47.6 (40.1-51.0) % MCV 94.4 H (79.0-92.2) fL MCH 30.8 (25.7-32.2) pg MCHC 32.6 (32.3-36.5) g/dL RDW 13.7 (11.6-14.4) % Plt Count 206 (163-337) x10^3/uL MPV 10.6 (9.4-12.4) fL Gran % 53.9 (34.0-67.9) % Immature Gran % (Auto) 0.1 (0.001-0.429) % Nucleat RBC Rel Count 0.0 (0.00-0.2) % Eos # (Auto) 0.33 (0.04-0.54) x10^3/uL Immature Gran # (Auto) 0.01 (0.001-0.031) x10^3u/L Absolute Lymphs (auto) 2.77 (1.32-3.57) x10^3/uL Absolute Monos (auto) 0.75 (0.30-0.82) x10^3/uL Absolute Nucleated RBC 0.00 (0.00-0.012) x10^3u/L Lymphocytes % 32.4 (21.8-53.1) % Monocytes % 8.8 (5.3-12.2) % Eosinophils % 3.9 (0.8-7.0) % Basophils % 0.9 (0.2-1.2) % Absolute Granulocytes 4.62 (1.78-5.38) x10^3/uL Basophils # 0.08 (0.01-0.08) x10^3/uL PT 11.4 (9.4-12.5) SECONDS INR 1.02 (0.8-3.0) Sodium 134 L (135-145) mmol/L Potassium 5.6 H (3.5-5.1) mmol/L Chloride 101 (98-107) mmol/L Carbon Dioxide 25 (22-30) mmol/L Anion Gap 13.0 (5-15) MEQ/L BUN 52 H (9-20) mg/dL Creatinine 3.11 H (0.66-1.25) mg/dL Estimated GFR 19.7 ML/MIN Glucose 193 H (74-106) mg/dL Lactic Acid (0.4-2.0) Calcium 9.2 (8.4-10.2) mg/dL Magnesium 2.0 (1.6-2.3) mg/dL Total Bilirubin 0.60 (0.2-1.3) mg/dL AST 20 (17-59) U/L ALT 9 (0-50) U/L Alkaline Phosphatase 82 (38-126) U/L Troponin I (0.000-0.033) ng/mL NT-Pro-B Natriuret Pep (<300) pg/mL Serum Total Protein 6.5 (6.3-8.2) g/dL Albumin 3.7 (3.5-5.0) g/dL Influenza Type A Ag (NEGATIVE) Influenza Type B Ag (NEGATIVE) RSV (PCR) (NEGATIVE) SARS-CoV-2 (PCR) (NEGATIVE) 05/20/25 05/20/25 05/20/25 Range/Units 19:10 19:35 19:35 WBC (4.23-9.07) x10^3/uL RBC (4.63-6.08) x10^6/uL Hgb (13.7-17.5) g/dL Hct (40.1-51.0) % MCV (79.0-92.2) fL MCH (25.7-32.2) pg MCHC (32.3-36.5) g/dL RDW (11.6-14.4) % Plt Count (163-337) x10^3/uL MPV (9.4-12.4) fL Gran % (34.0-67.9) % Immature Gran % (Auto) (0.001-0.429) % Nucleat RBC Rel Count (0.00-0.2) % Eos # (Auto) (0.04-0.54) x10^3/uL Immature Gran # (Auto) (0.001-0.031) x10^3u/L Absolute Lymphs (auto) (1.32-3.57) x10^3/uL Absolute Monos (auto) (0.30-0.82) x10^3/uL Absolute Nucleated RBC (0.00-0.012) x10^3u/L Lymphocytes % (21.8-53.1) % Monocytes % (5.3-12.2) % Eosinophils % (0.8-7.0) % Basophils % (0.2-1.2) % Absolute Granulocytes (1.78-5.38) x10^3/uL Basophils # (0.01-0.08) x10^3/uL PT (9.4-12.5) SECONDS INR (0.8-3.0) Sodium (135-145) mmol/L Potassium (3.5-5.1) mmol/L Chloride (98-107) mmol/L Carbon Dioxide (22-30) mmol/L Anion Gap (5-15) MEQ/L BUN (9-20) mg/dL Creatinine (0.66-1.25) mg/dL Estimated GFR ML/MIN Glucose (74-106) mg/dL Lactic Acid 1.1 (0.4-2.0) Calcium (8.4-10.2) mg/dL Magnesium (1.6-2.3) mg/dL Total Bilirubin (0.2-1.3) mg/dL AST (17-59) U/L ALT (0-50) U/L Alkaline Phosphatase (38-126) U/L Troponin I < 0.012 (0.000-0.033) ng/mL NT-Pro-B Natriuret Pep 3570 (<300) pg/mL Serum Total Protein (6.3-8.2) g/dL Albumin (3.5-5.0) g/dL Influenza Type A Ag NEGATIVE (NEGATIVE) Influenza Type B Ag NEGATIVE (NEGATIVE) RSV (PCR) NEGATIVE (NEGATIVE) SARS-CoV-2 (PCR) NEGATIVE (NEGATIVE) 05/20/25 05/21/25 05/21/25 Range/Units 23:50 05:25 05:25 WBC 7.4 (4.23-9.07) x10^3/uL RBC 4.78 (4.63-6.08) x10^6/uL Hgb 14.8 (13.7-17.5) g/dL Hct 44.6 (40.1-51.0) % MCV 93.3 H (79.0-92.2) fL MCH 31.0 (25.7-32.2) pg MCHC 33.2 (32.3-36.5) g/dL RDW 13.8 (11.6-14.4) % Plt Count 180 (163-337) x10^3/uL MPV 10.7 (9.4-12.4) fL Gran % 58.6 (34.0-67.9) % Immature Gran % (Auto) 0.3 (0.001-0.429) % Nucleat RBC Rel Count 0.0 (0.00-0.2) % Eos # (Auto) 0.28 (0.04-0.54) x10^3/uL Immature Gran # (Auto) 0.02 (0.001-0.031) x10^3u/L Absolute Lymphs (auto) 2.12 (1.32-3.57) x10^3/uL Absolute Monos (auto) 0.60 (0.30-0.82) x10^3/uL Absolute Nucleated RBC 0.00 (0.00-0.012) x10^3u/L Lymphocytes % 28.5 (21.8-53.1) % Monocytes % 8.1 (5.3-12.2) % Eosinophils % 3.8 (0.8-7.0) % Basophils % 0.7 (0.2-1.2) % Absolute Granulocytes 4.36 (1.78-5.38) x10^3/uL Basophils # 0.05 (0.01-0.08) x10^3/uL PT (9.4-12.5) SECONDS INR (0.8-3.0) Sodium (135-145) mmol/L Potassium (3.5-5.1) mmol/L Chloride (98-107) mmol/L Carbon Dioxide (22-30) mmol/L Anion Gap (5-15) MEQ/L BUN (9-20) mg/dL Creatinine (0.66-1.25) mg/dL Estimated GFR ML/MIN Glucose (74-106) mg/dL Lactic Acid (0.4-2.0) Calcium (8.4-10.2) mg/dL Magnesium (1.6-2.3) mg/dL Total Bilirubin (0.2-1.3) mg/dL AST (17-59) U/L ALT (0-50) U/L Alkaline Phosphatase (38-126) U/L Troponin I < 0.012 0.017 (0.000-0.033) ng/mL NT-Pro-B Natriuret Pep (<300) pg/mL Serum Total Protein (6.3-8.2) g/dL Albumin (3.5-5.0) g/dL Influenza Type A Ag (NEGATIVE) Influenza Type B Ag (NEGATIVE) RSV (PCR) (NEGATIVE) SARS-CoV-2 (PCR) (NEGATIVE) 05/21/25 Range/Units 05:25 WBC (4.23-9.07) x10^3/uL RBC (4.63-6.08) x10^6/uL Hgb (13.7-17.5) g/dL Hct (40.1-51.0) % MCV (79.0-92.2) fL MCH (25.7-32.2) pg MCHC (32.3-36.5) g/dL RDW (11.6-14.4) % Plt Count (163-337) x10^3/uL MPV (9.4-12.4) fL Gran % (34.0-67.9) % Immature Gran % (Auto) (0.001-0.429) % Nucleat RBC Rel Count (0.00-0.2) % Eos # (Auto) (0.04-0.54) x10^3/uL Immature Gran # (Auto) (0.001-0.031) x10^3u/L Absolute Lymphs (auto) (1.32-3.57) x10^3/uL Absolute Monos (auto) (0.30-0.82) x10^3/uL Absolute Nucleated RBC (0.00-0.012) x10^3u/L Lymphocytes % (21.8-53.1) % Monocytes % (5.3-12.2) % Eosinophils % (0.8-7.0) % Basophils % (0.2-1.2) % Absolute Granulocytes (1.78-5.38) x10^3/uL Basophils # (0.01-0.08) x10^3/uL PT (9.4-12.5) SECONDS INR (0.8-3.0) Sodium 133 L (135-145) mmol/L Potassium 4.7 (3.5-5.1) mmol/L Chloride 106 (98-107) mmol/L Carbon Dioxide 20 L (22-30) mmol/L Anion Gap 12.0 (5-15) MEQ/L BUN 49 H (9-20) mg/dL Creatinine 2.81 H (0.66-1.25) mg/dL Estimated GFR 22.3 ML/MIN Glucose 128 H (74-106) mg/dL Lactic Acid (0.4-2.0) Calcium 8.8 (8.4-10.2) mg/dL Magnesium (1.6-2.3) mg/dL Total Bilirubin 0.60 (0.2-1.3) mg/dL AST 15 L (17-59) U/L ALT 8 (0-50) U/L Alkaline Phosphatase 84 (38-126) U/L Troponin I (0.000-0.033) ng/mL NT-Pro-B Natriuret Pep 2660 (<300) pg/mL Serum Total Protein 5.8 L (6.3-8.2) g/dL Albumin 3.3 L (3.5-5.0) g/dL Influenza Type A Ag (NEGATIVE) Influenza Type B Ag (NEGATIVE) RSV (PCR) (NEGATIVE) SARS-CoV-2 (PCR) (NEGATIVE) - Radiology Impressions Radiology Exams & Impressions: Radiology Procedures Category Date Time Status CHEST 1 VIEW (PORTABLE) Stat Exams 05/20/25 19:13 Taken - Other Procedures and Tests Respiratory Therapy 05/21/25 00:03 Respiratory Therapy Assessment DAILY 05/21/25 00:04 Incentive Spirometry UD Telemedicine Encounter - Telemedicine Encounter Telemedicine Encounter: "The entirety of this encounter was performed via Telemedicine" This visit was performed using real-time audio and video connection between my location and thepatients locationwith the assistance of a surrogateat the patients location. Written or verbal consent was obtained from the patient/guardian to perform this visit [email or web address]. Any patient questions regarding the telemedicine interaction were answered.
--- NOTE | 2025-05-21 08:03 | XRAY ---
Indication: Short of breath. Comparison: December 15, 2024 Portable chest remains inflated and clear. Heart not enlarged again with CABG, mitral clip, and left pacemaker. Bony thorax intact again with osteopenia, mild degenerative changes, and old right 5 rib fracture. Impression: Continued nonacute chest with chronic features.
[2025-05-21] MEDS ORDERED: Furosemide 100mg/10 ml Vial IV ONE (10:00)
[2025-05-21] MEDS ORDERED: BABY ASPIRIN 81 MG CHEW PO SCH (10:00)
[2025-05-21] MEDS ORDERED: DUONEB 0.5-3 MG/3 ml Neb IH PRN (10:08)
[2025-05-21] MEDS ORDERED: TYLENOL 325 MG PO PRN (10:08)
[2025-05-21] MEDS: Lasix 40 MG/4 ML IV ONE (10:27)
[2025-05-21] MEDS: FEOSOL 325 MG PO SCH (10:28)
[2025-05-21] MEDS: Norflex 100 MG Tablet PO SCH (10:28)
[2025-05-21] MEDS: Toprol Xl 50 MG PO SCH (10:28)
[2025-05-21] MEDS: ECOTRIN 81 MG PO SCH (10:28)
[2025-05-21] MEDS: Lantus Insulin SQ SCH (10:29)
[2025-05-21] MEDS: ZYLOPRIM 300 MG PO SCH (10:29)
[2025-05-21 11:31] LABS: Calcium 9.4 mg/dL (8.4-10.2); Carbon Dioxide 23.0 mmol/L (22-30); Creatinine 1 3.16 mg/dL (0.66-1.25); EST GLOMERULAR FILTRATION RATE 19.4 ML/MIN; Glucose 137.0 mg/dL (74-106); Potassium 4.8 mmol/L (3.5-5.1); SGOT/AST 22.0 U/L (17-59); SGPT/ALT 10.0 U/L (0-50); Total Protein 7.3 g/dL (6.3-8.2)
[2025-05-21 14:46] LABS: Glucose, Urine 500 mg/dL (Negative); Protein,Urine Dip 100 (Negative); RBC 0-2 /HPF (0-5); WBC 0-2 /HPF (0-5)
[2025-05-21] MEDS: HUMALOG SQ PRN (17:54)
[2025-05-21] MEDS ORDERED: Cordarone 150 MG/3 ML Injection ONE (19:56)
[2025-05-21] MEDS ORDERED: D5w 100ML Mini Bag 100 ML 100 ML IV ONE (19:57)
[2025-05-21] MEDS: Cordarone 150 MG/3 ML Injection*** 150 MG in D5w 100ML Mini Bag 100 ML 100 ML IV ONE (20:35)
[2025-05-21] MEDS: NEXTERONE 360 MG/200 ML BAG 360 MG/200 ML PLAST..BAG IV SCH (20:45)
[2025-05-21] MEDS: HEPARIN 5000 UNITS/0.5 ML (HIGH RISK MED) SQ SCH (21:23)
[2025-05-21] MEDS: LIPITOR 40MG PO SCH (21:23)
[2025-05-21] MEDS: Xalatan OP SCH (21:26)
[2025-05-21] MEDS: Furosemide 100mg/10 ml Vial IV ONE (21:52)
[2025-05-21] MEDS: PHARMACY RENAL DOSING MC ONE (21:53)
[2025-05-21] MEDS: Cordarone 150 MG/3 ML Injection IV ONE (21:53)
[2025-05-21] MEDS ORDERED: NON-FORMULARY ITEM (Latanoprost/Pf [Latanoprost 0.005% Eye Drop] 7.5 ML Drops) OP SCH (22:00)
[2025-05-21] MEDS ORDERED: NON-FORMULARY ITEM (Atorvastatin Calcium [Atorvastatin Calcium] 10 MG Tablet) PO SCH (22:00)
--- NOTE | 2025-05-21 22:26 | PCM.CONS ---
History of Present Illness - Date of Consult Date of Encounter: 05/21/25 Consulting Floor Technician: CONRADO ANGULO MD Requesting Provider: Attending Provider: ADENIKE RUBIN MD Primary Care Provider: PCP: [facility] - Consult Narrative Reason for Consult: NSVT HPI: Patient is a 79M who denies fevers, chills, nausea, vomiting, diarrhea, syncope, presyncope, dysphagia,odynophagia, orthopnea, paroxysmal nocturnal dyspnea, shortness of breath, chest pain, refluxsymptoms, belly pain, dysuria, hematuria, melena, hematochezia, seizures, paralysis, or other neurological changes. All other systems have been reviewed and are negative. Pt has history of CAD s/p CABG, systolic HF, mitral regurgitation s/p anamika clip and ICD likely due to severe LV dysfunction now with improved EF. He has been reporting worsening SOB, orthopnea for the last few months. Pt has been experiencing runs of SVT and NSVT and was advised to increase his toprol xl to 150 mg and then to [facility] he has experienced more fatigue and other symptoms.He was advised to stop the Toprol xl but now has recurrent episodes of tachycardia. cc:: The requesting physician will be sent a copy of the consult. - Past Medical History Past Medical History: Yes Neurological History: Stroke ENT History: Cataracts, Other Cardiac History: Coronary Artery Disease, High Cholesterol, Hypertension, Myocardial Infarction ([place]) Respiratory History: Pneumonia, Sleep Apnea Endocrine Medical History: Diabetes Type II Musculoskelatal History: Arthritis GI Medical History: Diverticulitis History: Renal Disease Pyscho-Social History: No Pertinent History Male Reproductive Disorders: No Pertinent History Comment: agent orange, malaria - Past Surgical History Past Surgical History: Yes Neuro Surgical History: No Pertinent History Cardiac History: CABG, Cardiac Catheterization, Cardiac Stent, Internal Defibrillator Respiratory Surgery: No Pertinent History GI Surgical History: No Pertinent History Genitourinary Surgical Hx: No Pertinent History Musculskeletal Surgical Hx: Other Male Surgical History: No Pertinent History Other Surgical History: back surgery, 3 stents, open heart bypass surgery in January 2023, - Social History Smoking Status: Never smoker Exposure to second hand smoke: No Alcohol: None Drug Use: none - Social Determinants of Health Will the patient participate in the screening: Yes Do you worry about a steady place to live?: No Do you have any problems with any of the following?: No known problems In the past 12 months,have you had to go without utilities?: No Have you or anyone in your house had to go without enough: No Transportation Issues: No Has anyone in your support network made you feel unsafe?: No Does the patient want assistance with any of the above?: No Medications & Allergies Home Medications: Home Medication List Atorvastatin Calcium 10 mg PO HS 07/16/22 [History Confirmed 05/20/25] Cholecalciferol (Vitamin D3) [Vitamin D3] 125 mcg PO DAILY 07/16/22 [History Confirmed 05/20/25] Latanoprost/Pf [Latanoprost 0.005% Eye Drop] 1 drop OP HS 07/16/22 [History Confirmed 05/20/25] Sodium Bicarbonate 650 mg PO DAILY 07/16/22 [History Confirmed 05/20/25] Aspirin 81 gm Chew [Baby Aspirin 81 mg Chew] 81 mg PO DAILY 01/13/23 [History Confirmed 05/20/25] Cyanocobalamin (Vitamin B-12) [B-12] 1,000 mcg PO DAILY 01/13/23 [History Confirmed 05/20/25] Ferrous Sulfate 325 mg [Feosol 325 mg] 325 mg PO DAILY 04/01/23 [History Confirmed 05/20/25] Allopurinol 300 mg [Zyloprim 300 mg] 300 mg PO DAILY 03/25/24 [History Confirmed 05/20/25] Hydrocodone/Acetaminophen [Hydrocodone-Acetamin 7.5-325] 1 each PO Q6HPRN PRN 03/25/24 [History Confirmed 05/20/25] Insulin Glargine [Lantus Insulin] 22 unit SQ DAILY 03/25/24 [History Confirmed 05/20/25] Metoprolol Succinate 100 mg [Toprol Xl 100 MG] 100 mg PO DAILY 30 Days #30 tablet 03/28/24 [Rx Confirmed 05/20/25] Semaglutide [Ozempic] 0.5 mg SQ WEEKLY 12/28/24 [History Confirmed 05/20/25] Orphenadrine Citrate 100 mg [Norflex 100 MG Tablet] 100 mg PO BID #10 tab 03/31/25 [Rx Confirmed 05/20/25] Allergies/Adverse Reactions: Allergies Allergy/AdvReac Type Severity Reaction Status Date / Time enalapril Allergy Severe Cough Verified 05/21/25 20:00 tetracycline [Tetracycline] Allergy Mild Rash Verified 05/20/25 19:10 simvastatin AdvReac Severe Muscle Verified 05/21/25 20:00 Aches lisinopril AdvReac Mild Skin Verified 05/21/25 20:00 Irritation Exam - Vitals Vital Signs: Vital Signs - 24 hr Temp Pulse Resp BP BP Pulse Ox 05/21/25 22:00 89 20 146/85 95 05/21/25 21:10 140 H 05/21/25 21:00 89 11 L 110/81 100 05/21/25 20:31 86 19 145/91 99 05/21/25 20:20 94 H 0 L 05/21/25 20:10 94 H 2 L 05/21/25 20:00 95 H 0 L 05/21/25 19:50 94 H 68 H 05/21/25 19:40 94 H 2 L 05/21/25 19:30 93 H 12 05/21/25 19:21 97.3 F 94 H 19 156/75 97 05/21/25 19:20 92 H 11 L 05/21/25 19:10 92 H 2 L 05/21/25 19:00 93 H 9 L 05/21/25 18:50 93 H 15 05/21/25 18:40 94 H 2 L 05/21/25 18:30 93 H 2 L 05/21/25 18:23 93 H 16 98 05/21/25 18:20 95 H 5 L 05/21/25 18:10 94 H 2 L 05/21/25 18:00 93 H 2 L 05/21/25 17:50 85 9 L 05/21/25 17:40 92 H 2 L 05/21/25 17:30 94 H 12 05/21/25 17:20 93 H 15 05/21/25 17:10 95 H 25 H 05/21/25 17:00 91 H 12 05/21/25 16:50 93 H 14 05/21/25 16:40 93 H 4 L 05/21/25 16:30 93 H 2 L 05/21/25 16:20 91 H 4 L 05/21/25 16:10 89 2 L 05/21/25 16:00 97.6 F 87 21 136/67 93 L 05/21/25 15:50 83 05/21/25 15:40 92 H 0 L 05/21/25 15:30 86 36 H 05/21/25 15:20 86 11 L 05/21/25 15:10 85 10 L 05/21/25 15:00 84 5 L 05/21/25 14:50 90 2 L 05/21/25 14:40 90 11 L 05/21/25 14:30 90 5 L 05/21/25 14:20 91 H 3 L 05/21/25 14:10 87 3 L 05/21/25 14:00 83 0 L 05/21/25 13:54 83 19 05/21/25 13:10 89 0 L 05/21/25 13:00 91 H 10 L 05/21/25 12:50 91 H 9 L 05/21/25 12:40 82 13 05/21/25 12:30 89 17 05/21/25 12:20 88 1 L 05/21/25 12:10 93 H 13 05/21/25 12:00 97.4 F 96 H 18 139/83 93 L 05/21/25 08:00 97.7 F 98 H 18 123/79 94 L 05/21/25 07:31 90 18 95 05/21/25 04:00 97.1 F 96 H 18 127/69 94 L 05/21/25 00:04 93 H 16 94 L 05/20/25 22:47 97.0 F 98 H 18 165/77 97 General:: alert and oriented x 4, mild distress Cardiovascular Exam: regular rate/rhythm Respiratory Exam: normal breath sounds, lungs clear SpO2: 95 Oxygen Delivery: Room Air Extremity Exam: warm, well perfused, No edema Neurologic: gis scientist II-XII grossly intact Results Vital Signs: Vital Signs - 24 hr Temp Pulse Resp BP BP Pulse Ox 05/21/25 22:00 89 20 146/85 95 05/21/25 21:10 140 H 05/21/25 21:00 89 11 L 110/81 100 05/21/25 20:31 86 19 145/91 99 05/21/25 20:20 94 H 0 L 05/21/25 20:10 94 H 2 L 05/21/25 20:00 95 H 0 L 05/21/25 19:50 94 H 68 H 05/21/25 19:40 94 H 2 L 05/21/25 19:30 93 H 12 05/21/25 19:21 97.3 F 94 H 19 156/75 97 05/21/25 19:20 92 H 11 L 05/21/25 19:10 92 H 2 L 05/21/25 19:00 93 H 9 L 05/21/25 18:50 93 H 15 05/21/25 18:40 94 H 2 L 05/21/25 18:30 93 H 2 L 05/21/25 18:23 93 H 16 98 05/21/25 18:20 95 H 5 L 05/21/25 18:10 94 H 2 L 05/21/25 18:00 93 H 2 L 05/21/25 17:50 85 9 L 05/21/25 17:40 92 H 2 L 05/21/25 17:30 94 H 12 05/21/25 17:20 93 H 15 05/21/25 17:10 95 H 25 H 05/21/25 17:00 91 H 12 05/21/25 16:50 93 H 14 05/21/25 16:40 93 H 4 L 05/21/25 16:30 93 H 2 L 05/21/25 16:20 91 H 4 L 05/21/25 16:10 89 2 L 05/21/25 16:00 97.6 F 87 21 136/67 93 L 05/21/25 15:50 83 05/21/25 15:40 92 H 0 L 05/21/25 15:30 86 36 H 05/21/25 15:20 86 11 L 05/21/25 15:10 85 10 L 05/21/25 15:00 84 5 L 05/21/25 14:50 90 2 L 05/21/25 14:40 90 11 L 05/21/25 14:30 90 5 L 05/21/25 14:20 91 H 3 L 05/21/25 14:10 87 3 L 05/21/25 14:00 83 0 L 05/21/25 13:54 83 19 05/21/25 13:10 89 0 L 05/21/25 13:00 91 H 10 L 05/21/25 12:50 91 H 9 L 05/21/25 12:40 82 13 05/21/25 12:30 89 17 05/21/25 12:20 88 1 L 05/21/25 12:10 93 H 13 05/21/25 12:00 97.4 F 96 H 18 139/83 93 L 05/21/25 08:00 97.7 F 98 H 18 123/79 94 L 05/21/25 07:31 90 18 95 05/21/25 04:00 97.1 F 96 H 18 127/69 94 L 05/21/25 00:04 93 H 16 94 L 05/20/25 22:47 97.0 F 98 H 18 165/77 97 Pain Assessment - Last Documented Pain Intensity 0 Intake and Output: Intake & Output 05/19/25 05/20/25 05/21/25 05/22/25 11:59 11:59 11:59 11:59 Intake Total 806 660 Output Total 1300 625 Balance -494 35 Weight 85.3 kg LAB: I have reviewed the Labs in [place]. Radiology Exams: Radiology Procedures Category Date Time Status CHEST 1 VIEW (PORTABLE) Stat Exams 05/20/25 19:13 Completed Assessment & Plan (1) NSVT (nonsustained ventricular tachycardia) Current Visit: Yes Status: Acute Assessment & Plan: After discussing with the pt and family a shared decision was made to start the pt on Amiodarone. Discussed the risks and benefits as well as fdc side effects. Start with iv bolus 150 mg, followed by amiodarone gtt 1 mg/mt for 24 hrs and then 200 mg po daily starting friday. Agree with obtaining echo Code(s): I47.29 - OTHER VENTRICULAR TACHYCARDIA - Encounter Encounter: "The entirety of this encounter was performed via Telemedicine using audio and visual "
[2025-05-22 05:48] LABS: BASOPHIL % 0.9 % (0.2-1.2); Basophil (Absolute #) 0.07 x10^3/uL (0.01-0.08); Eosinophil (Absolute #) 0.30 x10^3/uL (0.04-0.54); Hematocrit 45.0 % (40.1-51.0); Hemoglobin 15.1 g/dL (13.7-17.5); IMMATURE GRAN # 0.01 x10^3u/L (0.001-0.031); IMMATURE GRAN % 0.1 % (0.001-0.429); Lymphocyte (Absolute #) 2.71 x10^3/uL (1.32-3.57); Mean Corpuscular Hemoglobin 31.3 pg (25.7-32.2); Mean Corpuscular Hgb Concent. 33.6 g/dL (32.3-36.5); Monocyte (Absolute #) 0.57 x10^3/uL (0.30-0.82); NUCLEATED RBC # 0.00 x10^3u/L (0.00-0.012); NUCLEATED RBC % 0.0 % (0.00-0.2); Platelet Count 191 x10^3/uL (163-337); Red Blood Count 4.82 x10^6/uL (4.63-6.08); White Blood Count 7.4 x10^3/uL (4.23-9.07)
[2025-05-22 06:15] LABS: Calcium 8.9 mg/dL (8.4-10.2); Carbon Dioxide 22.0 mmol/L (22-30); Creatinine 1 3.56 mg/dL (0.66-1.25); EST GLOMERULAR FILTRATION RATE 16.8 ML/MIN; Glucose 166.0 mg/dL (74-106); Potassium 4.6 mmol/L (3.5-5.1)
[2025-05-22] MEDS ORDERED: ENOXAPARIN SODIUM SQ SCH (10:00)
[2025-05-22] MEDS ORDERED: PATIENT OWN MEDICATION OP SCH (10:00)
[2025-05-22] MEDS: PATIENT OWN MEDICATION OP SCH (10:10)
--- NOTE | 2025-05-22 11:00 | PCM.DS ---
Discharge Summary Date of Admission: 05/20/25 22:24 Date of Discharge: 05/22/25 Admitting Physician: ADENIKE RUBIN MD Consults: Consults on Case 05/21/25 18:36 Consult Cardiology STAT 05/22/25 07:45 Consult Nephrology ROUTINE Primary Care Provider: [facility] Allergies Allergies enalapril Allergy (Severe, Verified 05/21/25 20:00) Cough tetracycline [Tetracycline] Allergy (Mild, Verified 05/20/25 19:10) Rash simvastatin Adverse Reaction (Severe, Verified 05/21/25 20:00) Muscle Aches lisinopril Adverse Reaction (Mild, Verified 05/21/25 22:28) Skin Irritation face goes red, feeling faint, diarrhea codeine Adverse Reaction (Unknown, Verified 05/21/25 22:28) Nausea and Vomiting Hospital Summary - Hospital Course Hospital Course: Mr. Young is a 79-year-old male with extensive structural heart disease, stage IV CKD, type II diabetes, prior CABG 2 with MAZE and REBECCA clip, and a dual- chamber ICD was admitted with months of worsening exertional dyspnea, orthopnea, progressive fatigue, and several weeks of nonproductive cough accompanied by chills. His cough was associated with reproducible sternal chest wall tenderness without anginal features. He remains a limited historian, so prior cardiology records, ICD interrogations, and old imaging were reviewed in detail. On admission his BNP was markedly elevated, and renal function was significantly impaired with creatinine 3.56 compared to his baseline of 2.8, concerning for CRISTI on CKD or early cardiorenal syndrome. Chest X-ray from 05/22/25 showed well- inflated, clear lungs without acute infiltrate, no cardiomegaly, and chronic post-surgical features including prior CABG, mitral clip, and a left-sided pacemaker/ICD. The bony thorax demonstrated osteopenia, mild degenerative changes, and an old healed right fifth rib fracture. Impression: stable, nonacute chest with chronic postoperative features. These findings supported a noninfectious etiology for his respiratory symptoms. Telemetry and ICD interrogation revealed a high burden of ventricular arrhythmias. He experienced a four-minute run of NSVT on 05/21, followed by additional sustained VT episodes terminated with ATP. His device recorded multiple recent arrhythmias, consistent with worsening electrophysiologic instability. He received IV amiodarone boluses and an infusion; metoprolol was trialed but held due to worsening symptoms and cardiology recommendations. Given the combination of rising creatinine, possible cardiorenal physiology, suspected early decompensated heart failure, evolving cardiomyopathy, and recurrent VT requiring specialized electrophysiology intervention, transfer to a higher level of care was determined to be necessary. I spent 45 minutes [id number] with the patient on the day of discharge performing discharge exam, discussing hospital stay and discharge instructions with patient and caregivers, preparation of discharge records, prescriptions & referral forms and addressing any questions/concerns the patient had as documented above. - Vitals & Intake/Output Vital Signs: Vital Signs Temperature 97.9 F 05/22/25 07:01 Pulse Rate 72 05/22/25 10:00 Respiratory Rate 10 L 05/22/25 10:00 Blood Pressure 167/82 05/22/25 10:00 O2 Sat by Pulse Oximetry 98 05/22/25 10:00 Intake & Output: Intake & Output 05/19/25 05/20/25 05/21/25 05/22/25 11:59 11:59 11:59 11:59 Intake Total 806 1327 Output Total 1300 1750 Balance -494 -423 Weight 85.3 kg 85.1 kg - Lab Result Diagrams: 05/22/25 05:10 05/22/25 05:10 Lab Results-Last 24 Hrs: Lab Results-Last 24 Hours 05/21/25 05/21/25 05/21/25 Range/Units 11:00 11:08 12:09 WBC (4.23-9.07) x10^3/uL RBC (4.63-6.08) x10^6/uL Hgb (13.7-17.5) g/dL Hct (40.1-51.0) % MCV (79.0-92.2) fL MCH (25.7-32.2) pg MCHC (32.3-36.5) g/dL RDW (11.6-14.4) % Plt Count (163-337) x10^3/uL MPV (9.4-12.4) fL Gran % (34.0-67.9) % Immature Gran % (Auto) (0.001-0.429) % Nucleat RBC Rel Count (0.00-0.2) % Eos # (Auto) (0.04-0.54) x10^3/uL Immature Gran # (Auto) (0.001-0.031) x10^3u/L Absolute Lymphs (auto) (1.32-3.57) x10^3/uL Absolute Monos (auto) (0.30-0.82) x10^3/uL Absolute Nucleated RBC (0.00-0.012) x10^3u/L Lymphocytes % (21.8-53.1) % Monocytes % (5.3-12.2) % Eosinophils % (0.8-7.0) % Basophils % (0.2-1.2) % Absolute Granulocytes (1.78-5.38) x10^3/uL Basophils # (0.01-0.08) x10^3/uL Sodium 135 (135-145) mmol/L Potassium 4.8 (3.5-5.1) mmol/L Chloride 103 (98-107) mmol/L Carbon Dioxide 23 (22-30) mmol/L Anion Gap 14.5 (5-15) MEQ/L BUN 50 H (9-20) mg/dL Creatinine 3.16 H (0.66-1.25) mg/dL Estimated GFR 19.4 ML/MIN Glucose 137 H (74-106) mg/dL POC Glucometer 181 H (74 to 106) mg/dL Calcium 9.4 (8.4-10.2) mg/dL Total Bilirubin 1.10 (0.2-1.3) mg/dL AST 22 (17-59) U/L ALT 10 (0-50) U/L Alkaline Phosphatase 94 (38-126) U/L Serum Total Protein 7.3 (6.3-8.2) g/dL Albumin 4.3 (3.5-5.0) g/dL Urine Color Yellow (Yellow) Urine Appearance Clear (Clear) Urine pH 7.0 (4.6-8.0) Ur Specific [place] 1.010 (1.005-1.030) Urine Protein 100 A (Negative) Urine Glucose (UA) 500 A (Negative) mg/dL Urine Ketones Negative (Negative) Urine Blood Negative (Negative) Urine Nitrite Negative (Negative) Urine Bilirubin Negative (Negative) Urine Urobilinogen 0.2 (0.2) mg/dL Ur Leukocyte Esterase Negative (Negative) U Hyaline Cast (Auto) NONE SEEN (0-2) /LPF Urine Microscopic RBC 0-2 (0-5) /HPF Urine Microscopic WBC 0-2 (0-5) /HPF Ur Epithelial Cells None Seen (None Seen) /HPF Urine Bacteria None Seen (None Seen) /HPF Urine Culture Reflexed NO (NO) 05/21/25 05/21/25 05/22/25 Range/Units 16:41 21:32 05:10 WBC 7.4 (4.23-9.07) x10^3/uL RBC 4.82 (4.63-6.08) x10^6/uL Hgb 15.1 (13.7-17.5) g/dL Hct 45.0 (40.1-51.0) % MCV 93.4 H (79.0-92.2) fL MCH 31.3 (25.7-32.2) pg MCHC 33.6 (32.3-36.5) g/dL RDW 13.9 (11.6-14.4) % Plt Count 191 (163-337) x10^3/uL MPV 11.1 (9.4-12.4) fL Gran % 50.5 (34.0-67.9) % Immature Gran % (Auto) 0.1 (0.001-0.429) % Nucleat RBC Rel Count 0.0 (0.00-0.2) % Eos # (Auto) 0.30 (0.04-0.54) x10^3/uL Immature Gran # (Auto) 0.01 (0.001-0.031) x10^3u/L Absolute Lymphs (auto) 2.71 (1.32-3.57) x10^3/uL Absolute Monos (auto) 0.57 (0.30-0.82) x10^3/uL Absolute Nucleated RBC 0.00 (0.00-0.012) x10^3u/L Lymphocytes % 36.7 (21.8-53.1) % Monocytes % 7.7 (5.3-12.2) % Eosinophils % 4.1 (0.8-7.0) % Basophils % 0.9 (0.2-1.2) % Absolute Granulocytes 3.73 (1.78-5.38) x10^3/uL Basophils # 0.07 (0.01-0.08) x10^3/uL Sodium (135-145) mmol/L Potassium (3.5-5.1) mmol/L Chloride (98-107) mmol/L Carbon Dioxide (22-30) mmol/L Anion Gap (5-15) MEQ/L BUN (9-20) mg/dL Creatinine (0.66-1.25) mg/dL Estimated GFR ML/MIN Glucose (74-106) mg/dL POC Glucometer 260 H 131 H (74 to 106) mg/dL Calcium (8.4-10.2) mg/dL Total Bilirubin (0.2-1.3) mg/dL AST (17-59) U/L ALT (0-50) U/L Alkaline Phosphatase (38-126) U/L Serum Total Protein (6.3-8.2) g/dL Albumin (3.5-5.0) g/dL Urine Color (Yellow) Urine Appearance (Clear) Urine pH (4.6-8.0) Ur Specific [place] (1.005-1.030) Urine Protein (Negative) Urine Glucose (UA) (Negative) mg/dL Urine Ketones (Negative) Urine Blood (Negative) Urine Nitrite (Negative) Urine Bilirubin (Negative) Urine Urobilinogen (0.2) mg/dL Ur Leukocyte Esterase (Negative) U Hyaline Cast (Auto) (0-2) /LPF Urine Microscopic RBC (0-5) /HPF Urine Microscopic WBC (0-5) /HPF Ur Epithelial Cells (None Seen) /HPF Urine Bacteria (None Seen) /HPF Urine Culture Reflexed (NO) 05/22/25 05/22/25 Range/Units 05:10 06:59 WBC (4.23-9.07) x10^3/uL RBC (4.63-6.08) x10^6/uL Hgb (13.7-17.5) g/dL Hct (40.1-51.0) % MCV (79.0-92.2) fL MCH (25.7-32.2) pg MCHC (32.3-36.5) g/dL RDW (11.6-14.4) % Plt Count (163-337) x10^3/uL MPV (9.4-12.4) fL Gran % (34.0-67.9) % Immature Gran % (Auto) (0.001-0.429) % Nucleat RBC Rel Count (0.00-0.2) % Eos # (Auto) (0.04-0.54) x10^3/uL Immature Gran # (Auto) (0.001-0.031) x10^3u/L Absolute Lymphs (auto) (1.32-3.57) x10^3/uL Absolute Monos (auto) (0.30-0.82) x10^3/uL Absolute Nucleated RBC (0.00-0.012) x10^3u/L Lymphocytes % (21.8-53.1) % Monocytes % (5.3-12.2) % Eosinophils % (0.8-7.0) % Basophils % (0.2-1.2) % Absolute Granulocytes (1.78-5.38) x10^3/uL Basophils # (0.01-0.08) x10^3/uL Sodium 134 L (135-145) mmol/L Potassium 4.6 (3.5-5.1) mmol/L Chloride 103 (98-107) mmol/L Carbon Dioxide 22 (22-30) mmol/L Anion Gap 13.6 (5-15) MEQ/L BUN 57 H (9-20) mg/dL Creatinine 3.56 H (0.66-1.25) mg/dL Estimated GFR 16.8 ML/MIN Glucose 166 H (74-106) mg/dL POC Glucometer 163 H (74 to 106) mg/dL Calcium 8.9 (8.4-10.2) mg/dL Total Bilirubin (0.2-1.3) mg/dL AST (17-59) U/L ALT (0-50) U/L Alkaline Phosphatase (38-126) U/L Serum Total Protein (6.3-8.2) g/dL Albumin (3.5-5.0) g/dL Urine Color (Yellow) Urine Appearance (Clear) Urine pH (4.6-8.0) Ur Specific [place] (1.005-1.030) Urine Protein (Negative) Urine Glucose (UA) (Negative) mg/dL Urine Ketones (Negative) Urine Blood (Negative) Urine Nitrite (Negative) Urine Bilirubin (Negative) Urine Urobilinogen (0.2) mg/dL Ur Leukocyte Esterase (Negative) U Hyaline Cast (Auto) (0-2) /LPF Urine Microscopic RBC (0-5) /HPF Urine Microscopic WBC (0-5) /HPF Ur Epithelial Cells (None Seen) /HPF Urine Bacteria (None Seen) /HPF Urine Culture Reflexed (NO) Micro Results-Entire Visit: Microbiology 05/20/25 19:30 Blood Culture - Preliminary Blood 05/20/25 19:35 Blood Culture - Preliminary Blood Accuchecks Date 05/22/25 Date 05/21/25 Date 05/21/25 Date 05/21/25 Time 21:32 Time 17:16 Time 12:18 - Radiology Exams Ordered Rad Exams-Entire Visit: Radiology Procedures Category Date Time Status CHEST 1 VIEW (PORTABLE) Stat Exams 05/20/25 19:13 Completed - Procedures and Test Procedures and Tests throughout Hospitalization: Therapy Orders & Screens 05/20/25 22:24 EKG REPEAT IN AM Comment: 05/21/25 00:03 Respiratory Therapy Assessment DAILY Comment: Diagnosis: Shortness of breath 05/21/25 00:04 Incentive Spirometry UD Comment: Diagnosis: Shortness of breath 05/21/25 10:08 Respiratory Therapy Consult ONCE Comment: Reason For Exam: Diagnosis: Shortness of breath 05/21/25 18:32 EKG STAT Comment: Diagnosis: MULTI-RUNS OF SVT---PT HAS DEFIB Discharge Exam General Appearance: no apparent distress Neurologic Exam: alert, oriented x 3, cooperative Eye Exam: PERRL Ears, Nose, Throat Exam: normal ENT inspection Neck Exam: normal inspection Respiratory Exam: normal breath sounds, lungs clear Cardiovascular Exam: regular rate/rhythm, normal heart sounds Gastrointestinal/Abdomen Exam: soft, normal bowel sounds Male Genitalia Exam: deferred Rectal Exam: deferred Back Exam: normal inspection Extremity Exam: normal inspection Skin Exam: normal color Final Diagnosis/Problem List - Final Discharge Diagnosis/Problem (1) NSVT (nonsustained ventricular tachycardia) Current Visit: Yes Status: Acute Assessment & Plan: Four-minute NSVT & multiple sustained VT runs requiring ATP. No ICD shocks due to rate below therapy zone. Continue amiodarone (boluses complete, infusion ongoing until (to be completed 05/22/25 at 2045 then 200 mg PO daily planned). Monitor QTc, potassium, magnesium. EP evaluation on arrival for definitive arrhythmia management. Code(s): I47.29 - OTHER VENTRICULAR TACHYCARDIA (2) Dyspnea Current Visit: Yes Status: Acute Assessment & Plan: Progressive exertional dyspnea and orthopnea without clinical edema. CXR 05/22/25 normal: clear lung garcia, no effusion, no infiltrate, no pulmonary edema. Exam without JVD, rales, or peripheral edema. BNP elevated but may be confounded by CKD and structural heart disease. CRISTI on CKD may be contributing to uremic or metabolic causes of dyspnea. Continue evaluation upon transfer to differentiate cardiac arrhythmiarelated dyspnea, evolving cardiomyopathy, deconditioning, or renal etiology. Trend BMP daily, monitor creatinine response. Echocardiogram ordered to reassess EF and wall motion. No diuresis required at this time given normal CXR and absence of volume overload on exam. Code(s): R06.00 - DYSPNEA, UNSPECIFIED (3) Acute on chronic renal failure Current Visit: Yes Status: Acute Assessment & Plan: Creatinine 3.56 increased from baseline 2.8. Potential contributors: medication changes, arrhythmia burden, reduced perfusion, infection-independent dyspnea, or cardiorenal interplay without overt volume overload. trend BMP daily for renal recovery. Avoid nephrotoxic agents. Renal dosing adjustments for all medications. Outpatient nephrology follow-up after stabilization. Code(s): N17.9 - ACUTE KIDNEY FAILURE, UNSPECIFIED; N18.9 - CHRONIC KIDNEY DISEASE, UNSPECIFIED (4) DMII (diabetes mellitus, type 2) Current Visit: Yes Status: Acute Assessment & Plan: ADA diet Home insulin regimen (5) CAD (coronary artery disease) Current Visit: Yes Status: Acute Assessment & Plan: s/p PCI 3 and CABG 2 (Chronic) Continue aspirin and statin. Cardiology follow-up at receiving facility Code(s): I25.10 - ATHSCL HEART DISEASE OF [place] CORONARY ARTERY W/O ANG PCTRS (6) HTN (hypertension) Current Visit: Yes Status: Acute Assessment & Plan: Beta-[place] plan to be determined by EP team. Consider restarting lisinopril when renal function stabilizes. Code(s): I10 - ESSENTIAL (PRIMARY) HYPERTENSION (7) Elevated brain natriuretic peptide (BNP) level Current Visit: Yes Status: Acute Assessment & Plan: -BNP 2660 -Elevation is difficult to interpret fully due to multiple confounding factors. He has advanced CKD stage IV, which reduces natriuretic peptide clearance and can artifactually increase BNP values independent of clinical heart failure. At the same time, he has longstanding ischemic cardiomyopathy, possible worsening LV function, and recurrent ventricular arrhythmias, all of which can contribute to myocardial strain. -No overt signs of fluid overload, a normal 05/22/25 CXR, and no peripheral edema or rales on exam, making true decompensated HF less likely at this moment. -Echo at receiving facility- unavailable at this facility during the weekend -Monitor for HF signs: orthopnea, JVD, weight changes, edema, crackles, or rising oxygen needs. Avoid unnecessary diuresis given normal CXR and no exam findings of congestion; reassess daily based on symptoms and renal status. Optimize guideline-directed HF therapy after EP/cardiology evaluation (beta- [place] selection pending arrhythmia assessment; ILENE/ARB deferred until renal status stabilizes). Manage arrhythmias aggressively, as recurrent VT can elevate BNP through myocardial strain. Trend daily BMP to watch creatinine (3.56 from baseline 2.8), as worsening renal function can falsely elevate BNP. Coordinate cardiology follow-up for BNP interpretation in context of CKD and structural heart disease. Code(s): R79.89 - OTHER SPECIFIED ABNORMAL FINDINGS OF BLOOD CHEMISTRY - Discharge Discharge Date: 05/22/25 Disposition: Home, Self-Care Condition: Fair Prescriptions: New Amiodarone HCl 200 mg [Cordarone 200 MG] See Rx Instructions .ROUTE .COMPLEX tablet Heparin 5000 Units/0.5 ml [Heparin 5000 Units/0.5 ml (High Risk Med)] 5,000 unit SQ BID Albuterol 2.5 mg/3 ml Neb [Proventil 2.5 mg/3 ml Neb] 2.5 mg IH Q4H PRN PRN PRN Reason: Shortness Of Breath/Wheezing Miscellaneous Medication Order See Rx Instructions .ROUTE .COMPLEX #1 Continue Latanoprost/Pf [Latanoprost 0.005% Eye Drop] 1 drop OP HS Cholecalciferol (Vitamin D3) [Vitamin D3] 125 mcg PO DAILY Atorvastatin Calcium 10 mg PO HS Cyanocobalamin (Vitamin B-12) [B-12] 100 mcg PO DAILY Aspirin 81 gm Chew [Baby Aspirin 81 mg Chew] 81 mg PO DAILY Insulin Glargine [Lantus Insulin] 20 unit SQ DAILY Hydrocodone/Acetaminophen [Hydrocodone-Acetamin 7.5-325] 1 each PO Q4HPRN PRN PRN Reason: Pain Orphenadrine Citrate 100 mg [Norflex 100 MG Tablet] 100 mg PO BID #10 tab Brimonidine Tartrate/Pf [Lumify 0.025% Eye Drop] 1 drop OP BID Docusate Sodium 100 mg [Docusate Sodium 100 MG] 1 cap PO BID Empagliflozin [Jardiance] 10 mg PO DAILY Ferrous Sulfate [Iron EC] 324 mg PO BIDWM Lactobacillus Acidophilus [Acidophilus] 2 tab.chew PO DAILY Naloxone HCl 0.4 mg/ml [Narcan 0.4 MG/ML] 1 spray IN UD Nitroglycerin 0.4 mg Tablet [Nitrostat 0.4 MG Tablet] 1 tablet SL Q5MIN PRN MR X 3 PRN PRN Reason: Chest Pain Sodium Zirconium Cyclosilicate [Lokelma] 10 gm PO .MWF Discontinued Allopurinol 300 mg [Zyloprim 300 mg] 300 mg PO DAILY Metoprolol Succinate 100 mg [Toprol Xl 100 MG] 100 mg PO DAILY 30 Days #30 tablet Semaglutide [Ozempic] 0.5 mg SQ WEEKLY Follow up with: HOSPITAL,'S [Primary Care Provider, UNKNOWN]
[2025-05-22 14:25] VITALS: PULSE 70; RESP 15; TEMP 98; O2SAT 97
[2025-05-22 15:42] VITALS: BP 112/79
[2025-05-23] MEDS ORDERED: Cordarone 200 MG PO SCH (10:00)
== END 2025-05-22 15:10 | disposition home or self-care (01) ==
LOC: ED 18:59 → MED SURG 22:24 → ICU 05-21 20:36
PROVIDERS: ADMIT Internal Medicine; ATTEND Internal Medicine
DX: I47.29 Other ventricular tachycardia (principal); I12.9 Hypertensive chronic kidney disease with stage 1 through stage 4 chronic kidney disease, or unspecified chronic kidney disease; E11.22 Type 2 diabetes mellitus with diabetic chronic kidney disease; N18.4 Chronic kidney disease, stage 4 (severe); Z95.0 Presence of cardiac pacemaker; R06.00 Dyspnea, unspecified; N17.9 Acute kidney failure, unspecified; R79.89 Other specified abnormal findings of blood chemistry; Z79.899 Other long term (current) drug therapy
CPT/HCPCS: 36415; 71045; 80048; 80053; 81001; 82947; 83036; 83605; 83735; 83880; 84145; 84484; 85025; 85610; 87040; 87637; 93005; 93041; 93268; 94760; 94762; 99285; G0378